=== PATIENT | male | born 1970 | race American Indian/Alaskan Native ===

== ENCOUNTER 2019-06-18 22:05 | Inpatient (IN) | payer MEDICARE ==
--- NOTE | 2019-06-18 22:31 | Event Note ---
ED Screening Note Date of service: 06/18/19 Time: 22:25 ED Screening Note: 48 y/o male comes in for chest pain since Thursday thinks his central vein is occluded. ESRD MWF. SOB This initial assessment/diagnostic orders/clinical plan/treatment(s) is/are subject to change based on patients health status, clinical progression and re- assessment by fellow clinical providers in the ED. Further treatment and workup at subsequent clinical providers discretion. Patient/guardian urged not to elope from the ED as their condition may be serious if not clinically assessed and managed. Initial orders include:
--- NOTE | 2019-06-18 22:57 | XRay Report ---
CHEST 1 VIEW 06/18/2019 10:39 PM INDICATION / CLINICAL INFORMATION: Chest Pain since last Thursday. COMPARISON: None available. FINDINGS: SUPPORT DEVICES: None. HEART / MEDIASTINUM: No significant abnormality. LUNGS / PLEURA: There is mild bibasilar atelectasis/scarring. No acute pulmonary abnormality is other coreas seen. No significant pleural effusion. No pneumothorax. ADDITIONAL FINDINGS: Bilateral subclavian vein stents are present. Stents are also seen along the rig ht brachiocephalic vein/SVC. IMPRESSION: 1. No acute findings. 2. Additional findings as above. Signer Name: Jamarcus Jansen MD Signed: 06/18/2019 10:53 PM Workstation Name: [id number]
[2019-06-18 23:46] LABS: Basophils % (Auto) 0.8 % (0.0-1.8); Eosinophils # (Auto) 0.3 K/mm3 (0.0-0.4); Eosinophils % (Auto) 7.2 % (0.0-4.3); Hematocrit 29.2 % (35.5-45.6); Hemoglobin 9.7 gm/dl (11.8-15.2); Lymphocytes # (Auto) 0.4 K/mm3 (1.2-5.4); Lymphocytes % (Auto) 10.5 % (13.4-35.0); Mean Corpuscular HGB Conc 33 % (32-34); Mean Corpuscular Volume 95 fl (84-94); Monocytes # (Auto) 0.2 K/mm3 (0.0-0.8); Monocytes % (Auto) 6.5 % (0.0-7.3); Red Blood Count 3.07 M/mm3 (3.65-5.03); Red Cell Distribution Width 16.9 % (13.2-15.2)
[2019-06-19] LABS: Platelet Count 80 K/mm3 (140-440)
--- NOTE | 2019-06-19 | Emergency Department Report ---
ED General Adult HPI - General Chief complaint: Chest Pain Stated complaint: CP/SOB/LEFT ARM SWOLLEN Time Seen by Provider: 06/18/19 22:38 Source: patient Mode of arrival: Ambulatory Limitations: Physical Limitation - History of Present Illness Initial comments: Patient presents to the emergency department with chief complaint of chest pain for the last 5 days. Patient states last Thursday began to have left-sided chest pain radiating to his left arm. She describes the pain as pressure-like and intermittent in nature. Patient also complains of mild shortness of breath. Patient is on dialysis and goes Wednesdays and Fridays with his last for now since being on Thursday. Patient has a history of having a subclavian stenosis with stents placed in 2017 at [facility] in [place]. -: Gradual Location: chest Radiation: extremity Severity scale (0 -10): 9 Quality: other (pressure-like) Consistency: intermittent Improves with: none Worsens with: none Associated Symptoms: denies other symptoms Treatments Prior to Arrival: none - Related Data Previous Rx's Medication Instructions Recorded Last Taken Type B Complex W-C No.20/Folic Acid 1 mg PO QAM #30 capsule 06/23/19 Unknown Rx [Nephrocaps Softgel] Calcitriol [Rocaltrol] 0.5 mcg PO QDAY #30 capsule 06/23/19 Unknown Rx Calcium Acetate [Phoslo] 667 mg PO TID #90 capsule 06/23/19 Unknown Rx Epoetin Ellis 10,000 Unit [Procrit] 10,000 unit IV RIP PRN vial 06/23/19 Unknown Rx Pantoprazole Sodium [Protonix] 40 mg PO QAM #30 06/23/19 Unknown Rx Warfarin [Coumadin] 15 mg PO QDAY #30 tablet 06/23/19 Unknown Rx oxyCODONE /ACETAMINOPHEN [Percocet 1 tab PO Q6H PRN #10 tablet 06/23/19 Unknown Rx 5/325 mg] Enoxaparin [Lovenox] 120 mg SQ DAILY #7 syringe 06/24/19 Unknown Rx Allergies Allergy/AdvReac Type Severity Reaction Status Date / Time No Known Allergies Allergy Verified 06/19/19 06:20 ED Review of Systems ROS: Stated complaint: CP/SOB/LEFT ARM SWOLLEN Other details as noted in HPI Comment: All other systems reviewed and negative Constitutional: denies: chills, fever Eyes: denies: eye pain, eye discharge, vision change ENT: denies: ear pain, throat pain Respiratory: denies: cough, shortness of breath, wheezing Cardiovascular: chest pain. denies: palpitations Endocrine: no symptoms reported Gastrointestinal: denies: abdominal pain, nausea, diarrhea Genitourinary: denies: urgency, dysuria Musculoskeletal: denies: back pain, joint swelling, arthralgia Skin: denies: rash, lesions Neurological: denies: headache, weakness, paresthesias Psychiatric: denies: anxiety, depression Hematological/Lymphatic: denies: easy bleeding, easy bruising ED Past Medical Hx - Past Medical History Previous Medical History?: Yes Hx Hypertension: Yes Hx CVA: No Hx Heart Attack/AMI: No Hx Congestive Heart Failure: No Hx Diabetes: No Hx Deep Vein Thrombosis: Yes Hx Pulmonary Embolism: Yes Hx GERD: No Hx Renal Disease: Yes (HD MWF) Hx Sickle Cell Disease: No Hx Seizures: Yes Hx Kidney Stones: No Hx COPD: No Hx Tuberculosis: No Hx Dementia: No Hx HIV: No Additional medical history: TRICUSPID REGURGITATION - Surgical History Past Surgical History?: Yes Hx Breast Surgery: Yes Additional Surgical History: SUBCLAVIAN CENTRAL VEIN STENT - Social History Smoking Status: Never Smoker Substance Use Type: None - Medications Home Medications: Home Medications Medication Instructions Recorded Confirmed Last Taken Type B Complex W-C No.20/Folic Acid 1 mg PO QAM #30 capsule 06/23/19 Unknown Rx [Nephrocaps Softgel] Calcitriol [Rocaltrol] 0.5 mcg PO QDAY #30 capsule 06/23/19 Unknown Rx Calcium Acetate [Phoslo] 667 mg PO TID #90 capsule 06/23/19 Unknown Rx Epoetin Ellis 10,000 Unit [Procrit] 10,000 unit IV RIP PRN vial 06/23/19 Unknown Rx Pantoprazole Sodium [Protonix] 40 mg PO QAM #30 06/23/19 Unknown Rx Warfarin [Coumadin] 15 mg PO QDAY #30 tablet 06/23/19 Unknown Rx oxyCODONE /ACETAMINOPHEN [Percocet 1 tab PO Q6H PRN #10 tablet 06/23/19 Unknown Rx 5/325 mg] Enoxaparin [Lovenox] 120 mg SQ DAILY #7 syringe 07/26/19 Unknown Rx ED Physical Exam - General Limitations: Physical Limitation General appearance: alert, in no apparent distress - Head Head exam: Present: atraumatic, normocephalic - Eye Eye exam: Present: normal appearance, PERRL - ENT ENT exam: Present: mucous membranes moist - Neck Neck exam: Present: normal inspection - Respiratory Respiratory exam: Present: normal lung sounds bilaterally. Absent: respiratory distress - Cardiovascular Cardiovascular Exam: Present: regular rate, normal rhythm. Absent: systolic murmur, diastolic murmur, rubs, gallop - GI/Abdominal GI/Abdominal exam: Present: soft, normal bowel sounds. Absent: distended, tenderness - Rectal Rectal exam: Present: deferred - Extremities Exam Extremities exam: Present: normal inspection - Back Exam Back exam: Present: normal inspection - Neurological Exam Neurological exam: Present: alert, oriented X3, CN II-XII intact. Absent: motor sensory deficit - Psychiatric Psychiatric exam: Present: normal affect, normal mood - Skin Skin exam: Present: warm, dry, intact, normal color. Absent: rash ED Course Vital Signs 06/18/19 06/18/19 06/18/19 22:20 22:25 23:15 Temperature 98.2 F 98.2 F Pulse Rate 101 H 97 H 90 Respiratory 18 18 12 Rate Blood Pressure 145/68 145/68 O2 Sat by Pulse 100 100 100 Oximetry 06/18/19 06/18/19 06/19/19 23:31 23:45 00:01 Temperature Pulse Rate 88 86 87 Respiratory 14 14 15 Rate Blood Pressure O2 Sat by Pulse 100 100 98 Oximetry 06/19/19 06/19/19 06/19/19 00:15 00:31 00:45 Temperature Pulse Rate 85 82 84 Respiratory 13 14 15 Rate Blood Pressure O2 Sat by Pulse 98 98 100 Oximetry 06/19/19 06/19/19 06/19/19 01:01 01:15 01:31 Temperature Pulse Rate 88 77 84 Respiratory 14 13 16 Rate Blood Pressure O2 Sat by Pulse 100 100 100 Oximetry 06/19/19 06/19/19 06/19/19 01:45 02:01 02:15 Temperature Pulse Rate 82 80 80 Respiratory 11 L 17 12 Rate Blood Pressure 136/74 O2 Sat by Pulse 100 100 100 Oximetry 06/19/19 06/19/19 06/19/19 02:31 03:01 03:31 Temperature Pulse Rate 80 80 78 Respiratory 13 13 12 Rate Blood Pressure 136/74 136/74 136/74 O2 Sat by Pulse 100 100 100 Oximetry 06/19/19 06/19/19 06/19/19 04:01 04:31 05:01 Temperature Pulse Rate 80 77 94 H Respiratory 13 12 9 L Rate Blood Pressure 136/74 128/79 128/79 O2 Sat by Pulse 100 100 100 Oximetry 06/19/19 06/19/19 06/19/19 05:31 06:01 06:31 Temperature Pulse Rate 80 74 78 Respiratory 15 11 L 13 Rate Blood Pressure 128/79 128/79 128/79 O2 Sat by Pulse 100 100 98 Oximetry 06/19/19 06/19/19 06/19/19 07:01 07:31 08:01 Temperature Pulse Rate 78 75 71 Respiratory 13 12 10 L Rate Blood Pressure 128/79 128/79 146/50 O2 Sat by Pulse 100 100 99 Oximetry 06/19/19 06/19/19 06/19/19 08:31 09:01 09:31 Temperature Pulse Rate 73 78 79 Respiratory 17 15 18 Rate Blood Pressure 134/52 142/59 142/60 O2 Sat by Pulse 100 100 88 Oximetry 06/19/19 06/19/19 09:41 09:51 Temperature Pulse Rate 76 Respiratory 11 L Rate Blood Pressure 142/60 142/60 O2 Sat by Pulse 100 79 L Oximetry ED Medical Decision Making - Lab Data Result diagrams: 06/26/19 04:59 06/26/19 04:59 Lab Results 06/18/19 06/18/19 06/18/19 Range/Units 22:57 22:57 22:57 WBC 3.6 L (4.5-11.0) K/mm3 RBC 3.07 L (3.65-5.03) M/mm3 Hgb 9.7 L (11.8-15.2) gm/dl Hct 29.2 L (35.5-45.6) % MCV 95 H (84-94) fl MCH 32 (28-32) pg MCHC 33 (32-34) % RDW 16.9 H (13.2-15.2) % Plt Count 80 L (140-440) K/mm3 Lymph % (Auto) 10.5 L (13.4-35.0) % Boyle % (Auto) 6.5 (0.0-7.3) % Eos % (Auto) 7.2 H (0.0-4.3) % Baso % (Auto) 0.8 (0.0-1.8) % Lymph # 0.4 L (1.2-5.4) K/mm3 Boyle # 0.2 (0.0-0.8) K/mm3 Eos # 0.3 (0.0-0.4) K/mm3 Baso # 0.0 (0.0-0.1) K/mm3 Seg Neutrophils % 75.0 H (40.0-70.0) % Seg Neutrophils # 2.7 (1.8-7.7) K/mm3 PT 26.6 H (12.2-14.9) Sec. INR 2.51 H (0.87-1.13) APTT 51.5 H (24.2-36.6) Sec. Sodium 136 L (137-145) mmol/L Potassium 5.2 H (3.6-5.0) mmol/L Chloride 94.4 L (98-107) mmol/L Carbon Dioxide 26 (22-30) mmol/L Anion Gap 21 mmol/L BUN 42 H (9-20) mg/dL Creatinine 11.5 H (0.8-1.5) mg/dL Estimated GFR 6 ml/min BUN/Creatinine Ratio 4 % Glucose 108 H (75-100) mg/dL Calcium 7.8 L (8.4-10.2) mg/dL Total Bilirubin 1.10 (0.1-1.2) mg/dL AST 12 (5-40) units/L ALT 8 (7-56) units/L Alkaline Phosphatase 244 H (35-129) units/L Total Creatine Kinase (55-170) units/L CK-MB (CK-2) (0.0-4.0) ng/mL CK-MB (CK-2) Rel Index (0-4) Troponin T 0.075 H (0.00-0.029) ng/mL NT-Pro-B Natriuret Pep (0-450) pg/mL Total Protein 7.6 (6.3-8.2) g/dL Albumin 4.1 (3.9-5) g/dL Albumin/Globulin Ratio 1.2 % Triglycerides 67 (2-149) mg/dL Cholesterol 119 (50-199) mg/dL LDL Cholesterol Direct 72 (50-130) mg/dL HDL Cholesterol 44 (40-59) mg/dL Cholesterol/HDL Ratio 2.70 % 06/19/19 06/19/19 Range/Units 00:00 07:30 WBC (4.5-11.0) K/mm3 RBC (3.65-5.03) M/mm3 Hgb (11.8-15.2) gm/dl Hct (35.5-45.6) % MCV (84-94) fl MCH (28-32) pg MCHC (32-34) % RDW (13.2-15.2) % Plt Count (140-440) K/mm3 Lymph % (Auto) (13.4-35.0) % Boyle % (Auto) (0.0-7.3) % Eos % (Auto) (0.0-4.3) % Baso % (Auto) (0.0-1.8) % Lymph # (1.2-5.4) K/mm3 Boyle # (0.0-0.8) K/mm3 Eos # (0.0-0.4) K/mm3 Baso # (0.0-0.1) K/mm3 Seg Neutrophils % (40.0-70.0) % Seg Neutrophils # (1.8-7.7) K/mm3 PT (12.2-14.9) Sec. INR (0.87-1.13) APTT (24.2-36.6) Sec. Sodium (137-145) mmol/L Potassium (3.6-5.0) mmol/L Chloride (98-107) mmol/L Carbon Dioxide (22-30) mmol/L Anion Gap mmol/L BUN (9-20) mg/dL Creatinine (0.8-1.5) mg/dL Estimated GFR ml/min BUN/Creatinine Ratio % Glucose (75-100) mg/dL Calcium (8.4-10.2) mg/dL Total Bilirubin (0.1-1.2) mg/dL AST (5-40) units/L ALT (7-56) units/L Alkaline Phosphatase (35-129) units/L Total Creatine Kinase 161 (55-170) units/L CK-MB (CK-2) 1.8 (0.0-4.0) ng/mL CK-MB (CK-2) Rel Index 1.1 (0-4) Troponin T 0.068 H (0.00-0.029) ng/mL NT-Pro-B Natriuret Pep 6269 H (0-450) pg/mL Total Protein (6.3-8.2) g/dL Albumin (3.9-5) g/dL Albumin/Globulin Ratio % Triglycerides (2-149) mg/dL Cholesterol (50-199) mg/dL LDL Cholesterol Direct (50-130) mg/dL HDL Cholesterol (40-59) mg/dL Cholesterol/HDL Ratio % - Radiology Data Radiology results: report reviewed Critical care attestation.: If time is entered above; I have spent that time in minutes in the direct care of this critically ill patient, excluding procedure time. ED Disposition Clinical Impression: Chest pain Disposition: OP ADMIT IP TO THIS HOSP Is pt being admited?: Yes Does the pt Need Aspirin: No Condition: Fair
[2019-06-19 00:02] LABS: INR 2.51 (0.87-1.13)
[2019-06-19 00:06] LABS: Albumin 4.1 g/dL (3.9-5); Calcium 7.8 mg/dL (8.4-10.2)
[2019-06-19 00:12] LABS: Partial Thromboplastin Time 51.5 Sec. (24.2-36.6)
[2019-06-19] MEDS ORDERED: NORCO 10/325 PO ONE (01:25)
[2019-06-19] MEDS ORDERED: ZOFRAN ODT PO ONE (01:25)
[2019-06-19 01:41] LABS: Chol/HDL Ratio 2.7 %
[2019-06-19] MEDS ORDERED: SODIUM CHLORIDE FLUSH SYRINGE 10 ML IV PRN (06:06)
--- NOTE | 2019-06-19 06:12 | History and Physical Report ---
History of Present Illness Date of examination: 06/19/19 History of present illness: 48 year old man with history of ESRD on dialysis, PE/DVT, subclavian stenosis comes to the ER with complaints of chest pain. Pain is in the left epigastric area, pressure ,constant, intensity 5/10, radiating to the left arm, cannot id entify exacerbating or relieving factors. Denies nausea, vomiting, diaphoresis or shortness of breath. His symptoms started last week Thursday after he had angioplasty on the right subsclavian stent. Also states that his left arm started to swell. he had angiopklasty done at [facility], and he had stenosis of both subclavian 2 weeks ago. Further states usually both subsclavian are fixed at the same time, if not he develops arm swellimg and chest pain. He called the doctor and he was told that the left subclavian did not need any intervention at this time Review of systems Constitutional: no weight loss, chills, fever Ears, eyes, nose, mouth and throat: no nasal congestion, no nasal discharge, no sinus pressure, no vision change, no red eye. Neck: No neck pain or rigidity. Cardiovascular: no palpitations, Respiratory: no cough Gastrointestinal: no hematochezia, abdominal pain Genitourinary : no frequency , no hematuria Musculoskeletal: no joint swelling or muscle ache Integumentary: no rash, no pruritis Neurological: no parathesias, no focal weakness Endocrine: no cold or heat intolerance, no polyuria or polydipsia Hematologic/Lymphatic: no easy bruising, no easy bleeding, no gland swelling Allergic/Immunologic: no urticaria, no angioedema. PAST MEDICAL HISTORY: ESRD on dialysis, PE/DVT PAST SURGICAL HISTORY:AVF, kidney transplant, nephrectomy SOCIAL HISTORY: no alcohol,drugs , tobacco FAMILY HISTORY: Hypertension Medications and Allergies Allergies Allergy/AdvReac Type Severity Reaction Status Date / Time No Known Allergies Allergy Verified 06/19/19 06:20 Home Medications Medication Instructions Recorded Confirmed Last Taken Type B Complex W-C No.20/Folic Acid 1 mg PO QAM #30 capsule 06/23/19 Unknown Rx [Nephrocaps Softgel] Calcitriol [Rocaltrol] 0.5 mcg PO QDAY #30 capsule 06/23/19 Unknown Rx Calcium Acetate [Phoslo] 667 mg PO TID #90 capsule 06/23/19 Unknown Rx Epoetin Ellis 10,000 Unit [Procrit] 10,000 unit IV RIP PRN vial 06/23/19 Unknown Rx Pantoprazole Sodium [Protonix] 40 mg PO QAM #30 granpkt. 06/23/19 Unknown Rx Warfarin [Coumadin] 15 mg PO QDAY #30 tablet 06/23/19 Unknown Rx oxyCODONE /ACETAMINOPHEN [Percocet 1 tab PO Q6H PRN #10 tablet 06/23/19 Unknown Rx 5/325 mg] Enoxaparin [Lovenox] 120 mg SQ DAILY #7 syringe 06/24/19 Unknown Rx Active Meds: Active Medications Acetaminophen (Tylenol) 650 mg PO Q4H PRN PRN Reason: Pain MILD(1-3)/Fever >100.5/BANDA Ondansetron HCl (Zofran) 4 mg IV Q8H PRN PRN Reason: Nausea And Vomiting Oxycodone/Acetaminophen (Percocet 5/325) 1 tab PO Q6H PRN PRN Reason: Pain, Moderate (4-6) Sodium Chloride (Sodium Chloride Flush Syringe 10 Ml) 10 ml IV BID DELMAR Sodium Chloride (Sodium Chloride Flush Syringe 10 Ml) 10 ml IV PRN PRN PRN Reason: LINE FLUSH Exam - Physical Exam Narrative exam: General Apperance: The patient lying in bed, breathing comfortable HEENT: Normocephalic, atraumatic. Pupils equally round and reactive to light, EOMI, no sclericterus or JVD or thyromegaly or nodule. , no carotid bruit, mucous membranes moist, no exudate or erythema Heart: S1-S2, regular is rhythm Lungs: Clear bilaterally, breathing comfortable Abdomen: Positive bowel sounds, soft, tender in the epigastric area, nondistended, no organomegaly Extremities: left arm is larger than right, 1+ LE edema, no cyanosis clubbing Skin: no rash, nodule, warm and dry Neuro: cranial nerves 2-12 intact, speech is fluent, motor/sensory intact - Constitutional Vitals: Temp Pulse Resp BP Pulse Ox 98.2 F 80 13 136/74 100 06/18/19 22:25 06/19/19 02:31 06/19/19 02:31 06/19/19 02:31 06/19/19 02:31 Results - Labs CBC & Chem 7: 06/21/19 05:28 06/23/19 10:36 Labs: Abnormal lab results 06/18/19 06/18/19 06/18/19 Range/Units 22:57 22:57 22:57 WBC 3.6 L (4.5-11.0) K/mm3 RBC 3.07 L (3.65-5.03) M/mm3 Hgb 9.7 L (11.8-15.2) gm/dl Hct 29.2 L (35.5-45.6) % MCV 95 H (84-94) fl RDW 16.9 H (13.2-15.2) % Plt Count 80 L (140-440) K/mm3 Lymph % (Auto) 10.5 L (13.4-35.0) % Eos % (Auto) 7.2 H (0.0-4.3) % Lymph # 0.4 L (1.2-5.4) K/mm3 Seg Neutrophils % 75.0 H (40.0-70.0) % PT 26.6 H (12.2-14.9) Sec. INR 2.51 H (0.87-1.13) APTT 51.5 H (24.2-36.6) Sec. Sodium 136 L (137-145) mmol/L Potassium 5.2 H (3.6-5.0) mmol/L Chloride 94.4 L (98-107) mmol/L BUN 42 H (9-20) mg/dL Creatinine 11.5 H (0.8-1.5) mg/dL Glucose 108 H (75-100) mg/dL Calcium 7.8 L (8.4-10.2) mg/dL Alkaline Phosphatase 244 H (35-129) units/L Troponin T 0.075 H (0.00-0.029) ng/mL NT-Pro-B Natriuret Pep (0-450) pg/mL 06/19/19 Range/Units 00:00 WBC (4.5-11.0) K/mm3 RBC (3.65-5.03) M/mm3 Hgb (11.8-15.2) gm/dl Hct (35.5-45.6) % MCV (84-94) fl RDW (13.2-15.2) % Plt Count (140-440) K/mm3 Lymph % (Auto) (13.4-35.0) % Eos % (Auto) (0.0-4.3) % Lymph # (1.2-5.4) K/mm3 Seg Neutrophils % (40.0-70.0) % PT (12.2-14.9) Sec. INR (0.87-1.13) APTT (24.2-36.6) Sec. Sodium (137-145) mmol/L Potassium (3.6-5.0) mmol/L Chloride (98-107) mmol/L BUN (9-20) mg/dL Creatinine (0.8-1.5) mg/dL Glucose (75-100) mg/dL Calcium (8.4-10.2) mg/dL Alkaline Phosphatase (35-129) units/L Troponin T (0.00-0.029) ng/mL NT-Pro-B Natriuret Pep 6269 H (0-450) pg/mL - Imaging and Cardiology EKG: image reviewed Chest x-ray: report reviewed Assessment and Plan Assessmeent Chest pain/subclavian stenosis Hyperkalemia ESRD on dialysis PE/DVT on coumadin Thrombocytopenia Plan Admit to medicne Consult vascular, Check cardiac enzymes Consult renal for dialysis Give kayexalte, follow potassium DVT prophalaxis
[2019-06-19] MEDS ORDERED: KIONEX PO ONE (06:42)
[2019-06-19 09:30] LABS: Creatine Kinase MB 1.8 ng/mL (0.0-4.0)
[2019-06-19] MEDS ORDERED: KIONEX ONE (09:48)
[2019-06-19] MEDS: SODIUM CHLORIDE FLUSH SYRINGE 10 ML IV SCH ×2 (11:59→22:23)
--- NOTE | 2019-06-19 12:56 | Event Note ---
Date: 06/19/19 Patient with central vein stenosis. I have seen and examined him.
[2019-06-19 12:57] LABS: Creatine Kinase MB 1.7 ng/mL (0.0-4.0)
[2019-06-19] MEDS ORDERED: NACL 0.9% 100 ML IV PRN (13:19)
--- NOTE | 2019-06-19 13:19 | Consultation ---
History of Present Illness - Reason for Consult Consult date: 06/19/19 end stage renal disease Requesting physician: LOURDES MANTILLA - History of Present Illness 48 year old man with history of ESRD on dialysis, PE/DVT, subclavian stenosis comes to the ER with complaints of chest pain. Pain is in the left epigastric area, pressure ,constant, intensity 5/10, radiating to the left arm, cannot identify exacerbating or relieving factors. Denies nausea, vomiting, diaphoresis or shortness of breath. His symptoms started last week Thursday after he had angioplasty on the right subsclavian stent. Also states that his left arm started to swell. he had angioplasty done at [facility], and he had stenosis of both subclavian 2 weeks ago. Further states usually both subsclavian are fixed at the same time, if not he develops arm swellimg and chest pain. He called the doctor and he was told that the left subclavian did not need any intervention at this time. Patient is under the care of Dr. Doss for his renal care. He undergoes dialysis on MWF schedule at a clinic in [place] . Patient states that he did have his last treatment on Thursday Past History Past Medical History: dialysis, hypertension Past Surgical History: Other (history of multiple AV access creation) Social history: no significant social history Family history: no significant family history Medications and Allergies Allergies Allergy/AdvReac Type Severity Reaction Status Date / Time No Known Allergies Allergy Verified 06/19/19 06:20 Home Medications Medication Instructions Recorded Confirmed Last Taken Type B Complex W-C No.20/Folic Acid 1 mg PO QAM 06/19/19 06/19/19 Unknown History [Nephrocaps Softgel] Calcitriol [Rocaltrol] 0.5 mcg PO QDAY 06/19/19 06/19/19 Unknown History Calcium Acetate [Phoslo] 667 mg PO TID 06/19/19 06/19/19 Unknown History Pantoprazole Sodium [Protonix] 40 mg PO QAM 06/19/19 06/19/19 Unknown History Warfarin [Coumadin] 15 mg PO QDAY 06/19/19 06/19/19 Unknown History Active Meds: Active Medications Acetaminophen (Tylenol) 650 mg PO Q4H PRN PRN Reason: Pain MILD(1-3)/Fever >100.5/BANDA Ondansetron HCl (Zofran) 4 mg IV Q8H PRN PRN Reason: Nausea And Vomiting Oxycodone/Acetaminophen (Percocet 5/325) 1 tab PO Q6H PRN PRN Reason: Pain, Moderate (4-6) Sodium Chloride (Sodium Chloride Flush Syringe 10 Ml) 10 ml IV BID DELMAR Last Admin: 06/19/19 11:59 Dose: Not Given Documented by: Sodium Chloride (Sodium Chloride Flush Syringe 10 Ml) 10 ml IV PRN PRN PRN Reason: LINE FLUSH Review of Systems All systems: negative (negative except as noted above) Exam - Vital Signs Vital signs: Vital Signs Temp Pulse Resp BP Pulse Ox 98.2 F 101 H 18 145/68 100 06/18/19 22:20 06/18/19 22:20 06/18/19 22:20 06/18/19 22:20 06/18/19 22:20 - General Appearance General appearance: well-developed, well-nourished, appears stated age EENT: PERRL, mucous membranes moist Neck: Present: neck supple, trachea midline. Absent: JVD/HJR, Masses Respiratory: Clear to Ascultation Heart: regular, normal heart rate, S1S2, no murmurs Gastrointestinal: Present: normal, normoactive bowel sounds Integumentary: no rash, other (1+ edema. AV graft in his right upper arm. Good bruit and thrill.) Results - Lab Results 06/18/19 22:57 06/18/19 22:57 Most recent lab results Calcium 7.8 mg/dL (8.4-10.2) L 06/18/19 22:57 Assessment and Plan Impression * End-stage renal disease on maintenance hemodialysis * Chest pain * Hypertension * Mild hyperkalemia * History of DVT * Left upper extremity swelling. Most likely secondary to central stenosis Recommendations * No urgent indication for dialysis today. * Schedule patient for dialysis for tomorrow and keep him on MWF scheduled as outpatient * Patient undergoes dialysis at a clinic in [place] on MWF schedule * Binders with meals * Epogen with dialysis * Adjust diet admits for ESRD state * No IV, BP of any puncturing his access arm * Agree with vascular surgery evaluation * Thank you very much for the consultation. Shall follow along with you
--- NOTE | 2019-06-19 17:36 | Consultation ---
History of Present Illness - Reason for Consult Consult date: 06/19/19 LUE swelling and left chest pain - History of Present Illness 48 year old man with history of ESRD on dialysis, PE/DVT, subclavian stenosis comes to the ER with complaints of chestl pain. Pain is in the left epigastric area, pressure ,constant, intensity 5/10, radiating to the left arm, cannot identify exacerbating or relieving factors. Denies nausea, vomiting, diaphoresis or shortness of breath. His symptoms started last week Thursday after he had angioplasty on the right subsclavian stent. Also states that his left arm started to swell. he had angioplasty done at [facility], and he had stenosis of thr right subclavian 2 weeks ago. Further states usually if both subsclavian are not fixed at the same time, if not he develops arm swellimg and chest pain. He called the doctor and he was told that the left subclavian did not need any intervention at this time The patient reports that he has had 2 left femoral grafts, for right femoral grafts, numerous left upper extremity and right upper extremity AV access plac ements, and is currently dependent on a right upper extremity AV graft with central stents in the left and right central veins. He has not required angioplasty of his central veins in over a year, but previously had these treated every 3 months. He reported that if his left and right central veins are not opened, then he has symptoms of the side that is not opened. Previously, his right sided central veins were treated through his right-sided AV graft in his left sided central veins were treated to his left brachial or axillary vein. Chest x-ray shows that his left internal jugular vein is likely jailed from central stents as is his right internal jugular vein. His access options are quite limited. I'm going to obtain a noncontrast CT to assess his central vein stents, and a right lower extremity venous ultrasound and left upper extremity venous ultrasound to assess ways to treat his central veins. Review of systems Constitutional: no weight loss, chills, fever Ears, eyes, nose, mouth and throat: no nasal congestion, no nasal discharge, no sinus pressure, no vision change, no red eye. Neck: No neck pain or rigidity. Cardiovascular: no palpitations, Respiratory: no cough Gastrointestinal: no hematochezia, abdominal pain Genitourinary : no frequency , no hematuria Musculoskeletal: no joint swelling or muscle ache Integumentary: no rash, no pruritis Neurological: no parathesias, no focal weakness Endocrine: no cold or heat intolerance, no polyuria or polydipsia Hematologic/Lymphatic: no easy bruising, no easy bleeding, no gland swelling Allergic/Immunologic: no urticaria, no angioedema. PAST MEDICAL HISTORY: ESRD on dialysis, PE/DVT PAST SURGICAL HISTORY:AVF, kidney transplant, nephrectomy SOCIAL HISTORY: no alcohol,drugs , tobacco FAMILY HISTORY: Hypertension Past History Past Medical History: dialysis, hypertension Past Surgical History: Other (history of multiple AV access creation) Social history: no significant social history Family history: no significant family history Medications and Allergies Allergies Allergy/AdvReac Type Severity Reaction Status Date / Time No Known Allergies Allergy Verified 06/19/19 06:20 Home Medications Medication Instructions Recorded Confirmed Last Taken Type B Complex W-C No.20/Folic Acid 1 mg PO QAM 06/19/19 06/19/19 Unknown History [Nephrocaps Softgel] Calcitriol [Rocaltrol] 0.5 mcg PO QDAY 06/19/19 06/19/19 Unknown History Calcium Acetate [Phoslo] 667 mg PO TID 06/19/19 06/19/19 Unknown History Pantoprazole Sodium [Protonix] 40 mg PO QAM 06/19/19 06/19/19 Unknown History Warfarin [Coumadin] 15 mg PO QDAY 06/19/19 06/19/19 Unknown History Active Meds: Active Medications Acetaminophen (Tylenol) 650 mg PO Q4H PRN PRN Reason: Pain MILD(1-3)/Fever >100.5/BANDA Epoetin Ellis (Procrit) 10,000 unit IV RIP PRN PRN Reason: hemodialysis Sodium Chloride (Nacl 0.9%) 100 mls @ 999 mls/hr IV RIP PRN PRN Reason: Hypotension Ondansetron HCl (Zofran) 4 mg IV Q8H PRN PRN Reason: Nausea And Vomiting Oxycodone/Acetaminophen (Percocet 5/325) 1 tab PO Q6H PRN PRN Reason: Pain, Moderate (4-6) Sodium Chloride (Sodium Chloride Flush Syringe 10 Ml) 10 ml IV BID DELMAR Last Admin: 06/19/19 11:59 Dose: Not Given Documented by: Sodium Chloride (Sodium Chloride Flush Syringe 10 Ml) 10 ml IV PRN PRN PRN Reason: LINE FLUSH Review of Systems All systems: negative (see HPI) Exam - Constitutional Vitals: Temp Pulse Resp BP Pulse Ox 98.2 F 78 15 142/59 100 06/18/19 22:25 06/19/19 10:32 06/19/19 09:01 06/19/19 09:01 06/19/19 09:01 General appearance: Present: no acute distress - EENT Eyes: Present: EOM intact ENT: hearing intact - Respiratory Respiratory effort: normal - Extremities Extremities: no ischemia, normal temperature, normal color, abnormal (nonpalpable pedal and nonpalpable radial and ulnar pulses.) Extremity abnormal: edema (bilateral upper extremities with central superficial veins noted) - Psychiatric Psychiatric: appropriate mood/affect, cooperative - Neurologic Neurologic: moves all extremities Results - Labs CBC & Chem 7: 06/18/19 22:57 06/18/19 22:57 Labs: Abnormal lab results 06/18/19 06/18/19 06/18/19 Range/Units 22:57 22:57 22:57 WBC 3.6 L (4.5-11.0) K/mm3 RBC 3.07 L (3.65-5.03) M/mm3 Hgb 9.7 L (11.8-15.2) gm/dl Hct 29.2 L (35.5-45.6) % MCV 95 H (84-94) fl RDW 16.9 H (13.2-15.2) % Plt Count 80 L (140-440) K/mm3 Lymph % (Auto) 10.5 L (13.4-35.0) % Eos % (Auto) 7.2 H (0.0-4.3) % Lymph # 0.4 L (1.2-5.4) K/mm3 Seg Neutrophils % 75.0 H (40.0-70.0) % PT 26.6 H (12.2-14.9) Sec. INR 2.51 H (0.87-1.13) APTT 51.5 H (24.2-36.6) Sec. Sodium 136 L (137-145) mmol/L Potassium 5.2 H (3.6-5.0) mmol/L Chloride 94.4 L (98-107) mmol/L BUN 42 H (9-20) mg/dL Creatinine 11.5 H (0.8-1.5) mg/dL Glucose 108 H (75-100) mg/dL Calcium 7.8 L (8.4-10.2) mg/dL Alkaline Phosphatase 244 H (35-129) units/L Troponin T 0.075 H (0.00-0.029) ng/mL NT-Pro-B Natriuret Pep (0-450) pg/mL 06/19/19 06/19/19 06/19/19 Range/Units 00:00 07:30 12:26 WBC (4.5-11.0) K/mm3 RBC (3.65-5.03) M/mm3 Hgb (11.8-15.2) gm/dl Hct (35.5-45.6) % MCV (84-94) fl RDW (13.2-15.2) % Plt Count (140-440) K/mm3 Lymph % (Auto) (13.4-35.0) % Eos % (Auto) (0.0-4.3) % Lymph # (1.2-5.4) K/mm3 Seg Neutrophils % (40.0-70.0) % PT (12.2-14.9) Sec. INR (0.87-1.13) APTT (24.2-36.6) Sec. Sodium (137-145) mmol/L Potassium (3.6-5.0) mmol/L Chloride (98-107) mmol/L BUN (9-20) mg/dL Creatinine (0.8-1.5) mg/dL Glucose (75-100) mg/dL Calcium (8.4-10.2) mg/dL Alkaline Phosphatase (35-129) units/L Troponin T 0.068 H 0.059 H (0.00-0.029) ng/mL NT-Pro-B Natriuret Pep 6269 H (0-450) pg/mL Assessment and Plan 48-year-old male with end-stage renal disease and bilateral upper extremity swelling, left side worse than right, and status post fistulogram/angioplasty from a provider he recently just met who has an extensive history of numerous surgical dialysis access and fistula maintenance procedures. Patient has central vein stents involving the left and right central veins. He recently had a procedure done to open the right central veins. He reports that if his left central veins are not opened at a similar time he develops left- sided arm and chest pressure which is happened in the past. This is most recently happened over a year ago, but prior to this was done every 3 months. He has limited access options and likely no real vascular catheter options, except for transhepatic PermCath placement. I'm going to obtain a CT of the chest without contrast to assess stent placement, and obtain right lower extremity and left upper extremity ultrasounds to assess access for the left central veins. Nothing by mouth after midnight. Plan for central vein endovascular revascularization tomorrow.
[2019-06-19] MEDS: PERCOCET 5/325 PO PRN (20:03)
[2019-06-19] MEDS: ZOFRAN IV PRN (20:03)
--- NOTE | 2019-06-19 20:34 | Vascular Lab Report ---
DUPLEX DOPPLER UPPER EXTREMITY VENOUS, LEFT INDICATION / CLINICAL INFORMATION: history of chronic DVT, assess patency. TECHNIQUE: Duplex doppler imaging was performed through the veins of the left upper extremity using venous compr ession and other maneuvers. COMPARISON: None available. FINDINGS -- LEFT UPPER EXTREMITY VEINS: INTERNAL JUGULAR: There is nonocclusive DVT within the left internal jugular vein. Minimal flow is pr esent within the left internal jugular vein. SUBCLAVIAN: Negative. No evidence for DVT within the subclavian vein. The adjacent subclavian artery is patent with visible stent. AXILLARY: Negative. BRACHIAL: Negative. FOREARM: Negative. BASILIC (superficial): Negative. ADDITIONAL FINDINGS: None. IMPRESSION: 1. Nonocclusive DVT within the left internal jugular vein. Partial flow is present within the left in ternal jugular vein. 2. No additional sites of DVT within the left upper extremity. Signer Name: Susan Dobbs MD Signed: 06/19/2019 8:29 PM Workstation Name: [id number]
--- NOTE | 2019-06-19 20:55 | Vascular Lab Report ---
DUPLEX DOPPLER LOWER EXTREMITY VEINS, RIGHT INDICATION / CLINICAL INFORMATION: assess patency of right CFV, history of graft. TECHNIQUE: Duplex doppler imaging was performed through the veins of the right lower extremity using venous comp ression and other maneuvers. COMPARISON: None available. FINDINGS: COMMON FEMORAL VEIN: Negative. FEMORAL VEIN: Negative. POPLITEAL VEIN: Negative. CALF VEINS: Negative. ADDITIONAL FINDINGS: None. IMPRESSION: 1. No sonographic evidence for DVT in the right lower extremity. Signer Name: Susan Dobbs MD Signed: 06/19/2019 8:50 PM Workstation Name: [id number]
--- NOTE | 2019-06-19 21:11 | Cat Scan Report ---
CT chest wo con INDICATION / CLINICAL INFORMATION: B UE swelling with stents, assess stent placement. End-stage renal disease TECHNIQUE: Axial CT imaging of the chest was obtained without IV contrast. Coronal and sagittal reformatted imag ing obtained and reviewed. All CT scans at this location are performed using CT dose reduction for [place] by means of automated exposure control. COMPARISON: Chest radiograph, 06/18/2019. FINDINGS: Bilateral subclavian venous stents are present. Both stents terminate in the superior portion of the superior vena cava. Mild soft tissue edema is seen in both axilla surrounding the axillary veins. The re is calcification within both internal jugular veins most likely representing chronic DVTs. No mediastinal mass noted. Cardiac silhouette size is borderline enlarged. No pericardial effusion. Both lungs are clear. Trace bilateral pleural effusions are present. Thyroid gland is mildly enlarged and nodular consistent with mild goiter. Imaging of the upper abdomen shows numerous small cysts throughout the kidneys consistent with end-st age renal disease/polycystic kidney disease. There are numerous venous collaterals throughout the sub cutaneous tissues of the back. Mild anasarca is seen in the subcutaneous tissues of the lower thorax. Review of skeletal structures reveals diffuse blastic bones consistent with renal osteodystrophy. IMPRESSION: 1. Bilateral subclavian venous stents are present. I cannot access patency as no IV contrast is prese nt. Both stents terminate in the SVC 2. Trace bilateral pleural effusions. 3. Mild anasarca. 4. Calcified cords within both internal jugular veins most likely representing chronic DVT. Signer Name: Susan Dobbs MD Signed: 06/19/2019 9:07 PM Workstation Name: [id number]
[2019-06-20 06:30] LABS: Basophils % (Auto) 0.7 % (0.0-1.8); Eosinophils # (Auto) 0.2 K/mm3 (0.0-0.4); Eosinophils % (Auto) 8.1 % (0.0-4.3); Hematocrit 26.7 % (35.5-45.6); Hemoglobin 8.9 gm/dl (11.8-15.2); Lymphocytes # (Auto) 0.5 K/mm3 (1.2-5.4); Lymphocytes % (Auto) 18.2 % (13.4-35.0); Mean Corpuscular HGB Conc 33 % (32-34); Mean Corpuscular Volume 95 fl (84-94); Monocytes # (Auto) 0.3 K/mm3 (0.0-0.8); Monocytes % (Auto) 11.2 % (0.0-7.3); Red Blood Count 2.81 M/mm3 (3.65-5.03); Red Cell Distribution Width 16.9 % (13.2-15.2)
[2019-06-20 06:31] LABS: Platelet Count 81 K/mm3 (140-440)
[2019-06-20 06:42] LABS: INR 2.82 (0.87-1.13)
[2019-06-20 06:55] LABS: Calcium 6.5 mg/dL (8.4-10.2)
[2019-06-20] MEDS: SODIUM CHLORIDE FLUSH SYRINGE 10 ML IV SCH ×2 (11:00→22:31)
--- NOTE | 2019-06-20 15:38 | Event Note ---
Date: 06/20/19 Multiple coronary emergencies in the clinical lab clerk prevented bringing the patient down in a timely fashion. Diet restored. NPO after MN except meds.
[2019-06-20] MEDS: PERCOCET 5/325 PO PRN (16:17)
[2019-06-20] MEDS: PROCRIT IV PRN (16:30)
[2019-06-20 17:08] LABS: Hepatitis B Surface Antigen Non-Reactive (Negative); Hepatitis C Virus Antibody Non-Reactive (NonReactive)
--- NOTE | 2019-06-20 17:44 | Progress Note ---
Assessment and Plan - Patient Problems (1) End stage renal disease Current Visit: Yes Status: Acute Plan to address problem: End-stage renal disease Access right arm AV fistula Continue dialysis Thursday additional ultrafiltration tomorrow (2) Chest pain Current Visit: Yes Status: Acute Plan to address problem: Chest pain Status post evaluation reports chest pain is improved (3) Volume overload Current Visit: Yes Status: Acute Plan to address problem: Volume overload Continue hemodialysis Thursday additional ultrafiltration in the a.m. (4) Anemia Current Visit: Yes Status: Acute Plan to address problem: Moderate anemia hemoglobin 8.9 g per DL Monitor CBC Subjective Interval history: 48-year-old gentleman with medical history significant for tricuspid regurgitation end-stage renal disease on hemodialysis admitted with complaints of chest pain Patient seen today reports chest pain is improved complains of lower extremity edema Denies any Orthopnea PND Objective - Vital Signs Vital signs: Vital Signs - 12hr 06/20/19 06/20/19 06/20/19 07:38 09:30 09:45 Temperature 97.7 F 97.7 F Pulse Rate 82 81 82 Respiratory 18 18 Rate Blood Pressure 147/36 131/22 147/54 O2 Sat by Pulse 96 Oximetry 06/20/19 06/20/19 10:00 10:15 Temperature Pulse Rate 93 H 85 Respiratory Rate Blood Pressure 136/44 135/37 O2 Sat by Pulse Oximetry - General Appearance General appearance: well-developed, well-nourished EENT: ATNC, PERRL, mucous membranes moist Neck: no JVD Respiratory: Present: Clear to Ascultation Cardiology: regular, S1S2 Gastrointestinal: normal, normoactive bowel sounds Integumentary: no rash Neurologic: alert and oriented x3, CN 3-12 intact Psychiatric: mood/affect appropriate - Lab 06/20/19 05:51 06/20/19 05:51 Most recent lab results Calcium 6.5 mg/dL (8.4-10.2) L D 06/20/19 05:51 - Imaging Chest x-ray: image reviewed (I reviewed CXR with ) Medications & Allergies - Medications Allergies/Adverse Reactions: Allergies No Known Allergies Allergy (Verified 06/19/19 06:20) Home Medications: Home Medications Medication Instructions Recorded Confirmed Last Taken Type B Complex W-C No.20/Folic Acid 1 mg PO QAM 06/19/19 06/19/19 Unknown History [Nephrocaps Softgel] Calcitriol [Rocaltrol] 0.5 mcg PO QDAY 06/19/19 06/19/19 Unknown History Calcium Acetate [Phoslo] 667 mg PO TID 06/19/19 06/19/19 Unknown History Pantoprazole Sodium [Protonix] 40 mg PO QAM 06/19/19 06/19/19 Unknown History Warfarin [Coumadin] 15 mg PO QDAY 06/19/19 06/19/19 Unknown History Active Medications: Generic Name Dose Route Start Last Admin Trade Name Freq PRN Reason Stop Dose Admin Acetaminophen 650 mg 06/19/19 06:06 Tylenol PO Q4H PRN Pain MILD(1-3)/Fever >100.5/BANDA Epoetin Ellis 10,000 unit 06/19/19 13:19 06/20/19 16:30 Procrit IV 10,000 unit RIP PRN Administration hemodialysis Sodium Chloride 100 mls @ 999 mls/hr 06/19/19 13:19 Nacl 0.9% IV RIP PRN Hypotension Ondansetron HCl 4 mg 06/19/19 06:06 06/19/19 20:03 Zofran IV 4 mg Q8H PRN Administration Nausea And Vomiting Oxycodone/Acetaminophen 1 tab 06/19/19 06:06 06/20/19 16:17 Percocet 5/325 PO 1 tab Q6H PRN Administration Pain, Moderate (4-6) Sodium Chloride 10 ml 06/19/19 10:00 06/20/19 11:00 Sodium Chloride Flush Syringe 10 Ml IV 10 ml BID DELMAR Administration Sodium Chloride 10 ml 06/19/19 06:06 Sodium Chloride Flush Syringe 10 Ml IV PRN PRN LINE FLUSH
--- NOTE | 2019-06-20 19:07 | Progress Note ---
Assessment and Plan Assessment and plan: Chest pain/subclavian stenosis Hyperkalemia ESRD on dialysis History of PE and DVT on coumadin Thrombocytopenia Plan Admitted to Telemetry Consulted vasc surgeon, patient evaluated by Dr. Altman he ordered CT Chest For Vasc procedure tomorrow Nephrology following for ESRD Give kayexalte, follow potassium Consult Cardiology for chest pain,elevated Troponin DVT prophalaxis History Interval history: Left upper ext swelling Hospitalist Physical - Physical exam Narrative exam: Gen: Not in acute distress, morbidly obese HEENT: Normocephalic, atraumatic Neck: supple, no JVD Heart: S1 and S2 reg, no murmurs, rubs or gallop Lungs: Clear to auscultation, no wheeze Abd: soft, non tender, non distended, normal BS, Ext: Left upper ext edema, no cyanosis Neuro: Awake,alert, Oriented X 3. No focal neuro signs Psych: normal mood - Constitutional Vitals: Temp Pulse Resp BP Pulse Ox 97.8 F 86 18 135/86 94 06/20/19 14:00 06/20/19 14:00 06/20/19 14:00 06/20/19 14:00 06/20/19 18:03 General appearance: Present: no acute distress Results - Labs CBC & Chem 7: 06/20/19 05:51 06/20/19 05:51 Labs: Laboratory Last Values WBC 2.9 K/mm3 (4.5-11.0) L 06/20/19 05:51 RBC 2.81 M/mm3 (3.65-5.03) L 06/20/19 05:51 Hgb 8.9 gm/dl (11.8-15.2) L 06/20/19 05:51 Hct 26.7 % (35.5-45.6) L 06/20/19 05:51 MCV 95 fl (84-94) H 06/20/19 05:51 MCH 32 pg (28-32) 06/20/19 05:51 MCHC 33 % (32-34) 06/20/19 05:51 RDW 16.9 % (13.2-15.2) H 06/20/19 05:51 Plt Count 81 K/mm3 (140-440) L 06/20/19 05:51 Lymph % (Auto) 18.2 % (13.4-35.0) 06/20/19 05:51 Mcintosh % (Auto) 11.2 % (0.0-7.3) H 06/20/19 05:51 Eos % (Auto) 8.1 % (0.0-4.3) H 06/20/19 05:51 Baso % (Auto) 0.7 % (0.0-1.8) 06/20/19 05:51 Lymph # 0.5 K/mm3 (1.2-5.4) L 06/20/19 05:51 Mcintosh # 0.3 K/mm3 (0.0-0.8) 06/20/19 05:51 Eos # 0.2 K/mm3 (0.0-0.4) 06/20/19 05:51 Baso # 0.0 K/mm3 (0.0-0.1) 06/20/19 05:51 Seg Neutrophils % 61.8 % (40.0-70.0) 06/20/19 05:51 Seg Neutrophils # 1.8 K/mm3 (1.8-7.7) 06/20/19 05:51 PT 29.2 Sec. (12.2-14.9) H 06/20/19 05:51 INR 2.82 (0.87-1.13) H 06/20/19 05:51 APTT 65.0 Sec. (24.2-36.6) H* 06/20/19 05:51 Sodium 140 mmol/L (137-145) 06/20/19 05:51 Potassium 5.1 mmol/L (3.6-5.0) H 06/20/19 05:51 Chloride 95.5 mmol/L (98-107) L 06/20/19 05:51 Carbon Dioxide 24 mmol/L (22-30) 06/20/19 05:51 26 mmol/L 06/20/19 05:51 BUN 48 mg/dL (9-20) H 06/20/19 05:51 13.0 mg/dL (0.8-1.5) H 06/20/19 05:51 Estimated GFR 5 ml/min 06/20/19 05:51 4 % 06/20/19 05:51 Glucose 75 mg/dL (75-100) 06/20/19 05:51 Calcium 6.5 mg/dL (8.4-10.2) L D 06/20/19 05:51 1.10 mg/dL (0.1-1.2) 06/18/19 22:57 AST 12 units/L (5-40) 06/18/19 22:57 ALT 8 units/L (7-56) 06/18/19 22:57 244 units/L (35-129) H 06/18/19 22:57 160 units/L (55-170) 06/19/19 12:26 CK-MB (CK-2) 1.7 ng/mL (0.0-4.0) 06/19/19 12:26 CK-MB (CK-2) Rel Index 1.0 (0-4) 06/19/19 12:26 0.059 ng/mL (0.00-0.029) H 06/19/19 12:26 NT-Pro-B Natriuret Pep 6269 pg/mL (0-450) H 06/19/19 00:00 7.6 g/dL (6.3-8.2) 06/18/19 22:57 4.1 g/dL (3.9-5) 06/18/19 22:57 1.2 % 06/18/19 22:57 Triglycerides 67 mg/dL (2-149) 06/18/19 22:57 Cholesterol 119 mg/dL (50-199) 06/18/19 22:57 72 mg/dL (50-130) 06/18/19 22:57 44 mg/dL (40-59) 06/18/19 22:57 2.70 % 06/18/19 22:57 Hepatitis A IgM Ab Non-reactive (NonReactive) 06/20/19 15:56 Hep Bs Antigen Non-reactive (Negative) 06/20/19 15:56 Hep B Core IgM Ab Non-reactive (NonReactive) 06/20/19 15:56 Non-reactive (NonReactive) 06/20/19 15:56 Active Medications - Current Medications Current Medications: Generic Name Dose Route Start Last Admin Trade Name Freq PRN Reason Stop Dose Admin Acetaminophen 650 mg 06/19/19 06:06 Tylenol PO Q4H PRN Pain MILD(1-3)/Fever >100.5/BANDA Epoetin Ellis 10,000 unit 06/19/19 13:19 06/20/19 16:30 Procrit IV 10,000 unit RIP PRN Administration hemodialysis Sodium Chloride 100 mls @ 999 mls/hr 06/19/19 13:19 Nacl 0.9% IV RIP PRN Hypotension Ondansetron HCl 4 mg 06/19/19 06:06 06/19/19 20:03 Zofran IV 4 mg Q8H PRN Administration Nausea And Vomiting Oxycodone/Acetaminophen 1 tab 06/19/19 06:06 06/20/19 16:17 Percocet 5/325 PO 1 tab Q6H PRN Administration Pain, Moderate (4-6) Sodium Chloride 10 ml 06/19/19 10:00 06/20/19 11:00 Sodium Chloride Flush Syringe 10 Ml IV 10 ml BID DELMAR Administration Sodium Chloride 10 ml 06/19/19 06:06 Sodium Chloride Flush Syringe 10 Ml IV PRN PRN LINE FLUSH
[2019-06-21 06:34] LABS: Hematocrit 25.8 % (35.5-45.6); Hemoglobin 8.6 gm/dl (11.8-15.2); Mean Corpuscular HGB Conc 33 % (32-34); Mean Corpuscular Volume 95 fl (84-94); Red Blood Count 2.71 M/mm3 (3.65-5.03)
[2019-06-21 06:39] LABS: Platelet Count 88 K/mm3 (140-440)
[2019-06-21 06:52] LABS: Calcium 6.7 mg/dL (8.4-10.2)
[2019-06-21] MEDS ORDERED: HEPARIN/NS 5000 UNIT/500ML(CATH LAB) 1,000 ML IR ONE (10:23)
[2019-06-21] MEDS ORDERED: NACL 0.9% 500 ML 500 ML ONE (10:24)
[2019-06-21] MEDS ORDERED: ANCEF/STERILE WATER 2 GM/20 ML 0 GM/0 ML SYRINGE IV ONE (10:24)
[2019-06-21] MEDS: VERSED ONE ×5 (10:41→12:06)
[2019-06-21] MEDS: SUBLIMAZE ONE ×5 (10:41→12:06)
[2019-06-21] MEDS: XYLOCAINE 2% INFILTRATI ONE ×3 (10:41→11:52)
[2019-06-21] MEDS: HEPARIN 10,000 UNITS/10 ML ONE ×2 (10:55→11:53)
--- NOTE | 2019-06-21 13:03 | Operative Report ---
Operative Report Operative Report: Date of Procedure: 06/21/2019 Pre-operative Diagnosis: Complications of Dialysis Access Post-operative Diagnosis: Same Procedure(s): 1. Ultrasound-Guided Access Right Common Femoral Vein 2. Ultrasound-Guided Access Right Arm AV Graft 3. Ultrasound-Guided Access Left Axillary Vein 4. Fistulogram with Central Venogram 5. Inferior Venacavogram 6. Left Upper Extremity Venogram 7. Angioplasty of Right Arm AV Graft with 8 x 40 [place] Balloon 8. Angioplasty of Right Subclavian Vein with a 10 x 40 Conquest Balloon 9. Angioplasty of Right Innominate Vein with 10 x 40 Conquest Balloon 10. Angioplasty of Superior Vena Cava with Kissing 10 x 40 Conquest Balloons 11. Angioplasty of Left Subclavian Vein with 10 x 40 Conquest Balloon 12. Angioplasty of Left Innominate Vein with 10 x 40 Conquest Balloon 13. Radiologic Supervision with Interpretation Surgeon: Chance Brannon M.D. Specialty Manufacturing Supervisor: None Anesthesia: Local and IV Sedation EBL: Minimal Counts: Correct Complications: None Condition: Stable Findings: Right arm AV graft was patent however there was a stent at the venous anastomos is with approximately 60% stenosis. There were stents extending from the right subclavian vein through the innominate and double barrel and into the superior vena cava with approximately 50% stenosis. The left upper sternal venogram demonstrated the axillary vein was patent however there were stents extending from the subclavian vein through the innominate vein and double barrel and into the superior vena cava that were occluded. The infrarenal segment of the inferior vena cava occluded just distal to the renal veins and collateralized to the liver. The suprarenal segment of the inferior vena cava was patent. After intervention the arteriovenous graft including the axillary stent was patent with less than 10% residual stenosis. The right subclavian, right innominate vein, and stent extended into the SVC were patent with less than 15% residual stenosis. The left subclavian, left innominate vein, and a stent extending into the SVC were patent with less than 20% residual stenosis. Specimen: None Indication: The patient is a 48-year-old male with a history of end-stage renal disease and multiple dialysis access and bilateral upper extremities. He has also had a previous dialysis catheters and bilateral lower extremities. He presents with complaints of chest pain and tightness. He states that he had a history of stents and his central venous system with the stents extending into his SVC and that the stents on the right had been treated at an outside hospital however they failed to attempt revascularization of the stents on the left which he believes was causing his complaints of left-sided chest tightness. We were asked to evaluate the patient as well as the stents and provide possible intervention. He was given the risks, benefits, and alternative procedures and consented to the procedure. Description of Procedure: The patient was brought to the medical laboratory specialist and laid in supine position. After he was adequate sedated his right arm and groin were prepped and draped in normal sterile fashion. Ultrasound was used to identify the right arm AV graft and confirm patency. Once pains he was confirmed overlying skin and soft tissue was anesthetized with lidocaine. Micropuncture technique was used to access the graft towards the venous outflow and a 7 [place] sheath was placed by Seldinger technique. A fistulogram with central venogram was performed demonstrating this stenosis in the axillary vein stent, likely at the venous anastomosis, approximately 60%. He had the procedure described stents extending from the subclavian vein down through the innominate vein into the SVC with approximately 50% stenosis. I advanced a [employer] wire through the areas of stenosis and down into the IVC. I then used ultrasound to identify the right common femoral vein and confirm patency. Once patency was confirmed anesthetized so overlying skin and soft tissue and then used micropuncture technique to access the vein and antegrade fashion. A 6 [place] sheath was in place by Seldinger technique. I advanced a Navicross Catheter and 0.035 Advantage Wire through the IVC. I performed a venogram confirming what appeared to be a patent IVC and advanced a wire and catheter up into the proximal IVC. I made attempts to enter the right atrium and then the SVC without success. I then attempted to advance my right arm wire down into the distal IVC without success. I even attempt to snare the wire from above and below but after multiple attempts and adjusting the C-arm in multiple projections it appeared that the catheter from the right arm and the wire from the right groin were not in the same plane. As I began to inject from the catheter below I then noted that the distal inferior vena cava was actually occluded just distal to the renal veins and was collateralizing through the liver. The proximal IVC was patent to the level of the renal veins. I aborted attempts to cross the occlusion and decided to access the left arm. The patient's left arm was then prepped and draped in normal sterile fashion. I used ultrasound to identify the left axillary vein and confirm patency. Once patency was confirmed anesthetized overlying skin and soft tissue lidocaine and used micropuncture technique to access the vein and antegrade fashion. A 7 [place] sheath was then placed by Seldinger technique. I performed a venogram confirming patency of the axillary vein to the level of the subclavian vein however there was occlusion of the subclavian vein at the level of the stents and through the innominate vein stent and the stent extending into the superior vena cava. I used the Navicross Catheter and Advantage Wire and I was able to cannulate the occluded stent and advanced it through the occlusion and into the proximal IVC. I then advanced 10 x 40 [place] Balloons through each access and into the stents within the SVC. I then performed simultaneous angioplasty of the superior vena cava stents and then walked the balloons out ballooning each segment of the stents, on their respective arm, on the way out. A follow-up venogram revealed less than 15% residual stenosis in the right central venous system and less than 20% residual stenosis in the left central venous system. I then advanced in 8 x 40 [place] Balloon into the stent in the axillary vein on the right and performed angioplasty with a result of less than 10% residual stenosis. At that point all balloons and wires were removed and a 2-0 Ethilon in slipknot fashion was used to close the entry site on the right. A sterile dressing was then applied to the right arm. The sheaths were removed and the left arm and the right groin and manual pressure was used to achieve hemostasis. Once hemostasis was achieved sterile pressure dressings were applied. The patient tolerated the procedure well and was transported to recovery in stable condition.
--- NOTE | 2019-06-21 16:36 | Progress Note ---
Assessment and Plan - Patient Problems (1) End stage renal disease Current Visit: Yes Status: Acute Plan to address problem: End-stage renal disease Access right arm AV fistula Continue dialysis Thursday (2) Chest pain Current Visit: Yes Status: Acute Plan to address problem: Chest pain Status post evaluation reports chest pain is improved CT with stents in subclavian s/p angioplasty of stents today. (3) Volume overload Current Visit: Yes Status: Acute Plan to address problem: Volume overload Continue hemodialysis Thursday (4) Anemia Current Visit: Yes Status: Acute Plan to address problem: Moderate anemia hemoglobin 8.6g per DL 2/2 renal failure. Monitor CBC Subjective Interval history: 48-year-old gentleman with medical history significant for tricuspid regurgitation end-stage renal disease on hemodialysis admitted with complaints of chest pain Patient seen today reports chest pain is improved complains of lower extremity edema Denies any Orthopnea PND He is scheduled for angioplasty of subclavian vein today denies any orthopnea or PND. has lower extremity edema. Will hold off using his access today allow hemostasis repeat HD in am. Objective - Vital Signs Vital signs: Vital Signs - 12hr 06/21/19 06/21/19 06/21/19 04:38 07:50 10:00 Temperature 98.4 F 98.0 F Pulse Rate 98 H 91 H Pulse Rate [ 91 H From Monitor] Pulse Rate [ 92 H Left Radial] Pulse Rate [ 92 H Right Radial] Respiratory 18 18 18 Rate Blood Pressure 108/33 125/47 O2 Sat by Pulse 96 96 96 Oximetry - General Appearance General appearance: well-developed, well-nourished EENT: ATNC, PERRL Neck: no JVD Respiratory: Present: Clear to Ascultation Cardiology: regular, S1S2 Gastrointestinal: normal, normoactive bowel sounds Integumentary: no rash Neurologic: alert and oriented x3, CN 3-12 intact Psychiatric: mood/affect appropriate - Lab 06/21/19 05:28 06/21/19 05:28 Most recent lab results Calcium 6.7 mg/dL (8.4-10.2) L 06/21/19 05:28 - Imaging Chest x-ray: image reviewed (I reviewed CXR with interstitial opacities. ) Medications & Allergies - Medications Allergies/Adverse Reactions: Allergies No Known Allergies Allergy (Verified 06/19/19 06:20) Home Medications: Home Medications Medication Instructions Recorded Confirmed Last Taken Type B Complex W-C No.20/Folic Acid 1 mg PO QAM 06/19/19 06/19/19 Unknown History [Nephrocaps Softgel] Calcitriol [Rocaltrol] 0.5 mcg PO QDAY 06/19/19 06/19/19 Unknown History Calcium Acetate [Phoslo] 667 mg PO TID 06/19/19 06/19/19 Unknown History Pantoprazole Sodium [Protonix] 40 mg PO QAM 06/19/19 06/19/19 Unknown History Warfarin [Coumadin] 15 mg PO QDAY 06/19/19 06/19/19 Unknown History Active Medications: Generic Name Dose Route Start Last Admin Trade Name Freq PRN Reason Stop Dose Admin Acetaminophen 650 mg 06/19/19 06:06 Tylenol PO Q4H PRN Pain MILD(1-3)/Fever >100.5/BANDA Epoetin Ellis 10,000 unit 06/19/19 13:19 06/20/19 16:30 Procrit IV 10,000 unit RIP PRN Administration hemodialysis Sodium Chloride 100 mls @ 999 mls/hr 06/19/19 13:19 Nacl 0.9% IV RIP PRN Hypotension Ondansetron HCl 4 mg 06/19/19 06:06 06/19/19 20:03 Zofran IV 4 mg Q8H PRN Administration Nausea And Vomiting Oxycodone/Acetaminophen 1 tab 06/19/19 06:06 06/20/19 16:17 Percocet 5/325 PO 1 tab Q6H PRN Administration Pain, Moderate (4-6) Sodium Chloride 10 ml 06/19/19 10:00 06/20/19 22:31 Sodium Chloride Flush Syringe 10 Ml IV 10 ml BID DELMAR Administration Sodium Chloride 10 ml 06/19/19 06:06 Sodium Chloride Flush Syringe 10 Ml IV PRN PRN LINE FLUSH
[2019-06-21] MEDS: SODIUM CHLORIDE FLUSH SYRINGE 10 ML IV SCH ×2 (18:14→22:07)
--- NOTE | 2019-06-21 18:19 | Event Note ---
Date: 06/21/19 Patient was undergoing a prolonged vascular surgery procedure at the time of visit, full consultation will follow later. History from the chart reports that the presenting complaint is left arm swelling and pain after peripheral intervention to the right subclavian stent. Patient has end-stage renal disease on hemodialysis, history of venous thrombo- embolism status post central vein stents. ECG on this present admission is a normal sinus rhythm with nonspecific T-wave changes, chest x-ray shows a normal cardiac workup, clear lungs, normal study.
--- NOTE | 2019-06-21 18:51 | Progress Note ---
Assessment and Plan - Patient Problems (1) Subclavian vein stenosis Current Visit: Yes Status: Acute Plan to address problem: Patient has stenosis addressed approximately every 3-6 months. Patient procedure went well today. Has had good success with procedure. (2) Chest pain Current Visit: Yes Status: Acute Plan to address problem: Patient chest pain free after procedure. No shortness of breath no new concerns. (3) Hyperkalemia Current Visit: Yes Status: Acute Plan to address problem: Resolving with hemodialysis. (4) End stage renal disease Current Visit: Yes Status: Acute Plan to address problem: Patient may require another hemodialysis tomorrow. States he still has some edema not quite at his dry weight. (5) Pulmonary embolism Current Visit: Yes Status: Acute Plan to address problem: Patient history of PE currently off of Coumadin. Most likely secondary to bleeding risk with procedure. We'll restart when clear. History Interval history: Patient left arm swelling is improved significantly after vascular procedure. His chest pain is resolved. Hospitalist Physical - Constitutional Vitals: Temp Pulse Resp BP Pulse Ox 97.7 F 87 18 125/44 93 06/21/19 16:39 06/21/19 16:39 06/21/19 16:39 06/21/19 16:39 06/21/19 16:39 General appearance: Present: no acute distress - EENT Eyes: Present: PERRL, EOM intact ENT: hearing intact, clear oral mucosa, dentition normal - Neck Neck: Present: supple, normal ROM - Respiratory Respiratory: bilateral: CTA - Cardiovascular Rhythm: regular - Extremities Extremities: no ischemia, pulses intact, normal temperature, normal color, Full ROM Extremity abnormal: edema Peripheral Pulses: within normal limits - Abdominal General gastrointestinal: soft, non-tender, non-distended, normal bowel sounds, no hepatomegaly, no splenomegaly, no mass - Integumentary Integumentary: Present: clear, warm, dry. Absent: jaundice, rash, clammy - Psychiatric Psychiatric: appropriate mood/affect, intact judgment & insight, memory intact - Neurologic Neurologic: CNII-XII intact, no focal deficits, moves all extremities Results - Labs CBC & Chem 7: 06/21/19 05:28 06/21/19 05:28 Labs: Laboratory Last Values WBC 3.0 K/mm3 (4.5-11.0) L 06/21/19 05:28 RBC 2.71 M/mm3 (3.65-5.03) L 06/21/19 05:28 Hgb 8.6 gm/dl (11.8-15.2) L 06/21/19 05:28 Hct 25.8 % (35.5-45.6) L 06/21/19 05:28 MCV 95 fl (84-94) H 06/21/19 05:28 MCH 32 pg (28-32) 06/21/19 05:28 MCHC 33 % (32-34) 06/21/19 05:28 RDW 17.0 % (13.2-15.2) H 06/21/19 05:28 Plt Count 88 K/mm3 (140-440) L 06/21/19 05:28 Lymph % (Auto) 18.2 % (13.4-35.0) 06/20/19 05:51 Wal[place] % (Auto) 11.2 % (0.0-7.3) H 06/20/19 05:51 Eos % (Auto) 8.1 % (0.0-4.3) H 06/20/19 05:51 Baso % (Auto) 0.7 % (0.0-1.8) 06/20/19 05:51 Lymph # 0.5 K/mm3 (1.2-5.4) L 06/20/19 05:51 [place] # 0.3 K/mm3 (0.0-0.8) 06/20/19 05:51 Eos # 0.2 K/mm3 (0.0-0.4) 06/20/19 05:51 Baso # 0.0 K/mm3 (0.0-0.1) 06/20/19 05:51 Seg Neutrophils % 61.8 % (40.0-70.0) 06/20/19 05:51 Seg Neutrophils # 1.8 K/mm3 (1.8-7.7) 06/20/19 05:51 PT 29.2 Sec. (12.2-14.9) H 06/20/19 05:51 INR 2.82 (0.87-1.13) H 06/20/19 05:51 APTT 65.0 Sec. (24.2-36.6) H* 06/20/19 05:51 Sodium 140 mmol/L (137-145) 06/21/19 05:28 Potassium 4.9 mmol/L (3.6-5.0) 06/21/19 05:28 Chloride 101.2 mmol/L (98-107) 06/21/19 05:28 Carbon Dioxide 25 mmol/L (22-30) 06/21/19 05:28 19 mmol/L 06/21/19 05:28 BUN 27 mg/dL (9-20) H 06/21/19 05:28 9.7 mg/dL (0.8-1.5) H 06/21/19 05:28 Estimated GFR 7 ml/min 06/21/19 05:28 3 % 06/21/19 05:28 Glucose 89 mg/dL (75-100) 06/21/19 05:28 Calcium 6.7 mg/dL (8.4-10.2) L 06/21/19 05:28 1.10 mg/dL (0.1-1.2) 06/18/19 22:57 AST 12 units/L (5-40) 06/18/19 22:57 ALT 8 units/L (7-56) 06/18/19 22:57 244 units/L (35-129) H 06/18/19 22:57 160 units/L (55-170) 06/19/19 12:26 CK-MB (CK-2) 1.7 ng/mL (0.0-4.0) 06/19/19 12:26 CK-MB (CK-2) Rel Index 1.0 (0-4) 06/19/19 12:26 0.059 ng/mL (0.00-0.029) H 06/19/19 12:26 NT-Pro-B Natriuret Pep 6269 pg/mL (0-450) H 06/19/19 00:00 7.6 g/dL (6.3-8.2) 06/18/19 22:57 4.1 g/dL (3.9-5) 06/18/19 22:57 1.2 % 06/18/19 22:57 Triglycerides 67 mg/dL (2-149) 06/18/19 22:57 Cholesterol 119 mg/dL (50-199) 07/20/19 22:57 72 mg/dL (50-130) 06/18/19 22:57 44 mg/dL (40-59) 06/18/19 22:57 2.70 % 06/18/19 22:57 Hepatitis A IgM Ab Non-reactive (NonReactive) 06/20/19 15:56 Hep Bs Antigen Non-reactive (Negative) 06/20/19 15:56 Hep B Core IgM Ab Non-reactive (NonReactive) 06/20/19 15:56 Non-reactive (NonReactive) 06/20/19 15:56 Active Medications - Current Medications Current Medications: Generic Name Dose Route Start Last Admin Trade Name Freq PRN Reason Stop Dose Admin Acetaminophen 650 mg 06/19/19 06:06 Tylenol PO Q4H PRN Pain MILD(1-3)/Fever >100.5/BANDA Epoetin Ellis 10,000 unit 06/19/19 13:19 06/20/19 16:30 Procrit IV 10,000 unit RIP PRN Administration hemodialysis Sodium Chloride 100 mls @ 999 mls/hr 06/19/19 13:19 Nacl 0.9% IV RIP PRN Hypotension Ondansetron HCl 4 mg 06/19/19 06:06 06/19/19 20:03 Zofran IV 4 mg Q8H PRN Administration Nausea And Vomiting Oxycodone/Acetaminophen 1 tab 06/19/19 06:06 06/20/19 16:17 Percocet 5/325 PO 1 tab Q6H PRN Administration Pain, Moderate (4-6) Sodium Chloride 10 ml 06/19/19 10:00 06/21/19 18:14 Sodium Chloride Flush Syringe 10 Ml IV 10 ml BID DELMAR Administration Sodium Chloride 10 ml 06/19/19 06:06 Sodium Chloride Flush Syringe 10 Ml IV PRN PRN LINE FLUSH
[2019-06-22] MEDS: PERCOCET 5/325 PO PRN ×2 (09:16→21:54)
[2019-06-22] MEDS: SODIUM CHLORIDE FLUSH SYRINGE 10 ML IV SCH (09:17)
--- NOTE | 2019-06-22 10:43 | Progress Note ---
Assessment and Plan Patient is okay to be discharged home from a vascular standpoint. He will need to follow up in our office in 2 weeks. Subjective Date of service: 06/22/19 Principal diagnosis: venous stenosis Interval history: Patient is status post bilateral upper extremity venogram with revascularization. He has a fistula in his right upper arm with a palpable thrill. His previous interventions at multiple locations including [place], and [place]. The patient is now residing in [place]. Objective - Constitutional Vitals: Vital Signs - 12hr 06/21/19 06/22/19 06/22/19 23:39 04:31 08:43 Temperature 98.1 F 98.0 F 98.7 F Pulse Rate 89 93 H Respiratory 18 18 18 Rate Blood Pressure 147/60 97/34 150/87 O2 Sat by Pulse 100 95 Oximetry General appearance: Present: no acute distress - EENT Eyes: EOM intact ENT: hearing intact - Neck Neck: supple - Respiratory Respiratory effort: normal - Breasts Breasts: deferred Extremities: abnormal Extremity abnormal: edema - Gastrointestinal General gastrointestinal: Present: deferred Rectal Exam: deferred - Genitourinary Male genitourinary: deferred - Psychiatric Psychiatric: appropriate mood/affect, cooperative - Labs CBC & Chem 7: 06/21/19 05:28 06/21/19 05:28 Medications & Allergies - Medications Allergies/Adverse Reactions: Allergies No Known Allergies Allergy (Verified 06/19/19 06:20) Home Medications: Home Medications Medication Instructions Recorded Confirmed Last Taken Type B Complex W-C No.20/Folic Acid 1 mg PO QAM 06/19/19 06/19/19 Unknown History [Nephrocaps Softgel] Calcitriol [Rocaltrol] 0.5 mcg PO QDAY 06/19/19 06/19/19 Unknown History Calcium Acetate [Phoslo] 667 mg PO TID 06/19/19 06/19/19 Unknown History Pantoprazole Sodium [Protonix] 40 mg PO QAM 06/19/19 06/19/19 Unknown History Warfarin [Coumadin] 15 mg PO QDAY 06/19/19 06/19/19 Unknown History Active Medications: Generic Name Dose Route Start Last Admin Trade Name Freq PRN Reason Stop Dose Admin Acetaminophen 650 mg 06/19/19 06:06 Tylenol PO Q4H PRN Pain MILD(1-3)/Fever >100.5/BANDA Epoetin Ellis 10,000 unit 06/19/19 13:19 06/20/19 16:30 Procrit IV 10,000 unit RIP PRN Administration hemodialysis Sodium Chloride 100 mls @ 999 mls/hr 06/19/19 13:19 Nacl 0.9% IV RIP PRN Hypotension Ondansetron HCl 4 mg 06/19/19 06:06 06/19/19 20:03 Zofran IV 4 mg Q8H PRN Administration Nausea And Vomiting Oxycodone/Acetaminophen 1 tab 06/19/19 06:06 06/22/19 09:16 Percocet 5/325 PO 1 tab Q6H PRN Administration Pain, Moderate (4-6) Sodium Chloride 10 ml 06/19/19 10:00 06/22/19 09:17 Sodium Chloride Flush Syringe 10 Ml IV 10 ml BID DELMAR Administration Sodium Chloride 10 ml 06/19/19 06:06 Sodium Chloride Flush Syringe 10 Ml IV PRN PRN LINE FLUSH
--- NOTE | 2019-06-22 12:48 | Consultation ---
<MARCO CROWE - Last Filed: 06/22/19 12:48> History of Present Illness Consult date: 06/22/19 Consult reason: chest pain History of present illness: This is a 48-year old male who presented with complaint is left arm swelling and pain after peripheral intervention to the right subclavian stent. Patient has end-stage renal disease on hemodialysis, history of venous thrombo-embolism status post central vein stents. Patient is on warfarin for oral anticoagulation. Patient denies prior cardiac history and had no recent cardiac workup. ECG on this present admission is a normal sinus rhythm with nonspecific T-wave changes, chest x-ray shows a normal cardiac workup, clear lungs, normal study. A cardiac consultation has been requested for chest pain evaluation. Past History Past Medical History: dialysis, ESRD, hypertension Past Surgical History: Other (history of multiple AV access creation) Social history: no significant social history Family history: no significant family history Medications and Allergies Allergies Allergy/AdvReac Type Severity Reaction Status Date / Time No Known Allergies Allergy Verified 06/19/19 06:20 Home Medications Medication Instructions Recorded Confirmed Last Taken Type B Complex W-C No.20/Folic Acid 1 mg PO QAM #30 capsule 06/23/19 Unknown Rx [Nephrocaps Softgel] Calcitriol [Rocaltrol] 0.5 mcg PO QDAY #30 capsule 06/23/19 Unknown Rx Calcium Acetate [Phoslo] 667 mg PO TID #90 capsule 06/23/19 Unknown Rx Epoetin Ellis 10,000 Unit [Procrit] 10,000 unit IV RIP PRN vial 06/23/19 Unknown Rx Pantoprazole Sodium [Protonix] 40 mg PO QAM #30 06/23/19 Unknown Rx Warfarin [Coumadin] 15 mg PO QDAY #30 tablet 06/23/19 Unknown Rx oxyCODONE /ACETAMINOPHEN [Percocet 1 tab PO Q6H PRN #10 tablet 06/23/19 Unknown Rx 5/325 mg] Enoxaparin [Lovenox] 120 mg SQ DAILY #7 syringe 06/24/19 Unknown Rx Active Meds: Active Medications Acetaminophen (Tylenol) 650 mg PO Q4H PRN PRN Reason: Pain MILD(1-3)/Fever >100.5/BANDA Epoetin Ellis (Procrit) 10,000 unit IV RIP PRN PRN Reason: hemodialysis Last Admin: 06/20/19 16:30 Dose: 10,000 unit Documented by: Sodium Chloride (Nacl 0.9%) 100 mls @ 999 mls/hr IV RIP PRN PRN Reason: Hypotension Ondansetron HCl (Zofran) 4 mg IV Q8H PRN PRN Reason: Nausea And Vomiting Last Admin: 06/19/19 20:03 Dose: 4 mg Documented by: Oxycodone/Acetaminophen (Percocet 5/325) 1 tab PO Q6H PRN PRN Reason: Pain, Moderate (4-6) Last Admin: 06/22/19 09:16 Dose: 1 tab Documented by: Sodium Chloride (Sodium Chloride Flush Syringe 10 Ml) 10 ml IV BID DELMAR Last Admin: 06/22/19 09:17 Dose: 10 ml Documented by: Sodium Chloride (Sodium Chloride Flush Syringe 10 Ml) 10 ml IV PRN PRN PRN Reason: LINE FLUSH Physical Examination Vital Signs Temp Pulse Resp BP Pulse Ox 98.2 F 101 H 18 145/68 100 06/18/19 22:20 06/18/19 22:20 06/18/19 22:20 06/18/19 22:20 06/18/19 22:20 General appearance: no acute distress HEENT: Positive: PERRL Neck: Positive: trachea midline Cardiac: Positive: Reg Rate and Rhythm Lungs: Positive: Normal Breath Sounds Neuro: Positive: Grossly Intact, Weakness Extremities: Absent: edema Results 06/21/19 05:28 06/21/19 05:28 Assessment and Plan Subclavian vein stenosis Chest pain End-stage renal disease on hemodialysis History of venous thrombo-embolism status post central vein stents. patient is on warfarin for oral anticoagulation Hypertension Recommendation: Echocardiogram for LVEF assessment. Pre-discharge persantine thallium stress test for further ischemic evaluation. This will be done . <MARIA A MUÑOZ - Last Filed: 06/29/19 11:42> Medications and Allergies Active Meds: Active Medications Acetaminophen (Tylenol) 650 mg PO Q4H PRN PRN Reason: Pain MILD(1-3)/Fever >100.5/BANDA Last Admin: 06/26/19 08:18 Dose: 650 mg Documented by: Calcitriol (Rocaltrol) 0.5 mcg PO QDAY DELMAR Doxycycline Hyclate (Vibramycin) 100 mg PO BID DELMAR Stop: 07/10/19 22:01 Last Admin: 06/28/19 23:13 Dose: 100 mg Documented by: Epoetin Ellis (Procrit) 10,000 unit IV RIP PRN PRN Reason: hemodialysis Last Admin: 06/27/19 12:34 Dose: 10,000 unit Documented by: Sodium Chloride (Nacl 0.9%) 100 mls @ 999 mls/hr IV RIP PRN PRN Reason: Hypotension Ceftriaxone Sodium (Rocephin/Ns 1 Gm/50 Ml) 1 gm in 50 mls @ 100 mls/hr IV Q24H [facility]; Protocol Last Admin: 06/28/19 12:16 Dose: 100 mls/hr Documented by: Ondansetron HCl (Zofran) 4 mg IV Q8H PRN PRN Reason: Nausea And Vomiting Last Admin: 06/24/19 06:18 Dose: 4 mg Documented by: Oxycodone/Acetaminophen (Percocet 5/325) 1 tab PO Q6H PRN PRN Reason: Pain, Moderate (4-6) Last Admin: 06/25/19 11:21 Dose: 1 tab Documented by: Sodium Chloride (Sodium Chloride Flush Syringe 10 Ml) 10 ml IV BID [facility] Last Admin: 06/28/19 23:13 Dose: 10 ml Documented by: Sodium Chloride (Sodium Chloride Flush Syringe 10 Ml) 10 ml IV PRN PRN PRN Reason: LINE FLUSH Warfarin Sodium (Coumadin) 10 mg PO DAILY@1700 [facility] Last Admin: 06/28/19 18:06 Dose: 10 mg Documented by: Warfarin Sodium (Coumadin) 6 mg PO DAILY@1700 [facility] Last Admin: 06/28/19 18:05 Dose: 6 mg Documented by: Physical Examination Vital Signs Temp Pulse Resp BP Pulse Ox 98.2 F 101 H 18 145/68 100 06/18/19 22:20 06/18/19 22:20 06/18/19 22:20 06/18/19 22:20 06/18/19 22:20 Results 06/29/19 08:55 06/29/19 08:55 Coagulation 06/29/19 Range/Units 08:55 PT 27.9 H (12.2-14.9) Sec. INR 2.66 H (0.87-1.13) CBC 06/29/19 06/29/19 Range/Units 08:55 08:55 WBC 2.5 L 2.5 L (4.5-11.0) K/mm3 RBC 2.82 L 2.97 L (3.65-5.03) M/mm3 Hgb 9.0 L 9.2 L (11.8-15.2) gm/dl Hct 26.4 L 28.1 L (35.5-45.6) % Plt Count 139 L 137 L (140-440) K/mm3 Lymph # 0.8 L (1.2-5.4) K/mm3 [place] # 0.3 (0.0-0.8) K/mm3 Eos # 0.2 (0.0-0.4) K/mm3 Baso # 0.0 (0.0-0.1) K/mm3 Comprehensive Metabolic Panel 06/29/19 Range/Units 08:55 Sodium 136 L (137-145) mmol/L Potassium 5.4 H (3.6-5.0) mmol/L Chloride 95.5 L (98-107) mmol/L Carbon Dioxide 27 (22-30) mmol/L BUN 35 H (9-20) mg/dL Creatinine 10.1 H (0.8-1.5) mg/dL Glucose 77 (75-100) mg/dL Calcium 7.5 L (8.4-10.2) mg/dL Assessment and Plan As seen and evaluated the patient and agree with this plan. Patient presents with atypical chest pain. Patient does have a history of venous thromboembolism in the past for which he is on anticoagulation with Coumadin. Patient also has a history of end-stage renal disease on hemodialysis. Patient's echocardiogram shows normal LV option. We'll plan for stress test prior to discharge.
[2019-06-22] MEDS ORDERED: NACL 0.9 (PRIMING MACHINE ONLY DIALYSIS) MC ONE (13:13)
--- NOTE | 2019-06-22 13:57 | Progress Note ---
Assessment and Plan - Patient Problems (1) End stage renal disease Current Visit: Yes Status: Acute Plan to address problem: End-stage renal disease Access right arm AV fistula Continue dialysis Thursday (2) Chest pain Current Visit: Yes Status: Acute Plan to address problem: Chest pain Status post evaluation reports chest pain is improved CT with stents in subclavian s/p angioplasty of stents (3) Volume overload Current Visit: Yes Status: Acute Plan to address problem: Volume overload Continue hemodialysis Thursday Additional ultrafiltration. (4) Anemia Current Visit: Yes Status: Acute Plan to address problem: Moderate anemia hemoglobin 8.6g per DL 2/2 renal failure. Monitor CBC Subjective Principal diagnosis: venous stenosis Interval history: 48-year-old gentleman with medical history significant for tricuspid regurgitation end-stage renal disease on hemodialysis admitted with complaints of chest pain Patient seen today reports chest pain is improved complains of lower extremity edema Denies any Orthopnea PND He is s/p angioplasty of subclavian vein denies any orthopnea or PND. has lower extremity edema. I attest I saw the patient on dialysis Will perform additional ultrafiltration. Objective - Vital Signs Vital signs: Vital Signs - 12hr 06/22/19 06/22/19 06/22/19 04:31 08:43 10:00 Temperature 98.0 F 98.7 F Pulse Rate 93 H Respiratory 18 18 Rate Blood Pressure 97/34 150/87 O2 Sat by Pulse 95 98 Oximetry - General Appearance General appearance: well-developed, well-nourished EENT: ATNC, PERRL, mucous membranes moist Neck: no JVD Respiratory: Present: Clear to Ascultation Cardiology: regular, S1S2 Gastrointestinal: normal, normoactive bowel sounds Integumentary: no rash Neurologic: alert and oriented x3, CN 3-12 intact Psychiatric: mood/affect appropriate - Lab 06/21/19 05:28 06/21/19 05:28 Most recent lab results Calcium 6.7 mg/dL (8.4-10.2) L 06/21/19 05:28 Medications & Allergies - Medications Allergies/Adverse Reactions: Allergies No Known Allergies Allergy (Verified 06/19/19 06:20) Home Medications: Home Medications Medication Instructions Recorded Confirmed Last Taken Type B Complex W-C No.20/Folic Acid 1 mg PO QAM 06/19/19 06/19/19 Unknown History [Nephrocaps Softgel] Calcitriol [Rocaltrol] 0.5 mcg PO QDAY 06/19/19 06/19/19 Unknown History Calcium Acetate [Phoslo] 667 mg PO TID 06/19/19 06/19/19 Unknown History Pantoprazole Sodium [Protonix] 40 mg PO QAM 06/19/19 06/19/19 Unknown History Warfarin [Coumadin] 15 mg PO QDAY 06/19/19 06/19/19 Unknown History Active Medications: Generic Name Dose Route Start Last Admin Trade Name Freq PRN Reason Stop Dose Admin Acetaminophen 650 mg 06/19/19 06:06 Tylenol PO Q4H PRN Pain MILD(1-3)/Fever >100.5/BANDA Epoetin Ellis 10,000 unit 06/19/19 13:19 06/20/19 16:30 Procrit IV 10,000 unit RIP PRN Administration hemodialysis Sodium Chloride 100 mls @ 999 mls/hr 06/19/19 13:19 Nacl 0.9% IV RIP PRN Hypotension Ondansetron HCl 4 mg 06/19/19 06:06 06/19/19 20:03 Zofran IV 4 mg Q8H PRN Administration Nausea And Vomiting Oxycodone/Acetaminophen 1 tab 06/19/19 06:06 06/22/19 09:16 Percocet 5/325 PO 1 tab Q6H PRN Administration Pain, Moderate (4-6) Sodium Chloride 10 ml 06/19/19 10:00 06/22/19 09:17 Sodium Chloride Flush Syringe 10 Ml IV 10 ml BID DELMAR Administration Sodium Chloride 10 ml 06/19/19 06:06 Sodium Chloride Flush Syringe 10 Ml IV PRN PRN LINE FLUSH
--- NOTE | 2019-06-22 21:17 | Progress Note ---
Assessment and Plan - Patient Problems (1) Subclavian vein stenosis Current Visit: Yes Status: Acute Plan to address problem: Patient has stenosis addressed approximately every 3-6 months. Patient procedure went well today. Has had good success with procedure. Patient's swelling has resolved after procedure. Able to access site. (2) Chest pain Current Visit: Yes Status: Acute Plan to address problem: Patient chest pain has resolved however given extensive risk factors of blockages obesity hypertension is stable disease she will have Persantine th allium echocardiogram done in a.m. prior to discharge. (3) Hyperkalemia Current Visit: Yes Status: Acute Plan to address problem: Resolving with hemodialysis. (4) End stage renal disease Current Visit: Yes Status: Acute Plan to address problem: Patient may require another hemodialysis tomorrow. States he still has some edema not quite at his dry weight. (5) Pulmonary embolism Current Visit: Yes Status: Acute Plan to address problem: Patient history of PE currently off of Coumadin. Most likely secondary to bleeding risk with procedure. We'll restart when clear. History Interval history: Patient currently feels better status post angioplasty. Patient much improved after hemodialysis now. No new concerns today. Hospitalist Physical - Constitutional Vitals: Temp Pulse Resp BP Pulse Ox 98.9 F 97 H 20 149/43 97 06/22/19 20:41 06/22/19 20:40 06/22/19 20:40 06/22/19 20:40 06/22/19 20:40 General appearance: Present: no acute distress - EENT Eyes: Present: PERRL, EOM intact ENT: hearing intact, clear oral mucosa, dentition normal - Neck Neck: Present: supple, normal ROM - Respiratory Respiratory effort: normal Respiratory: bilateral: CTA - Cardiovascular Rhythm: regular - Extremities Extremities: no ischemia, pulses intact, pulses symmetrical, No edema, normal temperature, normal color, Full ROM Extremity abnormal: other (edema of upper extremities have significantly improved and almost completely resolved after angioplasty.) Peripheral Pulses: within normal limits - Abdominal General gastrointestinal: soft, non-tender, non-distended, normal bowel sounds, other (obese) - Integumentary Integumentary: Present: clear, warm, dry - Psychiatric Psychiatric: appropriate mood/affect, intact judgment & insight, memory intact - Neurologic Neurologic: CNII-XII intact, moves all extremities Results - Labs CBC & Chem 7: 06/21/19 05:28 06/21/19 05:28 Labs: Laboratory Last Values WBC 3.0 K/mm3 (4.5-11.0) L 06/21/19 05:28 RBC 2.71 M/mm3 (3.65-5.03) L 06/21/19 05:28 Hgb 8.6 gm/dl (11.8-15.2) L 06/21/19 05:28 Hct 25.8 % (35.5-45.6) L 06/21/19 05:28 MCV 95 fl (84-94) H 06/21/19 05:28 MCH 32 pg (28-32) 06/21/19 05:28 MCHC 33 % (32-34) 06/21/19 05:28 RDW 17.0 % (13.2-15.2) H 06/21/19 05:28 Plt Count 88 K/mm3 (140-440) L 06/21/19 05:28 Lymph % (Auto) 18.2 % (13.4-35.0) 06/20/19 05:51 [place] % (Auto) 11.2 % (0.0-7.3) H 06/20/19 05:51 Eos % (Auto) 8.1 % (0.0-4.3) H 06/20/19 05:51 Baso % (Auto) 0.7 % (0.0-1.8) 06/20/19 05:51 Lymph # 0.5 K/mm3 (1.2-5.4) L 06/20/19 05:51 [place] # 0.3 K/mm3 (0.0-0.8) 06/20/19 05:51 Eos # 0.2 K/mm3 (0.0-0.4) 06/20/19 05:51 Baso # 0.0 K/mm3 (0.0-0.1) 06/20/19 05:51 Seg Neutrophils % 61.8 % (40.0-70.0) 06/20/19 05:51 Seg Neutrophils # 1.8 K/mm3 (1.8-7.7) 06/20/19 05:51 PT 29.2 Sec. (12.2-14.9) H 06/20/19 05:51 INR 2.82 (0.87-1.13) H 06/20/19 05:51 APTT 65.0 Sec. (24.2-36.6) H* 06/20/19 05:51 Sodium 140 mmol/L (137-145) 06/21/19 05:28 Potassium 4.9 mmol/L (3.6-5.0) 06/21/19 05:28 Chloride 101.2 mmol/L (98-107) 06/21/19 05:28 Carbon Dioxide 25 mmol/L (22-30) 06/21/19 05:28 19 mmol/L 06/21/19 05:28 BUN 27 mg/dL (9-20) H 06/21/19 05:28 9.7 mg/dL (0.8-1.5) H 06/21/19 05:28 Estimated GFR 7 ml/min 06/21/19 05:28 3 % 06/21/19 05:28 Glucose 89 mg/dL (75-100) 06/21/19 05:28 Calcium 6.7 mg/dL (8.4-10.2) L 06/21/19 05:28 1.10 mg/dL (0.1-1.2) 06/18/19 22:57 AST 12 units/L (5-40) 06/18/19 22:57 ALT 8 units/L (7-56) 06/18/19 22:57 244 units/L (35-129) H 06/18/19 22:57 160 units/L (55-170) 06/19/19 12:26 CK-MB (CK-2) 1.7 ng/mL (0.0-4.0) 06/19/19 12:26 CK-MB (CK-2) Rel Index 1.0 (0-4) 06/19/19 12:26 0.059 ng/mL (0.00-0.029) H 06/19/19 12:26 NT-Pro-B Natriuret Pep 6269 pg/mL (0-450) H 06/19/19 00:00 7.6 g/dL (6.3-8.2) 06/18/19 22:57 4.1 g/dL (3.9-5) 06/18/19 22:57 1.2 % 06/18/19 22:57 Triglycerides 67 mg/dL (2-149) 06/18/19 22:57 Cholesterol 119 mg/dL (50-199) 06/18/19 22:57 72 mg/dL (50-130) 06/18/19 22:57 44 mg/dL (40-59) 06/18/19 22:57 2.70 % 06/18/19 22:57 Hepatitis A IgM Ab Non-reactive (NonReactive) 06/20/19 15:56 Hep Bs Antigen Non-reactive (Negative) 06/20/19 15:56 Hep B Core IgM Ab Non-reactive (NonReactive) 06/20/19 15:56 Non-reactive (NonReactive) 06/20/19 15:56 Active Medications - Current Medications Current Medications: Generic Name Dose Route Start Last Admin Trade Name Freq PRN Reason Stop Dose Admin Acetaminophen 650 mg 06/19/19 06:06 Tylenol PO Q4H PRN Pain MILD(1-3)/Fever >100.5/BANDA Epoetin Ellis 10,000 unit 06/19/19 13:19 06/20/19 16:30 Procrit IV 10,000 unit RIP PRN Administration hemodialysis Sodium Chloride 100 mls @ 999 mls/hr 06/19/19 13:19 Nacl 0.9% IV RIP PRN Hypotension Ondansetron HCl 4 mg 06/19/19 06:06 06/19/19 20:03 Zofran IV 4 mg Q8H PRN Administration Nausea And Vomiting Oxycodone/Acetaminophen 1 tab 06/19/19 06:06 06/22/19 09:16 Percocet 5/325 PO 1 tab Q6H PRN Administration Pain, Moderate (4-6) Sodium Chloride 10 ml 06/19/19 10:00 06/22/19 09:17 Sodium Chloride Flush Syringe 10 Ml IV 10 ml BID DELMAR Administration Sodium Chloride 10 ml 06/19/19 06:06 Sodium Chloride Flush Syringe 10 Ml IV PRN PRN LINE FLUSH
[2019-06-23] MEDS ORDERED: LEXISCAN IV ONE ×2 (07:54→07:59)
--- NOTE | 2019-06-23 11:09 | Discharge Summary ---
Providers - Providers Date of Admission: 06/19/19 08:18 Date of discharge: 06/23/19 Attending physician: ALMAS TRAN 06/19/19 05:42 Consult to Physician [CONS] Stat Comment: Dr. Hadley spoke with Dr. Krishna @ 0538 Consulting Provider: JANINE KRISHNA Physician Instructions: Reason For Exam: stenosis of subclavian 06/19/19 06:06 Consult to Physician [CONS] Routine Comment: Consulting Provider: KAIA MURRAY Physician Instructions: Reason For Exam: hd 06/20/19 23:40 Consult to Physician [CONS] Routine Comment: please call in morning Consulting Provider: ED GARZA Physician Instructions: Reason For Exam: Chest pain, elevated Troponin Primary care physician: [employer] MANAGER Hospitalization Reason for admission: arm swelling Condition: Stable Hospital course: This is a 48-year old male who presented with complaint is left arm swelling and chest pain after peripheral intervention to the right subclavian stent. Patient has end-stage renal disease on hemodialysis, history of venous thrombo- embolism status post central vein stents. Patient is on warfarin for oral anticoagulation. Vascular surgery evaluated the patient in consultation. Vascular surgery performed angioplasty of the stents/stenosis. Patient tolerated the procedure well. With regards to the chest pain, cardiology was consulted. Patient underwent ECG on this present admission is a normal sinus rhythm with nonspecific T-wave changes, chest x-ray shows a normal cardiac workup, clear lungs, normal study. Cardiology recommended echocardiogram and stress test. If the studies are found to be normal, patient will be discharged home. Patient was seen by nephrology also consultation and had hemodialysis Thursday. Dedicated discharged on 32 minutes. Disposition: TO HOME OR SELFCARE Time spent for discharge: 32 - Discharge Diagnoses (1) Anemia Status: Acute (2) Chest pain Status: Acute (3) End stage renal disease Status: Acute (4) Subclavian vein stenosis Status: Acute Core Measure Documentation - Palliative Care Palliative Care/ Comfort Measures: Not Applicable - Core Measures Any of the following diagnoses?: none Exam - Constitutional Vitals: Temp Pulse Resp BP Pulse Ox 98.2 F 94 H 18 119/65 97 06/23/19 04:10 06/23/19 04:06 06/23/19 04:06 06/23/19 04:06 06/23/19 04:06 General appearance: Present: no acute distress, well-nourished - EENT Eyes: Present: PERRL ENT: hearing intact, clear oral mucosa - Neck Neck: Present: supple, normal ROM - Respiratory Respiratory effort: normal Respiratory: bilateral: CTA - Cardiovascular Heart Sounds: Present: S1 & S2. Absent: rub, click - Extremities Extremities: pulses symmetrical, No edema Peripheral Pulses: within normal limits - Abdominal General gastrointestinal: Present: soft, non-tender, non-distended, normal bowel sounds Male genitourinary: Present: normal - Integumentary Integumentary: Present: clear, warm, dry - Musculoskeletal Musculoskeletal: gait normal, strength equal bilaterally - Psychiatric Psychiatric: appropriate mood/affect, intact judgment & insight - Neurologic Neurologic: CNII-XII intact, moves all extremities Plan Activity: no restrictions Weight Bearing Status: Full Weight Bearing Diet: renal Follow up with: PRIMARY CAREMD [Primary Care Provider] - 3-5 Days ED GARZA MD [Staff Physician] - 7 Days CRISTOBAL TAY MD [Staff Physician] - 7 Days Prescriptions: Warfarin [Coumadin] 15 mg PO QDAY #30 tablet B Complex W-C No.20/Folic Acid [Nephrocaps Softgel] 1 mg PO QAM #30 capsule oxyCODONE /ACETAMINOPHEN [Percocet 5/325 mg] 1 tab PO Q6H PRN #10 tablet PRN Reason: Pain, Moderate (4-6) Calcium Acetate [Phoslo] 667 mg PO TID #90 capsule Pantoprazole Sodium [Protonix] 40 mg PO QAM #30 Calcitriol [Rocaltrol] 0.5 mcg PO QDAY #30 capsule
[2019-06-23 14:02] LABS: INR 1.36 (0.87-1.13)
--- NOTE | 2019-06-23 14:46 | Event Note ---
Date: 06/23/19 Patient underwent Lexiscan stress test, which shows a normal myocardial perfusion and normal left ventricle systolic function. Normal thallium stress test. Stable for cardiac discharge on medical management as previously outlined.
--- NOTE | 2019-06-23 17:32 | Progress Note ---
Assessment and Plan - Patient Problems (1) End stage renal disease Current Visit: Yes Status: Acute Plan to address problem: End-stage renal disease Access right arm AV fistula Continue dialysis Thursday additional ultrafiltration today. (2) Chest pain Current Visit: Yes Status: Acute Plan to address problem: Chest pain Status post evaluation reports chest pain is improved CT with stents in subclavian s/p angioplasty of stents (3) Volume overload Current Visit: Yes Status: Acute Plan to address problem: Volume overload Continue hemodialysis Thursday Additional ultrafiltration. (4) Anemia Current Visit: Yes Status: Acute Plan to address problem: Moderate anemia hemoglobin 8.6g per DL 2/2 renal failure. Monitor CBC Subjective Principal diagnosis: venous stenosis Interval history: 48-year-old gentleman with medical history significant for tricuspid re gurgitation end-stage renal disease on hemodialysis admitted with complaints of chest pain Patient seen today reports chest pain is improved complains of lower extremity edema Denies any Orthopnea PND He had ultrafiltration today. denies any orthopnea or PND. has lower extremity edema. Received additional dialysis today s/p Stress test. Objective - Vital Signs Vital signs: Vital Signs - 12hr 06/23/19 06/23/19 06/23/19 09:00 09:26 09:27 Temperature Pulse Rate Respiratory Rate Blood Pressure 133/54 138/63 157/76 O2 Sat by Pulse Oximetry 06/23/19 06/23/19 06/23/19 09:28 09:30 09:31 Temperature Pulse Rate Respiratory Rate Blood Pressure 169/52 183/62 148/59 O2 Sat by Pulse Oximetry 06/23/19 06/23/19 06/23/19 10:00 11:07 12:20 Temperature 98.3 F 98.3 F Pulse Rate 91 H 95 H Respiratory 18 18 Rate Blood Pressure 154/59 146/34 O2 Sat by Pulse 98 100 Oximetry 06/23/19 06/23/19 06/23/19 12:30 12:45 13:00 Temperature Pulse Rate 91 H 90 90 Respiratory Rate Blood Pressure 188/79 159/53 125/89 O2 Sat by Pulse Oximetry 06/23/19 06/23/19 06/23/19 13:15 13:30 13:45 Temperature Pulse Rate 88 88 86 Respiratory Rate Blood Pressure 127/58 135/50 94/72 O2 Sat by Pulse Oximetry 06/23/19 06/23/19 06/23/19 14:00 14:15 14:30 Temperature Pulse Rate 84 84 83 Respiratory Rate Blood Pressure 158/42 136/31 110/77 O2 Sat by Pulse Oximetry 06/23/19 06/23/19 06/23/19 14:45 15:00 15:15 Temperature Pulse Rate 84 86 85 Respiratory Rate Blood Pressure 150/38 141/50 148/42 O2 Sat by Pulse Oximetry 06/23/19 06/23/19 15:59 16:45 Temperature 98.3 F 98.3 F Pulse Rate 85 97 H Respiratory 18 18 Rate Blood Pressure 167/56 149/49 O2 Sat by Pulse 100 Oximetry - General Appearance General appearance: well-developed, well-nourished EENT: ATNC, PERRL, mucous membranes moist Neck: no JVD Respiratory: Present: Clear to Ascultation Cardiology: regular, S1S2 Gastrointestinal: normal, normoactive bowel sounds Neurologic: alert and oriented x3, CN 3-12 intact Musculoskeletal: other (swelling. ) Psychiatric: mood/affect appropriate - Lab 06/21/19 05:28 06/23/19 10:36 Most recent lab results Calcium 8.0 mg/dL (8.4-10.2) L D 06/23/19 10:36 - Imaging Chest x-ray: image reviewed (I reviewed CXR with interstitial edema. ) Medications & Allergies - Medications Allergies/Adverse Reactions: Allergies No Known Allergies Allergy (Verified 06/19/19 06:20) Home Medications: Home Medications Medication Instructions Recorded Confirmed Last Taken Type B Complex W-C No.20/Folic Acid 1 mg PO QAM #30 capsule 06/23/19 Unknown Rx [Nephrocaps Softgel] Calcitriol [Rocaltrol] 0.5 mcg PO QDAY #30 capsule 06/23/19 Unknown Rx Calcium Acetate [Phoslo] 667 mg PO TID #90 capsule 06/23/19 Unknown Rx Epoetin Ellis 10,000 Unit [Procrit] 10,000 unit IV RIP PRN vial 06/23/19 Unknown Rx Pantoprazole Sodium [Protonix] 40 mg PO QAM #30 06/23/19 Unknown Rx Warfarin [Coumadin] 15 mg PO QDAY #30 tablet 06/23/19 Unknown Rx oxyCODONE /ACETAMINOPHEN [Percocet 1 tab PO Q6H PRN #10 tablet 06/23/19 Unknown Rx 5/325 mg] Active Medications: Generic Name Dose Route Start Last Admin Trade Name Mitesh PRN Reason Stop Dose Admin Acetaminophen 650 mg 06/19/19 06:06 Tylenol PO Q4H PRN Pain MILD(1-3)/Fever >100.5/BANDA Epoetin Ellis 10,000 unit 06/19/19 13:19 06/20/19 16:30 Procrit IV 10,000 unit RIP PRN Administration hemodialysis Sodium Chloride 100 mls @ 999 mls/hr 06/19/19 13:19 Nacl 0.9% IV RIP PRN Hypotension Ondansetron HCl 4 mg 06/19/19 06:06 06/19/19 20:03 Zofran IV 4 mg Q8H PRN Administration Nausea And Vomiting Oxycodone/Acetaminophen 1 tab 06/19/19 06:06 06/22/19 21:54 Percocet 5/325 PO 1 tab Q6H PRN Administration Pain, Moderate (4-6) Sodium Chloride 10 ml 06/19/19 10:00 06/22/19 09:17 Sodium Chloride Flush Syringe 10 Ml IV 10 ml BID DELMAR Administration Sodium Chloride 10 ml 06/19/19 06:06 Sodium Chloride Flush Syringe 10 Ml IV PRN PRN LINE FLUSH
[2019-06-23] MEDS ORDERED: COUMADIN PO SCH (19:30)
[2019-06-23] MEDS ORDERED: NACL 0.9 (PRIMING MACHINE ONLY DIALYSIS) MC ONE (19:41)
[2019-06-23] MEDS: PERCOCET 5/325 PO PRN (21:01)
[2019-06-23] MEDS: COUMADIN PO SCH (21:02)
[2019-06-23] MEDS: SODIUM CHLORIDE FLUSH SYRINGE 10 ML IV SCH (21:10)
[2019-06-23] MEDS ORDERED: COUMADIN PO ONE (22:00)
[2019-06-24] MEDS: TYLENOL PO PRN ×2 (04:40→15:22)
--- NOTE | 2019-06-24 06:09 | Treadmill Report ---
THALLIUM STRESS TEST LEFT VENTRICLE: Left ventricular chamber size is within normal spread. Perfusion study demonstrates mild diaphragmatic attenuation artifact, otherwise homogeneous uptake of the tracer in all segments, no significant perfusion defects identified. Gated analysis demonstrates normal left ventricular systolic function, ejection fraction 60%. CONCLUSION: Normal myocardial perfusion study. JOB# [id number] CA/NTS
[2019-06-24] MEDS: ZOFRAN IV PRN (06:18)
[2019-06-24 06:50] LABS: INR 1.41 (0.87-1.13)
--- NOTE | 2019-06-24 09:09 | Progress Note ---
Assessment and Plan Assessment and plan: ESRD. Continue hemodialysis per nephrology. Chest pain. Patient underwent Lexiscan stress test, which shows a normal myocardial perfusion and normal left ventricle systolic function. Normal thallium stress test. Volume overload. Continue hemodialysis Thursday Additional ultrafiltration. Anemia of chronic disease. Continue to monitor H&H and transfuse for hemoglobin less than 7 History of pulmonary embolism. Resume Coumadin - Patient Problems (1) Anemia Current Visit: Yes Status: Acute (2) Chest pain Current Visit: Yes Status: Acute (3) End stage renal disease Current Visit: Yes Status: Acute (4) Subclavian vein stenosis Current Visit: Yes Status: Acute History Interval history: Patient refusing discharge because INR level is not therapeutic. Hospitalist Physical - Constitutional Vitals: Temp Pulse Resp BP Pulse Ox 100.6 F H 96 H 22 129/43 93 06/24/19 04:22 06/24/19 04:22 06/24/19 04:22 06/24/19 04:22 06/24/19 04:22 General appearance: Present: no acute distress, well-nourished - EENT Eyes: Present: PERRL, EOM intact ENT: hearing intact, clear oral mucosa, dentition normal - Neck Neck: Present: supple, normal ROM - Respiratory Respiratory effort: normal Respiratory: bilateral: CTA - Cardiovascular Rhythm: regular Heart Sounds: Present: S1 & S2. Absent: gallop, rub - Extremities Extremities: no ischemia, No edema, Full ROM - Abdominal General gastrointestinal: soft, non-tender, non-distended, normal bowel sounds - Integumentary Integumentary: Present: clear, warm, dry - Neurologic Neurologic: CNII-XII intact, moves all extremities Results - Labs CBC & Chem 7: 06/21/19 05:28 06/23/19 10:36 Labs: Laboratory Last Values WBC 3.0 K/mm3 (4.5-11.0) L 06/21/19 05:28 RBC 2.71 M/mm3 (3.65-5.03) L 06/21/19 05:28 Hgb 8.6 gm/dl (11.8-15.2) L 06/21/19 05:28 Hct 25.8 % (35.5-45.6) L 06/21/19 05:28 MCV 95 fl (84-94) H 06/21/19 05:28 MCH 32 pg (28-32) 06/21/19 05:28 MCHC 33 % (32-34) 06/21/19 05:28 RDW 17.0 % (13.2-15.2) H 06/21/19 05:28 Plt Count 88 K/mm3 (140-440) L 06/21/19 05:28 Lymph % (Auto) 18.2 % (13.4-35.0) 06/20/19 05:51 [place] % (Auto) 11.2 % (0.0-7.3) H 06/20/19 05:51 Eos % (Auto) 8.1 % (0.0-4.3) H 06/20/19 05:51 Baso % (Auto) 0.7 % (0.0-1.8) 06/20/19 05:51 Lymph # 0.5 K/mm3 (1.2-5.4) L 06/20/19 05:51 [place] # 0.3 K/mm3 (0.0-0.8) 06/20/19 05:51 Eos # 0.2 K/mm3 (0.0-0.4) 06/20/19 05:51 Baso # 0.0 K/mm3 (0.0-0.1) 06/20/19 05:51 Seg Neutrophils % 61.8 % (40.0-70.0) 06/20/19 05:51 Seg Neutrophils # 1.8 K/mm3 (1.8-7.7) 06/20/19 05:51 PT 16.9 Sec. (12.2-14.9) H 06/24/19 05:29 INR 1.41 (0.87-1.13) H 06/24/19 05:29 APTT 65.0 Sec. (24.2-36.6) H* 06/20/19 05:51 Sodium 137 mmol/L (137-145) 06/23/19 10:36 Potassium 5.4 mmol/L (3.6-5.0) H 06/23/19 10:36 Chloride 94.6 mmol/L (98-107) L 06/23/19 10:36 Carbon Dioxide 26 mmol/L (22-30) 06/23/19 10:36 22 mmol/L 06/23/19 10:36 BUN 32 mg/dL (9-20) H 06/23/19 10:36 10.3 mg/dL (0.8-1.5) H 06/23/19 10:36 Estimated GFR 7 ml/min 06/23/19 10:36 3 % 06/23/19 10:36 Glucose 86 mg/dL (75-100) 06/23/19 10:36 Calcium 8.0 mg/dL (8.4-10.2) L D 06/23/19 10:36 1.10 mg/dL (0.1-1.2) 06/18/19 22:57 AST 12 units/L (5-40) 06/18/19 22:57 ALT 8 units/L (7-56) 06/18/19 22:57 244 units/L (35-129) H 06/18/19 22:57 160 units/L (55-170) 06/19/19 12:26 CK-MB (CK-2) 1.7 ng/mL (0.0-4.0) 06/19/19 12:26 CK-MB (CK-2) Rel Index 1.0 (0-4) 06/19/19 12:26 0.059 ng/mL (0.00-0.029) H 06/19/19 12:26 NT-Pro-B Natriuret Pep 6269 pg/mL (0-450) H 06/19/19 00:00 7.6 g/dL (6.3-8.2) 06/18/19 22:57 4.1 g/dL (3.9-5) 06/18/19 22:57 1.2 % 06/18/19 22:57 Triglycerides 67 mg/dL (2-149) 06/18/19 22:57 Cholesterol 119 mg/dL (50-199) 06/18/19 22:57 72 mg/dL (50-130) 06/18/19 22:57 44 mg/dL (40-59) 06/18/19 22:57 2.70 % 06/18/19 22:57 Hepatitis A IgM Ab Non-reactive (NonReactive) 06/20/19 15:56 Hep Bs Antigen Non-reactive (Negative) 06/20/19 15:56 Hep B Core IgM Ab Non-reactive (NonReactive) 06/20/19 15:56 Non-reactive (NonReactive) 06/20/19 15:56 Active Medications - Current Medications Current Medications: Generic Name Dose Route Start Last Admin Trade Name Freq PRN Reason Stop Dose Admin Acetaminophen 650 mg 06/19/19 06:06 06/24/19 04:40 Tylenol PO 650 mg Q4H PRN Administration Pain MILD(1-3)/Fever >100.5/BANDA Epoetin Ellis 10,000 unit 06/19/19 13:19 06/20/19 16:30 Procrit IV 10,000 unit RIP PRN Administration hemodialysis Sodium Chloride 100 mls @ 999 mls/hr 06/19/19 13:19 Nacl 0.9% IV RIP PRN Hypotension Ondansetron HCl 4 mg 06/19/19 06:06 06/24/19 06:18 Zofran IV 4 mg Q8H PRN Administration Nausea And Vomiting Oxycodone/Acetaminophen 1 tab 06/19/19 06:06 06/23/19 21:01 Percocet 5/325 PO 1 tab Q6H PRN Administration Pain, Moderate (4-6) Sodium Chloride 10 ml 06/19/19 10:00 06/23/19 21:10 Sodium Chloride Flush Syringe 10 Ml IV 10 ml BID DELMAR Administration Sodium Chloride 10 ml 06/19/19 06:06 Sodium Chloride Flush Syringe 10 Ml IV PRN PRN LINE FLUSH Warfarin Sodium 10 mg 06/23/19 20:00 06/23/19 21:02 Coumadin PO 10 mg DAILY@1700 [facility] Administration Protocol Warfarin Sodium 5 mg 06/24/19 17:00 Coumadin PO DAILY@1700 [facility]
[2019-06-24] MEDS ORDERED: NACL 0.9% 100 ML IV PRN (10:00)
[2019-06-24] MEDS: PROCRIT IV PRN (13:15)
[2019-06-24] MEDS ORDERED: NACL 0.9 (PRIMING MACHINE ONLY DIALYSIS) MC ONE (13:52)
--- NOTE | 2019-06-24 15:06 | Progress Note ---
Assessment and Plan - Patient Problems (1) End stage renal disease Current Visit: Yes Status: Acute Plan to address problem: End-stage renal disease Access right arm AV fistula Continue dialysis Thursday He has requested to be transferred to a [facility] unit close by the hospital. (2) Chest pain Current Visit: Yes Status: Acute Plan to address problem: Chest pain Status post evaluation reports chest pain is improved CT with stents in subclavian s/p angioplasty of stents (3) Volume overload Current Visit: Yes Status: Acute Plan to address problem: Volume overload Continue hemodialysis Thursday Additional ultrafiltration. (4) Anemia Current Visit: Yes Status: Acute Plan to address problem: Moderate anemia hemoglobin 8.6g per DL 2/2 renal failure. Monitor CBC Subjective Principal diagnosis: venous stenosis Interval history: 48-year-old gentleman with medical history significant for tricuspid regurgitation end-stage renal disease on hemodialysis admitted with complaints of chest pain Patient seen today reports chest pain is improved complains of lower extremity edema Denies any Orthopnea PND Patient seen today . Still has lower extremity edema. s/p Stress test on 06/24 Will repeat dialysis today. Objective - Vital Signs Vital signs: Vital Signs - 12hr 06/24/19 04:22 Temperature 100.6 F H Pulse Rate 96 H Respiratory 22 Rate Blood Pressure 129/43 O2 Sat by Pulse 93 Oximetry - General Appearance General appearance: well-developed, well-nourished EENT: ATNC, PERRL, mucous membranes moist Neck: no JVD Respiratory: Present: Clear to Ascultation Cardiology: regular, S1S2 Gastrointestinal: normal, normoactive bowel sounds Neurologic: alert and oriented x3, CN 3-12 intact Musculoskeletal: joint swelling Psychiatric: mood/affect appropriate - Lab 06/21/19 05:28 06/23/19 10:36 Most recent lab results Calcium 8.0 mg/dL (8.4-10.2) L D 06/23/19 10:36 - Imaging Chest x-ray: image reviewed (I reviewed CXR with interstitial edema. ) Medications & Allergies - Medications Allergies/Adverse Reactions: Allergies No Known Allergies Allergy (Verified 06/19/19 06:20) Home Medications: Home Medications Medication Instructions Recorded Confirmed Last Taken Type B Complex W-C No.20/Folic Acid 1 mg PO QAM #30 capsule 06/23/19 Unknown Rx [Nephrocaps Softgel] Calcitriol [Rocaltrol] 0.5 mcg PO QDAY #30 capsule 06/23/19 Unknown Rx Calcium Acetate [Phoslo] 667 mg PO TID #90 capsule 06/23/19 Unknown Rx Epoetin Ellis 10,000 Unit [Procrit] 10,000 unit IV RIP PRN vial 06/23/19 Unknown Rx Pantoprazole Sodium [Protonix] 40 mg PO QAM #30 robynpkt 06/23/19 Unknown Rx Warfarin [Coumadin] 15 mg PO QDAY #30 tablet 06/23/19 Unknown Rx oxyCODONE /ACETAMINOPHEN [Percocet 1 tab PO Q6H PRN #10 tablet 06/23/19 Unknown Rx 5/325 mg] Enoxaparin [Lovenox] 120 mg SQ DAILY #7 syringe 06/24/19 Unknown Rx Active Medications: Generic Name Dose Route Start Last Admin Trade Name Freq PRN Reason Stop Dose Admin Acetaminophen 650 mg 06/19/19 06:06 06/24/19 04:40 Tylenol PO 650 mg Q4H PRN Administration Pain MILD(1-3)/Fever >100.5/BANDA Epoetin Ellis 10,000 unit 06/19/19 13:19 06/20/19 16:30 Procrit IV 10,000 unit RIP PRN Administration hemodialysis Sodium Chloride 100 mls @ 999 mls/hr 06/24/19 10:00 Nacl 0.9% IV RIP PRN Hypotension Ondansetron HCl 4 mg 06/19/19 06:06 06/24/19 06:18 Zofran IV 4 mg Q8H PRN Administration Nausea And Vomiting Oxycodone/Acetaminophen 1 tab 06/19/19 06:06 06/23/19 21:01 Percocet 5/325 PO 1 tab Q6H PRN Administration Pain, Moderate (4-6) Sodium Chloride 10 ml 06/19/19 10:00 06/23/19 21:10 Sodium Chloride Flush Syringe 10 Ml IV 10 ml BID DELMAR Administration Sodium Chloride 10 ml 06/19/19 06:06 Sodium Chloride Flush Syringe 10 Ml IV PRN PRN LINE FLUSH Warfarin Sodium 10 mg 06/23/19 20:00 06/23/19 21:02 Coumadin PO 10 mg DAILY@1700 DEL[facility] Administration Protocol Warfarin Sodium 5 mg 06/24/19 17:00 Coumadin PO DAILY@1700 [facility]
[2019-06-24] MEDS: SODIUM CHLORIDE FLUSH SYRINGE 10 ML IV SCH ×2 (16:29→23:03)
[2019-06-24] MEDS: COUMADIN PO SCH ×2 (16:35→17:35)
[2019-06-24] MEDS: PERCOCET 5/325 PO PRN (16:45)
[2019-06-25] MEDS: TYLENOL PO PRN (04:41)
[2019-06-25 06:18] LABS: INR 1.61 (0.87-1.13)
--- NOTE | 2019-06-25 10:42 | Progress Note ---
Assessment and Plan Impression * End-stage renal disease on maintenance hemodialysis * Chest pain * Hypertension * Mild hyperkalemia * History of DVT * Left upper extremity swelling. Most likely secondary to central stenosis Recommendations * No urgent indication for dialysis today. * dialysis MWF schedule * Patient undergoes dialysis at a clinic in [place] on MWF schedule * Binders with meals * Epogen with dialysis * Adjust diet admits for ESRD state * No IV, BP of any puncturing his access arm Subjective Date of service: 06/25/19 Principal diagnosis: venous stenosis Interval history: resting in bed today Objective - Exam Narrative Exam: General appearance: well-developed, well-nourished, appears stated age EENT: PERRL, mucous membranes moist Neck: Present: neck supple, trachea midline. Absent: JVD/HJR, Masses Respiratory: Clear to Ascultation Heart: regular, normal heart rate, S1S2, no murmurs Gastrointestinal: Present: normal, normoactive bowel sounds Integumentary: no rash, other (1+ edema. AV graft in his right upper arm. Good bruit and thrill.) - Vital Signs Vital signs: Vital Signs - 12hr 06/24/19 06/25/19 06/25/19 23:48 04:29 04:41 Temperature 99.3 F 101.5 F H Pulse Rate 98 H 100 H Pulse Rate [ Apical] Respiratory 18 18 20 Rate Blood Pressure 155/32 174/42 O2 Sat by Pulse 100 96 Oximetry 06/25/19 06/25/19 07:50 08:46 Temperature 98.3 F Pulse Rate 90 Pulse Rate [ 92 H Apical] Respiratory 20 Rate Blood Pressure 109/38 O2 Sat by Pulse 94 Oximetry - Lab 06/21/19 05:28 06/23/19 10:36 Most recent lab results Calcium 8.0 mg/dL (8.4-10.2) L D 06/23/19 10:36 Medications & Allergies - Medications Allergies/Adverse Reactions: Allergies No Known Allergies Allergy (Verified 06/19/19 06:20) Home Medications: Home Medications Medication Instructions Recorded Confirmed Last Taken Type B Complex W-C No.20/Folic Acid 1 mg PO QAM #30 capsule 06/23/19 Unknown Rx [Nephrocaps Softgel] Calcitriol [Rocaltrol] 0.5 mcg PO QDAY #30 capsule 06/23/19 Unknown Rx Calcium Acetate [Phoslo] 667 mg PO TID #90 capsule 06/23/19 Unknown Rx Epoetin Ellis 10,000 Unit [Procrit] 10,000 unit IV RIP PRN vial 06/23/19 Unknown Rx Pantoprazole Sodium [Protonix] 40 mg PO QAM #30 granpkt. 06/23/19 Unknown Rx Warfarin [Coumadin] 15 mg PO QDAY #30 tablet 06/23/19 Unknown Rx oxyCODONE /ACETAMINOPHEN [Percocet 1 tab PO Q6H PRN #10 tablet 06/23/19 Unknown Rx 5/325 mg] Enoxaparin [Lovenox] 120 mg SQ DAILY #7 syringe 06/24/19 Unknown Rx Active Medications: Generic Name Dose Route Start Last Admin Trade Name Freq PRN Reason Stop Dose Admin Acetaminophen 650 mg 06/19/19 06:06 06/25/19 04:41 Tylenol PO 650 mg Q4H PRN Administration Pain MILD(1-3)/Fever >100.5/BANDA Enoxaparin Sodium 120 mg 06/25/19 11:00 Lovenox 1 mg/kg (120 mg) SUB-Q Q24H [facility] Epoetin Ellis 10,000 unit 06/19/19 13:19 06/24/19 13:15 Procrit IV 10,000 unit RIP PRN Administration hemodialysis Sodium Chloride 100 mls @ 999 mls/hr 06/24/19 10:00 Nacl 0.9% IV RIP PRN Hypotension Ondansetron HCl 4 mg 06/19/19 06:06 06/24/19 06:18 Zofran IV 4 mg Q8H PRN Administration Nausea And Vomiting Oxycodone/Acetaminophen 1 tab 06/19/19 06:06 06/24/19 16:45 Percocet 5/325 PO 1 tab Q6H PRN Administration Pain, Moderate (4-6) Sodium Chloride 10 ml 06/19/19 10:00 06/24/19 23:03 Sodium Chloride Flush Syringe 10 Ml IV Not Given BID DELMAR Sodium Chloride 10 ml 06/19/19 06:06 Sodium Chloride Flush Syringe 10 Ml IV PRN PRN LINE FLUSH Warfarin Sodium 10 mg 06/23/19 20:00 06/24/19 16:35 Coumadin PO 10 mg DAILY@1700 [facility] Administration Protocol Warfarin Sodium 5 mg 06/24/19 17:00 07/26/19 17:35 Coumadin PO 5 mg DAILY@1700 DEL[facility] Administration
[2019-06-25] MEDS ORDERED: NACL 0.9% 100 ML IV PRN (11:02)
--- NOTE | 2019-06-25 11:10 | XRay Report ---
CHEST 1 VIEW INDICATION: fever. COMPARISON: 06/18/2019 FINDINGS: SUPPORT DEVICES: None. HEART / MEDIASTINUM: No significant abnormality. LUNGS / PLEURA: No significant pulmonary or pleural abnormality. No pneumothorax. ADDITIONAL FINDINGS: IMPRESSION: 1. No acute findings. Signer Name: Jabier Crocker MD Signed: 06/25/2019 11:06 AM Workstation Name: [id number]
[2019-06-25] MEDS: PERCOCET 5/325 PO PRN (11:21)
[2019-06-25] MEDS: SODIUM CHLORIDE FLUSH SYRINGE 10 ML IV SCH ×2 (11:23→11:24)
[2019-06-25] MEDS: LOVENOX SUB-Q SCH (12:09)
--- NOTE | 2019-06-25 12:23 | Progress Note ---
Assessment and Plan Assessment and plan: SIRS. Patient with fever 48 hours. Follow-up blood cultures. Start empiric Rocephin. Check chest x-ray. No obvious signs of infection. ESRD. Continue hemodialysis per nephrology. Chest pain. Patient underwent Lexiscan stress test, which shows a normal myocardial perfusion and normal left ventricle systolic function. Normal thallium stress test. Volume overload. Continue hemodialysis Thursday Additional ultrafiltration. Anemia of chronic disease. Continue to monitor H&H and transfuse for hemoglobin less than 7 History of pulmonary embolism. Resume Coumadin - Patient Problems (1) Anemia Current Visit: Yes Status: Acute (2) Chest pain Current Visit: Yes Status: Acute (3) End stage renal disease Current Visit: Yes Status: Acute (4) Subclavian vein stenosis Current Visit: Yes Status: Acute History Interval history: Patient with fever past 48 hours. Hospitalist Physical - Constitutional Vitals: Temp Pulse Resp BP Pulse Ox 98.3 F 91 H 20 110/73 97 06/25/19 07:50 06/25/19 12:00 06/25/19 07:50 06/25/19 12:00 06/25/19 11:15 General appearance: Present: no acute distress, well-nourished - EENT Eyes: Present: PERRL, EOM intact ENT: hearing intact, clear oral mucosa, dentition normal - Neck Neck: Present: supple, normal ROM - Respiratory Respiratory effort: normal Respiratory: bilateral: CTA - Cardiovascular Rhythm: regular Heart Sounds: Present: S1 & S2. Absent: gallop, rub - Extremities Extremities: no ischemia, No edema, Full ROM - Abdominal General gastrointestinal: soft, non-tender, non-distended, normal bowel sounds - Integumentary Integumentary: Present: clear, warm, dry - Neurologic Neurologic: CNII-XII intact, moves all extremities Results - Labs CBC & Chem 7: 06/21/19 05:28 06/23/19 10:36 Labs: Laboratory Last Values WBC 3.0 K/mm3 (4.5-11.0) L 06/21/19 05:28 RBC 2.71 M/mm3 (3.65-5.03) L 06/21/19 05:28 Hgb 8.6 gm/dl (11.8-15.2) L 06/21/19 05:28 Hct 25.8 % (35.5-45.6) L 06/21/19 05:28 MCV 95 fl (84-94) H 06/21/19 05:28 MCH 32 pg (28-32) 06/21/19 05:28 MCHC 33 % (32-34) 06/21/19 05:28 RDW 17.0 % (13.2-15.2) H 06/21/19 05:28 Plt Count 88 K/mm3 (140-440) L 06/21/19 05:28 Lymph % (Auto) 18.2 % (13.4-35.0) 06/20/19 05:51 [place] % (Auto) 11.2 % (0.0-7.3) H 06/20/19 05:51 Eos % (Auto) 8.1 % (0.0-4.3) H 06/20/19 05:51 Baso % (Auto) 0.7 % (0.0-1.8) 06/20/19 05:51 Lymph # 0.5 K/mm3 (1.2-5.4) L 06/20/19 05:51 [place] # 0.3 K/mm3 (0.0-0.8) 06/20/19 05:51 Eos # 0.2 K/mm3 (0.0-0.4) 06/20/19 05:51 Baso # 0.0 K/mm3 (0.0-0.1) 06/20/19 05:51 Seg Neutrophils % 61.8 % (40.0-70.0) 06/20/19 05:51 Seg Neutrophils # 1.8 K/mm3 (1.8-7.7) 06/20/19 05:51 PT 18.8 Sec. (12.2-14.9) H 06/25/19 05:42 INR 1.61 (0.87-1.13) H 06/25/19 05:42 APTT 65.0 Sec. (24.2-36.6) H* 06/20/19 05:51 Sodium 137 mmol/L (137-145) 06/23/19 10:36 Potassium 5.4 mmol/L (3.6-5.0) H 06/23/19 10:36 Chloride 94.6 mmol/L (98-107) L 06/23/19 10:36 Carbon Dioxide 26 mmol/L (22-30) 06/23/19 10:36 22 mmol/L 06/23/19 10:36 BUN 32 mg/dL (9-20) H 06/23/19 10:36 10.3 mg/dL (0.8-1.5) H 06/23/19 10:36 Estimated GFR 7 ml/min 06/23/19 10:36 3 % 06/23/19 10:36 Glucose 86 mg/dL (75-100) 06/23/19 10:36 Lactic Acid 0.70 mmol/L (0.7-2.0) 06/25/19 05:42 Calcium 8.0 mg/dL (8.4-10.2) L D 06/23/19 10:36 1.10 mg/dL (0.1-1.2) 06/18/19 22:57 AST 12 units/L (5-40) 06/18/19 22:57 ALT 8 units/L (7-56) 06/18/19 22:57 244 units/L (35-129) H 06/18/19 22:57 160 units/L (55-170) 06/19/19 12:26 CK-MB (CK-2) 1.7 ng/mL (0.0-4.0) 06/19/19 12:26 CK-MB (CK-2) Rel Index 1.0 (0-4) 06/19/19 12:26 0.059 ng/mL (0.00-0.029) H 06/19/19 12:26 NT-Pro-B Natriuret Pep 6269 pg/mL (0-450) H 06/19/19 00:00 7.6 g/dL (6.3-8.2) 06/18/19 22:57 4.1 g/dL (3.9-5) 06/18/19 22:57 1.2 % 06/18/19 22:57 Triglycerides 67 mg/dL (2-149) 06/18/19 22:57 Cholesterol 119 mg/dL (50-199) 06/18/19 22:57 72 mg/dL (50-130) 06/18/19 22:57 44 mg/dL (40-59) 06/18/19 22:57 2.70 % 06/18/19 22:57 Hepatitis A IgM Ab Non-reactive (NonReactive) 06/20/19 15:56 Hep Bs Antigen Non-reactive (Negative) 06/20/19 15:56 Hep B Core IgM Ab Non-reactive (NonReactive) 06/20/19 15:56 Non-reactive (NonReactive) 06/20/19 15:56 Active Medications - Current Medications Current Medications: Generic Name Dose Route Start Last Admin Trade Name Freq PRN Reason Stop Dose Admin Acetaminophen 650 mg 06/19/19 06:06 06/25/19 04:41 Tylenol PO 650 mg Q4H PRN Administration Pain MILD(1-3)/Fever >100.5/BANDA Enoxaparin Sodium 120 mg 06/25/19 12:00 06/25/19 12:09 Lovenox SUB-Q Not Given Q24H [facility] Epoetin Ellis 10,000 unit 06/19/19 13:19 06/24/19 13:15 Procrit IV 10,000 unit RIP PRN Administration hemodialysis Sodium Chloride 100 mls @ 999 mls/hr 06/24/19 10:00 Nacl 0.9% IV RIP PRN Hypotension Sodium Chloride 100 mls @ 999 mls/hr 06/25/19 11:02 Nacl 0.9% IV RIP PRN Hypotension Ceftriaxone Sodium 1 gm in 50 mls @ 100 mls/hr 06/26/19 10:00 Rocephin/Ns 1 Gm/50 Ml IV Q24HR [facility] Protocol Ondansetron HCl 4 mg 06/19/19 06:06 06/24/19 06:18 Zofran IV 4 mg Q8H PRN Administration Nausea And Vomiting Oxycodone/Acetaminophen 1 tab 06/19/19 06:06 06/25/19 11:21 Percocet 5/325 PO 1 tab Q6H PRN Administration Pain, Moderate (4-6) Sodium Chloride 10 ml 06/19/19 10:00 06/25/19 11:24 Sodium Chloride Flush Syringe 10 Ml IV Not Given BID [facility] Sodium Chloride 10 ml 06/19/19 06:06 Sodium Chloride Flush Syringe 10 Ml IV PRN PRN LINE FLUSH Warfarin Sodium 10 mg 06/23/19 20:00 06/24/19 16:35 Coumadin PO 10 mg DAILY@1700 [facility] Administration Protocol Warfarin Sodium 5 mg 06/24/19 17:00 06/24/19 17:35 Coumadin PO 5 mg DAILY@1700 [facility] Administration Nutrition/Malnutrition Assess - Dietary Evaluation Nutrition/Malnutrition Findings: Nutrition Notes Start: 06/24/19 17:08 Freq: Status: Active Protocol: Document 06/24/19 17:08 RM (Rec: 06/24/19 17:11 [email or web address]) Nutrition Notes Need for Assessment generated from: LOS Initial or Follow up Brief Note Subjective/Other Information Screened for LOS and Coumadin/ Vit K diet education. Pt not in room at time of visit. Nutrition Intervention Follow-Up By: 06/27/19 Additional Comments Follow for coumadin/Vit K diet education, LOS
[2019-06-25] MEDS: ROCEPHIN/NS 1 GM/50 ML 1 GM/50 ML BAG IV SCH (14:00)
[2019-06-25] MEDS ORDERED: NACL 0.9 (PRIMING MACHINE ONLY DIALYSIS) MC ONE (14:15)
[2019-06-25] MEDS: COUMADIN PO SCH ×2 (17:35→17:36)
[2019-06-25 19:31] LABS: Hematocrit 25.9 % (35.5-45.6); Hemoglobin 8.7 gm/dl (11.8-15.2); Mean Corpuscular HGB Conc 34 % (32-34); Mean Corpuscular Volume 95 fl (84-94); Red Blood Count 2.72 M/mm3 (3.65-5.03); Red Cell Distribution Width 17.7 % (13.2-15.2)
[2019-06-25 20:46] LABS: Band Neutrophils # (Manual) 0.3 K/mm3; Basophils % (Manual) 0 % (0.0-1.8); Total Cells Counted 100
[2019-06-25 20:47] LABS: Anisocytosis 2+; Platelet Estimate Appears Decreased
[2019-06-25 20:48] LABS: Platelet Count 79 K/mm3 (140-440)
[2019-06-26 05:50] LABS: Basophils % (Auto) 0.4 % (0.0-1.8); Eosinophils # (Auto) 0.1 K/mm3 (0.0-0.4); Eosinophils % (Auto) 5.7 % (0.0-4.3); Hematocrit 25.9 % (35.5-45.6); Hemoglobin 8.7 gm/dl (11.8-15.2); Lymphocytes # (Auto) 0.4 K/mm3 (1.2-5.4); Lymphocytes % (Auto) 14.2 % (13.4-35.0); Mean Corpuscular HGB Conc 33 % (32-34); Mean Corpuscular Volume 95 fl (84-94); Monocytes # (Auto) 0.3 K/mm3 (0.0-0.8); Monocytes % (Auto) 11.8 % (0.0-7.3); Platelet Count 84 K/mm3 (140-440); Red Blood Count 2.72 M/mm3 (3.65-5.03); Red Cell Distribution Width 17.5 % (13.2-15.2)
[2019-06-26 05:57] LABS: INR 1.75 (0.87-1.13)
[2019-06-26 06:05] LABS: Calcium 7.9 mg/dL (8.4-10.2)
[2019-06-26] MEDS: TYLENOL PO PRN (08:18)
--- NOTE | 2019-06-26 10:19 | Progress Note ---
Assessment and Plan Assessment and plan: SIRS. Patient with persistent fever and leukopenia. Follow-up blood cultures. Started empiric Rocephin. Chest x-ray negative. No obvious signs of infection. ID consulted ESRD. Continue hemodialysis per nephrology. Chest pain. Patient underwent Lexiscan stress test, which shows a normal myocardial perfusion and normal left ventricle systolic function. Normal thallium stress test. Volume overload. Continue hemodialysis Thursday Additional ultrafiltration. Anemia of chronic disease. Continue to monitor H&H and transfuse for hemoglobin less than 7 History of pulmonary embolism. Resumed Coumadin. Continue bridging with Lovenox - Patient Problems (1) Anemia Current Visit: Yes Status: Acute (2) Chest pain Current Visit: Yes Status: Acute (3) End stage renal disease Current Visit: Yes Status: Acute (4) Subclavian vein stenosis Current Visit: Yes Status: Acute History Interval history: Patient with fever past 72 hours. Hospitalist Physical - Constitutional Vitals: Temp Pulse Resp BP Pulse Ox 101.2 F H 109 H 19 104/54 98 06/26/19 08:01 06/26/19 08:01 06/26/19 08:01 06/26/19 08:01 06/26/19 08:01 General appearance: Present: no acute distress, well-nourished - EENT Eyes: Present: PERRL, EOM intact ENT: hearing intact, clear oral mucosa, dentition normal - Neck Neck: Present: supple, normal ROM - Respiratory Respiratory effort: normal Respiratory: bilateral: CTA - Cardiovascular Rhythm: regular Heart Sounds: Present: S1 & S2. Absent: gallop, rub - Extremities Extremities: no ischemia, No edema, Full ROM - Abdominal General gastrointestinal: soft, non-tender, non-distended, normal bowel sounds - Integumentary Integumentary: Present: clear, warm, dry - Neurologic Neurologic: CNII-XII intact, moves all extremities Results - Labs CBC & Chem 7: 06/26/19 04:59 06/26/19 04:59 Labs: Laboratory Last Values WBC 2.6 K/mm3 (4.5-11.0) L 06/26/19 04:59 RBC 2.72 M/mm3 (3.65-5.03) L 06/26/19 04:59 Hgb 8.7 gm/dl (11.8-15.2) L 06/26/19 04:59 Hct 25.9 % (35.5-45.6) L 06/26/19 04:59 MCV 95 fl (84-94) H 06/26/19 04:59 MCH 32 pg (28-32) 06/26/19 04:59 MCHC 33 % (32-34) 06/26/19 04:59 RDW 17.5 % (13.2-15.2) H 06/26/19 04:59 Plt Count 84 K/mm3 (140-440) L 06/26/19 04:59 Lymph % (Auto) 14.2 % (13.4-35.0) 06/26/19 04:59 [place] % (Auto) 11.8 % (0.0-7.3) H 06/26/19 04:59 Eos % (Auto) 5.7 % (0.0-4.3) H 06/26/19 04:59 Baso % (Auto) 0.4 % (0.0-1.8) 06/26/19 04:59 Lymph # 0.4 K/mm3 (1.2-5.4) L 06/26/19 04:59 [place] # 0.3 K/mm3 (0.0-0.8) 06/26/19 04:59 Eos # 0.1 K/mm3 (0.0-0.4) 06/26/19 04:59 Baso # 0.0 K/mm3 (0.0-0.1) 06/26/19 04:59 Add Manual Diff Complete 06/25/19 19:10 Total Counted 100 06/25/19 19:10 Seg Neutrophils % 67.9 % (40.0-70.0) 06/26/19 04:59 Seg Neuts % (Manual) 47.0 % (40.0-70.0) 06/25/19 19:10 18.0 % 06/25/19 19:10 13.0 % (13.4-35.0) L 06/25/19 19:10 Reactive Lymphs % (Man) 1.0 % 06/25/19 19:10 12.0 % (0.0-7.3) H 06/25/19 19:10 9.0 % (0.0-4.3) H 06/25/19 19:10 0 % (0.0-1.8) 06/25/19 19:10 0 % 06/25/19 19:10 0 % 06/25/19 19:10 0 % 06/25/19 19:10 0 % 06/25/19 19:10 Nucleated RBC % Not Reportable 06/25/19 19:10 Seg Neutrophils # 1.8 K/mm3 (1.8-7.7) 06/26/19 04:59 Seg Neutrophils # Man 0.8 K/mm3 (1.8-7.7) L 06/25/19 19:10 Band Neutrophils # 0.3 K/mm3 06/25/19 19:10 0.2 K/mm3 (1.2-5.4) L 06/25/19 19:10 Abs React Lymphs (Man) 0.0 K/mm3 06/25/19 19:10 0.2 K/mm3 (0.0-0.8) 06/25/19 19:10 0.1 K/mm3 (0.0-0.4) 06/25/19 19:10 0.0 K/mm3 (0.0-0.1) 06/25/19 19:10 0.0 K/mm3 06/25/19 19:10 0.0 K/mm3 06/25/19 19:10 0.0 K/mm3 06/25/19 19:10 Blast Cells # 0.0 K/mm3 06/25/19 19:10 WBC Morphology Not Reportable 06/25/19 19:10 Hypersegmented Neuts Not Reportable 06/25/19 19:10 Hyposegmented Neuts Not Reportable 06/25/19 19:10 Hypogranular Neuts Not Reportable 06/25/19 19:10 Not Reportable 06/25/19 19:10 Not Reportable 06/25/19 19:10 Not Reportable 06/25/19 19:10 Not Reportable 06/25/19 19:10 Not Reportable 06/25/19 19:10 Not Reportable 06/25/19 19:10 Appears decreased 06/25/19 19:10 Not Reportable 06/25/19 19:10 Plt Clumps, EDTA Not Reportable 06/25/19 19:10 Not Reportable 06/25/19 19:10 Not Reportable 06/25/19 19:10 Not Reportable 06/25/19 19:10 Plt Morphology Comment Not Reportable 06/25/19 19:10 RBC Morphology Not Reportable 06/25/19 19:10 Dimorphic RBCs Not Reportable 06/25/19 19:10 Not Reportable 06/25/19 19:10 Not Reportable 06/25/19 19:10 Not Reportable 06/25/19 19:10 2+ 06/25/19 19:10 Not Reportable 06/25/19 19:10 Not Reportable 06/25/19 19:10 Not Reportable 06/25/19 19:10 Not Reportable 06/25/19 19:10 Not Reportable 06/25/19 19:10 Not Reportable 06/25/19 19:10 Not Reportable 06/25/19 19:10 Not Reportable 06/25/19 19:10 Not Reportable 06/25/19 19:10 Not Reportable 06/25/19 19:10 Not Reportable 06/25/19 19:10 Not Reportable 06/25/19 19:10 Not Reportable 06/25/19 19:10 Not Reportable 06/25/19 19:10 Not Reportable 06/25/19 19:10 Acanthocytes (Spur) Not Reportable 06/25/19 19:10 Rouleaux Not Reportable 06/25/19 19:10 Not Reportable 06/25/19 19:10 Not Reportable 06/25/19 19:10 Not Reportable 06/25/19 19:10 Not Reportable 06/25/19 19:10 Hem Pathologist Commnt No 06/25/19 19:10 PT 20.0 Sec. (12.2-14.9) H 06/26/19 00:13 INR 1.75 (0.87-1.13) H 06/26/19 00:13 APTT 65.0 Sec. (24.2-36.6) H* 06/20/19 05:51 Sodium 137 mmol/L (137-145) 06/26/19 04:59 Potassium 5.3 mmol/L (3.6-5.0) H 06/26/19 04:59 Chloride 95.0 mmol/L (98-107) L 06/26/19 04:59 Carbon Dioxide 28 mmol/L (22-30) 06/26/19 04:59 19 mmol/L 06/26/19 04:59 BUN 28 mg/dL (9-20) H 06/26/19 04:59 9.4 mg/dL (0.8-1.5) H 06/26/19 04:59 Estimated GFR 7 ml/min 06/26/19 04:59 3 % 06/26/19 04:59 Glucose 94 mg/dL (75-100) 06/26/19 04:59 Lactic Acid 0.70 mmol/L (0.7-2.0) 06/25/19 05:42 Calcium 7.9 mg/dL (8.4-10.2) L 06/26/19 04:59 1.10 mg/dL (0.1-1.2) 06/18/19 22:57 AST 12 units/L (5-40) 06/18/19 22:57 ALT 8 units/L (7-56) 06/18/19 22:57 244 units/L (35-129) H 06/18/19 22:57 160 units/L (55-170) 06/19/19 12:26 CK-MB (CK-2) 1.7 ng/mL (0.0-4.0) 06/19/19 12:26 CK-MB (CK-2) Rel Index 1.0 (0-4) 06/19/19 12:26 0.059 ng/mL (0.00-0.029) H 06/19/19 12:26 NT-Pro-B Natriuret Pep 6269 pg/mL (0-450) H 06/19/19 00:00 7.6 g/dL (6.3-8.2) 06/18/19 22:57 4.1 g/dL (3.9-5) 06/18/19 22:57 1.2 % 06/18/19 22:57 Triglycerides 67 mg/dL (2-149) 06/18/19 22:57 Cholesterol 119 mg/dL (50-199) 06/18/19 22:57 72 mg/dL (50-130) 06/18/19 22:57 44 mg/dL (40-59) 06/18/19 22:57 2.70 % 06/18/19 22:57 Hepatitis A IgM Ab Non-reactive (NonReactive) 06/20/19 15:56 Hep Bs Antigen Non-reactive (Negative) 06/20/19 15:56 Hep B Core IgM Ab Non-reactive (NonReactive) 06/20/19 15:56 Non-reactive (NonReactive) 06/20/19 15:56 Active Medications - Current Medications Current Medications: Generic Name Dose Route Start Last Admin Trade Name Freq PRN Reason Stop Dose Admin Acetaminophen 650 mg 06/19/19 06:06 06/26/19 08:18 Tylenol PO 650 mg Q4H PRN Administration Pain MILD(1-3)/Fever >100.5/BANDA Enoxaparin Sodium 120 mg 06/25/19 12:00 06/25/19 12:09 Lovenox SUB-Q Not Given Q24H [facility] Epoetin Ellis 10,000 unit 06/19/19 13:19 06/24/19 13:15 Procrit IV 10,000 unit RIP PRN Administration hemodialysis Sodium Chloride 100 mls @ 999 mls/hr 06/24/19 10:00 Nacl 0.9% IV RIP PRN Hypotension Sodium Chloride 100 mls @ 999 mls/hr 06/25/19 11:02 Nacl 0.9% IV RIP PRN Hypotension Ceftriaxone Sodium 1 gm in 50 mls @ 100 mls/hr 06/25/19 13:00 06/25/19 14:00 Rocephin/Ns 1 Gm/50 Ml IV 100 mls/hr Q24H [facility] Administration Protocol Ondansetron HCl 4 mg 06/19/19 06:06 06/24/19 06:18 Zofran IV 4 mg Q8H PRN Administration Nausea And Vomiting Oxycodone/Acetaminophen 1 tab 06/19/19 06:06 06/25/19 11:21 Percocet 5/325 PO 1 tab Q6H PRN Administration Pain, Moderate (4-6) Sodium Chloride 10 ml 06/19/19 10:00 06/25/19 11:24 Sodium Chloride Flush Syringe 10 Ml IV Not Given BID [facility] Sodium Chloride 10 ml 06/19/19 06:06 Sodium Chloride Flush Syringe 10 Ml IV PRN PRN LINE FLUSH Warfarin Sodium 10 mg 06/26/19 17:00 Coumadin PO DAILY@1700 [facility] Warfarin Sodium 6 mg 06/26/19 17:00 Coumadin PO DAILY@1700 [facility] Nutrition/Malnutrition Assess - Dietary Evaluation Nutrition/Malnutrition Findings: Nutrition Notes Start: 06/24/19 17:08 Freq: Status: Active Protocol: Document 06/24/19 17:08 RM (Rec: 06/24/19 17:11 RM [id number]) Nutrition Notes Need for Assessment generated from: LOS Initial or Follow up Brief Note Subjective/Other Information Screened for LOS and Coumadin/ Vit K diet education. Pt not in room at time of visit. Nutrition Intervention Follow-Up By: 06/27/19 Additional Comments Follow for coumadin/Vit K diet education, LOS
--- NOTE | 2019-06-26 11:45 | Progress Note ---
Assessment and Plan Impression * End-stage renal disease on maintenance hemodialysis * Chest pain * Hypertension * Mild hyperkalemia * History of DVT * Left upper extremity swelling. Most likely secondary to central stenosis Recommendations * dialysis MWF schedule * Patient undergoes dialysis at a clinic in [place] on MWF schedule * Binders with meals * renal diet * abx per primary team * Epogen with dialysis * Adjust diet admits for ESRD state * No IV, BP of any puncturing his access arm Subjective Date of service: 06/26/19 Principal diagnosis: venous stenosis Interval history: resting in bed today Objective - Exam Narrative Exam: General appearance: well-developed, well-nourished, appears stated age EENT: PERRL, mucous membranes moist Neck: Present: neck supple, trachea midline. Absent: JVD/HJR, Masses Respiratory: Clear to Ascultation Heart: regular, normal heart rate, S1S2, no murmurs Gastrointestinal: Present: normal, normoactive bowel sounds Integumentary: no rash, other (1+ edema. AV graft in his right upper arm. Good bruit and thrill.) - Vital Signs Vital signs: Vital Signs - 12hr 06/25/19 06/26/19 06/26/19 23:55 03:57 08:01 Temperature 98.6 F 99.6 F 101.2 F H Pulse Rate 90 97 H 109 H Pulse Rate [ Apical] Pulse Rate [ From Monitor] Respiratory 18 20 19 Rate Blood Pressure 106/40 122/43 104/54 O2 Sat by Pulse 97 97 98 Oximetry 06/26/19 10:31 Temperature Pulse Rate Pulse Rate [ 94 H Apical] Pulse Rate [ 94 H From Monitor] Respiratory 16 Rate Blood Pressure O2 Sat by Pulse Oximetry - Lab 06/26/19 04:59 06/26/19 04:59 Most recent lab results Calcium 7.9 mg/dL (8.4-10.2) L 06/26/19 04:59 Medications & Allergies - Medications Allergies/Adverse Reactions: Allergies No Known Allergies Allergy (Verified 06/19/19 06:20) Home Medications: Home Medications Medication Instructions Recorded Confirmed Last Taken Type B Complex W-C No.20/Folic Acid 1 mg PO QAM #30 capsule 06/23/19 Unknown Rx [Nephrocaps Softgel] Calcitriol [Rocaltrol] 0.5 mcg PO QDAY #30 capsule 06/23/19 Unknown Rx Calcium Acetate [Phoslo] 667 mg PO TID #90 capsule 06/23/19 Unknown Rx Epoetin Ellis 10,000 Unit [Procrit] 10,000 unit IV RIP PRN vial 06/23/19 Unknown Rx Pantoprazole Sodium [Protonix] 40 mg PO QAM #30 granpkt. 06/23/19 Unknown Rx Warfarin [Coumadin] 15 mg PO QDAY #30 tablet 06/23/19 Unknown Rx oxyCODONE /ACETAMINOPHEN [Percocet 1 tab PO Q6H PRN #10 tablet 06/23/19 Unknown Rx 5/325 mg] Enoxaparin [Lovenox] 120 mg SQ DAILY #7 syringe 06/24/19 Unknown Rx Active Medications: Generic Name Dose Route Start Last Admin Trade Name Freq PRN Reason Stop Dose Admin Acetaminophen 650 mg 06/19/19 06:06 06/26/19 08:18 Tylenol PO 650 mg Q4H PRN Administration Pain MILD(1-3)/Fever >100.5/BANDA Enoxaparin Sodium 120 mg 06/25/19 12:00 06/25/19 12:09 Lovenox SUB-Q Not Given Q24H [facility] Epoetin Ellis 10,000 unit 06/19/19 13:19 06/24/19 13:15 Procrit IV 10,000 unit RIP PRN Administration hemodialysis Sodium Chloride 100 mls @ 999 mls/hr 06/24/19 10:00 Nacl 0.9% IV RIP PRN Hypotension Sodium Chloride 100 mls @ 999 mls/hr 06/25/19 11:02 Nacl 0.9% IV RIP PRN Hypotension Ceftriaxone Sodium 1 gm in 50 mls @ 100 mls/hr 06/25/19 13:00 06/25/19 14:00 Rocephin/Ns 1 Gm/50 Ml IV 100 mls/hr Q24H [facility] Administration Protocol Ondansetron HCl 4 mg 06/19/19 06:06 06/24/19 06:18 Zofran IV 4 mg Q8H PRN Administration Nausea And Vomiting Oxycodone/Acetaminophen 1 tab 06/19/19 06:06 06/25/19 11:21 Percocet 5/325 PO 1 tab Q6H PRN Administration Pain, Moderate (4-6) Sodium Chloride 10 ml 06/19/19 10:00 06/25/19 11:24 Sodium Chloride Flush Syringe 10 Ml IV Not Given BID [facility] Sodium Chloride 10 ml 06/19/19 06:06 Sodium Chloride Flush Syringe 10 Ml IV PRN PRN LINE FLUSH Warfarin Sodium 10 mg 06/26/19 17:00 Coumadin PO DAILY@1700 [facility] Warfarin Sodium 6 mg 06/26/19 17:00 Coumadin PO DAILY@1700 [facility]
--- NOTE | 2019-06-26 11:55 | Consultation ---
History of Present Illness - Reason for Consult Consult date: 06/26/19 Fever Requesting physician: ALMAS TRAN - History of Present Illness This patient is a 48-year-old man with a past medical history of ESRD on dialysis, PE/DVT, subclavian stenosis that presents in the ED on 06/18/19 with complaints of pain the the left epigastric area, pressure, constant intensity 5/10, radiating to the left arm. Patient states that his symptoms started Friday, June 14, 2019 after he had angioplasty to the right subclavian stent. He also states that his left arm became swollen. He had angioplasty done at [facility], Vascular was consulted, charts were reviewed and it was determined that his stents, that were treated at an outside hospital, were never r evascularized. He underwent angioplasty of subclavian vein and right AV graft on 06/21/19. On admission WBC 3.6, Creatinine 13.0, Troponin 0.059, Temperature 97.4, HR 101, BP 145/68. Chest xray shows no consolidation. Chest CT shows trace bilateral pleural effusion. Calcified cords within both internal jugular veins most likely representing chronic DVT. Blood cultures show no growth. Review of Systems: General: + fever, no chills, nightsweats, unintentional weight change, or change in appetite Cutaneous: no rash, pruritus Head: no headaches or injury Eyes: no changes in vision, eye pain, double vision Ears: no ear pain, ear discharge, ringing or hearing loss Nose: no nose bleeding, stuffiness Mouth & throat: no bleeding gums, no horseness, no dental problems, or swollen glands Neck: no pain, node enlargement/lumps, tyroid enlargement or tenderness Respiratory: no cough, wheezing, sputum, hemoptysis, pleuritic chest pain Cardiovascular: no chest pain, leg edema, cyanosis, RECIO, orthopnea Musculoskeletal: no decreased joint motion, bone or joint pain, joint swelling, muscle aches Gastrointestinal: no nausea, vomiting, hematemesis, diarrhea, constipation, melena, bright red blood in stools, fecal incontinence, jaundice Genitourinary/Reproductive: Anuria Neurogical: no seizures, no headaches, no weakness, no paresthesias, no loss of speech or vision; no memory loss, no vertigo, no tremors, no numbness Psychiatric: stable mood; no excessive anxiety, sadness or moodiness Past History Past Medical History: dialysis, ESRD, hypertension Past Surgical History: Other (history of multiple AV access creation) Social history: no significant social history Family history: no significant family history Medications and Allergies Allergies Allergy/AdvReac Type Severity Reaction Status Date / Time No Known Allergies Allergy Verified 06/19/19 06:20 Home Medications Medication Instructions Recorded Confirmed Last Taken Type B Complex W-C No.20/Folic Acid 1 mg PO QAM #30 capsule 06/23/19 Unknown Rx [Nephrocaps Softgel] Calcitriol [Rocaltrol] 0.5 mcg PO QDAY #30 capsule 06/23/19 Unknown Rx Calcium Acetate [Phoslo] 667 mg PO TID #90 capsule 06/23/19 Unknown Rx Epoetin Ellis 10,000 Unit [Procrit] 10,000 unit IV RIP PRN vial 06/23/19 Unknown Rx Pantoprazole Sodium [Protonix] 40 mg PO QAM #30 granpkt.dr 06/23/19 Unknown Rx Warfarin [Coumadin] 15 mg PO QDAY #30 tablet 06/23/19 Unknown Rx oxyCODONE /ACETAMINOPHEN [Percocet 1 tab PO Q6H PRN #10 tablet 06/23/19 Unknown Rx 5/325 mg] Enoxaparin [Lovenox] 120 mg SQ DAILY #7 syringe 06/24/19 Unknown Rx Active Meds: Active Medications Acetaminophen (Tylenol) 650 mg PO Q4H PRN PRN Reason: Pain MILD(1-3)/Fever >100.5/BANDA Last Admin: 06/26/19 08:18 Dose: 650 mg Documented by: Enoxaparin Sodium (Lovenox) 120 mg SUB-Q Q24H [facility] Last Admin: 06/25/19 12:09 Dose: Not Given Documented by: Epoetin Ellis (Procrit) 10,000 unit IV RIP PRN PRN Reason: hemodialysis Last Admin: 06/24/19 13:15 Dose: 10,000 unit Documented by: Sodium Chloride (Nacl 0.9%) 100 mls @ 999 mls/hr IV RIP PRN PRN Reason: Hypotension Sodium Chloride (Nacl 0.9%) 100 mls @ 999 mls/hr IV RIP PRN PRN Reason: Hypotension Ceftriaxone Sodium (Rocephin/Ns 1 Gm/50 Ml) 1 gm in 50 mls @ 100 mls/hr IV Q24H [facility]; Protocol Last Admin: 06/25/19 14:00 Dose: 100 mls/hr Documented by: Ondansetron HCl (Zofran) 4 mg IV Q8H PRN PRN Reason: Nausea And Vomiting Last Admin: 06/24/19 06:18 Dose: 4 mg Documented by: Oxycodone/Acetaminophen (Percocet 5/325) 1 tab PO Q6H PRN PRN Reason: Pain, Moderate (4-6) Last Admin: 06/25/19 11:21 Dose: 1 tab Documented by: Sodium Chloride (Sodium Chloride Flush Syringe 10 Ml) 10 ml IV BID DELMAR Last Admin: 06/25/19 11:24 Dose: Not Given Documented by: Sodium Chloride (Sodium Chloride Flush Syringe 10 Ml) 10 ml IV PRN PRN PRN Reason: LINE FLUSH Warfarin Sodium (Coumadin) 10 mg PO DAILY@1700 DELMAR Warfarin Sodium (Coumadin) 6 mg PO DAILY@1700 DELMAR Physical Examination - Physical Exam Narrative exam: Constitutional: Alert, cooperative. No acute distress Head, Ears, Nose: Normocephalic, atraumatic. External ears, nose normal Eyes: Conjunctivae/corneas clear. No icterus. No ptosis. Neck: Supple, no meningeal signs Oral: Dentition fair . No thrush. Cardiovascular: S1, S2 normal. Respiratory: Good air entry, clear to auscultation bilaterally GI: Soft, non-tender; bowel sounds normal. No peritoneal signs Musculoskeletal: No pedal edema, no cyanosis. Skin: No rash or abscess. Hem/Lymphatic: No palpable cervical or supraclavicular nodes. No lymphangitis Psych: Mood ok. Affect normal Neurological: Awake, alert, oriented. Lines: Right AV graft - Constitutional Vitals: Vital Signs Temp Pulse Resp BP Pulse Ox 101.2 F H 94 H 16 104/54 98 06/26/19 08:01 06/26/19 10:31 06/26/19 10:31 06/26/19 08:01 06/26/19 08:01 Temperature -Last 24 Hours Temperature 101.2 F Temperature 99.6 F Temperature 98.6 F Temperature 98.9 F Temperature 98.4 F Temperature 98.6 F Temperature 99.3 F Temperature 98.0 F Temperature 98.3 F Results - Labs CBC & Chem 7: 06/26/19 04:59 06/26/19 04:59 Labs: Abnormal lab results 06/25/19 06/26/19 06/26/19 Range/Units 19:10 00:13 04:59 WBC 1.6 L* 2.6 L (4.5-11.0) K/mm3 RBC 2.72 L 2.72 L (3.65-5.03) M/mm3 Hgb 8.7 L 8.7 L (11.8-15.2) gm/dl Hct 25.9 L 25.9 L (35.5-45.6) % MCV 95 H 95 H (84-94) fl RDW 17.7 H 17.5 H (13.2-15.2) % Plt Count 79 L 84 L (140-440) K/mm3 Gregory % (Auto) 11.8 H (0.0-7.3) % Eos % (Auto) 5.7 H (0.0-4.3) % Lymph # 0.4 L (1.2-5.4) K/mm3 Lymphocytes % (Manual) 13.0 L (13.4-35.0) % Monocytes % (Manual) 12.0 H (0.0-7.3) % Eosinophils % (Manual) 9.0 H (0.0-4.3) % Seg Neutrophils # Man 0.8 L (1.8-7.7) K/mm3 Lymphocytes # (Manual) 0.2 L (1.2-5.4) K/mm3 PT 20.0 H (12.2-14.9) Sec. INR 1.75 H (0.87-1.13) Potassium (3.6-5.0) mmol/L Chloride (98-107) mmol/L BUN (9-20) mg/dL Creatinine (0.8-1.5) mg/dL Calcium (8.4-10.2) mg/dL 06/26/19 Range/Units 04:59 WBC (4.5-11.0) K/mm3 RBC (3.65-5.03) M/mm3 Hgb (11.8-15.2) gm/dl Hct (35.5-45.6) % MCV (84-94) fl RDW (13.2-15.2) % Plt Count (140-440) K/mm3 Gregory % (Auto) (0.0-7.3) % Eos % (Auto) (0.0-4.3) % Lymph # (1.2-5.4) K/mm3 Lymphocytes % (Manual) (13.4-35.0) % Monocytes % (Manual) (0.0-7.3) % Eosinophils % (Manual) (0.0-4.3) % Seg Neutrophils # Man (1.8-7.7) K/mm3 Lymphocytes # (Manual) (1.2-5.4) K/mm3 PT (12.2-14.9) Sec. INR (0.87-1.13) Potassium 5.3 H (3.6-5.0) mmol/L Chloride 95.0 L (98-107) mmol/L BUN 28 H (9-20) mg/dL Creatinine 9.4 H (0.8-1.5) mg/dL Calcium 7.9 L (8.4-10.2) mg/dL - Imaging and Cardiology Chest x-ray: report reviewed (no consolidation) CT scan - chest: report reviewed (shows trace bilaterl plueral effusion. Calcified cords within both internal jugular veins most likely representing chronic DVT. ) Assessment and Plan Cultures: 06/24/19 Blood: no growth to date A/P: 48-year-old man with a past medical history of ESRD on dialysis, PE/DVT, subclavian stenosis that presents in the ED on 06/18/19 with complaints of pain the the left epigastric area, pressure, constant intensity 5/10, radiating to the left arm. Patient states that his symptoms started Thursday, June 142018 after he had angioplasty to the right subclavian stent. He also states that his left arm became swollen. He had angioplasty done at [facility], Vascular was consulted, charts were reviewed and it was determined that his stents, that were treated at an outside hospital were never revascularized. He underwent angioplasty of subclavian vein and right AV graft on 06/21/19. Now admitted with: 1. SIRS not on admission. Now with fever and tachycardia for 48 hours. etiology unclear.. ?bacterial vs tick bourne. Blood cultures show no growth to date. Repeat CXR show no consolidation. Currently being treated with ceftriaxone. 2. ESRD on HD: antibiotics renally dosed. Nephrology following. 3. Anemia of chronic disease: 4. History of PE/DVT: 5. Leukopenia: Will order HIV rapid. Patient consented. Recommendations: -Continue Ceftriaxone 1gm IV every 24 hours -Follow-up Blood cultures -Order CBC for tomorrow -Order HIV Rapid - Order Tick borne panel/Ehrlichia AB panel -Start Doxycycline 100mg PO BID [facility] M: [phone] O:[phone]
[2019-06-26] MEDS: SODIUM CHLORIDE FLUSH SYRINGE 10 ML IV SCH ×4 (13:10→21:24)
[2019-06-26] MEDS: LOVENOX SUB-Q SCH (13:10)
[2019-06-26] MEDS: ROCEPHIN/NS 1 GM/50 ML 1 GM/50 ML BAG IV SCH (13:12)
[2019-06-26] MEDS: COUMADIN PO SCH ×2 (16:45)
[2019-06-26] MEDS: VIBRAMYCIN PO SCH (21:21)
[2019-06-27 04:50] LABS: INR 2.11 (0.87-1.13)
--- NOTE | 2019-06-27 08:04 | Progress Note ---
Assessment and Plan Impression * End-stage renal disease on maintenance hemodialysis * Chest pain * Hypertension * Mild hyperkalemia * History of DVT * Left upper extremity swelling. Most likely secondary to central stenosis Recommendations * Hemodialysis MWF schedule * UF as tolerated * Binders with meals * Renal diet * Abx per ID * Epogen TIW prn * Adjust diet admits for ESRD state * No IV, BP of any puncturing his access arm Subjective Date of service: 06/27/19 Principal diagnosis: venous stenosis Interval history: Patient has no complaints today. He denies SOB. Objective - Vital Signs Vital signs: Vital Signs - 12hr 06/26/19 06/27/19 23:36 03:42 Temperature 98.7 F 97.8 F Pulse Rate 98 H 88 Respiratory 19 18 Rate Blood Pressure 103/33 154/46 O2 Sat by Pulse 96 98 Oximetry - General Appearance General appearance: well-developed, well-nourished EENT: ATNC Respiratory: Present: Clear to Ascultation Cardiology: regular, S1S2 Gastrointestinal: normal, no tenderness, no distended Integumentary: no rash, warm and dry Neurologic: no focal deficit, alert and oriented x3 Psychiatric: cooperative - Lab 06/26/19 04:59 06/26/19 04:59 Most recent lab results Calcium 7.9 mg/dL (8.4-10.2) L 06/26/19 04:59 Medications & Allergies - Medications Allergies/Adverse Reactions: Allergies No Known Allergies Allergy (Verified 06/19/19 06:20) Home Medications: Home Medications Medication Instructions Recorded Confirmed Last Taken Type B Complex W-C No.20/Folic Acid 1 mg PO QAM #30 capsule 06/23/19 Unknown Rx [Nephrocaps Softgel] Calcitriol [Rocaltrol] 0.5 mcg PO QDAY #30 capsule 06/23/19 Unknown Rx Calcium Acetate [Phoslo] 667 mg PO TID #90 capsule 06/23/19 Unknown Rx Epoetin Ellis 10,000 Unit [Procrit] 10,000 unit IV RIP PRN vial 06/23/19 Unknown Rx Pantoprazole Sodium [Protonix] 40 mg PO QAM #30 06/23/19 Unknown Rx Warfarin [Coumadin] 15 mg PO QDAY #30 tablet 06/23/19 Unknown Rx oxyCODONE /ACETAMINOPHEN [Percocet 1 tab PO Q6H PRN #10 tablet 06/23/19 Unknown Rx 5/325 mg] Enoxaparin [Lovenox] 120 mg SQ DAILY #7 syringe 06/24/19 Unknown Rx Active Medications: Generic Name Dose Route Start Last Admin Trade Name Mitesh PRN Reason Stop Dose Admin Acetaminophen 650 mg 06/19/19 06:06 06/26/19 08:18 Tylenol PO 650 mg Q4H PRN Administration Pain MILD(1-3)/Fever >100.5/BANDA Doxycycline Hyclate 100 mg 06/26/19 22:00 06/26/19 21:21 Vibramycin PO 100 mg BID DELMAR Administration Enoxaparin Sodium 120 mg 06/25/19 12:00 06/26/19 13:10 Lovenox SUB-Q Not Given Q24H [facility] Epoetin Ellis 10,000 unit 06/19/19 13:19 06/24/19 13:15 Procrit IV 10,000 unit RIP PRN Administration hemodialysis Sodium Chloride 100 mls @ 999 mls/hr 06/25/19 11:02 Nacl 0.9% IV RIP PRN Hypotension Ceftriaxone Sodium 1 gm in 50 mls @ 100 mls/hr 06/25/19 13:00 06/26/19 13:12 Rocephin/Ns 1 Gm/50 Ml IV 100 mls/hr Q24H DELMAR Administration Protocol Ondansetron HCl 4 mg 06/19/19 06:06 06/24/19 06:18 Zofran IV 4 mg Q8H PRN Administration Nausea And Vomiting Oxycodone/Acetaminophen 1 tab 06/19/19 06:06 06/25/19 11:21 Percocet 5/325 PO 1 tab Q6H PRN Administration Pain, Moderate (4-6) Sodium Chloride 10 ml 06/19/19 10:00 06/26/19 21:24 Sodium Chloride Flush Syringe 10 Ml IV 10 ml BID DELMAR Administration Sodium Chloride 10 ml 06/19/19 06:06 Sodium Chloride Flush Syringe 10 Ml IV PRN PRN LINE FLUSH Warfarin Sodium 10 mg 06/26/19 17:00 06/26/19 16:45 Coumadin PO 10 mg DAILY@1700 DELMAR Administration Warfarin Sodium 6 mg 06/26/19 17:00 06/26/19 16:45 Coumadin PO 6 mg DAILY@1700 DELMAR Administration
--- NOTE | 2019-06-27 11:22 | Progress Note ---
<ZAMZAM ORELLANA - Last Filed: 06/27/19 15:38> Assessment and Plan Cultures: 06/24/19 Blood: no growth to date A/P: 48-year-old man with a past medical history of ESRD on dialysis, PE/DVT, subclavian stenosis that presents in the ED on 06/18/19 with complaints of pain the the left epigastric area, pressure, constant intensity 5/10, radiating to the left arm. Patient states that his symptoms started Thursday, June 142018 after he had angioplasty to the right subclavian stent. He also states that his left arm became swollen. He had angioplasty done at [facility], Vascular was consulted, charts were reviewed and it was determined that his stents, that were treated at an outside hospital were never revascularized. He underwent angioplasty of subclavian vein and right AV graft on 06/21/19. Now admitted with: 1. SIRS not on admission. Now improved, no fever or tachycardia. etiology unclear.. ?bacterial vs tick bourne. Blood cultures show no growth to date. Repeat CXR show no consolidation. Currently being treated with ceftriaxone. Will send early Ehrlichia serologies and put him on doxycycline therapeutic trial. 2. ESRD on HD: antibiotics renally dosed. Nephrology following. 3. Anemia of chronic disease: 4. History of PE/DVT: 5. Leukopenia: significant leukopenia that apparently has been going on for the last 2 months. Scheduled to see a national account director as an outpatient. HIV non-re active. Recommendations: -Continue Ceftriaxone 1gm IV every 24 hours, D3 - Continue Doxycycline 100mg PO BID, D2 -Follow-up blood cultures -Follow-up Tick borne panel/Ehrlichia AB panel Zamzam Orellana NP [facility] M: [phone] O:[phone] Subjective Date of service: 06/27/19 Principal diagnosis: venous stenosis Interval history: Patient seen and examined in HD. Reports no acute distress. No fevers. Objective - Exam Narrative Exam: Constitutional: Alert, cooperative. No acute distress Head, Ears, Nose: Normocephalic, atraumatic. External ears, nose normal Eyes: Conjunctivae/corneas clear. No icterus. No ptosis. Neck: Supple, no meningeal signs Oral: Dentition fair . No thrush. Cardiovascular: S1, S2 normal. Respiratory: Good air entry, clear to auscultation bilaterally GI: Soft, non-tender; bowel sounds normal. No peritoneal signs Musculoskeletal: No pedal edema, no cyanosis. Skin: No rash or abscess. Hem/Lymphatic: No palpable cervical or supraclavicular nodes. No lymphangitis Psych: Mood ok. Affect normal Neurological: Awake, alert, oriented. Lines: Right AV graft - Constitutional Vitals: Vital Signs Temp Pulse Resp BP Pulse Ox 98.6 F 96 H 16 140/50 95 06/27/19 09:05 06/27/19 10:00 06/27/19 09:05 06/27/19 10:00 06/27/19 08:34 Temperature -Last 24 Hours Temperature 98.6 F Temperature 98.6 F Temperature 97.8 F Temperature 98.7 F Temperature 98.8 F Temperature 98.6 F Temperature 99.2 F - Labs CBC & Chem 7: 06/26/19 04:59 06/26/19 04:59 Labs: Abnormal lab results 06/27/19 Range/Units 04:20 PT 23.2 H (12.2-14.9) Sec. INR 2.11 H (0.87-1.13) <PALMA TOPETE. - Last Filed: 06/27/19 16:12> Assessment and Plan I have personally seen and evaluated this patient on 06/27/2019 with Zamzam Orellana NP. I have reviewed and confirmed the medical history, physical examination findings, pertinent lab data, microbiologic data & personally reviewed the imaging. I evaluated the risk-benefit, side effect profile of anti- microbials and formulated the assessment and plan Objective - Constitutional Vitals: Vital Signs Temp Pulse Resp BP Pulse Ox 98.6 F 98 H 18 127/33 95 06/27/19 13:00 06/27/19 13:00 06/27/19 15:13 06/27/19 13:00 06/27/19 08:34 Temperature -Last 24 Hours Temperature 98.6 F Temperature 98.6 F Temperature 98.6 F Temperature 97.8 F Temperature 98.7 F Temperature 98.8 F Temperature 98.6 F - Labs CBC & Chem 7: 06/26/19 04:59 06/26/19 04:59 Labs: Abnormal lab results 06/27/19 Range/Units 04:20 PT 23.2 H (12.2-14.9) Sec. INR 2.11 H (0.87-1.13)
[2019-06-27] MEDS: PROCRIT IV PRN (12:34)
[2019-06-27] MEDS: SODIUM CHLORIDE FLUSH SYRINGE 10 ML IV SCH ×2 (14:51→22:27)
[2019-06-27] MEDS: VIBRAMYCIN PO SCH ×2 (14:51→22:27)
--- NOTE | 2019-06-27 14:53 | Progress Note ---
Subjective Date of service: 06/27/19 Principal diagnosis: venous stenosis Interval history: A/P: SIRS. Patient with persistent fever and leukopenia. Follow-up blood cultures- NGTD. Started empiric Rocephin and doxycyckine. Chest x-ray negative. No obvious signs of infection. ID consulted. note reviewed ESRD. Continue hemodialysis per nephrology. nephrology note reviewed Chest pain. Patient underwent Lexiscan stress test, which shows a normal myocardial perfusion and normal left ventricle systolic function. Normal thallium stress test. Volume overload. Continue hemodialysis Thursday Additional ultrafiltration. Pancytopenia/ neutropenia Today's labs reviewed Monitor daily CBC WBC is trending up Anemia of chronic disease. Continue to monitor H&H and transfuse for hemoglobin less than 7 History of pulmonary embolism./ DVT Resumed Coumadin. Continue bridging with Lovenox INR is therapeutic Discussed with the pharmacy Patient will continue to get 16 mg of warfarin Monitor daily INR Subjective Patient is awake alert and offers no specific complaints He denies any chest pain or shortness of breath and states that he is feeling better He denies any fever or chills 12 point review of systems is essentially unremarkable today Constitutional: Alert, cooperative. No acute distress Head, Ears, Nose: Normocephalic, Eyes: Conjunctivae/corneas clear. No icterus. Neck: Supple, no meningeal signs Oral: Dentition fair . No thrush. Cardiovascular: S1, S2 normal. Respiratory: Good air entry, GI: Soft, non-tender; bowel sounds normal. Musculoskeletal: No pedal edema, no cyanosis. Skin: No rash or abscess. Psych: Mood ok. Affect normal Neurological: Awake, alert, oriented. no Focal deficit Lines: Right AV graft Objective - Constitutional Vitals: Vital Signs - 12hr 06/27/19 06/27/19 06/27/19 03:42 08:34 09:05 Temperature 97.8 F 98.6 F 98.6 F Pulse Rate 88 96 H 96 H Respiratory 18 16 16 Rate Blood Pressure 154/46 124/52 134/32 O2 Sat by Pulse 98 95 Oximetry 06/27/19 06/27/19 06/27/19 09:15 09:30 09:45 Temperature Pulse Rate 94 H 97 H 97 H Respiratory Rate Blood Pressure 129/46 165/141 140/85 O2 Sat by Pulse Oximetry 0706/27/19 06/27/19 10:00 10:15 10:30 Temperature Pulse Rate 96 H 94 H 96 H Respiratory Rate Blood Pressure 140/50 129/44 113/50 O2 Sat by Pulse Oximetry 06/27/19 06/27/19 06/27/19 10:45 11:00 11:15 Temperature Pulse Rate 92 H 92 H 94 H Respiratory Rate Blood Pressure 138/47 120/41 108/46 O2 Sat by Pulse Oximetry 06/27/19 06/27/19 06/27/19 11:30 11:45 12:00 Temperature Pulse Rate 47 L 101 H 97 H Respiratory Rate Blood Pressure 103/52 124/45 122/92 O2 Sat by Pulse Oximetry 06/27/19 06/27/19 06/27/19 12:15 12:30 12:45 Temperature Pulse Rate 60 51 L 71 Respiratory Rate Blood Pressure 155/108 178/147 80/62 O2 Sat by Pulse Oximetry 06/27/19 13:00 Temperature 98.6 F Pulse Rate 98 H Respiratory 16 Rate Blood Pressure 127/33 O2 Sat by Pulse Oximetry - Labs CBC & Chem 7: 06/26/19 04:59 06/26/19 04:59 Labs: Abnormal lab results 06/27/19 Range/Units 04:20 PT 23.2 H (12.2-14.9) Sec. INR 2.11 H (0.87-1.13)
[2019-06-27] MEDS: ROCEPHIN/NS 1 GM/50 ML 1 GM/50 ML BAG IV SCH (15:28)
[2019-06-27] MEDS: COUMADIN PO SCH ×2 (18:26)
[2019-06-28 06:02] LABS: Hematocrit 24.4 % (35.5-45.6); Mean Corpuscular HGB Conc 33 % (32-34); Mean Corpuscular Volume 95 fl (84-94); Platelet Count 106 K/mm3 (140-440); Red Blood Count 2.58 M/mm3 (3.65-5.03); Red Cell Distribution Width 17.3 % (13.2-15.2)
[2019-06-28 06:13] LABS: INR 2.25 (0.87-1.13)
[2019-06-28 06:27] LABS: Calcium 7.5 mg/dL (8.4-10.2)
--- NOTE | 2019-06-28 09:04 | Progress Note ---
Assessment and Plan Impression * End-stage renal disease on maintenance hemodialysis * Chest pain * Hypertension * Mild hyperkalemia * History of DVT * Left upper extremity swelling. Most likely secondary to central stenosis * Hypocalcemia * Pancytopenia Recommendations * Hemodialysis MWF schedule * UF as tolerated * Hypocalcemia is likely due to secondary hyperparathyroidism - will start calcitriol * Consultants' recommendations noted * Note plans for hematology consultation * Renal diet. Binders with meals * Abx per ID * Epogen TIW prn Subjective Date of service: 06/28/19 Principal diagnosis: venous stenosis Interval history: Patient denies SOB. Objective - Vital Signs Vital signs: Vital Signs - 12hr 06/27/19 06/27/19 06/28/19 21:10 23:55 03:53 Temperature 98.0 F 98.0 F Pulse Rate 86 86 Pulse Rate [ 94 H Apical] Respiratory 18 20 20 Rate Blood Pressure 138/43 144/31 O2 Sat by Pulse 100 100 99 Oximetry 06/28/19 08:46 Temperature 98.5 F Pulse Rate 92 H Pulse Rate [ Apical] Respiratory 16 Rate Blood Pressure 123/39 O2 Sat by Pulse 97 Oximetry - General Appearance General appearance: well-developed, well-nourished EENT: ATNC Respiratory: Present: Clear to Ascultation Cardiology: regular, S1S2 Gastrointestinal: normal, no tenderness, no distended Integumentary: no rash, warm and dry Psychiatric: cooperative - Lab 06/28/19 05:19 06/28/19 05:19 Most recent lab results Calcium 7.5 mg/dL (8.4-10.2) L 06/28/19 05:19 Medications & Allergies - Medications Allergies/Adverse Reactions: Allergies No Known Allergies Allergy (Verified 06/19/19 06:20) Home Medications: Home Medications Medication Instructions Recorded Confirmed Last Taken Type B Complex W-C No.20/Folic Acid 1 mg PO QAM #30 capsule 06/23/19 Unknown Rx [Nephrocaps Softgel] Calcitriol [Rocaltrol] 0.5 mcg PO QDAY #30 capsule 06/23/19 Unknown Rx Calcium Acetate [Phoslo] 667 mg PO TID #90 capsule 06/23/19 Unknown Rx Epoetin Ellis 10,000 Unit [Procrit] 10,000 unit IV RIP PRN vial 06/23/19 Unknown Rx Pantoprazole Sodium [Protonix] 40 mg PO QAM #30 robynpkt 06/23/19 Unknown Rx Warfarin [Coumadin] 15 mg PO QDAY #30 tablet 06/23/19 Unknown Rx oxyCODONE /ACETAMINOPHEN [Percocet 1 tab PO Q6H PRN #10 tablet 06/23/19 Unknown Rx 5/325 mg] Enoxaparin [Lovenox] 120 mg SQ DAILY #7 syringe 06/24/19 Unknown Rx Active Medications: Generic Name Dose Route Start Last Admin Trade Name Freq PRN Reason Stop Dose Admin Acetaminophen 650 mg 06/19/19 06:06 06/26/19 08:18 Tylenol PO 650 mg Q4H PRN Administration Pain MILD(1-3)/Fever >100.5/BANDA Doxycycline Hyclate 100 mg 06/26/19 22:00 06/27/19 22:27 Vibramycin PO 100 mg BID DELMAR Administration Epoetin Ellis 10,000 unit 06/19/19 13:19 06/27/19 12:34 Procrit IV 10,000 unit RIP PRN Administration hemodialysis Sodium Chloride 100 mls @ 999 mls/hr 06/25/19 11:02 Nacl 0.9% IV RIP PRN Hypotension Ceftriaxone Sodium 1 gm in 50 mls @ 100 mls/hr 06/25/19 13:00 06/27/19 15:28 Rocephin/Ns 1 Gm/50 Ml IV 100 mls/hr Q24H DELMAR Administration Protocol Ondansetron HCl 4 mg 06/19/19 06:06 06/24/19 06:18 Zofran IV 4 mg Q8H PRN Administration Nausea And Vomiting Oxycodone/Acetaminophen 1 tab 06/19/19 06:06 06/25/19 11:21 Percocet 5/325 PO 1 tab Q6H PRN Administration Pain, Moderate (4-6) Sodium Chloride 10 ml 06/19/19 10:00 06/27/19 22:27 Sodium Chloride Flush Syringe 10 Ml IV 10 ml BID DELMAR Administration Sodium Chloride 10 ml 06/19/19 06:06 Sodium Chloride Flush Syringe 10 Ml IV PRN PRN LINE FLUSH Warfarin Sodium 10 mg 06/26/19 17:00 06/27/19 18:26 Coumadin PO 10 mg DAILY@1700 DELMAR Administration Warfarin Sodium 6 mg 06/26/19 17:00 06/27/19 18:26 Coumadin PO 6 mg DAILY@1700 DELMAR Administration
[2019-06-28] MEDS: SODIUM CHLORIDE FLUSH SYRINGE 10 ML IV SCH ×2 (10:10→23:13)
[2019-06-28] MEDS: VIBRAMYCIN PO SCH ×2 (10:10→23:13)
--- NOTE | 2019-06-28 10:40 | Progress Note ---
Assessment and Plan Cultures: 06/24/19 Blood: no growth to date A/P: 48-year-old man with a past medical history of ESRD on dialysis, PE/DVT, [place] bclavian stenosis that presents in the ED on 06/18/19 with complaints of pain the the left epigastric area, pressure, constant intensity 5/10, radiating to the left arm. Patient states that his symptoms started Thursday, June 142018 after he had angioplasty to the right subclavian stent. He also states that his left arm became swollen. He had angioplasty done at [facility], Vascular was consulted, charts were reviewed and it was determined that his stents, that were treated at an outside hospital were never revascularized. He underwent angioplasty of subclavian vein and right AV graft on 06/21/19. Now admitted with: 1. SIRS not on admission. Now resolved. No fever >24 hours. etiology unclear.. ?bacterial vs tick bourne. Blood cultures show no growth to date. Repeat CXR show no consolidation. Currently being treated with ceftriaxone. Will send early Ehrlichia serologies and put him on doxycycline therapeutic trial. 2. ESRD on HD: antibiotics renally dosed. Nephrology following. 3. Anemia of chronic disease: 4. History of PE/DVT: 5. Leukopenia: significant leukopenia that apparently has been going on for the last 2 months. Scheduled to see a cte teacher as an outpatient. HIV non- reactive. Recommendations: -Continue Ceftriaxone 1gm IV every 24 hours, D4 - Continue Doxycycline 100mg PO BID, D3 -Follow-up blood cultures -Follow-up Tick borne panel/Ehrlichia AB panel -Anticipate discharge on Doxycycline 100 mg PO BID for total 2 weeks ending 07-10-19 --Follow-up ID clinic in 2 weeks (sent to needle bar molder) [facility] M: [id number] O:[phone] Subjective Date of service: 06/28/19 Principal diagnosis: venous stenosis Interval history: Patient seen and examined. No acute distress or SOB reported. No fevers. Objective - Exam Narrative Exam: Constitutional: Alert, cooperative. No acute distress Head, Ears, Nose: Normocephalic, atraumatic. External ears, nose normal Eyes: Conjunctivae/corneas clear. No icterus. No ptosis. Neck: Supple, no meningeal signs Oral: Dentition fair . No thrush. Cardiovascular: S1, S2 normal. Respiratory: Good air entry, clear to auscultation bilaterally GI: Soft, non-tender; bowel sounds normal. No peritoneal signs Musculoskeletal: No pedal edema, no cyanosis. Skin: No rash or abscess. Hem/Lymphatic: No palpable cervical or supraclavicular nodes. No lymphangitis Psych: Mood ok. Affect normal Neurological: Awake, alert, oriented. Lines: Right AV graft - Constitutional Vitals: Vital Signs Temp Pulse Resp BP Pulse Ox 98.5 F 92 H 16 123/39 97 06/28/19 08:46 06/28/19 08:46 06/28/19 08:46 06/28/19 08:46 06/28/19 08:46 Temperature -Last 24 Hours Temperature 98.5 F Temperature 98.0 F Temperature 98.0 F Temperature 98.6 F Temperature 98.9 F Temperature 98.6 F - Labs CBC & Chem 7: 06/28/19 05:19 06/28/19 05:19 Labs: Abnormal lab results 06/28/19 06/28/19 06/28/19 Range/Units 05:19 05:19 05:19 WBC 2.1 L (4.5-11.0) K/mm3 RBC 2.58 L (3.65-5.03) M/mm3 Hgb 8.0 L (11.8-15.2) gm/dl Hct 24.4 L (35.5-45.6) % MCV 95 H (84-94) fl RDW 17.3 H (13.2-15.2) % Plt Count 106 L (140-440) K/mm3 PT 24.4 H (12.2-14.9) Sec. INR 2.25 H (0.87-1.13) Sodium 135 L (137-145) mmol/L Chloride 96.9 L (98-107) mmol/L BUN 28 H (9-20) mg/dL Creatinine 8.9 H (0.8-1.5) mg/dL Glucose 73 L (75-100) mg/dL Calcium 7.5 L (8.4-10.2) mg/dL
[2019-06-28] MEDS: ROCEPHIN/NS 1 GM/50 ML 1 GM/50 ML BAG IV SCH (12:16)
--- NOTE | 2019-06-28 17:56 | Progress Note ---
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 It appears his central venous system has stents extending into his SVC and at an outside hospital they failed to re-vascularization of the stents on the left which he believes was causing the left-sided chest pains. So, He he underwent Fistulogram and bilateral upper extremity Angioplasty on 06/21/19. He had a negative stress test on 06/23/19. He developed fevers on 06/24/19. Chest pain/subclavian stenosis: I have asked Vascular to re-evaluate Hyperkalemia: repeat bmp ESRD on dialysis PE/DVT on coumadin: monitor INR closely AOCD: monitor CBC Pancytopenia: consult heme/onc History Interval history: Patient was seen and examined. Follow-up on current diagnosis ESRD, chest pains. No overnight events reported to me. Patient denies any chest pain, shortness breath, nausea/vomiting or severe headaches. Imaging, nursing note, chart, labs and old chart reviewed. Discussed with patient. Hospitalist Physical - Physical exam Narrative exam: Gen: WDWN, NAD, Awake, Alert, Orientated HEENT: NCAT, EOMI, PERRL, OP Clear Neck: supple, no adenopathy, no thyromegaly, no JVD CVS/Heart: RRR, normal S1S2, pulses present bilaterally Chest/Lungs: CTA B, Symmetrical chest expansion, good air entry bilaterally GI/Abdomen: soft, NTND, good bowel sounds, no guarding or rebound /Bladder: no suprapubic tenderness, no CVA or paraspinal tenderness Extermity/Skin: no c/c/e, no obvious rash MSK: FROM x 4 Neuro: CN 2-12 grossly intact, no new focal deficits Psych: calm - Constitutional Vitals: Temp Pulse Resp BP Pulse Ox 98.6 F 92 H 18 96/59 98 06/28/19 14:25 06/28/19 14:25 06/28/19 14:25 06/28/19 14:25 06/28/19 14:25 General appearance: Present: no acute distress, well-nourished Results - Labs CBC & Chem 7: 06/28/19 05:19 06/28/19 05:19 Labs: Laboratory Last Values WBC 2.1 K/mm3 (4.5-11.0) L 06/28/19 05:19 RBC 2.58 M/mm3 (3.65-5.03) L 06/28/19 05:19 Hgb 8.0 gm/dl (11.8-15.2) L 06/28/19 05:19 Hct 24.4 % (35.5-45.6) L 06/28/19 05:19 MCV 95 fl (84-94) H 06/28/19 05:19 MCH 31 pg (28-32) 06/28/19 05:19 MCHC 33 % (32-34) 06/28/19 05:19 RDW 17.3 % (13.2-15.2) H 06/28/19 05:19 Plt Count 106 K/mm3 (140-440) L 06/28/19 05:19 Lymph % (Auto) 14.2 % (13.4-35.0) 06/26/19 04:59 [place] % (Auto) 11.8 % (0.0-7.3) H 06/26/19 04:59 Eos % (Auto) 5.7 % (0.0-4.3) H 06/26/19 04:59 Baso % (Auto) 0.4 % (0.0-1.8) 06/26/19 04:59 Lymph # 0.4 K/mm3 (1.2-5.4) L 06/26/19 04:59 [place] # 0.3 K/mm3 (0.0-0.8) 06/26/19 04:59 Eos # 0.1 K/mm3 (0.0-0.4) 06/26/19 04:59 Baso # 0.0 K/mm3 (0.0-0.1) 06/26/19 04:59 Add Manual Diff Complete 06/25/19 19:10 Total Counted 100 06/25/19 19:10 Seg Neutrophils % 67.9 % (40.0-70.0) 06/26/19 04:59 Seg Neuts % (Manual) 47.0 % (40.0-70.0) 06/25/19 19:10 18.0 % 06/25/19 19:10 13.0 % (13.4-35.0) L 06/25/19 19:10 Reactive Lymphs % (Man) 1.0 % 06/25/19 19:10 12.0 % (0.0-7.3) H 06/25/19 19:10 9.0 % (0.0-4.3) H 06/25/19 19:10 0 % (0.0-1.8) 06/25/19 19:10 0 % 06/25/19 19:10 0 % 06/25/19 19:10 0 % 06/25/19 19:10 0 % 06/25/19 19:10 Nucleated RBC % Not Reportable 06/25/19 19:10 Seg Neutrophils # 1.8 K/mm3 (1.8-7.7) 06/26/19 04:59 Seg Neutrophils # Man 0.8 K/mm3 (1.8-7.7) L 06/25/19 19:10 Band Neutrophils # 0.3 K/mm3 06/25/19 19:10 0.2 K/mm3 (1.2-5.4) L 06/25/19 19:10 Abs React Lymphs (Man) 0.0 K/mm3 06/25/19 19:10 0.2 K/mm3 (0.0-0.8) 06/25/19 19:10 0.1 K/mm3 (0.0-0.4) 06/25/19 19:10 0.0 K/mm3 (0.0-0.1) 06/25/19 19:10 0.0 K/mm3 06/25/19 19:10 0.0 K/mm3 06/25/19 19:10 0.0 K/mm3 06/25/19 19:10 Blast Cells # 0.0 K/mm3 06/25/19 19:10 WBC Morphology Not Reportable 06/25/19 19:10 Hypersegmented Neuts Not Reportable 06/25/19 19:10 Hyposegmented Neuts Not Reportable 06/25/19 19:10 Hypogranular Neuts Not Reportable 06/25/19 19:10 Not Reportable 06/25/19 19:10 Not Reportable 06/25/19 19:10 Not Reportable 06/25/19 19:10 Not Reportable 06/25/19 19:10 Not Reportable 06/25/19 19:10 Not Reportable 06/25/19 19:10 Appears decreased 06/25/19 19:10 Not Reportable 06/25/19 19:10 Plt Clumps, EDTA Not Reportable 06/25/19 19:10 Not Reportable 06/25/19 19:10 Not Reportable 06/25/19 19:10 Not Reportable 06/25/19 19:10 Plt Morphology Comment Not Reportable 06/25/19 19:10 RBC Morphology Not Reportable 06/25/19 19:10 Dimorphic RBCs Not Reportable 06/25/19 19:10 Not Reportable 06/25/19 19:10 Not Reportable 06/25/19 19:10 Not Reportable 06/25/19 19:10 2+ 06/25/19 19:10 Not Reportable 06/25/19 19:10 Not Reportable 06/25/19 19:10 Not Reportable 06/25/19 19:10 Not Reportable 06/25/19 19:10 Not Reportable 06/25/19 19:10 Not Reportable 06/25/19 19:10 Not Reportable 06/25/19 19:10 Not Reportable 06/25/19 19:10 Not Reportable 06/25/19 19:10 Not Reportable 06/25/19 19:10 Not Reportable 06/25/19 19:10 Not Reportable 06/25/19 19:10 Not Reportable 06/25/19 19:10 Not Reportable 06/25/19 19:10 Not Reportable 06/25/19 19:10 Acanthocytes (Spur) Not Reportable 06/25/19 19:10 Rouleaux Not Reportable 06/25/19 19:10 Not Reportable 06/25/19 19:10 Not Reportable 06/25/19 19:10 Not Reportable 06/25/19 19:10 Not Reportable 06/25/19 19:10 Hem Pathologist Commnt No 06/25/19 19:10 PT 24.4 Sec. (12.2-14.9) H 06/28/19 05:19 INR 2.25 (0.87-1.13) H 06/28/19 05:19 APTT 65.0 Sec. (24.2-36.6) H* 06/20/19 05:51 Sodium 135 mmol/L (137-145) L 06/28/19 05:19 Potassium 4.5 mmol/L (3.6-5.0) 06/28/19 05:19 Chloride 96.9 mmol/L (98-107) L 06/28/19 05:19 Carbon Dioxide 26 mmol/L (22-30) 06/28/19 05:19 17 mmol/L 06/28/19 05:19 BUN 28 mg/dL (9-20) H 06/28/19 05:19 8.9 mg/dL (0.8-1.5) H 06/28/19 05:19 Estimated GFR 8 ml/min 06/28/19 05:19 3 % 06/28/19 05:19 Glucose 73 mg/dL (75-100) L 06/28/19 05:19 Lactic Acid 0.70 mmol/L (0.7-2.0) 06/25/19 05:42 Calcium 7.5 mg/dL (8.4-10.2) L 06/28/19 05:19 1.10 mg/dL (0.1-1.2) 06/18/19 22:57 AST 12 units/L (5-40) 06/18/19 22:57 ALT 8 units/L (7-56) 06/18/19 22:57 244 units/L (35-129) H 06/18/19 22:57 160 units/L (55-170) 06/19/19 12:26 CK-MB (CK-2) 1.7 ng/mL (0.0-4.0) 06/19/19 12:26 CK-MB (CK-2) Rel Index 1.0 (0-4) 06/19/19 12:26 0.059 ng/mL (0.00-0.029) H 06/19/19 12:26 NT-Pro-B Natriuret Pep 6269 pg/mL (0-450) H 06/19/19 00:00 7.6 g/dL (6.3-8.2) 06/18/19 22:57 4.1 g/dL (3.9-5) 06/18/19 22:57 1.2 % 06/18/19 22:57 Triglycerides 67 mg/dL (2-149) 06/18/19 22:57 Cholesterol 119 mg/dL (50-199) 06/18/19 22:57 72 mg/dL (50-130) 06/18/19 22:57 44 mg/dL (40-59) 06/18/19 22:57 2.70 % 06/18/19 22:57 Hepatitis A IgM Ab Non-reactive (NonReactive) 06/20/19 15:56 Hep Bs Antigen Non-reactive (Negative) 06/20/19 15:56 Hep B Core IgM Ab Non-reactive (NonReactive) 06/20/19 15:56 Non-reactive (NonReactive) 06/20/19 15:56 HIV 1&2 Antibody Rapid Non react (Non React) 06/27/19 04:20 Non react (Non React) 06/27/19 04:20 Active Medications - Current Medications Current Medications: Generic Name Dose Route Start Last Admin Trade Name Freq PRN Reason Stop Dose Admin Acetaminophen 650 mg 06/19/19 06:06 06/26/19 08:18 Tylenol PO 650 mg Q4H PRN Administration Pain MILD(1-3)/Fever >100.5/BANDA Doxycycline Hyclate 100 mg 06/26/19 22:00 06/28/19 10:10 Vibramycin PO 100 mg BID DELMAR Administration Epoetin Ellis 10,000 unit 06/19/19 13:19 06/27/19 12:34 Procrit IV 10,000 unit RIP PRN Administration hemodialysis Sodium Chloride 100 mls @ 999 mls/hr 06/25/19 11:02 Nacl 0.9% IV RIP PRN Hypotension Ceftriaxone Sodium 1 gm in 50 mls @ 100 mls/hr 06/25/19 13:00 06/28/19 12:16 Rocephin/Ns 1 Gm/50 Ml IV 100 mls/hr Q24H DELMAR Administration Protocol Ondansetron HCl 4 mg 06/19/19 06:06 06/24/19 06:18 Zofran IV 4 mg Q8H PRN Administration Nausea And Vomiting Oxycodone/Acetaminophen 1 tab 06/19/19 06:06 06/25/19 11:21 Percocet 5/325 PO 1 tab Q6H PRN Administration Pain, Moderate (4-6) Sodium Chloride 10 ml 06/19/19 10:00 06/28/19 10:10 Sodium Chloride Flush Syringe 10 Ml IV 10 ml BID DELMAR Administration Sodium Chloride 10 ml 06/19/19 06:06 Sodium Chloride Flush Syringe 10 Ml IV PRN PRN LINE FLUSH Warfarin Sodium 10 mg 06/26/19 17:00 06/27/19 18:26 Coumadin PO 10 mg DAILY@1700 DELMAR Administration Warfarin Sodium 6 mg 06/26/19 17:00 06/27/19 18:26 Coumadin PO 6 mg DAILY@1700 DELMAR Administration Nutrition/Malnutrition Assess - Dietary Evaluation Nutrition/Malnutrition Findings: Nutrition Notes Start: 06/24/19 17:08 Freq: Status: Active Protocol: Document 06/28/19 13:21 RM (Rec: 06/28/19 13:29 RM [id number]) Nutrition Notes Initial or Follow up Reassessment Other Pertinent Diagnosis ESRD on HD (M/W/F), CP, Leukopenia Current Diet Renal,Vegan Labs/Tests Reviewed Pertinent Medications Zofran Height 5 ft 6 in Weight 115.3 kg [place] Body Weight (kg) 64.54 BMI 41.0 Subjective/Other Information Pt stated that his appetite is good but his PO intake varies between none and 100% based on what he receives. Stated that he is a vegan, that he only listens to those with a naturopathic background , and does not believe that protein exists. Declined ONS. Noted preferences. Burn Absent Trauma Absent #1 Nutrition Diagnosis Inadequate protein intake Diagnosis Progress(for reassessment Continues documentation) Is patient on ventilator? No Is Patient Ambulatory and/or Out of Bed Yes REE-([place]. or-ambulatory/OOB) [ 2568.475 [id number]] Kcal/Kg value to use for calculation 18 Approximate Energy Requirements Using 5 kcal/Kg Calculation Used for Recommendations Kcal/kg Additional Notes Protein Needs: 108-117g (1.2-1 .3g/kg 90kg adjBW) Fluid Needs: 1 ml/kcal Nutrition Intervention Change Diet Order: Continue current Goal #1 Meet at least 75% of calorie and protein needs via PO and ONS intakes Anticipated Discharge Needs: Vegan diet Follow-Up By: 07/01/19 Additional Comments Follow for PO intakes
[2019-06-28] MEDS: COUMADIN PO SCH ×2 (18:05→18:06)
[2019-06-29 09:33] LABS: Basophils % (Auto) 0.6 % (0.0-1.8); Eosinophils # (Auto) 0.2 K/mm3 (0.0-0.4); Eosinophils % (Auto) 8.8 % (0.0-4.3); Hematocrit 28.1 % (35.5-45.6); Hemoglobin 9.2 gm/dl (11.8-15.2); Lymphocytes # (Auto) 0.8 K/mm3 (1.2-5.4); Lymphocytes % (Auto) 30.4 % (13.4-35.0); Mean Corpuscular HGB Conc 33 % (32-34); Mean Corpuscular Volume 95 fl (84-94); Monocytes # (Auto) 0.3 K/mm3 (0.0-0.8); Monocytes % (Auto) 12.3 % (0.0-7.3); Platelet Count 137 K/mm3 (140-440); Red Blood Count 2.97 M/mm3 (3.65-5.03); Red Cell Distribution Width 17.4 % (13.2-15.2)
[2019-06-29 09:34] LABS: Hematocrit 26.4 % (35.5-45.6); Mean Corpuscular HGB Conc 34 % (32-34); Mean Corpuscular Volume 94 fl (84-94); Platelet Count 139 K/mm3 (140-440); Red Blood Count 2.82 M/mm3 (3.65-5.03); Red Cell Distribution Width 17.3 % (13.2-15.2)
--- NOTE | 2019-06-29 09:49 | Progress Note ---
Assessment and Plan Cultures: 06/24/19 Blood: no growth A/P: 48-year-old man with a past medical history of ESRD on dialysis, PE/DVT, subclavian stenosis that presents in the ED on 06/18/19 with complaints of pain the the left epigastric area, pressure, constant intensity 5/10, radiating to the left arm. Patient states that his symptoms started Thursday, June 142018 after he had angioplasty to the right subclavian stent. He also states that his left arm became swollen. He had angioplasty done at [facility], Vascular was consulted, charts were reviewed and it was determined that his stents, that were treated at an outside hospital were never revascularized. He underwent angioplasty of subclavian vein and right AV graft on 06/21/19. Now admitted with: 1. SIRS not on admission. Now resolved. etiology unclear.. ?bacterial vs tick bourne. Blood cultures show no growth to date. Repeat CXR show no consolidation. Currently being treated with ceftriaxone. Will send early Ehrlichia serologies and put him on doxycycline therapeutic trial. 2. ESRD on HD: antibiotics renally dosed. Nephrology following. 3. Anemia of chronic disease: 4. History of PE/DVT: 5. Leukopenia: significant leukopenia that apparently has been going on for the last 2 months. Scheduled to see a tree girdler as an outpatient. HIV non-reactiv e. Recommendations: - Discontinue Ceftriaxone - Continue Doxycycline 100mg PO BID, D4 -Follow-up Tick borne panel/Ehrlichia AB panel -Anticipate discharge on Doxycycline 100 mg PO BID for total 2 weeks ending 07-10-19 --Follow-up ID clinic in 2 weeks (sent to operations scheduler) [facility] M: [id number] O:[phone] Subjective Date of service: 06/29/19 Principal diagnosis: venous stenosis Interval history: Patient seen and examined. No acute distress or SOB reported. No fevers. Objective - Exam Narrative Exam: Constitutional: Alert, cooperative. No acute distress Head, Ears, Nose: Normocephalic, atraumatic. External ears, nose normal Eyes: Conjunctivae/corneas clear. No icterus. No ptosis. Neck: Supple, no meningeal signs Oral: Dentition fair . No thrush. Cardiovascular: S1, S2 normal. Respiratory: Good air entry, clear to auscultation bilaterally GI: Soft, non-tender; bowel sounds normal. No peritoneal signs Musculoskeletal: No pedal edema, no cyanosis. Skin: No rash or abscess. Hem/Lymphatic: No palpable cervical or supraclavicular nodes. No lymphangitis Psych: Mood ok. Affect normal Neurological: Awake, alert, oriented. Lines: Right AV graft - Constitutional Vitals: Vital Signs Temp Pulse Resp BP Pulse Ox 98.2 F 85 18 104/42 100 06/29/19 06:40 06/29/19 06:40 06/29/19 06:40 06/29/19 06:40 06/29/19 06:40 Temperature -Last 24 Hours Temperature 98.2 F Temperature 98.2 F Temperature 98.6 F Temperature 98.6 F Temperature 98.6 F - Labs CBC & Chem 7: 06/29/19 08:55 06/29/19 08:55 Labs: Abnormal lab results 06/29/19 06/29/19 Range/Units 08:55 08:55 WBC 2.5 L 2.5 L (4.5-11.0) K/mm3 RBC 2.82 L 2.97 L (3.65-5.03) M/mm3 Hgb 9.0 L 9.2 L (11.8-15.2) gm/dl Hct 26.4 L 28.1 L (35.5-45.6) % MCV 95 H (84-94) fl RDW 17.3 H 17.4 H (13.2-15.2) % Plt Count 139 L 137 L (140-440) K/mm3 [place] % (Auto) 12.3 H (0.0-7.3) % Eos % (Auto) 8.8 H (0.0-4.3) % Lymph # 0.8 L (1.2-5.4) K/mm3 Seg Neutrophils # 1.2 L (1.8-7.7) K/mm3
[2019-06-29 09:57] LABS: INR 2.66 (0.87-1.13)
[2019-06-29 10:00] LABS: Calcium 7.5 mg/dL (8.4-10.2)
[2019-06-29] MEDS ORDERED: ROCALTROL PO SCH (10:00)
--- NOTE | 2019-06-29 10:38 | Progress Note ---
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 It appears his central venous system has stents extending into his SVC and at an outside hospital they failed to re-vascularization of the stents on the left which he believes was causing the left-sided chest pains. So, He he underwent Fistulogram and bilateral upper extremity Angioplasty on 06/21/19. He had a negative stress test on 06/23/19. He developed fevers on 06/24/19. SIRS with organ dysfunction, poa not on admission. Now resolved. etiology unclear.. ?bacterial vs tick bourne. Blood cultures show no growth to date. Repeat CXR show no consolidation. Currently being treated with ceftriaxone. Will send early Ehrlichia serologies and put him on doxycycline therapeutic trial. Chest pain/subclavian stenosis: I have asked Vascular to re-evaluate Hyperkalemia: repeat bmp ESRD on dialysis MWF: Nephrology following Hyperkalemia: HD today PE/DVT on coumadin: monitor INR closely AOCD: monitor CBC Pancytopenia: consult heme/onc, d/w ashley Gurrola to discharge he will see in office Disposition: continue inpatient care, day 6/7 of IV rocephin, await ID final recommendations. History Interval history: Patient was seen and examined. Follow-up on current diagnosis ESRD, chest pains. No overnight events reported to me. Patient denies any chest pain, shortness breath, nausea/vomiting or severe headaches. Imaging, nursing note, chart, labs and old chart reviewed. Discussed with patient. Hospitalist Physical - Physical exam Narrative exam: Gen: WDWN, NAD, Awake, Alert, Orientated HEENT: NCAT, EOMI, PERRL, OP Clear Neck: supple, no adenopathy, no thyromegaly, no JVD CVS/Heart: RRR, normal S1S2, pulses present bilaterally Chest/Lungs: CTA B, Symmetrical chest expansion, good air entry bilaterally GI/Abdomen: soft, NTND, good bowel sounds, no guarding or rebound /Bladder: no suprapubic tenderness, no CVA or paraspinal tenderness Extermity/Skin: no c/c/e, no obvious rash MSK: FROM x 4 Neuro: CN 2-12 grossly intact, no new focal deficits Psych: calm - Constitutional Vitals: Temp Pulse Resp BP Pulse Ox 98.2 F 85 18 104/42 100 06/29/19 06:40 06/29/19 06:40 06/29/19 06:40 06/29/19 06:40 06/29/19 06:40 General appearance: Present: no acute distress, well-nourished Results - Labs CBC & Chem 7: 06/29/19 08:55 06/29/19 08:55 Labs: Laboratory Last Values WBC 2.5 K/mm3 (4.5-11.0) L 06/29/19 08:55 WBC 2.5 K/mm3 (4.5-11.0) L 06/29/19 08:55 RBC 2.82 M/mm3 (3.65-5.03) L 06/29/19 08:55 RBC 2.97 M/mm3 (3.65-5.03) L 06/29/19 08:55 Hgb 9.0 gm/dl (11.8-15.2) L 06/29/19 08:55 Hgb 9.2 gm/dl (11.8-15.2) L 06/29/19 08:55 Hct 26.4 % (35.5-45.6) L 06/29/19 08:55 Hct 28.1 % (35.5-45.6) L 06/29/19 08:55 MCV 94 fl (84-94) 06/29/19 08:55 MCV 95 fl (84-94) H 06/29/19 08:55 MCH 31 pg (28-32) 06/29/19 08:55 MCH 32 pg (28-32) 06/29/19 08:55 MCHC 33 % (32-34) 06/29/19 08:55 MCHC 34 % (32-34) 06/29/19 08:55 RDW 17.3 % (13.2-15.2) H 06/29/19 08:55 RDW 17.4 % (13.2-15.2) H 06/29/19 08:55 Plt Count 137 K/mm3 (140-440) L 06/29/19 08:55 Plt Count 139 K/mm3 (140-440) L 06/29/19 08:55 Lymph % (Auto) 30.4 % (13.4-35.0) 06/29/19 08:55 [place] % (Auto) 12.3 % (0.0-7.3) H 06/29/19 08:55 Eos % (Auto) 8.8 % (0.0-4.3) H 06/29/19 08:55 Baso % (Auto) 0.6 % (0.0-1.8) 06/29/19 08:55 Lymph # 0.8 K/mm3 (1.2-5.4) L 06/29/19 08:55 [place] # 0.3 K/mm3 (0.0-0.8) 06/29/19 08:55 Eos # 0.2 K/mm3 (0.0-0.4) 06/29/19 08:55 Baso # 0.0 K/mm3 (0.0-0.1) 06/29/19 08:55 Add Manual Diff Complete 06/25/19 19:10 Total Counted 100 06/25/19 19:10 Seg Neutrophils % 47.9 % (40.0-70.0) 06/29/19 08:55 Seg Neuts % (Manual) 47.0 % (40.0-70.0) 06/25/19 19:10 18.0 % 06/25/19 19:10 13.0 % (13.4-35.0) L 06/25/19 19:10 Reactive Lymphs % (Man) 1.0 % 06/25/19 19:10 12.0 % (0.0-7.3) H 06/25/19 19:10 9.0 % (0.0-4.3) H 06/25/19 19:10 0 % (0.0-1.8) 06/25/19 19:10 0 % 06/25/19 19:10 0 % 06/25/19 19:10 0 % 06/25/19 19:10 0 % 06/25/19 19:10 Nucleated RBC % Not Reportable 06/25/19 19:10 Seg Neutrophils # 1.2 K/mm3 (1.8-7.7) L 06/29/19 08:55 Seg Neutrophils # Man 0.8 K/mm3 (1.8-7.7) L 06/25/19 19:10 Band Neutrophils # 0.3 K/mm3 06/25/19 19:10 0.2 K/mm3 (1.2-5.4) L 06/25/19 19:10 Abs React Lymphs (Man) 0.0 K/mm3 06/25/19 19:10 0.2 K/mm3 (0.0-0.8) 06/25/19 19:10 0.1 K/mm3 (0.0-0.4) 06/25/19 19:10 0.0 K/mm3 (0.0-0.1) 06/25/19 19:10 0.0 K/mm3 06/25/19 19:10 0.0 K/mm3 06/25/19 19:10 0.0 K/mm3 06/25/19 19:10 Blast Cells # 0.0 K/mm3 06/25/19 19:10 WBC Morphology Not Reportable 06/25/19 19:10 Hypersegmented Neuts Not Reportable 06/25/19 19:10 Hyposegmented Neuts Not Reportable 06/25/19 19:10 Hypogranular Neuts Not Reportable 06/25/19 19:10 Not Reportable 06/25/19 19:10 Not Reportable 06/25/19 19:10 Not Reportable 06/25/19 19:10 Not Reportable 06/25/19 19:10 Not Reportable 06/25/19 19:10 Not Reportable 06/25/19 19:10 Appears decreased 06/25/19 19:10 Not Reportable 06/25/19 19:10 Plt Clumps, EDTA Not Reportable 06/25/19 19:10 Not Reportable 06/25/19 19:10 Not Reportable 06/25/19 19:10 Not Reportable 06/25/19 19:10 Plt Morphology Comment Not Reportable 06/25/19 19:10 RBC Morphology Not Reportable 06/25/19 19:10 Dimorphic RBCs Not Reportable 06/25/19 19:10 Not Reportable 06/25/19 19:10 Not Reportable 06/25/19 19:10 Not Reportable 06/25/19 19:10 2+ 06/25/19 19:10 Not Reportable 06/25/19 19:10 Not Reportable 06/25/19 19:10 Not Reportable 06/25/19 19:10 Not Reportable 06/25/19 19:10 Not Reportable 06/25/19 19:10 Not Reportable 06/25/19 19:10 Not Reportable 06/25/19 19:10 Not Reportable 06/25/19 19:10 Not Reportable 06/25/19 19:10 Not Reportable 06/25/19 19:10 Not Reportable 06/25/19 19:10 Not Reportable 06/25/19 19:10 Not Reportable 06/25/19 19:10 Not Reportable 06/25/19 19:10 Not Reportable 06/25/19 19:10 Acanthocytes (Spur) Not Reportable 06/25/19 19:10 Rouleaux Not Reportable 06/25/19 19:10 Not Reportable 06/25/19 19:10 Not Reportable 06/25/19 19:10 Not Reportable 06/25/19 19:10 Not Reportable 06/25/19 19:10 Hem Pathologist Commnt No 06/25/19 19:10 PT 27.9 Sec. (12.2-14.9) H 06/29/19 08:55 INR 2.66 (0.87-1.13) H 06/29/19 08:55 APTT 65.0 Sec. (24.2-36.6) H* 06/20/19 05:51 Sodium 136 mmol/L (137-145) L 06/29/19 08:55 Potassium 5.4 mmol/L (3.6-5.0) H 06/29/19 08:55 Chloride 95.5 mmol/L (98-107) L 06/29/19 08:55 Carbon Dioxide 27 mmol/L (22-30) 06/29/19 08:55 19 mmol/L 06/29/19 08:55 BUN 35 mg/dL (9-20) H 06/29/19 08:55 10.1 mg/dL (0.8-1.5) H 06/29/19 08:55 Estimated GFR 7 ml/min 06/29/19 08:55 3 % 06/29/19 08:55 Glucose 77 mg/dL (75-100) 06/29/19 08:55 Lactic Acid 0.70 mmol/L (0.7-2.0) 06/25/19 05:42 Calcium 7.5 mg/dL (8.4-10.2) L 06/29/19 08:55 Magnesium 2.00 mg/dL (1.7-2.3) 06/29/19 08:55 1.10 mg/dL (0.1-1.2) 06/18/19 22:57 AST 12 units/L (5-40) 06/18/19 22:57 ALT 8 units/L (7-56) 06/18/19 22:57 244 units/L (35-129) H 06/18/19 22:57 160 units/L (55-170) 06/19/19 12:26 CK-MB (CK-2) 1.7 ng/mL (0.0-4.0) 06/19/19 12:26 CK-MB (CK-2) Rel Index 1.0 (0-4) 06/19/19 12:26 0.059 ng/mL (0.00-0.029) H 06/19/19 12:26 NT-Pro-B Natriuret Pep 6269 pg/mL (0-450) H 06/19/19 00:00 7.6 g/dL (6.3-8.2) 06/18/19 22:57 4.1 g/dL (3.9-5) 06/18/19 22:57 1.2 % 06/18/19 22:57 Triglycerides 67 mg/dL (2-149) 06/18/19 22:57 Cholesterol 119 mg/dL (50-199) 06/18/19 22:57 72 mg/dL (50-130) 06/18/19 22:57 44 mg/dL (40-59) 06/18/19 22:57 2.70 % 06/18/19 22:57 Hepatitis A IgM Ab Non-reactive (NonReactive) 06/20/19 15:56 Hep Bs Antigen Non-reactive (Negative) 06/20/19 15:56 Hep B Core IgM Ab Non-reactive (NonReactive) 06/20/19 15:56 Non-reactive (NonReactive) 06/20/19 15:56 HIV 1&2 Antibody Rapid Non react (Non React) 06/27/19 04:20 Non react (Non React) 06/27/19 04:20 Active Medications - Current Medications Current Medications: Generic Name Dose Route Start Last Admin Trade Name Freq PRN Reason Stop Dose Admin Acetaminophen 650 mg 06/19/19 06:06 06/26/19 08:18 Tylenol PO 650 mg Q4H PRN Administration Pain MILD(1-3)/Fever >100.5/BANDA Calcitriol 0.5 mcg 06/29/19 10:00 Rocaltrol PO QDAY DELMAR Doxycycline Hyclate 100 mg 06/26/19 22:00 06/28/19 23:13 Vibramycin PO 07/10/19 22:01 100 mg BID DELMAR Administration Epoetin Ellis 10,000 unit 06/19/19 13:19 06/27/19 12:34 Procrit IV 10,000 unit RIP PRN Administration hemodialysis Sodium Chloride 100 mls @ 999 mls/hr 06/25/19 11:02 Nacl 0.9% IV RIP PRN Hypotension Ceftriaxone Sodium 1 gm in 50 mls @ 100 mls/hr 06/25/19 13:00 06/28/19 12:16 Rocephin/Ns 1 Gm/50 Ml IV 100 mls/hr Q24H DELMAR Administration Protocol Ondansetron HCl 4 mg 06/19/19 06:06 06/24/19 06:18 Zofran IV 4 mg Q8H PRN Administration Nausea And Vomiting Oxycodone/Acetaminophen 1 tab 06/19/19 06:06 06/25/19 11:21 Percocet 5/325 PO 1 tab Q6H PRN Administration Pain, Moderate (4-6) Sodium Chloride 10 ml 06/19/19 10:00 06/28/19 23:13 Sodium Chloride Flush Syringe 10 Ml IV 10 ml BID DELMAR Administration Sodium Chloride 10 ml 06/19/19 06:06 Sodium Chloride Flush Syringe 10 Ml IV PRN PRN LINE FLUSH Warfarin Sodium 10 mg 06/26/19 17:00 06/28/19 18:06 Coumadin PO 10 mg DAILY@1700 DELMAR Administration Warfarin Sodium 6 mg 06/26/19 17:00 06/28/19 18:05 Coumadin PO 6 mg DAILY@1700 [facility] Administration Nutrition/Malnutrition Assess - Dietary Evaluation Nutrition/Malnutrition Findings: Nutrition Notes Start: 06/24/19 17:08 Freq: Status: Active Protocol: Document 06/28/19 13:21 RM (Rec: 06/28/19 13:29 RM [id number]) Nutrition Notes Initial or Follow up Reassessment Other Pertinent Diagnosis ESRD on HD (M/W/F), CP, Leukopenia Current Diet Renal,Vegan Labs/Tests Reviewed Pertinent Medications Zofran Height 5 ft 6 in Weight 115.3 kg [place] Body Weight (kg) 64.54 BMI 41.0 Subjective/Other Information Pt stated that his appetite is good but his PO intake varies between none and 100% based on what he receives. Stated that he is a vegan, that he only listens to those with a naturopathic background , and does not believe that protein exists. Declined ONS. Noted preferences. Burn Absent Trauma Absent #1 Nutrition Diagnosis Inadequate protein intake Diagnosis Progress(for reassessment Continues documentation) Is patient on ventilator? No Is Patient Ambulatory and/or Out of Bed Yes REE-([place]-St. Jeor-ambulatory/OOB) [ 2568.475 NUTR.[id number]] Kcal/Kg value to use for calculation 18 Approximate Energy Requirements Using 5 kcal/Kg Calculation Used for Recommendations Kcal/kg Additional Notes Protein Needs: 108-117g (1.2-1 .3g/kg 90kg adjBW) Fluid Needs: 1 ml/kcal Nutrition Intervention Change Diet Order: Continue current Goal #1 Meet at least 75% of calorie and protein needs via PO and ONS intakes Anticipated Discharge Needs: Vegan diet Follow-Up By: 07/01/19 Additional Comments Follow for PO intakes
[2019-06-29 13:17] LABS: Iron 75 ug/dL (49-181); Total Iron Binding Capacity 194 mcg/dL (250-450)
--- NOTE | 2019-06-29 14:53 | Discharge Summary ---
Providers - Providers Date of Admission: 06/19/19 08:18 Date of discharge: 06/30/19 Attending physician: DARA PONCE 06/19/19 05:42 Consult to Physician [CONS] Stat Comment: Dr. Hadley spoke with Dr. Krishna @ 0538 Consulting Provider: JANINE KRISHNA Physician Instructions: Reason For Exam: stenosis of subclavian 06/19/19 06:06 Consult to Physician [CONS] Routine Comment: Consulting Provider: KAIA MURRAY Physician Instructions: Reason For Exam: hd 06/26/19 08:19 Consult to Physician [CONS] Routine Comment: Consulting Provider: JOSE SHORT Physician Instructions: Reason For Exam: fever 06/28/19 18:00 Consult to Physician [CONS] Routine Comment: Consulting Provider: OTTO KELLY Physician Instructions: Reason For Exam: Pancytopenia Primary care physician: DECATOR OPERATOR Hospitalization Condition: Stable Hospital course: Patient is a 48 yo man with a history of ESRD on dialysis, PE/DVT, subclavian stenosis on Coumadin and 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 It appears his central venous system has stents extending into his SVC and at an outside hospital they failed to re-vascularization of the stents on the left which he believes was causing the left-sided chest pains. So, He he underwent Fistulogram and bilateral upper extremity Angioplasty on 06/21/19. He had a negative stress test on 06/23/19. He developed fevers on 06/24/19. He was evaluated by ID Discharge Diagnoses: SIRS with organ dysfunction, poa not on admission. Now resolved. etiology unclear.. ?bacterial vs tick bourne. Blood cultures show no growth to date. Repeat CXR show no consolidation. Treated with ceftriaxone. ID will follow up follow-up Tick borne panel/Ehrlichia AB panel serologies and finish Doxycycline 100 mg PO BID for total 2 weeks ending 07-10-19 Chest pain/subclavian stenosis Hyperkalemia: repeat bmp ESRD on dialysis MWF: Nephrology following Hyperkalemia: HD today PE/DVT on coumadin: monitor INR closely AOCD: monitor CBC Pancytopenia: consult heme/onc, d/w ashley Gurrola to discharge he will see in office Disposition: DC-01 TO HOME OR SELFCARE Time spent for discharge: 32 minutes Core Measure Documentation - Palliative Care Palliative Care/ Comfort Measures: Not Applicable - Core Measures Any of the following diagnoses?: DVT/PE, none - VTE Discharge Requirements Deep Vein Thrombosis/Pulmonary Embolism Present on Admission: Yes Has pt received <5 days of overlap therapy or INR<2.0: Yes Anticoagulant overlap therapy prescribed at discharge: Yes Exam - Physical Exam Narrative exam: Gen: WDWN, NAD, Awake, Alert, Orientated HEENT: NCAT, EOMI, PERRL, OP Clear Neck: supple, no adenopathy, no thyromegaly, no JVD CVS/Heart: RRR, normal S1S2, pulses present bilaterally Chest/Lungs: CTA B, Symmetrical chest expansion, good air entry bilaterally GI/Abdomen: soft, NTND, good bowel sounds, no guarding or rebound /Bladder: no suprapubic tenderness, no CVA or paraspinal tenderness Extermity/Skin: no c/c/e, no obvious rash MSK: FROM x 4 Neuro: CN 2-12 grossly intact, no new focal deficits Psych: calm - Constitutional Vitals: Temp Pulse Resp BP Pulse Ox 98.1 F 90 18 124/70 100 06/29/19 12:20 06/29/19 12:20 06/29/19 12:20 06/29/19 12:20 06/29/19 12:20 Plan Activity: other (no strenous activity until cleared by PCP) Diet: renal Follow up with: ED GARZA MD [Staff Physician] - 7 Days CRISTOBAL TAY MD [Staff Physician] - 7 Days PRIMARY CARE, [Primary Care Provider] - 3-5 Days OTTO KELLY MD [Staff Physician] - 7 Days CARIN CHAUDHARI MD [Staff Physician] - 7 Days Forms: Warfarin Discharge Instruction Prescriptions: Warfarin [Coumadin] 15 mg PO QDAY #30 tablet Doxycycline Monohydrate 100 mg PO BID #24 tablet B Complex W-C No.20/Folic Acid [Nephrocaps Softgel] 1 mg PO QAM #30 capsule oxyCODONE /ACETAMINOPHEN [Percocet 5/325 mg] 1 tab PO Q6H PRN #10 tablet PRN Reason: Pain, Moderate (4-6) Calcium Acetate [Phoslo] 667 mg PO TID #90 capsule Pantoprazole Sodium [Protonix] 40 mg PO QAM #30 granpkt. Calcitriol [Rocaltrol] 0.5 mcg PO QDAY #30 capsule
--- NOTE | 2019-06-29 17:37 | Event Note ---
Date: 06/29/19 [id number]
--- NOTE | 2019-06-29 17:57 | Progress Note ---
Assessment and Plan Impression * End-stage renal disease on maintenance hemodialysis * Chest pain * Hypertension * Mild hyperkalemia * History of DVT * Left upper extremity swelling. Most likely secondary to central stenosis * Hypocalcemia * Pancytopenia Recommendations * Hemodialysis MWF schedule * UF as tolerated * Continue calcitriol * Consultants' recommendations noted * Heme consult pending * Renal diet. Binders with meals * Abx per ID * Epogen TIW prn * Patient has been approved (approved on 06/28) to start at [facility] - chair time MWF 10:45am Subjective Date of service: 06/29/19 Principal diagnosis: venous stenosis Interval history: Patient is seen on dialysis. He has no complaints Objective - Vital Signs Vital signs: Vital Signs - 12hr 06/29/19 06/29/19 06:40 12:20 Temperature 98.2 F 98.1 F Pulse Rate 85 90 Respiratory 18 18 Rate Blood Pressure 104/42 124/70 O2 Sat by Pulse 100 100 Oximetry - General Appearance General appearance: well-developed, well-nourished EENT: ATNC Respiratory: Present: Clear to Ascultation Cardiology: regular, S1S2 Gastrointestinal: normal, no tenderness, no distended Integumentary: no rash, warm and dry Musculoskeletal: other (no edema) Psychiatric: cooperative - Lab 06/29/19 08:55 06/29/19 08:55 Most recent lab results Calcium 7.5 mg/dL (8.4-10.2) L 06/29/19 08:55 Magnesium 2.00 mg/dL (1.7-2.3) 06/29/19 08:55 Medications & Allergies - Medications Allergies/Adverse Reactions: Allergies No Known Allergies Allergy (Verified 06/19/19 06:20) Home Medications: Home Medications Medication Instructions Recorded Confirmed Last Taken Type B Complex W-C No.20/Folic Acid 1 mg PO QAM #30 capsule 06/23/19 Unknown Rx [Nephrocaps Softgel] Calcitriol [Rocaltrol] 0.5 mcg PO QDAY #30 capsule 06/23/19 Unknown Rx Calcium Acetate [Phoslo] 667 mg PO TID #90 capsule 06/23/19 Unknown Rx Epoetin Ellis 10,000 Unit [Procrit] 10,000 unit IV RIP PRN vial 06/23/19 Unknown Rx Pantoprazole Sodium [Protonix] 40 mg PO QAM #30 megankt 06/23/19 Unknown Rx Warfarin [Coumadin] 15 mg PO QDAY #30 tablet 06/23/19 Unknown Rx oxyCODONE /ACETAMINOPHEN [Percocet 1 tab PO Q6H PRN #10 tablet 06/23/19 Unknown Rx 5/325 mg] Doxycycline Monohydrate 100 mg PO BID #24 tablet 06/29/19 Unknown Rx Warfarin [Coumadin] 2.5 mg PO ONCE #1 tablet 06/29/19 Unknown Rx Warfarin [Coumadin] 10 mg PO ONCE #1 tablet 06/29/19 Unknown Rx Active Medications: Generic Name Dose Route Start Last Admin Trade Name Freq PRN Reason Stop Dose Admin Acetaminophen 650 mg 06/19/19 06:06 06/26/19 08:18 Tylenol PO 650 mg Q4H PRN Administration Pain MILD(1-3)/Fever >100.5/BANDA Calcitriol 0.5 mcg 06/29/19 10:00 Rocaltrol PO QDAY [facility] Doxycycline Hyclate 100 mg 06/26/19 22:00 06/28/19 23:13 Vibramycin PO 07/10/19 22:01 100 mg BID DELMAR Administration Epoetin Ellis 10,000 unit 06/19/19 13:19 06/27/19 12:34 Procrit IV 10,000 unit RIP PRN Administration hemodialysis Sodium Chloride 100 mls @ 999 mls/hr 06/25/19 11:02 Nacl 0.9% IV RIP PRN Hypotension Ondansetron HCl 4 mg 06/19/19 06:06 06/24/19 06:18 Zofran IV 4 mg Q8H PRN Administration Nausea And Vomiting Oxycodone/Acetaminophen 1 tab 06/19/19 06:06 06/25/19 11:21 Percocet 5/325 PO 1 tab Q6H PRN Administration Pain, Moderate (4-6) Sodium Chloride 10 ml 06/19/19 10:00 06/28/19 23:13 Sodium Chloride Flush Syringe 10 Ml IV 10 ml BID DELMAR Administration Sodium Chloride 10 ml 06/19/19 06:06 Sodium Chloride Flush Syringe 10 Ml IV PRN PRN LINE FLUSH Warfarin Sodium 10 mg 06/29/19 17:00 Coumadin PO DAILY@1700 [facility] Warfarin Sodium 2.5 mg 07/31/19 17:00 Coumadin PO DAILY@1700 DELMAR
[2019-06-29] MEDS: COUMADIN PO SCH ×2 (22:27)
[2019-06-29] MEDS: SODIUM CHLORIDE FLUSH SYRINGE 10 ML IV SCH (22:27)
[2019-06-29] MEDS: VIBRAMYCIN PO SCH (22:28)
[2019-06-30 05:32] LABS: INR 2.72 (0.87-1.13)
--- NOTE | 2019-06-30 06:10 | Consultation ---
REFERRING PHYSICIAN: Dr. Sue. REASON FOR CONSULTATION: Low platelet, anemia, thrombocytopenia, ESRD, on dialysis. HISTORY OF PRESENT ILLNESS: I saw the patient, a 48-year-old male in the medical floor. The patient states he has been on dialysis for more than 20 years. In 2014, he had a PE, then he was placed on warfarin. In 2018, he had a DVT. It was changed to Eliquis and while on Eliquis in 2018 the DVT recurred and he was placed back on warfarin. In 2019, he had again had thrombosis. At this time, he is on warfarin. He was in [facility], but now he is trying to relocate to [place]. He was referred to Hematology for a low blood count. He has not as yet made the appointment. He has a history of ESRD, on dialysis, PE, DVT, subclavian stenosis, came to the hospital because of chest pain, and also left epigastric area pain, pressure and pain radiating to left arm. No nausea, no vomiting, no shortness of breath. He had angioplasty, right subclavian stent a few days ago at [facility]. As the blood counts were low, I have been asked to evaluate the patient. At this time, no headache, no visual disturbances. No ear discharge, no chest pain. He had chest pain at admission. No abdominal pain, no vomiting, no nausea, no diarrhea, no dysuria. PAST MEDICAL HISTORY: As above. PAST SURGICAL HISTORY: AV fistula, kidney transplant, nephrectomy. SOCIAL HISTORY: No history of tobacco or alcohol usage. FAMILY HISTORY: Hypertension. ALLERGIES: None. HOME MEDICATIONS: Included B-complex, calcitriol, Procrit, warfarin 15 mg. During this admission, the patient has been seen by ID team, Nephrology team. PHYSICAL EXAMINATION: VITAL SIGNS: Temperature 98, pulse 90, respirations 18, BP 124/70. HEENT: Pallor present. No icterus. NECK: No neck lymph nodes. Dialysis access seen. HEART: S1, S2. LUNGS: Clear to auscultation. ABDOMEN: Soft. EXTREMITIES: No calf tenderness. NEUROLOGIC: Alert, awake. LABORATORY DATA: White cell 2.5, hemoglobin 9, MCV 94, platelet 139, potassium 5.4, creatinine 10.1, calcium 7.5, bilirubin 1.1. B12 of 416, folate 11, serum iron 75, ferritin 285. HIV negative. RADIOLOGY: Leg scan during this admission done on 06/19/2019, nonocclusive DVT in the left internal jugular vein. No additional DVT in the upper extremity. Chest CT done on 06/19/2019, bilateral subclavian vein stenosis present. Lower extremity scan, no DVT in the right lower extremity. ASSESSMENT: 1. History of deep venous thrombosis and pulmonary embolus, recurrent. Patient is on dialysis. Sometimes patient is on dialysis over a period of years, accumulate prothrombotic material and have thrombosis. Because of recurrent thrombosis, he would benefit from long-term anticoagulation. As per the patient when his anticoagulation medication was changed from warfarin to Eliquis, he had DVT. At this time, we will leave him with warfarin and target INR of 2-3. 2. Thrombocytopenia, deficiency investigation has been negative. At admission, platelet was 80. This has improved. 3. Leukopenia, neutrophil is 1.2. We will follow. INR 2.6 on Coumadin. 4. Renal failure, on dialysis. History of renal transplant as per notes. 5. History of subclavian vein stenosis. He had undergone recent procedure. It is possible that there may have been a post-procedure infection or a consumption of platelets. However, the patient mentioned that there was a plan for outpatient evaluation to [facility] for cytopenia. We will see him in the clinic and if persistent cytopenia, we will look for further investigations. [facility]# [id number] KACIE/CECI
--- NOTE | 2019-06-30 07:58 | Hem/Onc Progress Note ---
Assessment and Plan 1. History of deep venous thrombosis and pulmonary embolus, recurrent. Patient is on dialysis. Sometimes patient is on dialysis over a period of years, accumulate prothrombotic material and have thrombosis. Because of recurrent thrombosis, he would benefit from long-term anticoagulation. As per the patient when his anticoagulation medication was changed from warfarin to Eliquis, he had DVT. At this time, we will leave him with warfarin and target INR of 2-3. 2. Thrombocytopenia, deficiency investigation has been negative. At admission, platelet was 80. This has improved. 3. Leukopenia, neutrophil is 1.2. We will follow. INR 2.6 on Coumadin. 4. Renal failure, on dialysis. History of renal transplant as per notes. 5. History of subclavian vein stenosis. He had undergone recent procedure. It is possible that there may have been a post-procedure infection or a consumption of platelets. However, the patient mentioned that there was a plan for outpatient evaluation to market maker for cytopenia. We will see him in the clinic and if persistent cytopenia, we will look for further investigations. - Patient Problems (1) Thrombocytopenia Status: Acute Subjective Date of service: 06/30/19 Principal diagnosis: low plt Interval history: no fever Objective - Exam Narrative Exam: Pain - none General appearance no acute distress Performance status limited self care Eyes - no icterus ENT no thrush LNs cervical not palpable Neck - normal ROM Respiratory Normal Breath sounds - CTA CVS S1 S2 + Extremities normal temperature General GI Soft - distended Rectal deferred male - deferred Skin warm Musculoskeletal moving normal Neurologically no focal deficit - Constitutional Vitals: Last Vital Signs Temp 98.7 F 06/30/19 05:22 Pulse 95 H 06/30/19 05:22 Resp 20 06/30/19 05:22 BP 114/60 06/30/19 05:22 Pulse Ox 99 06/30/19 05:22 - Labs Lab Results: Laboratory Results - last 24 hr 06/29/19 06/29/19 06/29/19 08:55 08:55 08:55 WBC 2.5 L RBC 2.82 L Hgb 9.0 L Hct 26.4 L MCV 94 MCH 32 MCHC 34 RDW 17.3 H Plt Count 139 L Lymph % (Auto) [place] % (Auto) Eos % (Auto) Baso % (Auto) Lymph # [place] # Eos # Baso # Seg Neutrophils % Seg Neutrophils # PT 27.9 H INR 2.66 H Sodium 136 L Potassium 5.4 H Chloride 95.5 L Carbon Dioxide 27 Anion Gap 19 BUN 35 H Creatinine 10.1 H Estimated GFR 7 BUN/Creatinine Ratio 3 Glucose 77 Calcium 7.5 L Magnesium 2.00 Iron TIBC Ferritin Vitamin B12 Folate 06/29/19 06/29/19 06/29/19 08:55 08:55 08:55 WBC 2.5 L RBC 2.97 L Hgb 9.2 L Hct 28.1 L MCV 95 H MCH 31 MCHC 33 RDW 17.4 H Plt Count 137 L Lymph % (Auto) 30.4 [place] % (Auto) 12.3 H Eos % (Auto) 8.8 H Baso % (Auto) 0.6 Lymph # 0.8 L [place] # 0.3 Eos # 0.2 Baso # 0.0 Seg Neutrophils % 47.9 Seg Neutrophils # 1.2 L PT INR Sodium Potassium Chloride Carbon Dioxide Anion Gap BUN Creatinine Estimated GFR BUN/Creatinine Ratio Glucose Calcium Magnesium Iron 75 TIBC 194 L Ferritin 285.6 Vitamin B12 Folate 06/29/19 06/29/19 06/30/19 08:55 08:55 04:06 WBC RBC Hgb Hct MCV MCH MCHC RDW Plt Count Lymph % (Auto) [place] % (Auto) Eos % (Auto) Baso % (Auto) Lymph # [place] # Eos # Baso # Seg Neutrophils % Seg Neutrophils # PT 28.4 H INR 2.72 H Sodium Potassium Chloride Carbon Dioxide Anion Gap BUN Creatinine Estimated GFR BUN/Creatinine Ratio Glucose Calcium Magnesium Iron TIBC Ferritin Vitamin B12 416.1 Folate 11.23 Medications & Allergies - Medications Allergies/Adverse Reactions: Allergies No Known Allergies Allergy (Verified 06/19/19 06:20) Home Medications: Home Medications Medication Instructions Recorded Confirmed Last Taken Type B Complex W-C No.20/Folic Acid 1 mg PO QAM #30 capsule 06/23/19 Unknown Rx [Nephrocaps Softgel] Calcitriol [Rocaltrol] 0.5 mcg PO QDAY #30 capsule 06/23/19 Unknown Rx Calcium Acetate [Phoslo] 667 mg PO TID #90 capsule 06/23/19 Unknown Rx Epoetin Ellis 10,000 Unit [Procrit] 10,000 unit IV RIP PRN vial 06/23/19 Unknown Rx Pantoprazole Sodium [Protonix] 40 mg PO QAM #30 megankt 06/23/19 Unknown Rx Warfarin [Coumadin] 15 mg PO QDAY #30 tablet 06/23/19 Unknown Rx oxyCODONE /ACETAMINOPHEN [Percocet 1 tab PO Q6H PRN #10 tablet 06/23/19 Unknown Rx 5/325 mg] Doxycycline Monohydrate 100 mg PO BID #24 tablet 06/29/19 Unknown Rx Active Medications: Generic Name Dose Route Start Last Admin Trade Name Freq PRN Reason Stop Dose Admin Acetaminophen 650 mg 06/19/19 06:06 06/26/19 08:18 Tylenol PO 650 mg Q4H PRN Administration Pain MILD(1-3)/Fever >100.5/BANDA Calcitriol 0.5 mcg 06/29/19 10:00 Rocaltrol PO QDAY DELMAR Doxycycline Hyclate 100 mg 06/26/19 22:00 06/29/19 22:28 Vibramycin PO 07/10/19 22:01 100 mg BID DELMAR Administration Epoetin Ellis 10,000 unit 06/19/19 13:19 06/27/19 12:34 Procrit IV 10,000 unit RIP PRN Administration hemodialysis Sodium Chloride 100 mls @ 999 mls/hr 06/25/19 11:02 Nacl 0.9% IV RIP PRN Hypotension Ondansetron HCl 4 mg 06/19/19 06:06 06/24/19 06:18 Zofran IV 4 mg Q8H PRN Administration Nausea And Vomiting Oxycodone/Acetaminophen 1 tab 06/19/19 06:06 06/25/19 11:21 Percocet 5/325 PO 1 tab Q6H PRN Administration Pain, Moderate (4-6) Sodium Chloride 10 ml 06/19/19 10:00 06/29/19 22:27 Sodium Chloride Flush Syringe 10 Ml IV 10 ml BID DELMAR Administration Sodium Chloride 10 ml 06/19/19 06:06 Sodium Chloride Flush Syringe 10 Ml IV PRN PRN LINE FLUSH Warfarin Sodium 10 mg 06/29/19 17:00 06/29/19 22:27 Coumadin PO 10 mg DAILY@1700 DELMAR Administration Warfarin Sodium 2.5 mg 06/29/19 17:00 06/29/19 22:27 Coumadin PO 2.5 mg DAILY@1700 DELMAR Administration
--- NOTE | 2019-06-30 09:31 | Progress Note ---
Assessment and Plan Cultures: 06/24/19 Blood: no growth A/P: 48-year-old man with a past medical history of ESRD on dialysis, PE/DVT, subclavian stenosis that presents in the ED on 06/18/19 with complaints of pain the the left epigastric area, pressure, constant intensity 5/10, radiating to the left arm. Patient states that his symptoms started Thursday, June 142018 after he had angioplasty to the right subclavian stent. He also states that his left arm became swollen. He had angioplasty done at [facility], Vascular was consulted, charts were reviewed and it was determined that his stents, that were treated at an outside hospital were never revascularized. He underwent angioplasty of subclavian vein and right AV graft on 06/21/19. Now admitted with: 1. SIRS not on admission. Now resolved. etiology unclear.. ?bacterial vs tick bourne. Blood cultures show no growth to date. Repeat CXR show no consolidation. Currently being treated with ceftriaxone. Will send early Ehrlichia serologies and put him on doxycycline therapeutic trial. 2. ESRD on HD: antibiotics renally dosed. Nephrology following. 3. Anemia of chronic disease: 4. History of PE/DVT: 5. Leukopenia: significant leukopenia that apparently has been going on for the last 2 months. Scheduled to see a software engineering supervisor as an outpatient. HIV non-reactiv e. Recommendations: - Continue Doxycycline 100mg PO BID, D5 -Follow-up Tick borne panel/Ehrlichia AB panel -Anticipate discharge on Doxycycline 100 mg PO BID for total 2 weeks ending 07-10-19 --Follow-up ID clinic in 2 weeks (sent to dairy store manager) [facility] M: [id number] O:[phone] Subjective Date of service: 06/30/19 Principal diagnosis: venous stenosis Interval history: Patient seen and examined. No acute distress or SOB reported. No fevers. Objective - Exam Narrative Exam: Constitutional: Alert, cooperative. No acute distress Head, Ears, Nose: Normocephalic, atraumatic. External ears, nose normal Eyes: Conjunctivae/corneas clear. No icterus. No ptosis. Neck: Supple, no meningeal signs Oral: Dentition fair . No thrush. Cardiovascular: S1, S2 normal. Respiratory: Good air entry, clear to auscultation bilaterally GI: Soft, non-tender; bowel sounds normal. No peritoneal signs Musculoskeletal: No pedal edema, no cyanosis. Skin: No rash or abscess. Hem/Lymphatic: No palpable cervical or supraclavicular nodes. No lymphangitis Psych: Mood ok. Affect normal Neurological: Awake, alert, oriented. Lines: Right AV graft - Constitutional Vitals: Vital Signs Temp Pulse Resp BP Pulse Ox 98.7 F 95 H 20 114/60 99 06/30/19 05:22 06/30/19 05:22 06/30/19 05:22 06/30/19 05:22 06/30/19 05:22 Temperature -Last 24 Hours Temperature 98.7 F Temperature 98.0 F Temperature 98.4 F Temperature 98.1 F Temperature 98.1 F - Labs CBC & Chem 7: 06/29/19 08:55 06/29/19 08:55 Labs: Abnormal lab results 06/29/19 06/29/19 06/29/19 Range/Units 08:55 08:55 08:55 WBC 2.5 L (4.5-11.0) K/mm3 RBC 2.82 L (3.65-5.03) M/mm3 Hgb 9.0 L (11.8-15.2) gm/dl Hct 26.4 L (35.5-45.6) % MCV (84-94) fl RDW 17.3 H (13.2-15.2) % Plt Count 139 L (140-440) K/mm3 [place] % (Auto) (0.0-7.3) % Eos % (Auto) (0.0-4.3) % Lymph # (1.2-5.4) K/mm3 Seg Neutrophils # (1.8-7.7) K/mm3 PT 27.9 H (12.2-14.9) Sec. INR 2.66 H (0.87-1.13) Sodium 136 L (137-145) mmol/L Potassium 5.4 H (3.6-5.0) mmol/L Chloride 95.5 L (98-107) mmol/L BUN 35 H (9-20) mg/dL Creatinine 10.1 H (0.8-1.5) mg/dL Calcium 7.5 L (8.4-10.2) mg/dL TIBC (250-450) mcg/dL 06/29/19 06/29/19 06/30/19 Range/Units 08:55 08:55 04:06 WBC 2.5 L (4.5-11.0) K/mm3 RBC 2.97 L (3.65-5.03) M/mm3 Hgb 9.2 L (11.8-15.2) gm/dl Hct 28.1 L (35.5-45.6) % MCV 95 H (84-94) fl RDW 17.4 H (13.2-15.2) % Plt Count 137 L (140-440) K/mm3 [place] % (Auto) 12.3 H (0.0-7.3) % Eos % (Auto) 8.8 H (0.0-4.3) % Lymph # 0.8 L (1.2-5.4) K/mm3 Seg Neutrophils # 1.2 L (1.8-7.7) K/mm3 PT 28.4 H (12.2-14.9) Sec. INR 2.72 H (0.87-1.13) Sodium (137-145) mmol/L Potassium (3.6-5.0) mmol/L Chloride (98-107) mmol/L BUN (9-20) mg/dL Creatinine (0.8-1.5) mg/dL Calcium (8.4-10.2) mg/dL TIBC 194 L (250-450) mcg/dL
--- NOTE | 2019-06-30 10:56 | Progress Note ---
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 It appears his central venous system has stents extending into his SVC and at an outside hospital they failed to re-vascularization of the stents on the left which he believes was causing the left-sided chest pains. So, He he underwent Fistulogram and bilateral upper extremity Angioplasty on 06/21/19. He had a negative stress test on 06/23/19. He developed fevers on 06/24/19. SIRS with organ dysfunction, poa not on admission. Now resolved. etiology unclear.. ?bacterial vs tick bourne. Blood cultures show no growth to date. Repeat CXR show no consolidation. Currently being treated with ceftriaxone. Will send early Ehrlichia serologies and put him on doxycycline therapeutic trial. Chest pain/subclavian stenosis: I have asked Vascular to re-evaluate Hyperkalemia: repeat bmp ESRD on dialysis MWF: Nephrology following Hyperkalemia: HD today PE/DVT on coumadin: monitor INR closely AOCD: monitor CBC Pancytopenia: consult heme/onc, d/w Dr. Ryna, ashley to discharge he will see in office Disposition: patient was discharged yesterday but he did not leave. It appears there is a problem with outpatient HD setup. I spoke with Dr. Woods yesterday prior to placing the discharge order. Dr. Woods, Documentation Lead informed me that patient had outpatient HD setup already with a chair time MWF at [facility] at 10:45am; So I do not know why patient did not leave yesterday. I did speak with Case management today History Interval history: Patient was seen and examined. Follow-up on current diagnosis ESRD, chest pains. No overnight events reported to me. Patient denies any chest pain, shortness breath, nausea/vomiting or severe headaches. Imaging, nursing note, chart, labs and old chart reviewed. Discussed with patient. Hospitalist Physical - Physical exam Narrative exam: Gen: WDWN, NAD, Awake, Alert, Orientated HEENT: NCAT, EOMI, PERRL, OP Clear Neck: supple, no adenopathy, no thyromegaly, no JVD CVS/Heart: RRR, normal S1S2, pulses present bilaterally Chest/Lungs: CTA B, Symmetrical chest expansion, good air entry bilaterally GI/Abdomen: soft, NTND, good bowel sounds, no guarding or rebound /Bladder: no suprapubic tenderness, no CVA or paraspinal tenderness Extermity/Skin: no c/c/e, no obvious rash MSK: FROM x 4 Neuro: CN 2-12 grossly intact, no new focal deficits Psych: calm - Constitutional Vitals: Temp Pulse Resp BP Pulse Ox 98.7 F 95 H 20 114/60 99 06/30/19 05:22 06/30/19 05:22 06/30/19 05:22 06/30/19 05:22 06/30/19 05:22 General appearance: Present: no acute distress, well-nourished Results - Labs CBC & Chem 7: 06/29/19 08:55 06/29/19 08:55 Labs: Laboratory Last Values WBC 2.5 K/mm3 (4.5-11.0) L 06/29/19 08:55 WBC 2.5 K/mm3 (4.5-11.0) L 06/29/19 08:55 RBC 2.82 M/mm3 (3.65-5.03) L 06/29/19 08:55 RBC 2.97 M/mm3 (3.65-5.03) L 06/29/19 08:55 Hgb 9.0 gm/dl (11.8-15.2) L 06/29/19 08:55 Hgb 9.2 gm/dl (11.8-15.2) L 06/29/19 08:55 Hct 26.4 % (35.5-45.6) L 06/29/19 08:55 Hct 28.1 % (35.5-45.6) L 06/29/19 08:55 MCV 94 fl (84-94) 06/29/19 08:55 MCV 95 fl (84-94) H 06/29/19 08:55 MCH 31 pg (28-32) 06/29/19 08:55 MCH 32 pg (28-32) 06/29/19 08:55 MCHC 33 % (32-34) 06/29/19 08:55 MCHC 34 % (32-34) 06/29/19 08:55 RDW 17.3 % (13.2-15.2) H 06/29/19 08:55 RDW 17.4 % (13.2-15.2) H 06/29/19 08:55 Plt Count 137 K/mm3 (140-440) L 06/29/19 08:55 Plt Count 139 K/mm3 (140-440) L 06/29/19 08:55 Lymph % (Auto) 30.4 % (13.4-35.0) 06/29/19 08:55 [place] % (Auto) 12.3 % (0.0-7.3) H 06/29/19 08:55 Eos % (Auto) 8.8 % (0.0-4.3) H 06/29/19 08:55 Baso % (Auto) 0.6 % (0.0-1.8) 06/29/19 08:55 Lymph # 0.8 K/mm3 (1.2-5.4) L 06/29/19 08:55 [place] # 0.3 K/mm3 (0.0-0.8) 06/29/19 08:55 Eos # 0.2 K/mm3 (0.0-0.4) 06/29/19 08:55 Baso # 0.0 K/mm3 (0.0-0.1) 06/29/19 08:55 Add Manual Diff Complete 06/25/19 19:10 Total Counted 100 06/25/19 19:10 Seg Neutrophils % 47.9 % (40.0-70.0) 06/29/19 08:55 Seg Neuts % (Manual) 47.0 % (40.0-70.0) 06/25/19 19:10 18.0 % 06/25/19 19:10 13.0 % (13.4-35.0) L 06/25/19 19:10 Reactive Lymphs % (Man) 1.0 % 06/25/19 19:10 12.0 % (0.0-7.3) H 06/25/19 19:10 9.0 % (0.0-4.3) H 06/25/19 19:10 0 % (0.0-1.8) 06/25/19 19:10 0 % 06/25/19 19:10 0 % 06/25/19 19:10 0 % 06/25/19 19:10 0 % 06/25/19 19:10 Nucleated RBC % Not Reportable 06/25/19 19:10 Seg Neutrophils # 1.2 K/mm3 (1.8-7.7) L 06/29/19 08:55 Seg Neutrophils # Man 0.8 K/mm3 (1.8-7.7) L 06/25/19 19:10 Band Neutrophils # 0.3 K/mm3 06/25/19 19:10 0.2 K/mm3 (1.2-5.4) L 06/25/19 19:10 Abs React Lymphs (Man) 0.0 K/mm3 06/25/19 19:10 0.2 K/mm3 (0.0-0.8) 06/25/19 19:10 0.1 K/mm3 (0.0-0.4) 06/25/19 19:10 0.0 K/mm3 (0.0-0.1) 06/25/19 19:10 0.0 K/mm3 06/25/19 19:10 0.0 K/mm3 06/25/19 19:10 0.0 K/mm3 06/25/19 19:10 Blast Cells # 0.0 K/mm3 06/25/19 19:10 WBC Morphology Not Reportable 06/25/19 19:10 Hypersegmented Neuts Not Reportable 06/25/19 19:10 Hyposegmented Neuts Not Reportable 06/25/19 19:10 Hypogranular Neuts Not Reportable 06/25/19 19:10 Not Reportable 06/25/19 19:10 Not Reportable 06/25/19 19:10 Not Reportable 06/25/19 19:10 Not Reportable 06/25/19 19:10 Not Reportable 06/25/19 19:10 Not Reportable 06/25/19 19:10 Appears decreased 06/25/19 19:10 Not Reportable 06/25/19 19:10 Plt Clumps, EDTA Not Reportable 06/25/19 19:10 Not Reportable 06/25/19 19:10 Not Reportable 06/25/19 19:10 Not Reportable 06/25/19 19:10 Plt Morphology Comment Not Reportable 06/25/19 19:10 RBC Morphology Not Reportable 06/25/19 19:10 Dimorphic RBCs Not Reportable 06/25/19 19:10 Not Reportable 06/25/19 19:10 Not Reportable 06/25/19 19:10 Not Reportable 06/25/19 19:10 2+ 06/25/19 19:10 Not Reportable 06/25/19 19:10 Not Reportable 06/25/19 19:10 Not Reportable 06/25/19 19:10 Not Reportable 06/25/19 19:10 Not Reportable 06/25/19 19:10 Not Reportable 06/25/19 19:10 Not Reportable 06/25/19 19:10 Not Reportable 06/25/19 19:10 Not Reportable 06/25/19 19:10 Not Reportable 06/25/19 19:10 Not Reportable 06/25/19 19:10 Not Reportable 06/25/19 19:10 Not Reportable 06/25/19 19:10 Not Reportable 06/25/19 19:10 Not Reportable 06/25/19 19:10 Acanthocytes (Spur) Not Reportable 06/25/19 19:10 Rouleaux Not Reportable 06/25/19 19:10 Not Reportable 06/25/19 19:10 Not Reportable 06/25/19 19:10 Not Reportable 06/25/19 19:10 Not Reportable 06/25/19 19:10 Hem Pathologist Commnt No 06/25/19 19:10 PT 28.4 Sec. (12.2-14.9) H 06/30/19 04:06 INR 2.72 (0.87-1.13) H 06/30/19 04:06 APTT 65.0 Sec. (24.2-36.6) H* 06/20/19 05:51 Sodium 136 mmol/L (137-145) L 06/29/19 08:55 Potassium 5.4 mmol/L (3.6-5.0) H 06/29/19 08:55 Chloride 95.5 mmol/L (98-107) L 06/29/19 08:55 Carbon Dioxide 27 mmol/L (22-30) 06/29/19 08:55 19 mmol/L 06/29/19 08:55 BUN 35 mg/dL (9-20) H 06/29/19 08:55 10.1 mg/dL (0.8-1.5) H 06/29/19 08:55 Estimated GFR 7 ml/min 06/29/19 08:55 3 % 06/29/19 08:55 Glucose 77 mg/dL (75-100) 06/29/19 08:55 Lactic Acid 0.70 mmol/L (0.7-2.0) 06/25/19 05:42 Calcium 7.5 mg/dL (8.4-10.2) L 06/29/19 08:55 Magnesium 2.00 mg/dL (1.7-2.3) 06/29/19 08:55 Iron 75 ug/dL (49-181) 06/29/19 08:55 TIBC 194 mcg/dL (250-450) L 06/29/19 08:55 285.6 ng/mL (13.0-400.0) 06/29/19 08:55 1.10 mg/dL (0.1-1.2) 06/18/19 22:57 AST 12 units/L (5-40) 06/18/19 22:57 ALT 8 units/L (7-56) 06/18/19 22:57 244 units/L (35-129) H 06/18/19 22:57 160 units/L (55-170) 06/19/19 12:26 CK-MB (CK-2) 1.7 ng/mL (0.0-4.0) 06/19/19 12:26 CK-MB (CK-2) Rel Index 1.0 (0-4) 06/19/19 12:26 0.059 ng/mL (0.00-0.029) H 06/19/19 12:26 NT-Pro-B Natriuret Pep 6269 pg/mL (0-450) H 06/19/19 00:00 7.6 g/dL (6.3-8.2) 06/18/19 22:57 4.1 g/dL (3.9-5) 06/18/19 22:57 1.2 % 06/18/19 22:57 Triglycerides 67 mg/dL (2-149) 06/18/19 22:57 Cholesterol 119 mg/dL (50-199) 06/18/19 22:57 72 mg/dL (50-130) 06/18/19 22:57 44 mg/dL (40-59) 06/18/19 22:57 2.70 % 06/18/19 22:57 Vitamin B12 416.1 pg/mL (211-911) 06/29/19 08:55 11.23 ng/mL (7.3-26.0) 06/29/19 08:55 Hepatitis A IgM Ab Non-reactive (NonReactive) 06/20/19 15:56 Hep Bs Antigen Non-reactive (Negative) 06/20/19 15:56 Hep B Core IgM Ab Non-reactive (NonReactive) 06/20/19 15:56 Non-reactive (NonReactive) 06/20/19 15:56 HIV 1&2 Antibody Rapid Non react (Non React) 06/27/19 04:20 Non react (Non React) 06/27/19 04:20 Active Medications - Current Medications Current Medications: Generic Name Dose Route Start Last Admin Trade Name Freq PRN Reason Stop Dose Admin Acetaminophen 650 mg 06/19/19 06:06 06/26/19 08:18 Tylenol PO 650 mg Q4H PRN Administration Pain MILD(1-3)/Fever >100.5/BANDA Calcitriol 0.5 mcg 06/29/19 10:00 Rocaltrol PO QDAY DELMAR Doxycycline Hyclate 100 mg 06/26/19 22:00 06/29/19 22:28 Vibramycin PO 07/10/19 22:01 100 mg BID DELMAR Administration Epoetin Ellis 10,000 unit 06/19/19 13:19 06/27/19 12:34 Procrit IV 10,000 unit RIP PRN Administration hemodialysis Sodium Chloride 100 mls @ 999 mls/hr 06/25/19 11:02 Nacl 0.9% IV RIP PRN Hypotension Ondansetron HCl 4 mg 06/19/19 06:06 06/24/19 06:18 Zofran IV 4 mg Q8H PRN Administration Nausea And Vomiting Oxycodone/Acetaminophen 1 tab 06/19/19 06:06 06/25/19 11:21 Percocet 5/325 PO 1 tab Q6H PRN Administration Pain, Moderate (4-6) Sodium Chloride 10 ml 06/19/19 10:00 06/29/19 22:27 Sodium Chloride Flush Syringe 10 Ml IV 10 ml BID DELMAR Administration Sodium Chloride 10 ml 06/19/19 06:06 Sodium Chloride Flush Syringe 10 Ml IV PRN PRN LINE FLUSH Warfarin Sodium 10 mg 06/29/19 17:00 06/29/19 22:27 Coumadin PO 10 mg DAILY@1700 DELMAR Administration Warfarin Sodium 2.5 mg 06/29/19 17:00 06/29/19 22:27 Coumadin PO 2.5 mg DAILY@1700 DELMAR Administration Nutrition/Malnutrition Assess - Dietary Evaluation Nutrition/Malnutrition Findings: Nutrition Notes Start: 06/24/19 17:08 Freq: Status: Active Protocol: Document 06/28/19 13:21 RM (Rec: 06/28/19 13:29 RM [id number]) Nutrition Notes Initial or Follow up Reassessment Other Pertinent Diagnosis ESRD on HD (M/W/F), CP, Leukopenia Current Diet Renal,Vegan Labs/Tests Reviewed Pertinent Medications Zofran Height 5 ft 6 in Weight 115.3 kg [place] Body Weight (kg) 64.54 BMI 41.0 Subjective/Other Information Pt stated that his appetite is good but his PO intake varies between none and 100% based on what he receives. Stated that he is a vegan, that he only listens to those with a naturopathic background , and does not believe that protein exists. Declined ONS. Noted preferences. Burn Absent Trauma Absent #1 Nutrition Diagnosis Inadequate protein intake Diagnosis Progress(for reassessment Continues documentation) Is patient on ventilator? No Is Patient Ambulatory and/or Out of Bed Yes REE-([place] or-ambulatory/OOB) [ 2568.475 [id number]] Kcal/Kg value to use for calculation 18 Approximate Energy Requirements Using 5 kcal/Kg Calculation Used for Recommendations Kcal/kg Additional Notes Protein Needs: 108-117g (1.2-1 .3g/kg 90kg adjBW) Fluid Needs: 1 ml/kcal Nutrition Intervention Change Diet Order: Continue current Goal #1 Meet at least 75% of calorie and protein needs via PO and ONS intakes Anticipated Discharge Needs: Vegan diet Follow-Up By: 07/04/19 Additional Comments Follow for PO intakes
[2019-06-30] MEDS: VIBRAMYCIN PO SCH (11:48)
[2019-06-30] MEDS: SODIUM CHLORIDE FLUSH SYRINGE 10 ML IV SCH (11:49)
--- NOTE | 2019-06-30 13:26 | Progress Note ---
Assessment and Plan 48-year-old male status post fistulogram and angioplasty of both upper extremities with resolution of issues. Pressure dressing removed. Stitch removed. Patient doing well. Follow-up is needed as outpatient. Card provided previously. Subjective Date of service: 06/30/19 Principal diagnosis: venous stenosis Interval history: Removed stitch from right fistula. Removed pressure dressing and 4 x 4 from left arm. No bleeding. Patient is doing well with resolution of his complaints. Objective - Constitutional Vitals: Vital Signs - 12hr 06/30/19 05:22 Temperature 98.7 F Pulse Rate 95 H Respiratory 20 Rate Blood Pressure 114/60 O2 Sat by Pulse 99 Oximetry General appearance: Present: no acute distress - EENT Eyes: EOM intact ENT: hearing intact - Respiratory Respiratory effort: normal Extremities: abnormal (thrill in right upper extremity AV access. Stitch removed as described in subjective. Pressure dressing removed.) - Psychiatric Psychiatric: appropriate mood/affect, cooperative - Labs CBC & Chem 7: 06/29/19 08:55 06/29/19 08:55 Labs: Abnormal lab results 06/30/19 Range/Units 04:06 PT 28.4 H (12.2-14.9) Sec. INR 2.72 H (0.87-1.13) Medications & Allergies - Medications Allergies/Adverse Reactions: Allergies No Known Allergies Allergy (Verified 06/19/19 06:20) Home Medications: Home Medications Medication Instructions Recorded Confirmed Last Taken Type B Complex W-C No.20/Folic Acid 1 mg PO QAM #30 capsule 06/23/19 Unknown Rx [Nephrocaps Softgel] Calcitriol [Rocaltrol] 0.5 mcg PO QDAY #30 capsule 06/23/19 Unknown Rx Calcium Acetate [Phoslo] 667 mg PO TID #90 capsule 06/23/19 Unknown Rx Epoetin Ellis 10,000 Unit [Procrit] 10,000 unit IV RIP PRN vial 06/23/19 Unknown Rx Pantoprazole Sodium [Protonix] 40 mg PO QAM #30 06/23/19 Unknown Rx Warfarin [Coumadin] 15 mg PO QDAY #30 tablet 06/23/19 Unknown Rx oxyCODONE /ACETAMINOPHEN [Percocet 1 tab PO Q6H PRN #10 tablet 06/23/19 Unknown Rx 5/325 mg] Doxycycline Monohydrate 100 mg PO BID #24 tablet 06/29/19 Unknown Rx Active Medications: Generic Name Dose Route Start Last Admin Trade Name Freq PRN Reason Stop Dose Admin Acetaminophen 650 mg 06/19/19 06:06 06/26/19 08:18 Tylenol PO 650 mg Q4H PRN Administration Pain MILD(1-3)/Fever >100.5/BANDA Calcitriol 0.5 mcg 06/29/19 10:00 06/30/19 11:47 Rocaltrol PO 0.5 mcg QDAY DELMAR Administration Doxycycline Hyclate 100 mg 06/26/19 22:00 06/30/19 11:48 Vibramycin PO 07/10/19 22:01 100 mg BID DELMAR Administration Epoetin Ellis 10,000 unit 06/19/19 13:19 06/27/19 12:34 Procrit IV 10,000 unit RIP PRN Administration hemodialysis Sodium Chloride 100 mls @ 999 mls/hr 06/25/19 11:02 Nacl 0.9% IV RIP PRN Hypotension Ondansetron HCl 4 mg 06/19/19 06:06 06/24/19 06:18 Zofran IV 4 mg Q8H PRN Administration Nausea And Vomiting Oxycodone/Acetaminophen 1 tab 06/19/19 06:06 06/25/19 11:21 Percocet 5/325 PO 1 tab Q6H PRN Administration Pain, Moderate (4-6) Sodium Chloride 10 ml 06/19/19 10:00 06/30/19 11:49 Sodium Chloride Flush Syringe 10 Ml IV 10 ml BID DELMAR Administration Sodium Chloride 10 ml 06/19/19 06:06 Sodium Chloride Flush Syringe 10 Ml IV PRN PRN LINE FLUSH Warfarin Sodium 10 mg 06/29/19 17:00 06/29/19 22:27 Coumadin PO 10 mg DAILY@1700 PENDING SALE TO [facility] Administration Warfarin Sodium 2.5 mg 06/29/19 17:00 06/29/19 22:27 Coumadin PO 2.5 mg DAILY@1700 PENDING S[facility] TO [facility] Administration
[2019-06-30 14:26] VITALS: BP 126/49
--- NOTE | 2019-06-30 15:49 | Progress Note ---
Assessment and Plan Impression * End-stage renal disease on maintenance hemodialysis * Chest pain * Hypertension * Mild hyperkalemia * History of DVT * Left upper extremity swelling. Most likely secondary to central stenosis * Hypocalcemia * Pancytopenia Recommendations * Hemodialysis MWF schedule * UF as tolerated * Continue calcitriol * Consultants' recommendations noted * Heme consult pending * Renal diet. Binders with meals * Abx per ID * Epogen TIW prn * Patient has been approved (approved on 06/28) to start at [facility] - chair time MWF 10:45am Subjective Date of service: 06/30/19 Principal diagnosis: venous stenosis Interval history: Patient has no complaints Objective - Vital Signs Vital signs: Vital Signs - 12hr 06/30/19 06/30/19 06/30/19 05:22 10:00 11:37 Temperature 98.7 F 98.2 F Pulse Rate 95 H 92 H Respiratory 20 20 Rate Blood Pressure 114/60 126/49 O2 Sat by Pulse 99 99 100 Oximetry - General Appearance General appearance: well-developed, well-nourished EENT: ATNC Neck: no JVD Respiratory: Present: Clear to Ascultation Cardiology: regular, S1S2 Gastrointestinal: normal, no tenderness, no distended, obese Integumentary: no rash, warm and dry Neurologic: no focal deficit, alert and oriented x3 Psychiatric: cooperative - Lab 06/29/19 08:55 06/29/19 08:55 Most recent lab results Calcium 7.5 mg/dL (8.4-10.2) L 06/29/19 08:55 Magnesium 2.00 mg/dL (1.7-2.3) 06/29/19 08:55 Medications & Allergies - Medications Allergies/Adverse Reactions: Allergies No Known Allergies Allergy (Verified 06/19/19 06:20) Home Medications: Home Medications Medication Instructions Recorded Confirmed Last Taken Type B Complex W-C No.20/Folic Acid 1 mg PO QAM #30 capsule 06/23/19 Unknown Rx [Nephrocaps Softgel] Calcitriol [Rocaltrol] 0.5 mcg PO QDAY #30 capsule 06/23/19 Unknown Rx Calcium Acetate [Phoslo] 667 mg PO TID #90 capsule 06/23/19 Unknown Rx Epoetin Ellis 10,000 Unit [Procrit] 10,000 unit IV RIP PRN vial 06/23/19 Unknown Rx Pantoprazole Sodium [Protonix] 40 mg PO QAM #30 06/23/19 Unknown Rx Warfarin [Coumadin] 15 mg PO QDAY #30 tablet 06/23/19 Unknown Rx oxyCODONE /ACETAMINOPHEN [Percocet 1 tab PO Q6H PRN #10 tablet 06/23/19 Unknown Rx 5/325 mg] Doxycycline Monohydrate 100 mg PO BID #24 tablet 06/29/19 Unknown Rx Active Medications: Generic Name Dose Route Start Last Admin Trade Name Freq PRN Reason Stop Dose Admin Acetaminophen 650 mg 06/19/19 06:06 06/26/19 08:18 Tylenol PO 650 mg Q4H PRN Administration Pain MILD(1-3)/Fever >100.5/BANDA Calcitriol 0.5 mcg 06/29/19 10:00 06/30/19 11:47 Rocaltrol PO 0.5 mcg QDAY DELMAR Administration Doxycycline Hyclate 100 mg 06/26/19 22:00 06/30/19 11:48 Vibramycin PO 07/10/19 22:01 100 mg BID DELMAR Administration Epoetin Ellis 10,000 unit 06/19/19 13:19 06/27/19 12:34 Procrit IV 10,000 unit RIP PRN Administration hemodialysis Sodium Chloride 100 mls @ 999 mls/hr 06/25/19 11:02 Nacl 0.9% IV RIP PRN Hypotension Ondansetron HCl 4 mg 06/19/19 06:06 06/24/19 06:18 Zofran IV 4 mg Q8H PRN Administration Nausea And Vomiting Oxycodone/Acetaminophen 1 tab 06/19/19 06:06 06/25/19 11:21 Percocet 5/325 PO 1 tab Q6H PRN Administration Pain, Moderate (4-6) Sodium Chloride 10 ml 06/19/19 10:00 06/30/19 11:49 Sodium Chloride Flush Syringe 10 Ml IV 10 ml BID DELMAR Administration Sodium Chloride 10 ml 06/19/19 06:06 Sodium Chloride Flush Syringe 10 Ml IV PRN PRN LINE FLUSH Warfarin Sodium 10 mg 06/29/19 17:00 06/29/19 22:27 Coumadin PO 10 mg DAILY@1700 DELMAR Administration Warfarin Sodium 2.5 mg 06/29/19 17:00 06/29/19 22:27 Coumadin PO 2.5 mg DAILY@1700 DELMAR Administration
[2019-06-30] MEDS: COUMADIN PO SCH ×2 (18:35→18:37)
== END 2019-06-30 22:30 | disposition home or self-care (01) | DRG 252 ==
LOC: ED 22:05 → 4A 06-19 08:18 → 3A 06-28 13:26
PROVIDERS: ADMIT Internal Medicine; ATTEND Internal Medicine
PROC: 5A1D70Z Performance of Urinary Filtration, Intermittent, Less than 6 Hours Per Day (ICD-10-PCS; 2019-06-20)
PROC: 05763ZZ Dilation of Left Subclavian Vein, Percutaneous Approach (ICD-10-PCS; principal; 2019-06-21)
PROC: 05753ZZ Dilation of Right Subclavian Vein, Percutaneous Approach (ICD-10-PCS; 2019-06-21)
PROC: 027V3ZZ Dilation of Superior Vena Cava, Percutaneous Approach (ICD-10-PCS; 2019-06-21)
PROC: 05743ZZ Dilation of Left Innominate Vein, Percutaneous Approach (ICD-10-PCS; 2019-06-21)
PROC: 05733ZZ Dilation of Right Innominate Vein, Percutaneous Approach (ICD-10-PCS; 2019-06-21)
PROC: 05773ZZ Dilation of Right Axillary Vein, Percutaneous Approach (ICD-10-PCS; 2019-06-21)
PROC: B54BZZA Ultrasonography of Right Lower Extremity Veins, Guidance (ICD-10-PCS; 2019-06-21)
PROC: B54MZZA Ultrasonography of Right Upper Extremity Veins, Guidance (ICD-10-PCS; 2019-06-21)
PROC: B54NZZA Ultrasonography of Left Upper Extremity Veins, Guidance (ICD-10-PCS; 2019-06-21)
PROC: B51W1ZZ Fluoroscopy of Dialysis Shunt/Fistula using Low Osmolar Contrast (ICD-10-PCS; 2019-06-21)
PROC: B5191ZA Fluoroscopy of Inferior Vena Cava using Low Osmolar Contrast, Guidance (ICD-10-PCS; 2019-06-21)
PROC: B51V1ZA Fluoroscopy of Other Veins using Low Osmolar Contrast, Guidance (ICD-10-PCS; 2019-06-21)
PROC: B51N1ZA Fluoroscopy of Left Upper Extremity Veins using Low Osmolar Contrast, Guidance (ICD-10-PCS; 2019-06-21)
PROC: 5A1D70Z Performance of Urinary Filtration, Intermittent, Less than 6 Hours Per Day (ICD-10-PCS; 2019-06-22)
PROC: 5A1D70Z Performance of Urinary Filtration, Intermittent, Less than 6 Hours Per Day (ICD-10-PCS; 2019-06-23)
PROC: 5A1D70Z Performance of Urinary Filtration, Intermittent, Less than 6 Hours Per Day (ICD-10-PCS; 2019-06-24)
PROC: 5A1D70Z Performance of Urinary Filtration, Intermittent, Less than 6 Hours Per Day (ICD-10-PCS; 2019-06-25)
PROC: 5A1D70Z Performance of Urinary Filtration, Intermittent, Less than 6 Hours Per Day (ICD-10-PCS; 2019-06-27)
PROC: 5A1D70Z Performance of Urinary Filtration, Intermittent, Less than 6 Hours Per Day (ICD-10-PCS; 2019-06-29)
DX: I87.1 Compression of vein (principal); N18.6 End stage renal disease; R65.11 Systemic inflammatory response syndrome (SIRS) of non-infectious origin with acute organ dysfunction; I12.0 Hypertensive chronic kidney disease with stage 5 chronic kidney disease or end stage renal disease; D61.818 Other pancytopenia; Z94.0 Kidney transplant status; R07.9 Chest pain, unspecified; E87.5 Hyperkalemia; E83.51 Hypocalcemia; D72.819 Decreased white blood cell count, unspecified; E87.70 Fluid overload, unspecified; D63.1 Anemia in chronic kidney disease; D69.6 Thrombocytopenia, unspecified; Z86.711 Personal history of pulmonary embolism; Z99.2 Dependence on renal dialysis; Z86.718 Personal history of other venous thrombosis and embolism; Z79.01 Long term (current) use of anticoagulants; Z79.899 Other long term (current) drug therapy; Z82.49 Family history of ischemic heart disease and other diseases of the circulatory system; Z90.5 Acquired absence of kidney
CPT/HCPCS: 36415; 36902; 37248; 37249; 71045; 71250; 76937; 78452; 80048; 80053; 80061; 80074; 82140; 82550; 82553; 82607; 82728; 82747; 83550; 83735; 83880; 84484; 85007; 85025; 85027; 85610; 85730; 87040; 87806; 93005; 93010; 93017; 93306; G0378; A9502; C1725; C1769; C1773; C1887; C1894; J0690; J0696; J0885; J1644; J2250; J2405; J2785; J3010; J7030; J7040; Q0162; Q9967

== ENCOUNTER 2019-07-07 14:22 | Inpatient (IN) | payer MEDICARE ==
[2019-07-07] MEDS ORDERED: DULCOLAX PR PRN (16:00)
[2019-07-07] MEDS ORDERED: TYLENOL PO PRN (16:00)
[2019-07-07 20:43] LABS: INR 3.22 (0.87-1.13)
[2019-07-07] MEDS: PHOSLO PO SCH (21:49)
[2019-07-08] MEDS: Renal Caps PO SCH (08:00)
[2019-07-08] MEDS: PHOSLO PO SCH ×3 (08:00→22:30)
[2019-07-08] MEDS: PROTONIX PO SCH (08:00)
[2019-07-08] MEDS: VITAMIN B-12 PO SCH (08:00)
[2019-07-08] MEDS: ROCALTROL PO SCH (08:00)
--- NOTE | 2019-07-08 09:26 | History and Physical Report ---
History of Present Illness Date: 07/08/19 Date of admission: 07/07/19 19:31 Chief Complaint: Neuromuscular weakness History of present illness: 48-year-old male with sudden inability to stand who went to the ER at [facility] and was worked up. Reportedly had a fever of 102.6 at hemodialysis the Hema prior. Blood cultures were drawn but were negative. Patient has been on hemodialysis for 28 years and has been anuric for 20 years. Further workup included looking at vitamin levels as well as nerve conduction study/EMG. We requested the results of that study however they were not made available by case management who said that she thought they it was not done, however patient confirms the test was done and he was told by the neurologist that the results showed neuropathy bilateral lower extremities worse distally than proximally. 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 Patient is a vegan and has been for the past several years. His diagnosed recently with bilateral lower extremity DVTs and is on Coumadin. He states that his home dose which gives some therapeutic is 15 mg daily. He was discharged to us on 10 mg daily. There is some confusion on report as we were told he was given his nightly dose before coming to us however he states that it was held because he was supratherapeutic. He continues to be supratherapeutic and will monitor his PT/INR restart accordingly. Dosing difference likely due in part to his dietary availability which is different than what he is eating at home currently. He also has a history of recent falls for which he started utilizing a RW and PT. According to the records that were able to be reviewed the patient was moderate assistance with therapy for mobility. He does have a spiral staircase and history of falls which will be difficult for him to maneuver on in his current state. However he has progressed slightly between his last records that we were given to review and his presentation. He does have deficits and we will continue to work with and will likely discharge a little bit sooner than the projected 10-14 days, likely in 7 days at this point. After the patient was medically stabilized they were transferred for further rehabilitation. All available medical records have been reviewed. Plan of care was discussed with patient and family. Past History Past Medical History: CAD, DVT, ESRD, pulmonary embolism, other Past Surgical History: mastectomy (gynecomastia), Other ( vascular access, uvulopalatoplasty) Social history: lives with family (in two-story with a spiral staircase with significant other), full code. denies: smoking, alcohol abuse, prescription drug abuse, IV drug use Family history: CAD, diabetes, hypertension, stroke, other (renal failure) Medications and Allergies Allergies Allergy/AdvReac Type Severity Reaction Status Date / Time No Known Allergies Allergy Verified 06/19/19 06:20 Home Medications Medication Instructions Recorded Confirmed Last Taken Type B Complex W-C No.20/Folic Acid 1 mg PO QAM #30 capsule 06/23/19 07/08/19 07/07/19 Rx [Nephrocaps Softgel] Calcitriol [Rocaltrol] 0.5 mcg PO QDAY #30 capsule 06/23/19 07/08/19 07/07/19 Rx Calcium Acetate [Phoslo] 667 mg PO TID #90 capsule 06/23/19 07/08/19 07/07/19 Rx Epoetin Ellis 10,000 Unit [Procrit] 10,000 unit IV RIP PRN vial 06/23/19 07/08/19 07/07/19 Rx Pantoprazole Sodium [Protonix] 40 mg PO QAM #30 [place]. 06/23/19 07/08/19 07/07/19 Rx Warfarin [Coumadin] 15 mg PO QDAY #30 tablet 06/23/19 07/08/19 07/07/19 Rx oxyCODONE /ACETAMINOPHEN [Percocet 1 tab PO Q6H PRN #10 tablet 06/23/19 07/08/19 07/07/19 Rx 5/325 mg] Doxycycline Monohydrate 100 mg PO BID #24 tablet 06/29/19 07/08/19 07/07/19 Rx Active Meds: Active Medications Acetaminophen (Tylenol) 650 mg PO Q4H PRN PRN Reason: Pain MILD(1-3)/Fever >100.5/BANDA Bisacodyl (Dulcolax) 10 mg [place] QDAY PRN PRN Reason: Constipation unrelieved by MOM Calcitriol (Rocaltrol) 0.5 mcg PO QDAY [facility] Calcium Acetate (Phoslo) 2,668 mg PO TID [facility] Last Admin: 07/07/19 21:49 Dose: Not Given Documented by: Cyanocobalamin (Vitamin B-12) 1,000 mcg PO QDAY DELMAR Multivit/Ca Carb/B Cmplx/FA/Prenat (Renal Caps) 1 cap PO QDAY DELMAR Pantoprazole Sodium (Protonix) 40 mg PO QDAY DELMAR Review of Systems All systems: negative (ROS negative for 12 systems except as noted below with pertinent positives and negatives.) Constitutional: fatigue, weakness Ears, nose, mouth and throat: no decreased hearing, no bleeding gums Cardiovascular: no chest pain, no rapid/irregular heart beat, no edema Respiratory: no cough, no shortness of breath Gastrointestinal: no abdominal pain, no nausea, no vomiting, no diarrhea, no constipation Rectal: no bleeding Musculoskeletal: leg numbness/tingling, muscle weakness Integumentary: dryness (slight thickening bilateral lower extremities), other (vascular access graft surgical scars bilateral upper extremities), no rash, no pruritis, no redness Neurological: numbness, no head injury, no headaches Psychiatric: no memory loss Exam - Exam Narrative exam: MUSCULOSKELETAL SPECIALTY EXAM CONSTITUTIONAL: Well developed, well nourished, appropriately groomed, obese LYMPHATIC: No appreciable abnormalities palpable in neck EENT: Visual mcgowan full to confrontation. EOMI. Oropharynx clear. Hearing intact to soft voice RESPIRATORY: Clear to auscultation bilaterally, no increased work of breathing CARDIOVASCULAR: Regular Rate/ Rhythm, no swelling, edema or tenderness in BUE or BLE. Pulses palpable in all extremities. All extremities warm. GI: + bowel sounds, soft, NTTP, nondistended. INTEGUMENTARY: Normal, no lesion, rash, masses or bruising noted in extremities. Bilateral upper extremity vascular access scars MUSCULOSKELETAL: BUE and BLE normal without defect, crepitus, subluxation, effusion, arthritic changes or TTP. BUE 5/5, good ROM, with normal tone. BLE 4+/5 good ROM, with normal tone NEURO: CN 2-12 grossly intact. Sensation intact in all extremities. Reflexes 2+ bilaterally at biceps, brachioradialis and patella. No clonus at ankles. Coordination intact in BUE. No tremor noted in 4 extremities. POSTURE and GAIT: Sitting posture good. Balance appears reasonable. Gait observed with therapy and reasonable with weakness noted at the bilateral hip flexors as well as minor loss of balance from time to time. PSYCH: Alert, oriented x3, affect appears normal. Insight appears intact. - Constitutional Vitals: Vital Signs - 12hr 07/07/19 07/08/19 22:00 07:41 Temperature 36.6 C 36.6 C Pulse Rate 89 82 Respiratory 20 18 Rate Blood Pressure 127/42 Blood Pressure 155/53 [Left] O2 Sat by Pulse 94 99 Oximetry - Labs Labs: Laboratory Results - last 72 hr 07/07/19 19:55 PT 32.4 H INR 3.22 H Assessment and Plan Assessment and plan: Patient was assessed and evaluated for Acute Inpatient Rehab Unit. Due to the patients above-mentioned medical complexity, along with decreased functional mobility and self care, this patient continues to require and be appropriate for a comprehensive, multidisciplinary [id number] rehabilitation program. These needs cannot be met in an outpatient or other less intensive setting. The patient would continue to benefit from skilled therapy intervention for at least 3 hours per day, five days a week, with techniques specific to the needs of the patient to improve function, activities of daily living, and reintegration into the community. The patient continues to require: -- OT to improve ROM, self-care, and learn use of adaptive equipment -- PT to improve strength and balance, functional transfers, and ambulation with energy conservation techniques to improve functional mobility -- 24 hour RN to ensure and prevent skin breakdown, promote progressive independence while ensuring safety, ensure education regarding medications, and incorporation of the rehabilitation at the bedside -- 24 hour [employer] Manager to coordinate this interdisciplinary program, and to manage/prevent complications as a result of the patients medical comorbidities. -Plan of care by day 4 -Weekly team conferences With such a program, there is a reasonable certainty that the goals individualized for this patient can be achieved within the specified length of stay. 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 PT & OT will work on strengthening exercises to improve functional strength including mixture of closed and open kinetic chain exercises. ESRD on HD: Consult nephrology. HD MWF. Avoid nephrotoxic medications. DVT: Continue coumadin with goal INR 2-3. Pharm consult per protocol. Patient states 15mg at home. GERD: Continue protonix, monitor Hypotension: monitor, used midodrine in past but not tolerated. Vit B12 deficiency: Continue replacement. Refuses IM Anemia: continue epoetin in HD. Awaiting labs Z73.6 ADL dysfunction: OT will work on improving ability to perform ADLs (including assistive devices) to increase independence and decrease caregiver burden and improve functional transfers and mobility training. R26.2 Difficulty walking: PT will work on gait training and proper use of assistive devices and advance as appropriate to use of stairs and outside ambulation on uneven surfaces. R26.81 Unsteadiness on feet: PT will work on improving static and dynamic sitting and standing balance as well as proper use of assistive devices to decrease risk of falls. R26.89 Abnormality of gait: PT will work to improve safety and efficiency of gait through neuromotor training and gait training along with instruction on proper use of assistive devices. R53.81 Debility: PT & OT will work on improving overall functional status to improve participation with ADLs, mobility and social involvement. R53.83 Fatigue: PT & OT will work on improving endurance through aerobic exercises and therapeutic activity while monitoring patients tolerance for activity and vital signs as needed. DVT ppx: Coumadin for DVT, Goal INR 2-3 Pain: Continue physical modalities in therapy and pain medications as needed to achieve functional pain control. Sleep: Monitor and address as needed. Bowel: Monitor and address as needed. Appetite: Monitor and address as needed. Discharge planning: Pending therapy progress and care plan meeting. Will continue discussion with therapy team, SW, patient and family. Restrictions/ Precautions: Falls WB status: FWB Functional Hx: ADLs: Independent Cognition: Independent Mobility: RW Barriers to Discharge: Decreased mobility and ability to perform self care, balance deficits, weakness Estimated Length of Stay: 7-10 days Discharge Destination: Home with family POST ADMISSION PHYSICIAN EVALUATION I have examined the patient and find that functional status, medical condition and appropriateness for IRF admission are essentially unchanged from those described in the preadmission screening. Will monitor for worsening weakness, anemia, bleeding, DVT/PE, bowel and bladder complications and complications due to ESRD, hypotension and electrolyte abnormalities. Will attempt to avoid occurrence of these issues or treat them if they present themselves.
--- NOTE | 2019-07-08 11:57 | Consultation ---
History of Present Illness - History of Present Illness Thank you for the consultation ! Patient was evaluated today My assessment and plan are as follows; End-stage renal disease: Patient is currently in maintenance hemodialysis and wi ll need to be dialyzed 3 times a week, will monitor dialysis related labs Anemia and end-stage renal disease currently on erythropoietin 10,000 units every treatment monitor hemoglobin and hematocrit iron profile B12 folic acid periodically Secondary hyperparathyroidism: Check phosphorus and PTH binders and vitamin D including calcitriol and calcium acetate for now Volume, hypertension: Continue to monitor her blood pressure goal less than 150 for now Malnutrition risk: I consider high-protein diet nutritional evaluation Patient needs new labs before dialysis can be considered I have discussed with dialysis nurse to call me for orders once the labs are back Patient was adequately counseled and educated regarding multiple renal related issues. overall prognosis remains guarded at this time All renal related questions were answered and simple [place] pertinent lab studies as well as imaging results were also discussed with patient We will continue to follow and make recommendations from renal standpoint. Thank you for the consultation Author: James Amador M.D. [facility], [address] [place] [address] Tel; [phone] Source of information: From patient History of present illness Patient is a 48-year-old -[place] male who is currently in maintenance hemodialysis on Thursday patient is currently being dialyzed at [facility] facility under Dr. Johnson, he has been admitted here for rehabilitation was feeling very weak he does suffer from some neuropathy and chronic hypotension patient stated that her blood pressure has been running low ever since he was 10-year-old Upon further questioning when I asked him how much fluid to normal removal on dialysis patient sees anywhere between 3 and 4 kg he denies having any cough cold congestion and sinus congestion, diarrhea nausea vomiting no skin sores, left has not been tender or warm I told the patient that with his low blood pressure history target and keeping his intradialytic weight gain no more than 1 or 2 kg given that he has hypoten ling Patient appeared surprised to know that he has to reduce his fluid intake He currently does not have any labs that will be ordered today Past medical history significant for End-stage renal disease, on hemodialysis for last 28 years Has had fever but blood culture was negative B12 deficiency/H and has been on a vegan diet DVT Coronary artery disease Pulmonary embolism Gynecomastia Anemia and end-stage renal disease Secondary hyperparathyroidism Chronic hypotension patient has been on midodrine in the past Current allergies: Reviewed from the current chart Social history: Reviewed from the current chart Family history: Reviewed from the current chart Review of system: Positive for weakness, neuropathy, tonic hypotension All other review of systems negative Physical examination Vitals: Reviewed General: No acute distress HEENT: Oral mucosa moist no pallor or icterus Neck: Supple without any JVD thyromegaly or nodular mass Chest: Clear to auscultation Heart: Regular rate and rhythm S1-S2 heard no S3-S4 Abdomen: Soft nontender, bowel sounds present no renal bruit no suprapubic masses no CVA tenderness noted Extremity: Minimal edema dry skin no peripheral cyanosis patient does have AV access which has good thrill and bruit Endocrine: Thyroid not enlarged Psychiatric: No agitation and aggression noted Musculoskeletal: No joint effusion noted Labs and x-rays: Reviewed from this admission Medications and Allergies Allergies Allergy/AdvReac Type Severity Reaction Status Date / Time No Known Allergies Allergy Verified 06/19/19 06:20 Home Medications Medication Instructions Recorded Confirmed Last Taken Type B Complex W-C No.20/Folic Acid 1 mg PO QAM #30 capsule 06/23/19 07/08/19 07/07/19 Rx [Nephrocaps Softgel] Calcitriol [Rocaltrol] 0.5 mcg PO QDAY #30 capsule 06/23/19 07/08/19 07/07/19 Rx Calcium Acetate [Phoslo] 667 mg PO TID #90 capsule 06/23/19 07/08/19 07/07/19 Rx Epoetin Ellis 10,000 Unit [Procrit] 10,000 unit IV RIP PRN vial 06/23/19 08/08/1807/07/19 Rx Pantoprazole Sodium [Protonix] 40 mg PO QAM #30 06/23/19 07/08/19 07/07/19 Rx Warfarin [Coumadin] 15 mg PO QDAY #30 tablet 06/23/19 07/08/19 07/07/19 Rx oxyCODONE /ACETAMINOPHEN [Percocet 1 tab PO Q6H PRN #10 tablet 06/23/19 07/08/19 07/07/19 Rx 5/325 mg] Doxycycline Monohydrate 100 mg PO BID #24 tablet 06/29/19 07/08/19 07/07/19 Rx Active Meds: Active Medications Acetaminophen (Tylenol) 650 mg PO Q4H PRN PRN Reason: Pain MILD(1-3)/Fever >100.5/BANDA Bisacodyl (Dulcolax) [address] QDAY PRN PRN Reason: Constipation unrelieved by MOM Calcitriol (Rocaltrol) 0.5 mcg PO QDAY [facility] Last Admin: 07/08/19 08:00 Dose: 0.5 mcg Documented by: Calcium Acetate (Phoslo) 2,668 mg PO TID [facility] Last Admin: 07/08/19 08:00 Dose: 2,668 mg Documented by: Cyanocobalamin (Vitamin B-12) 1,000 mcg PO QDAY [facility] Last Admin: 07/08/19 08:00 Dose: 1,000 mcg Documented by: Multivit/Ca Carb/B Cmplx/FA/Prenat (Renal Caps) 1 cap PO QDAY [facility] Last Admin: 07/08/19 08:00 Dose: 1 cap Documented by: Pantoprazole Sodium (Protonix) 40 mg PO QDAY [facility] Last Admin: 07/08/19 08:00 Dose: 40 mg Documented by: Exam - Vital Signs Vital signs: Vital Signs Temp Pulse Resp Pulse Ox 98.3 F 90 18 99 07/07/19 20:22 07/07/19 20:22 07/07/19 20:22 07/07/19 20:22 Results - Lab Results 07/08/19 13:36 07/08/19 13:36
[2019-07-08 14:16] LABS: Basophils % (Auto) 0.8 % (0.0-1.8); Eosinophils # (Auto) 0.2 K/mm3 (0.0-0.4); Eosinophils % (Auto) 5.5 % (0.0-4.3); Hematocrit 27.4 % (35.5-45.6); Lymphocytes # (Auto) 0.6 K/mm3 (1.2-5.4); Lymphocytes % (Auto) 16.7 % (13.4-35.0); Mean Corpuscular HGB Conc 33 % (32-34); Mean Corpuscular Volume 95 fl (84-94); Monocytes # (Auto) 0.3 K/mm3 (0.0-0.8); Monocytes % (Auto) 9.4 % (0.0-7.3); Platelet Count 157 K/mm3 (140-440); Red Blood Count 2.89 M/mm3 (3.65-5.03); Red Cell Distribution Width 17.5 % (13.2-15.2)
[2019-07-08 14:25] LABS: INR 2.83 (0.87-1.13)
[2019-07-08 14:44] LABS: Albumin 3.9 g/dL (3.9-5); Calcium 8.2 mg/dL (8.4-10.2)
[2019-07-08] MEDS ORDERED: NACL 0.9% 100 ML IV PRN (16:02)
[2019-07-08] MEDS: COUMADIN PO SCH (22:30)
[2019-07-09 07:12] LABS: INR 2.45 (0.87-1.13)
[2019-07-09] MEDS: Renal Caps PO SCH (10:01)
[2019-07-09] MEDS: PHOSLO PO SCH ×3 (10:01→17:39)
[2019-07-09] MEDS: ROCALTROL PO SCH (10:02)
[2019-07-09] MEDS: PROTONIX PO SCH (10:02)
[2019-07-09] MEDS: VITAMIN B-12 PO SCH (10:03)
--- NOTE | 2019-07-09 11:13 | Progress Note ---
Subjective Interval history: Patient was seen today for follow-up on multiple renal related issues Events of this hospitalization were noted Interdisciplinary notes were also reviewed Vitals intake output medications were reviewed Past medical history: Reviewed Family, social history: Reviewed Allergies: Reviewed Physical examination General: No acute distress Vitals: Reviewed HEENT: Oral mucosa moist no icterus Neck: Supple no thyromegaly nodular mass or JVD Chest: Clear to auscultation anteriorly Heart: Regular rate and rhythm S1-S2 heard no S3-S4 Abdomen: Soft nontender no suprapubic masses no organomegaly Extremity: Dry skin less than 1+ edema Psych: No evidence of any agitation and aggression noted Derm: No petechial rash Assessment and plan: End-stage renal disease: Patient will continue with hemodialysis treatment on MWF , scheduled as tolerated monitor hemodynamics closely while on dialysis dialysis nurse to monitor blood pressure and make sure systolic blood pressure is not below 100 and heart rate is not above 100, Anemia and end-stage renal disease: To monitor and follow, erythropoietin as required goal hemoglobin dialysis patients usually occurring 10 and 12 Secondary hyperparathyroidism: Monitor phosphorus and PTH and adjust binders as needed Diet and nutrition: Fluid restriction 1200 mL per day, high-protein diet may benefit from nutrition consultation , patient is protein intake should be 1.5 g per KG body weight Dialysis diet plan was discussed with the patient for end-stage renal disease care Patient was also educated about hospital-related comorbidities Patient does exhibit good understanding of the renal related issues All renal related issues were discussed with the patient, patient does exhibit good understanding, lab results were also discussed with patient in simple [place] Prognosis: Guarded We'll continue to follow and make recommendation from renal standpoint Objective - Vital Signs Vital signs: Vital Signs - 12hr 07/09/19 07/09/19 00:40 07:32 Temperature 98.4 F Pulse Rate 96 H Respiratory 20 16 Rate Blood Pressure 110/33 O2 Sat by Pulse 100 96 Oximetry - Lab 07/08/19 13:36 07/08/19 13:36 Most recent lab results Calcium 8.2 mg/dL (8.4-10.2) L 07/08/19 13:36 Phosphorus 4.00 mg/dL (2.5-4.5) 07/08/19 13:36 Medications & Allergies - Medications Allergies/Adverse Reactions: Allergies No Known Allergies Allergy (Verified 06/19/19 06:20) Home Medications: Home Medications Medication Instructions Recorded Confirmed Last Taken Type B Complex W-C No.20/Folic Acid 1 mg PO QAM #30 capsule 06/23/19 07/08/19 Rx [Nephrocaps Softgel] Calcitriol [Rocaltrol] 0.5 mcg PO QDAY #30 capsule 06/23/19 07/08/19 07/07/19 Rx Calcium Acetate [Phoslo] 667 mg PO TID #90 capsule 06/23/19 07/08/19 07/07/19 Rx Epoetin Ellis 10,000 Unit [Procrit] 10,000 unit IV RIP PRN vial 06/23/19 07/08/19 07/07/19 Rx Pantoprazole Sodium [Protonix] 40 mg PO QAM #30 granpkt. 06/23/19 07/08/19 07/07/19 Rx Warfarin [Coumadin] 15 mg PO QDAY #30 tablet 06/23/19 07/08/19 07/07/19 Rx oxyCODONE /ACETAMINOPHEN [Percocet 1 tab PO Q6H PRN #10 tablet 06/23/19 07/08/19 07/07/19 Rx 5/325 mg] Doxycycline Monohydrate 100 mg PO BID #24 tablet 06/29/19 07/08/19 07/07/19 Rx Active Medications: Generic Name Dose Route Start Last Admin Trade Name Freq PRN Reason Stop Dose Admin Acetaminophen 650 mg 07/07/19 16:00 Tylenol PO Q4H PRN Pain MILD(1-3)/Fever >100.5/BANDA Bisacodyl 10 mg 07/07/19 16:00 Dulcolax IN QDAY PRN Constipation unrelieved by MOM Calcitriol 0.5 mcg 07/08/19 08:00 07/09/19 10:02 Rocaltrol PO 0.5 mcg QDAY DELMAR Administration Calcium Acetate 2,668 mg 07/07/19 20:00 07/09/19 10:01 Phoslo PO 2,668 mg TID DELMAR Administration Cyanocobalamin 1,000 mcg 07/08/19 08:00 07/09/19 10:03 Vitamin B-12 PO 1,000 mcg QDAY DELMAR Administration Sodium Chloride 100 mls @ 999 mls/hr 07/08/19 16:02 Nacl 0.9% IV RIP PRN Hypotension Multivit/Ca Carb/B Cmplx/FA/Prenat 1 cap 07/08/19 08:00 07/09/19 10:01 Renal Caps PO 1 cap QDAY DELMAR Administration Pantoprazole Sodium 40 mg 07/08/19 08:00 07/09/19 10:02 Protonix PO 40 mg QDAY DELMAR Administration Warfarin Sodium 10 mg 07/08/19 17:00 07/08/19 22:30 Coumadin PO 10 mg DAILY@1700 DELMAR Administration
[2019-07-09] MEDS: COUMADIN PO SCH (17:52)
[2019-07-10 05:43] LABS: INR 4.48 (0.87-1.13)
[2019-07-10] MEDS: PHOSLO PO SCH ×3 (08:40→17:06)
[2019-07-10] MEDS: ROCALTROL PO SCH (08:41)
[2019-07-10] MEDS: Renal Caps PO SCH (08:41)
[2019-07-10] MEDS: PROTONIX PO SCH (08:50)
[2019-07-10] MEDS: VITAMIN B-12 PO SCH (08:50)
--- NOTE | 2019-07-10 11:31 | Progress Note ---
Subjective Interval history: Patient was seen today for follow-up on multiple renal related issues Events of this hospitalization were noted Interdisciplinary notes were also reviewed Appendectomy with his physical therapy in progress so far No issues with dialysis at all Vitals intake output medications were reviewed Past medical history: Reviewed Family, social history: Reviewed Allergies: Reviewed Physical examination General: No acute distress Vitals: Reviewed HEENT: Oral mucosa moist no icterus Neck: Supple no thyromegaly nodular mass or JVD Chest: Clear to auscultation anteriorly Heart: Regular rate and rhythm S1-S2 heard no S3-S4 Abdomen: Soft nontender no suprapubic masses no organomegaly Extremity: Dry skin less than 1+ edema Psych: No evidence of any agitation and aggression noted Derm: No petechial rash Assessment and plan: End-stage renal disease: Patient will continue with hemodialysis treatment on MWF Tolerated last dialysis treatment very well Patient is chronically hypotensive: Has been advised to limit his fluid intake to no more than 1000 mL per day avoid hypotension during dialysis Monitor dialysis related labs Dialysis dialysis nurse to monitor blood pressure and make sure systolic blood pressure is not below 100 and heart rate is not above 100, Anemia and end-stage renal disease: To monitor and follow, erythropoietin as required goal hemoglobin dialysis patients usually occurring 10 and 12 Secondary hyperparathyroidism: Monitor phosphorus and PTH and adjust binders as needed Diet and nutrition: Fluid restriction 1200 mL per day, high-protein diet may benefit from nutrition consultation , patient is protein intake should be 1.5 g per KG body weight Dialysis diet plan was discussed with the patient for end-stage renal disease care Patient was also educated about hospital-related comorbidities Patient does exhibit good understanding of the renal related issues All renal related issues were discussed with the patient, patient does exhibit good understanding, lab results were also discussed with patient in simple Spanish Prognosis: Guarded We'll continue to follow and make recommendation from renal standpoint Objective - Vital Signs Vital signs: Vital Signs - 12hr 07/10/19 06:58 Temperature 98.6 F Pulse Rate 90 Respiratory 20 Rate Blood Pressure 127/46 O2 Sat by Pulse 97 Oximetry - Lab 07/08/19 13:36 07/08/19 13:36 Most recent lab results Calcium 8.2 mg/dL (8.4-10.2) L 07/08/19 13:36 Phosphorus 4.00 mg/dL (2.5-4.5) 07/08/19 13:36 Medications & Allergies - Medications Allergies/Adverse Reactions: Allergies No Known Allergies Allergy (Verified 06/19/19 06:20) Home Medications: Home Medications Medication Instructions Recorded Confirmed Last Taken Type B Complex W-C No.20/Folic Acid 1 mg PO QAM #30 capsule 06/23/19 07/08/19 07/07/19 Rx [Nephrocaps Softgel] Calcitriol [Rocaltrol] 0.5 mcg PO QDAY #30 capsule 06/23/19 07/08/19 07/07/19 Rx Calcium Acetate [Phoslo] 667 mg PO TID #90 capsule 06/23/19 07/08/19 07/07/19 Rx Epoetin Ellis 10,000 Unit [Procrit] 10,000 unit IV RIP PRN vial 06/23/19 9 07/07/19 Rx Pantoprazole Sodium [Protonix] 40 mg PO QAM #30 granpkt. 06/23/19 07/08/19 07/07/19 Rx Warfarin [Coumadin] 15 mg PO QDAY #30 tablet 06/23/19 07/08/19 07/07/19 Rx oxyCODONE /ACETAMINOPHEN [Percocet 1 tab PO Q6H PRN #10 tablet 06/23/19 07/08/19 07/07/19 Rx 5/325 mg] Doxycycline Monohydrate 100 mg PO BID #24 tablet 06/29/19 07/08/19 07/07/19 Rx Active Medications: Generic Name Dose Route Start Last Admin Trade Name Freq PRN Reason Stop Dose Admin Acetaminophen 650 mg 07/07/19 16:00 Tylenol PO Q4H PRN Pain MILD(1-3)/Fever >100.5/BANDA Bisacodyl 10 mg 07/07/19 16:00 Dulcolax DE QDAY PRN Constipation unrelieved by MOM Calcitriol 0.5 mcg 07/08/19 08:00 07/10/19 08:41 Rocaltrol PO 0.5 mcg QDAY DLEMAR Administration Calcium Acetate 2,668 mg 07/09/19 17:00 07/10/19 08:40 Phoslo PO 2,668 mg TIDWM DELMAR Administration Cyanocobalamin 1,000 mcg 07/08/19 08:00 07/10/19 08:50 Vitamin B-12 PO 1,000 mcg QDAY DELMAR Administration Sodium Chloride 100 mls @ 999 mls/hr 07/08/19 16:02 Nacl 0.9% IV RIP PRN Hypotension Multivit/Ca Carb/B Cmplx/FA/Prenat 1 cap 07/08/19 08:00 07/10/19 08:41 Renal Caps PO 1 cap QDAY DELMAR Administration Pantoprazole Sodium 40 mg 07/08/19 08:00 07/10/19 08:50 Protonix PO 40 mg QDAY DELMAR Administration
[2019-07-10] MEDS ORDERED: COUMADIN NO DOSE TODAY PO ONE (17:00)
--- NOTE | 2019-07-10 18:29 | Progress Note ---
Subjective Date of service: 07/10/19 Principal diagnosis: Neuromuscular weakness Interval history: 48-year-old male with sudden inability to stand who went to the ER at [place] and was worked up. Reportedly had a fever of 102.6 at hemodialysis the [place] prior. Blood cultures were drawn but were negative. Patient has been on hemodialysis for 28 years and has been anuric for 20 years. Further workup included looking at vitamin levels as well as nerve conduction study/EMG. We requested the results of that study however they were not made available by case management who said that she thought they it was not done, however patient confirms the test was done and he was told by the neurologist that the results showed neuropathy bilateral lower extremities worse distally than proximally. 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 Patient is a vegan and has been for the past several years. His diagnosed recently with bilateral lower extremity DVTs and is on Coumadin. He states that his home dose which gives some therapeutic is 15 mg daily. He was discharged to us on 10 mg daily. There is some confusion on report as we were told he was given his nightly dose before coming to us however he states that it was held because he was supratherapeutic. He continues to be supratherapeutic and will monitor his PT/INR restart ac cordingly. Dosing difference likely due in part to his dietary availability which is different than what he is eating at home currently. He also has a history of recent falls for which he started utilizing a RW and PT. Patient is participating in therapy and making reasonable progress. Taking rest breaks as needed. +BM. Denies pain, palpitations, dyspnea, cough, N/V, or joint pain. Some LOB and weakness in therapy. Making improvements. No issues from dialysis. Vitals ok. INR elevated - likely due to difference in diet at home vs here. All records, vitals, labs and medications were reviewed. No other issues per patient, nursing or therapy. Objective - Exam Narrative Exam: MUSCULOSKELETAL SPECIALTY EXAM CONSTITUTIONAL: Well developed, well nourished, appropriately groomed, obese EENT: EOMI. Hearing intact to soft voice RESPIRATORY: Clear to auscultation bilaterally, no increased work of breathing CARDIOVASCULAR: Regular Rate/ Rhythm, no swelling, edema or tenderness in BUE or BLE. All extremities warm. GI: + bowel sounds, soft, NTTP, nondistended. INTEGUMENTARY: Normal, no lesion, rash, masses or bruising noted in extremities. Bilateral upper extremity vascular access scars MUSCULOSKELETAL: BUE and BLE normal without defect, crepitus, subluxation, effusion, arthritic changes or TTP. BUE 5/5, good ROM, with normal tone. BLE 4+/5 good ROM, with normal tone NEURO: CN 2-12 grossly intact. Sensation intact in all extremities. No tremor noted in 4 extremities. POSTURE and GAIT: Sitting posture good. Balance appears reasonable. Gait observed with therapy Thursday and reasonable with weakness noted at the bilateral hip flexors as well as minor loss of balance from time to time. PSYCH: Alert, oriented x3, affect appears normal. Insight appears intact. - Constitutional Vitals: Vital Signs - 12hr 07/10/19 07/10/19 07/10/19 06:58 11:39 15:00 Temperature 37.0 C 36.9 C Pulse Rate 90 91 H Respiratory 20 18 Rate Blood Pressure 127/46 112/42 O2 Sat by Pulse 97 100 99 Oximetry 07/10/19 15:44 Temperature 36.6 C Pulse Rate 89 Respiratory 18 Rate Blood Pressure 103/55 O2 Sat by Pulse 100 Oximetry - Allied health notes FIMS assessment as documented by PT/OT/ST: Grooming Patient cleans teeth/dentures: Yes Patient lopez/brushes hair: No Patient washes, rinses and Yes dries face: Patient washes, rinses and Yes dries hands: Patient shaves: No Patient applies make-up: No Patient performs (no make-up/ / (75%) shaving): Grooming FIM Score 6. Modified [place] (Needs equipment/device . Extra time.) Toileting Toileting Device Commode over Toilet,Grab Bar Patient able to: Adjust clothes before,Clean self,Adjust clothes after Patient able to perform: 3/3 (100%) Toileting FIM Score 6. Modified [place] (Needs equip. or prosth ./orth.) Social interaction/Memory/Problem solving Social Interaction FIM Score 6. Mod. [place] (Mostly appropriate. May need meds. No supv.) Memory FIM Score 6. Modified [place](Mild difficulty remembering people/routines.) Problem Solving FIM Score 6. Mod. [place] (Mild difficulty or needs more time w/ complex.) Transfers Mode of Locomotion: Walking Bed/Chair/Wheelchair Transfers 5. Supervision (Needs supv. or set-up for FIM Score sliding board, foot rests.) Toilet Transfers FIM Score 5. Supervision (Needs supervision or cueing.) Patient transferred to: Shower Shower Transfers FIM Score 5. Supervision (Needs supv. or set-up with device.) Locomotion- Stairs Device used on Stairs Handrail/s Number of Stairs Ascended/ 8 Descended Patient used handrail/support: Yes Stairs FIM Score 2. Maximal Assistance (Patient = 25% or more, 4- 6 stairs.) Locomotion- walk/wheelchair Most Frequent Mode of Walking Locomotion: Ambulation Distance 150 Walking FIM Score 4. Minimal Assistance (Patient = 75% or more. Minimum of 150 ft.) Wheelchair Propulsion Distance 150 Wheelchair FIM Score 5. Supervision (Minimum 150 ft. supv./cues or 50 ft. independently.) Eating Eating Device Adjusted Table Height Eating FIM Score 6. Modified [place] (Special consistency or uses device.) Dressing-Upper body Patient retrieves clothing Yes items: Patient applies/removes UE No prosthesis or orthosis: Upper Body Dressing FIM Score 6. Modified [place] (Needs equipment, velcro or pros./orth.) Dressing-lower body Patient retrieves clothing Yes items: Patient applies/removes LE n/a prosthesis or orthosis: Lower Body Dressing FIM Score 6. Modified [place] (Needs equipment, velcro or pros./orth.) - Labs CBC & Chem 7: 07/08/19 13:36 07/08/19 13:36 Labs: Laboratory Results - last 72 hr 07/07/19 07/08/19 07/08/19 19:55 13:36 13:36 WBC RBC Hgb Hct MCV MCH MCHC RDW Plt Count Lymph % (Auto) [place] % (Auto) Eos % (Auto) Baso % (Auto) Lymph # [place] # Eos # Baso # Seg Neutrophils % Seg Neutrophils # PT 32.4 H 29.3 H INR 3.22 H 2.83 H Sodium 132 L Potassium 4.9 Chloride 94.1 L Carbon Dioxide 22 Anion Gap 21 BUN 40 H Creatinine 12.6 H Estimated GFR 5 BUN/Creatinine Ratio 3 Glucose 97 Calcium 8.2 L Phosphorus Iron Ferritin Total Bilirubin 0.80 AST 15 ALT 8 Alkaline Phosphatase 256 H Total Protein 7.7 Albumin 3.9 Albumin/Globulin Ratio 1.0 Vitamin B12 PTH Intact 07/08/19 07/08/19 07/08/19 13:36 13:36 13:36 WBC 3.4 L RBC 2.89 L Hgb 9.0 L Hct 27.4 L MCV 95 H MCH 31 MCHC 33 RDW 17.5 H Plt Count 157 Lymph % (Auto) 16.7 [place] % (Auto) 9.4 H Eos % (Auto) 5.5 H Baso % (Auto) 0.8 Lymph # 0.6 L [place] # 0.3 Eos # 0.2 Baso # 0.0 Seg Neutrophils % 67.6 Seg Neutrophils # 2.3 PT INR Sodium Potassium Chloride Carbon Dioxide Anion Gap BUN Creatinine Estimated GFR BUN/Creatinine Ratio Glucose Calcium Phosphorus 4.00 Iron Ferritin Total Bilirubin AST ALT Alkaline Phosphatase Total Protein Albumin Albumin/Globulin Ratio Vitamin B12 PTH Intact 1733 H 07/08/19 07/08/19 07/08/19 16:20 16:20 16:20 WBC RBC Hgb Hct MCV MCH MCHC RDW Plt Count Lymph % (Auto) [place] % (Auto) Eos % (Auto) Baso % (Auto) Lymph # [place] # Eos # Baso # Seg Neutrophils % Seg Neutrophils # PT INR Sodium Potassium Chloride Carbon Dioxide Anion Gap BUN Creatinine Estimated GFR BUN/Creatinine Ratio Glucose Calcium Phosphorus Iron 37 L Ferritin 301.1 Total Bilirubin AST ALT Alkaline Phosphatase Total Protein Albumin Albumin/Globulin Ratio Vitamin B12 621.8 PTH Intact 07/09/19 07/10/19 06:28 04:50 WBC RBC Hgb Hct MCV MCH MCHC RDW Plt Count Lymph % (Auto) [place] % (Auto) Eos % (Auto) Baso % (Auto) Lymph # [place] # Eos # Baso # Seg Neutrophils % Seg Neutrophils # PT 26.1 H 42.0 H INR 2.45 H 4.48 H Sodium Potassium Chloride Carbon Dioxide Anion Gap BUN Creatinine Estimated GFR BUN/Creatinine Ratio Glucose Calcium Phosphorus Iron Ferritin Total Bilirubin AST ALT Alkaline Phosphatase Total Protein Albumin Albumin/Globulin Ratio Vitamin B12 PTH Intact Assessment and Plan G70.9 NeuroMuscular weakness: 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 PT & OT will work on strengthening exercises to improve functional strength including mixture of closed and open kinetic chain exercises. ESRD on HD: Consult nephrology. HD MWF. Avoid nephrotoxic medications. DVT: Continue coumadin with goal INR 2-3. Pharm consult per protocol. Patient states 15mg at home. GERD: Continue protonix, monitor Hypotension: monitor, used midodrine in past but not tolerated. Vit B12 deficiency: Continue replacement. Refuses IM Anemia: continue epoetin in HD. Awaiting labs Z73.6 ADL dysfunction: OT will work on improving ability to perform ADLs (including assistive devices) to increase independence and decrease caregiver burden and improve functional transfers and mobility training. R26.2 Difficulty walking: PT will work on gait training and proper use of assistive devices and advance as appropriate to use of stairs and outside ambulation on uneven surfaces. R26.81 Unsteadiness on feet: PT will work on improving static and dynamic sitting and standing balance as well as proper use of assistive devices to decre ase risk of falls. R26.89 Abnormality of gait: PT will work to improve safety and efficiency of gait through neuromotor training and gait training along with instruction on proper use of assistive devices. R53.81 Debility: PT & OT will work on improving overall functional status to improve participation with ADLs, mobility and social involvement. R53.83 Fatigue: PT & OT will work on improving endurance through aerobic exercises and therapeutic activity while monitoring patients tolerance for a ctivity and vital signs as needed. DVT ppx: Coumadin for DVT, Goal INR 2-3 Pain: Continue physical modalities in therapy and pain medications as needed to achieve functional pain control. Sleep: Monitor and address as needed. Bowel: Monitor and address as needed. Appetite: Monitor and address as needed. Discharge planning: Pending therapy progress and care plan meeting. Will continue discussion with therapy team, SW, patient and family. Restrictions/ Precautions: Falls WB status: FWB Functional Hx: ADLs: Independent Cognition: Independent Mobility: RW Barriers to Discharge: Decreased mobility and ability to perform self care, balance deficits, weakness Estimated Length of Stay: 7-10 days Discharge Destination: Home with significant other
--- NOTE | 2019-07-10 18:32 | IRU Plan of Care ---
Interdisciplinary Plan of Care - IP IRU INTERDISCIPLINARY PLAN: [facility] Inpatient Rehab Unit Plan of Care IRU Interdisciplinary Care Plan Start: 07/07/19 19:41 Freq: Admission then PRN Status: Active Protocol: Document 07/10/19 13:38 TH (Rec: 07/10/19 13:48 TH [id number]) Interdisciplinary Problem List Interdisciplinary Problem List Interdisciplinary Problem List Impaired Mobility,Impaired Query Text:Answers will Trigger Problems Transfers,Discharge Concerns, and Outcomes on Worklist. Community Reintergration, Impaired Home Management, Impaired Safety,Diabetes Education IRU Interdisciplinary Care Plan Therapy Services Therapy Services Will Include: Physical Therapy,Occupational Query Text:Patient will be seen for a Therapy minimum of 3 hours of daily therapy 5 out of 7 days a week. Therapy intensity may be adjusted within a 7 consecutive day period to effectively serve the individual needs of the patient. Treatment Frequency/Intensity/Duration Treatment Frequency 5 days/week Treatment Intensity 3 hours Treatment Duration 10-14 days Problem Area: Eating/Swallowing Eating/Swallowing Outcomes Eating/Swallowing Interventions Problem Area: Bathing/Grooming Bathing/Grooming Outcomes Bathing/Grooming Interventions Problem Area: Dressing Dressing Outcomes Dressing Interventions Problem Area: Mobility Mobility Outcomes Mobility Interventions Problem Area: Transfers Transfers Outcomes Improve [place] w/ Bed Transfers,Improve [place] w/ Toilet Transfers,Improve [place] w/ Tub/Shower Transfers,Improve [place] w/ Car Transfers Transfers Interventions Transfer Training,Therapeutic Exercise,Neuromuscular Re- Education,Visual/Perceptual Training,Activity Tolerance Work,Modalities,Use of Assistive Devices,Patient/ Caregiver Education Problem Area: Bowel/Bladder Managment Bowel/Bladder Outcomes Bowel/Bladder Interventions Problem Area: Toileting Toileting Outcomes Improve [place] w/ Toileting Toileting Interventions ADL Training,Balance Work,Use of Assistive Devices,Patient/ Caregiver Education Problem Area: Nutrition Nutrition Outcomes Nutrition Interventions Problem Area: Comprehension Comprehension Outcomes Comprehension Interventions Problem Area: Expression Expression Outcomes Expression Interventions Problem Area: Problem Solving Problem Solving Outcomes Problem Solving Interventions Problem Area: Memory Memory Outcomes Memory Interventions Problem Area: Pain Management Pain Management Outcomes Pain Management Interventions Problem Area: Knowledge Deficits Knowledge Deficits Outcomes Knowledge Deficits Interventions Problem Area: Skin/Tissue Integrity Skin/Tissue Integrity Outcomes Skin/Tissue Integrity Interventions Problem Area: Social Interaction Social Interaction Outcomes Social Interaction Interventions Problem Area: Adjustment to Disability Adjustment to Disability Outcomes Adjustment to Disability Interventions Problem Area: Discharge Concerns Discharge Concerns Outcomes Discharge w/ Necessary Equipment,Have Home Health/ Outpatient Services Discharge Concerns Interventions Discharge Planning,Family/ Caregiver Conference,Family/ Caregiver Training Problem Area: Community Reintegration Community Reintegration Outcomes Community Reintegration Interventions Problem Area: Home Management Home Management Outcomes Improve [place] w/ Home Management Home Management Interventions Meal Preparation,Clothing Care ,Activity Tolerance Work, Leisure Skills Development, House Cleaning,Patient/ Caregiver Education Problem Area: Safety Safety Outcomes Provide Safe Environment, Perform Selfcare Safely, Demonstrate Good Safety w/ Transfers/Mobility Safety Interventions Identify Fall Risk,[place] Pt. to Environment,Reduce Environmental Hazards Problem Area: Medication Education Medication Education Outcomes Medication Education Interventions Problem Area: Diabetes Education Diabetes Education Outcomes Diabetes Education Interventions Problem Area: Oxygenation Oxygenation Outcomes Oxygenation Interventions Problem Area: Cardiovascular Cardiovascular Outcomes Cardiovascular Interventions Physician Only Medical Prognosis and Rehabilitation Fair medical prognosis. Good rehab prognosis. Will be short term stay. Will need to supplement diet to obtain essential amino acids and vitamins due to diet. Potential (Completed by Physician) This plan of care has been developed based on the findings from the pre- admission assessment, post admission physician evaluation, information gathered from the assessments from all therapy disciplines and other pertinent clinicians. The plan of care has been reviewed and discussed in collaboration with the interdisciplinary team. The plan of care will be reviewed and updated at least weekly.
[2019-07-11 05:27] LABS: INR 2.6 (0.87-1.13)
[2019-07-11] MEDS: PROTONIX PO SCH (09:23)
[2019-07-11] MEDS: ROCALTROL PO SCH (09:23)
[2019-07-11] MEDS: VITAMIN B-12 PO SCH (09:23)
[2019-07-11] MEDS: PHOSLO PO SCH ×3 (09:23→19:47)
[2019-07-11] MEDS: Renal Caps PO SCH (09:23)
--- NOTE | 2019-07-11 12:42 | Progress Note ---
Subjective Principal diagnosis: Neuromuscular weakness Interval history: Patient was seen today for follow-up on multiple renal related issues Events of this hospitalization were noted he is feeling much better Noted to have B12 deficiency able to ambulate in the [place] and now Recovering rapidly from weakness Interdisciplinary notes were also reviewed Vitals intake output medications were reviewed Past medical history: Reviewed Family, social history: Reviewed Allergies: Reviewed Physical examination General: No acute distress Vitals: Reviewed HEENT: Oral mucosa moist no icterus Neck: Supple no thyromegaly nodular mass or JVD Chest: Clear to auscultation anteriorly Heart: Regular rate and rhythm S1-S2 heard no S3-S4 Abdomen: Soft nontender no suprapubic masses no organomegaly Extremity: Dry skin less than 1+ edema Psych: No evidence of any agitation and aggression noted Derm: No petechial rash Assessment and plan: End-stage renal disease: Patient will continue with hemodialysis treatment on MWF, He has no issues with hemodialysis treatment here continue with hemodialysis ultrafiltration only as tolerated Admitted for generalized weakness and fatigue noted to have B12 deficiency currently doing much better Anemia and end-stage renal disease: To monitor and follow, erythropoietin as required goal hemoglobin dialysis patients usually occurring 10 and 12 Secondary hyperparathyroidism: Monitor phosphorus and PTH and adjust binders as needed Diet and nutrition: Fluid restriction 1200 mL per day, high-protein diet may benefit from nutrition consultation , patient is protein intake should be 1.5 g per KG body weight Dialysis diet plan was discussed with the patient for end-stage renal disease c are Prognosis: Guarded We'll continue to follow and make recommendation from renal standpoint Objective - Lab 07/08/19 13:36 07/08/19 13:36 Most recent lab results Calcium 8.2 mg/dL (8.4-10.2) L 07/08/19 13:36 Phosphorus 4.00 mg/dL (2.5-4.5) 07/08/19 13:36 Medications & Allergies - Medications Allergies/Adverse Reactions: Allergies No Known Allergies Allergy (Verified 06/19/19 06:20) Home Medications: Home Medications Medication Instructions Recorded Confirmed Last Taken Type B Complex W-C No.20/Folic Acid 1 mg PO QAM #30 capsule 06/23/19 07/08/19 07/07/19 Rx [Nephrocaps Softgel] Calcitriol [Rocaltrol] 0.5 mcg PO QDAY #30 capsule 07/07/08/19 07/07/19 Rx Calcium Acetate [Phoslo] 667 mg PO TID #90 capsule 06/23/19 07/08/19 07/07/19 Rx Epoetin Ellis 10,000 Unit [Procrit] 10,000 unit IV RIP PRN vial 06/23/19 07/08/19 07/07/19 Rx Pantoprazole Sodium [Protonix] 40 mg PO QAM #30 aissatou. 06/23/19 07/08/19 07/07/19 Rx Warfarin [Coumadin] 15 mg PO QDAY #30 tablet 06/23/19 07/08/19 07/07/19 Rx oxyCODONE /ACETAMINOPHEN [Percocet 1 tab PO Q6H PRN #10 tablet 06/23/19 07/08/19 07/07/19 Rx 5/325 mg] Doxycycline Monohydrate 100 mg PO BID #24 tablet 06/29/19 07/08/19 07/07/19 Rx Active Medications: Generic Name Dose Route Start Last Admin Trade Name Mitesh PRN Reason Stop Dose Admin Acetaminophen 650 mg 07/07/19 16:00 Tylenol PO Q4H PRN Pain MILD(1-3)/Fever >100.5/BANDA Bisacodyl 10 mg 07/07/19 16:00 Dulcolax PA QDAY PRN Constipation unrelieved by MOM Calcitriol 0.5 mcg 07/08/19 08:00 07/11/19 09:23 Rocaltrol PO 0.5 mcg QDAY DELMAR Administration Calcium Acetate 2,668 mg 07/09/19 17:00 07/11/19 12:33 Phoslo PO 2,668 mg TIDWM DELMAR Administration Cyanocobalamin 1,000 mcg 07/08/19 08:00 07/11/19 09:23 Vitamin B-12 PO 1,000 mcg QDAY DELMAR Administration Sodium Chloride 100 mls @ 999 mls/hr 07/08/19 16:02 Nacl 0.9% IV RIP PRN Hypotension Multivit/Ca Carb/B Cmplx/FA/Prenat 1 cap 07/08/19 08:00 07/11/19 09:23 Renal Caps PO 1 cap QDAY DELMAR Administration Pantoprazole Sodium 40 mg 07/08/19 08:00 07/11/19 09:23 Protonix PO 40 mg QDAY DELMAR Administration Warfarin Sodium 7.5 mg 07/11/19 17:00 Coumadin PO DAILY@1700 DELMAR
--- NOTE | 2019-07-11 13:05 | Progress Note ---
Subjective Date of service: 07/11/19 Principal diagnosis: Neuromuscular weakness Interval history: 48-year-old male with sudden inability to stand who went to the ER at [place] and was worked up. Reportedly had a fever of 102.6 at hemodialysis the [place] prior. Blood cultures were drawn but were negative. Patient has been on hemodialysis for 28 years and has been anuric for 20 years. Further workup included looking at vitamin levels as well as nerve conduction study/EMG. We requested the results of that study however they were not made available by case management who said that she thought they it was not done, however patient confirms the test was done and he was told by the neurologist that the results showed neuropathy bilateral lower extremities worse distally than proximally. 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 Patient is a vegan and has been for the past several years. His diagnosed recently with bilateral lower extremity DVTs and is on Coumadin. He states that his home dose which gives some therapeutic is 15 mg daily. He was discharged to us on 10 mg daily. There is some confusion on report as we were told he was given his nightly dose before coming to us however he states that it was held because he was supratherapeutic. He continues to be supratherapeutic and will monitor his PT/INR restart ac cordingly. Dosing difference likely due in part to his dietary availability which is different than what he is eating at home currently. He also has a history of recent falls for which he started utilizing a RW and PT. Patient is participating in therapy and making good progress. Taking rest breaks as needed. +BM. Denies pain, palpitations, dyspnea, cough, N/V, or joint pain. Some LOB and weakness in therapy. Making improvements with endurance and balance. No issues from dialysis. Vitals ok. INR in range but variable - likely due to difference in diet at home vs here. All records, vitals, labs and medications were reviewed. No other issues per patient, nursing or therapy. Objective - Exam Narrative Exam: MUSCULOSKELETAL SPECIALTY EXAM CONSTITUTIONAL: Well developed, well nourished, appropriately groomed, obese EENT: EOMI. Hearing intact to soft voice RESPIRATORY: Clear to auscultation bilaterally, no increased work of breathing CARDIOVASCULAR: Regular Rate/ Rhythm, no swelling, edema or tenderness in BUE or BLE. All extremities warm. GI: + bowel sounds, soft, NTTP, nondistended. INTEGUMENTARY: Normal, no lesion, rash, masses or bruising noted in extremities. Bilateral upper extremity vascular access scars MUSCULOSKELETAL: BUE and BLE normal without defect, crepitus, subluxation, effusion, arthritic changes or TTP. BUE 5/5, good ROM, with normal tone. BLE 4+/5 good ROM, with normal tone NEURO: CN 2-12 grossly intact. Sensation intact in all extremities. No tremor noted in 4 extremities. POSTURE and GAIT: Sitting posture good. Balance appears reasonable. Gait reasonable with weakness noted at the bilateral hip flexors as well as minor loss of balance from time to time. PSYCH: Alert, oriented x3, affect appears normal. Insight appears intact. - Allied health notes Allied health notes reviewed: nursing, PT, OT FIMS assessment as documented by PT/OT/ST: Grooming Patient cleans teeth/dentures: Yes Patient lopez/brushes hair: No Patient washes, rinses and Yes dries face: Patient washes, rinses and Yes dries hands: Patient shaves: No Patient applies make-up: No Patient performs (no make-up/ 3/4 (75%) shaving): Grooming FIM Score 6. Modified [place] (Needs equipment/device . Extra time.) Toileting Toileting Device Commode over Toilet,Grab Bar Patient able to: Adjust clothes before,Clean self,Adjust clothes after Patient able to perform: 3/3 (100%) Toileting FIM Score 6. Modified [place] (Needs equip. or prosth ./orth.) Social interaction/Memory/Problem solving Social Interaction FIM Score 6. Mod. [place] (Mostly appropriate. May need meds. No supv.) Memory FIM Score 6. Modified [place](Mild difficulty remembering people/routines.) Problem Solving FIM Score 6. Mod. [place] (Mild difficulty or needs more time w/ complex.) Transfers Mode of Locomotion: Walking Bed/Chair/Wheelchair Transfers 5. Supervision (Needs supv. or set-up for FIM Score sliding board, foot rests.) Toilet Transfers FIM Score 5. Supervision (Needs supervision or cueing.) Patient transferred to: Shower Shower Transfers FIM Score 5. Supervision (Needs supv. or set-up with device.) Locomotion- Stairs Device used on Stairs Handrail/s Number of Stairs Ascended/ 8 Descended Patient used handrail/support: Yes Stairs FIM Score 2. Maximal Assistance (Patient = 25% or more, 4- 6 stairs.) Locomotion- walk/wheelchair Most Frequent Mode of Walking Locomotion: Ambulation Distance 150 Walking FIM Score 4. Minimal Assistance (Patient = 75% or more. Minimum of 150 ft.) Wheelchair Propulsion Distance 150 Wheelchair FIM Score 5. Supervision (Minimum 150 ft. supv./cues or 50 ft. independently.) Eating Eating Device Adjusted Table Height Eating FIM Score 6. Modified [place] (Special consistency or uses device.) Dressing-Upper body Patient retrieves clothing Yes items: Patient applies/removes UE No prosthesis or orthosis: Upper Body Dressing FIM Score 6. Modified [place] (Needs equipment, velcro or pros./orth.) Dressing-lower body Patient retrieves clothing Yes items: Patient applies/removes LE n/a prosthesis or orthosis: Lower Body Dressing FIM Score 6. Modified [place] (Needs equipment, velcro or pros./orth.) - Labs CBC & Chem 7: 07/08/19 13:36 07/08/19 13:36 Labs: Laboratory Results - last 72 hr 07/08/19 07/08/19 07/08/19 13:36 13:36 13:36 WBC 3.4 L RBC 2.89 L Hgb 9.0 L Hct 27.4 L MCV 95 H MCH 31 MCHC 33 RDW 17.5 H Plt Count 157 Lymph % (Auto) 16.7 [place] % (Auto) 9.4 H Eos % (Auto) 5.5 H Baso % (Auto) 0.8 Lymph # 0.6 L [place] # 0.3 Eos # 0.2 Baso # 0.0 Seg Neutrophils % 67.6 Seg Neutrophils # 2.3 PT 29.3 H INR 2.83 H Sodium 132 L Potassium 4.9 Chloride 94.1 L Carbon Dioxide 22 Anion Gap 21 BUN 40 H Creatinine 12.6 H Estimated GFR 5 BUN/Creatinine Ratio 3 Glucose 97 Calcium 8.2 L Phosphorus Iron Ferritin Total Bilirubin 0.80 AST 15 ALT 8 Alkaline Phosphatase 256 H Total Protein 7.7 Albumin 3.9 Albumin/Globulin Ratio 1.0 Vitamin B12 PTH Intact 07/08/19 07/08/1907/08/19 13:36 13:36 16:20 WBC RBC Hgb Hct MCV MCH MCHC RDW Plt Count Lymph % (Auto) [place] % (Auto) Eos % (Auto) Baso % (Auto) Lymph # [place] # Eos # Baso # Seg Neutrophils % Seg Neutrophils # PT INR Sodium Potassium Chloride Carbon Dioxide Anion Gap BUN Creatinine Estimated GFR BUN/Creatinine Ratio Glucose Calcium Phosphorus 4.00 Iron Ferritin 301.1 Total Bilirubin AST ALT Alkaline Phosphatase Total Protein Albumin Albumin/Globulin Ratio Vitamin B12 PTH Intact 1733 H 07/08/19 07/08/19 07/09/19 16:20 16:20 06:28 WBC RBC Hgb Hct MCV MCH MCHC RDW Plt Count Lymph % (Auto) [place] % (Auto) Eos % (Auto) Baso % (Auto) Lymph # [place] # Eos # Baso # Seg Neutrophils % Seg Neutrophils # PT 26.1 H INR 2.45 H Sodium Potassium Chloride Carbon Dioxide Anion Gap BUN Creatinine Estimated GFR BUN/Creatinine Ratio Glucose Calcium Phosphorus Iron 37 L Ferritin Total Bilirubin AST ALT Alkaline Phosphatase Total Protein Albumin Albumin/Globulin Ratio Vitamin B12 621.8 PTH Intact 07/10/19 07/11/19 04:50 04:11 WBC RBC Hgb Hct MCV MCH MCHC RDW Plt Count Lymph % (Auto) [place] % (Auto) Eos % (Auto) Baso % (Auto) Lymph # [place] # Eos # Baso # Seg Neutrophils % Seg Neutrophils # PT 42.0 H 27.4 H INR 4.48 H 2.60 H Sodium Potassium Chloride Carbon Dioxide Anion Gap BUN Creatinine Estimated GFR BUN/Creatinine Ratio Glucose Calcium Phosphorus Iron Ferritin Total Bilirubin AST ALT Alkaline Phosphatase Total Protein Albumin Albumin/Globulin Ratio Vitamin B12 PTH Intact Assessment and Plan G70.9 NeuroMuscular weakness: 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 PT & OT will work on strengthening exercises to improve functional strength including mixture of closed and open kinetic chain exercises. ESRD on HD: Consult nephrology. HD MWF. Avoid nephrotoxic medications. DVT: Continue coumadin with goal INR 2-3. Pharm consult per protocol. Patient states 15mg at home. GERD: Continue protonix, monitor Hypotension: monitor, used midodrine in past but not tolerated. Vit B12 deficiency: Continue replacement. Refuses IM Anemia: continue epoetin in HD. Awaiting labs Z73.6 ADL dysfunction: OT will work on improving ability to perform ADLs (including assistive devices) to increase independence and decrease caregiver burden and improve functional transfers and mobility training. R26.2 Difficulty walking: PT will work on gait training and proper use of assistive devices and advance as appropriate to use of stairs and outside ambulation on uneven surfaces. R26.81 Unsteadiness on feet: PT will work on improving static and dynamic sitting and standing balance as well as proper use of assistive devices to decrease risk of falls. R26.89 Abnormality of gait: PT will work to improve safety and efficiency of gait through neuromotor training and gait training along with instruction on proper use of assistive devices. R53.81 Debility: PT & OT will work on improving overall functional status to improve participation with ADLs, mobility and social involvement. R53.83 Fatigue: PT & OT will work on improving endurance through aerobic exercises and therapeutic activity while monitoring patients tolerance for activity and vital signs as needed. DVT ppx: Coumadin for DVT, Goal INR 2-3 Pain: Continue physical modalities in therapy and pain medications as needed to achieve functional pain control. Sleep: Monitor and address as needed. Bowel: Monitor and address as needed. Appetite: Monitor and address as needed. Discharge planning: Pending therapy progress and care plan meeting. Will continue discussion with therapy team, SW, patient and family. Restrictions/ Precautions: Falls WB status: FWB Functional Hx: ADLs: Independent Cognition: Independent Mobility: RW Barriers to Discharge: Decreased mobility and ability to perform self care, balance deficits, weakness Estimated Length of Stay: 7-10 days Discharge Destination: Home with significant other
[2019-07-11] MEDS ORDERED: COUMADIN PO SCH (17:00)
[2019-07-12 06:30] LABS: INR 1.94 (0.87-1.13)
--- NOTE | 2019-07-12 07:47 | Progress Note ---
Subjective Date of service: 07/12/19 Principal diagnosis: Neuromuscular weakness Interval history: 48-year-old male with sudden inability to stand who went to the ER at [place] and was worked up. Reportedly had a fever of 102.6 at hemodialysis the Thursday prior. Blood cultures were drawn but were negative. Patient has been on hemodialysis for 28 years and has been anuric for 20 years. Further workup included looking at vitamin levels as well as nerve conduction study/EMG. We requested the results of that study however they were not made available by case management who said that she thought they it was not done, however patient confirms the test was done and he was told by the neurologist that the results showed neuropathy bilateral lower extremities worse distally than proximally. 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 Patient is a vegan and has been for the past several years. His diagnosed recently with bilateral lower extremity DVTs and is on Coumadin. He states that his home dose which gives some therapeutic is 15 mg daily. He was discharged to us on 10 mg daily. There is some confusion on report as we were told he was given his nightly dose before coming to us however he states that it was held because he was supratherapeutic. He continues to be supratherapeutic and will monitor his PT/INR restart ac cordingly. Dosing difference likely due in part to his dietary availability which is different than what he is eating at home currently. He also has a history of recent falls for which he started utilizing a RW and PT. Patient is participating in therapy and making good progress. Taking rest breaks as needed. +BM. Denies pain, palpitations, dyspnea, cough, N/V, or joint pain. Some LOB and weakness in therapy. Making improvements with endurance and balance. No issues from dialysis. Vitals ok. INR in range but variable - likely due to difference in diet at home vs here. Likely dc Thursday if no setbacks. All records, vitals, labs and medications were reviewed. No other issues per patient, nursing or therapy. Objective - Exam Narrative Exam: MUSCULOSKELETAL SPECIALTY EXAM CONSTITUTIONAL: Well developed, well nourished, appropriately groomed, obese EENT: EOMI. Hearing intact to soft voice RESPIRATORY: Clear to auscultation bilaterally, no increased work of breathing CARDIOVASCULAR: Regular Rate/ Rhythm, no swelling, edema or tenderness in BUE or BLE. All extremities warm. GI: + bowel sounds, soft, NTTP, nondistended. INTEGUMENTARY: Normal, no lesion, rash, masses or bruising noted in extremities. Bilateral upper extremity vascular access scars MUSCULOSKELETAL: BUE and BLE normal without defect, crepitus, subluxation, effusion, arthritic changes or TTP. BUE 5/5, good ROM, with normal tone. BLE 4+/5 good ROM, with normal tone NEURO: CN 2-12 grossly intact. Sensation intact in all extremities. No tremor noted in 4 extremities. POSTURE and GAIT: Sitting posture good. Balance appears reasonable. Gait reasonable with weakness noted at the bilateral hip flexors as well as minor loss of balance from time to time. PSYCH: Alert, oriented x3, affect appears normal. Insight appears intact. - Constitutional Vitals: Vital Signs - 12hr 07/11/19 07/11/19 07/11/19 20:00 20:39 20:41 Temperature 36.6 C 36.6 C Pulse Rate 91 H 92 H Respiratory 17 18 18 Rate Blood Pressure 95/54 Blood Pressure 95/54 [Left] O2 Sat by Pulse 100 100 Oximetry 07/12/19 07/12/19 00:45 05:14 Temperature 36.7 C 36.3 C L Pulse Rate 85 81 Respiratory 18 17 Rate Blood Pressure Blood Pressure 105/79 130/60 [Left] O2 Sat by Pulse 97 98 Oximetry - Allied health notes Allied health notes reviewed: nursing, PT, OT FIMS assessment as documented by PT/OT/ST: Grooming Patient cleans teeth/dentures: Yes Patient lopez/brushes hair: No Patient washes, rinses and Yes dries face: Patient washes, rinses and Yes dries hands: Patient shaves: No Patient applies make-up: No Patient performs (no make-up/ 3/4 (75%) shaving): Grooming FIM Score 6. Modified [place] (Needs equipment/device . Extra time.) Toileting Toileting Device Commode over Toilet,Grab Bar Patient able to: Adjust clothes before,Clean self,Adjust clothes after Patient able to perform: 3/3 (100%) Toileting FIM Score 6. Modified [place] (Needs equip. or prosth ./orth.) Social interaction/Memory/Problem solving Social Interaction FIM Score 7. Complete [place] (Interacts appropriately. Controls temper.) Memory FIM Score 7. Complete [place] (Remembers people and routines.) Problem Solving FIM Score 6. Mod. [place] (Mild difficulty or needs more time w/ complex.) Transfers Mode of Locomotion: Walking Bed/Chair/Wheelchair Transfers 5. Supervision (Needs supv. or set-up for FIM Score sliding board, foot rests.) Toilet Transfers FIM Score 5. Supervision (Needs supervision or cueing.) Patient transferred to: Shower Shower Transfers FIM Score 5. Supervision (Needs supv. or set-up with device.) Locomotion- Stairs Device used on Stairs Handrail/s Number of Stairs Ascended/ 8 Descended Patient used handrail/support: Yes Stairs FIM Score 2. Maximal Assistance (Patient = 25% or more, 4- 6 stairs.) Locomotion- walk/wheelchair Most Frequent Mode of Walking Locomotion: Ambulation Distance 150 Walking FIM Score 4. Minimal Assistance (Patient = 75% or more. Minimum of 150 ft.) Wheelchair Propulsion Distance 150 Wheelchair FIM Score 5. Supervision (Minimum 150 ft. supv./cues or 50 ft. independently.) Eating Eating Device Adjusted Table Height Eating FIM Score 7. Complete [place] (Cuts meat, opens containers, regular diet.) Dressing-Upper body Patient retrieves clothing No items: Patient applies/removes UE No prosthesis or orthosis: Upper Body Dressing FIM Score 5. Supv./Set-Up ([place] sets out clothes or applies pros./orth.) Dressing-lower body Patient retrieves clothing No items: Patient applies/removes LE No prosthesis or orthosis: Lower Body Dressing FIM Score 5. 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 PT & OT will work on strengthening exercises to improve functional strength including mixture of closed and open kinetic chain exercises. ESRD on HD: Consult nephrology. HD MWF. Avoid nephrotoxic medications. DVT: Continue coumadin with goal INR 2-3. Pharm consult per protocol. Patient states 15mg at home. GERD: Continue protonix, monitor Hypotension: monitor, used midodrine in past but not tolerated. Vit B12 deficiency: Continue replacement. Refuses IM Anemia: continue epoetin in HD. Awaiting labs Z73.6 ADL dysfunction: OT will work on improving ability to perform ADLs (including assistive devices) to increase independence and decrease caregiver burden and improve functional transfers and mobility training. R26.2 Difficulty walking: PT will work on gait training and proper use of assistive devices and advance as appropriate to use of stairs and outside ambulation on uneven surfaces. R26.81 Unsteadiness on feet: PT will work on improving static and dynamic sitting and standing balance as well as proper use of assistive devices to decrease risk of falls. R26.89 Abnormality of gait: PT will work to improve safety and efficiency of gait through neuromotor training and gait training along with instruction on proper use of assistive devices. R53.81 Debility: PT & OT will work on improving overall functional status to improve participation with ADLs, mobility and social involvement. R53.83 Fatigue: PT & OT will work on improving endurance through aerobic exercises and therapeutic activity while monitoring patients tolerance for activity and vital signs as needed. DVT ppx: Coumadin for DVT, Goal INR 2-3 Pain: Continue physical modalities in therapy and pain medications as needed to achieve functional pain control. Sleep: Monitor and address as needed. Bowel: Monitor and address as needed. Appetite: Monitor and address as needed. Discharge planning: Likely dc Thursday. Will continue discussion with therapy team, SW, patient and family. Restrictions/ Precautions: Falls WB status: FWB Functional Hx: ADLs: Independent Cognition: Independent Mobility: RW Barriers to Discharge: Decreased mobility and ability to perform self care, balance deficits, weakness Estimated Length of Stay: 7-10 days Discharge Destination: Home with significant other
[2019-07-12] MEDS: PROTONIX PO SCH (08:53)
[2019-07-12] MEDS: ROCALTROL PO SCH (08:53)
[2019-07-12] MEDS: Renal Caps PO SCH (08:53)
[2019-07-12] MEDS: VITAMIN B-12 PO SCH (08:53)
[2019-07-12] MEDS: PHOSLO PO SCH ×3 (08:54→17:43)
--- NOTE | 2019-07-12 09:54 | Progress Note ---
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 Binders with meals * Abx per ID * Epogen TIW prn Subjective Date of service: 07/12/19 Principal diagnosis: Neuromuscular weakness Interval history: Chart reviewed. No acute events overnight. Objective - Exam Narrative Exam: Deferred. Patient is off the floor at time of visit. - Vital Signs Vital signs: Vital Signs - 12hr 07/12/19 07/12/19 07/12/19 00:45 05:14 08:00 Temperature 98.0 F 97.4 F L 97 F L Pulse Rate 85 81 84 Respiratory 18 17 18 Rate Blood Pressure 105/79 130/60 100/42 [Left] O2 Sat by Pulse 97 98 100 Oximetry - Lab 07/08/19 13:36 07/12/19 10:21 Most recent lab results Calcium 8.2 mg/dL (8.4-10.2) L 07/08/19 13:36 Phosphorus 4.00 mg/dL (2.5-4.5) 07/08/19 13:36 Medications & Allergies - Medications Allergies/Adverse Reactions: Allergies No Known Allergies Allergy (Verified 06/19/19 06:20) Home Medications: Home Medications Medication Instructions Recorded Confirmed Last Taken Type B Complex W-C No.20/Folic Acid 1 mg PO QAM #30 capsule 06/23/19 07/08/19 07/07/19 Rx [Nephrocaps Softgel] Calcitriol [Rocaltrol] 0.5 mcg PO QDAY #30 capsule 06/23/19 07/08/19 07/07/19 Rx Calcium Acetate [Phoslo] 667 mg PO TID #90 capsule 06/23/19 07/08/19 07/07/19 Rx Epoetin Ellis 10,000 Unit [Procrit] 10,000 unit IV RIP PRN vial 06/23/19 07/08/19 07/07/19 Rx Pantoprazole Sodium [Protonix] 40 mg PO QAM #30 06/23/19 07/08/19 07/07/19 Rx Warfarin [Coumadin] 15 mg PO QDAY #30 tablet 06/23/19 07/08/19 07/07/19 Rx oxyCODONE /ACETAMINOPHEN [Percocet 1 tab PO Q6H PRN #10 tablet 06/23/19 07/08/19 07/07/19 Rx 5/325 mg] Doxycycline Monohydrate 100 mg PO BID #24 tablet 06/29/19 07/08/19 07/07/19 Rx Active Medications: Generic Name Dose Route Start Last Admin Trade Name Mateusq PRN Reason Stop Dose Admin Acetaminophen 650 mg 07/07/19 16:00 Tylenol PO Q4H PRN Pain MILD(1-3)/Fever >100.5/BANDA Bisacodyl 10 mg 07/07/19 16:00 Dulcolax DC QDAY PRN Constipation unrelieved by MOM Calcitriol 0.5 mcg 07/08/19 08:00 07/12/19 08:53 Rocaltrol PO 0.5 mcg QDAY DELMAR Administration Calcium Acetate 2,668 mg 07/09/19 17:00 07/12/19 08:54 Phoslo PO 2,668 mg TIDWM DELMAR Administration Cyanocobalamin 1,000 mcg 07/08/19 08:00 07/12/19 08:53 Vitamin B-12 PO 1,000 mcg QDAY DELMAR Administration Sodium Chloride 100 mls @ 999 mls/hr 07/08/19 16:02 Nacl 0.9% IV RIP PRN Hypotension Multivit/Ca Carb/B Cmplx/FA/Prenat 1 cap 07/08/19 08:00 07/12/19 08:53 Renal Caps PO 1 cap QDAY DELMAR Administration Pantoprazole Sodium 40 mg 07/08/19 08:00 07/12/19 08:53 Protonix PO 40 mg QDAY DELMAR Administration Warfarin Sodium 7.5 mg 07/11/19 17:00 07/11/19 19:47 Coumadin PO 7.5 mg DAILY@1700 DELMAR Administration
[2019-07-12 10:49] LABS: Calcium 8.2 mg/dL (8.4-10.2)
[2019-07-12] MEDS ORDERED: NACL 0.9% 100 ML IV PRN (11:00)
[2019-07-12] MEDS: COUMADIN PO SCH (17:51)
[2019-07-13] MEDS: PHOSLO PO SCH ×2 (08:13→11:16)
[2019-07-13] MEDS: PROTONIX PO SCH (08:14)
[2019-07-13] MEDS: ROCALTROL PO SCH (08:14)
[2019-07-13] MEDS: Renal Caps PO SCH (08:14)
[2019-07-13] MEDS: VITAMIN B-12 PO SCH (08:15)
--- NOTE | 2019-07-13 08:33 | Progress Note ---
Subjective Date of service: 07/13/19 Principal diagnosis: Neuromuscular weakness Interval history: 48-year-old male with sudden inability to stand who went to the ER at [facility] [facility] and was worked up. Reportedly had a fever of 102.6 at hemodialysis the Thursday prior. Blood cultures were drawn but were negative. Patient has been on hemodialysis for 28 years and has been anuric for 20 years. Further workup included looking at vitamin levels as well as nerve conduction study/EMG. We requested the results of that study however they were not made available by case management who said that she thought they it was not done, however patient confirms the test was done and he was told by the neurologist that the results showed neuropathy bilateral lower extremities worse distally than proximally. 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 Patient is a vegan and has been for the past several years. His diagnosed recently with bilateral lower extremity DVTs and is on Coumadin. He states that his home dose which gives some therapeutic is 15 mg daily. He was discharged to us on 10 mg daily. There is some confusion on report as we were told he was given his nightly dose before coming to us however he states that it was held because he was supratherapeutic. He continues to be supratherapeutic and will monitor his PT/INR restart ac cordingly. Dosing difference likely due in part to his dietary availability which is different than what he is eating at home currently. He also has a history of recent falls for which he started utilizing a RW and PT. Patient is participating in therapy and making good progress. Taking rest breaks as needed. +BM. Denies pain, palpitations, dyspnea, cough, N/V, or joint pain. Hypotensive today. Notified nephrology and asked about possibility of starting midodrine. Not able to tolerate therapy due to dizziness 109/29 - rechecked several times. Overall, making improvements with endurance and balance. No issues from dialysis. INR has been but variable Labs pending - drawn in dialysis. Likely dc Thursday if no setbacks. All records, vitals, labs and medications were reviewed. No other issues per patient, nursing or therapy. Objective - Exam Narrative Exam: MUSCULOSKELETAL SPECIALTY EXAM CONSTITUTIONAL: Well developed, well nourished, appropriately groomed, obese EENT: EOMI. Hearing intact to soft voice RESPIRATORY: Clear to auscultation bilaterally, no increased work of breathing CARDIOVASCULAR: Regular Rate/ Rhythm, no swelling, edema or tenderness in BUE or BLE. All extremities warm. GI: + bowel sounds, soft, NTTP, nondistended. INTEGUMENTARY: Normal, no lesion, rash, masses or bruising noted in extremities. Bilateral upper extremity vascular access scars MUSCULOSKELETAL: BUE and BLE normal without defect, crepitus, subluxation, effusion, arthritic changes or TTP. BUE 5/5, good ROM, with normal tone. BLE 4+/5 good ROM, with normal tone NEURO: CN 2-12 grossly intact. Sensation intact in all extremities. No tremor noted in 4 extremities. POSTURE and GAIT: Sitting posture good. Balance appears reasonable. Gait reasonable with weakness noted at the bilateral hip flexors as well as minor loss of balance from time to time. PSYCH: Alert, oriented x3, affect appears normal. Insight appears intact. - Constitutional Vitals: Vital Signs - 12hr 07/12/19 07/13/19 22:00 04:28 Temperature 37.1 C Pulse Rate 82 Respiratory 19 Rate Respiratory 17 Rate [Chest] Blood Pressure 109/29 O2 Sat by Pulse 98 Oximetry - Allied health notes Allied health notes reviewed: nursing, PT, OT FIMS assessment as documented by PT/OT/ST: Grooming Patient cleans teeth/dentures: Yes Patient lopez/brushes hair: Yes Patient washes, rinses and Yes dries face: Patient washes, rinses and Yes dries hands: Patient shaves: No Patient applies make-up: No Patient performs (no make-up/ / (100%) shaving): Grooming FIM Score 5. Supervision (Braxton applies toothpaste or opens containers.) Toileting Toileting Device Commode over Toilet,Grab Bar Patient able to: Adjust clothes before,Clean self,Adjust clothes after Patient able to perform: 3/3 (100%) Toileting FIM Score 6. Modified Hood (Needs equip. or prosth ./orth.) Social interaction/Memory/Problem solving Social Interaction FIM Score 5. Supervision (Needs supv. <10%. Needs encouragement to participate.) Memory FIM Score 5. Supervision (Needs cueing <10%, stressful/ unfamiliar situations.) Problem Solving FIM Score 5. Supervision (Needs cueing <10% to solve routine problems.) Transfers Mode of Locomotion: Walking Bed/Chair/Wheelchair Transfers 4. Minimal Assistance (Patient = 75% or more. FIM Score Needs touching.) Toilet Transfers FIM Score 5. Supervision (Needs supervision or cueing.) Patient transferred to: Shower Shower Transfers FIM Score 5. Supervision (Needs supv. or set-up with device.) Locomotion- Stairs Device used on Stairs Handrail/s Number of Stairs Ascended/ 8 Descended Patient used handrail/support: Yes Stairs FIM Score 2. Maximal Assistance (Patient = 25% or more, 4- 6 stairs.) Locomotion- walk/wheelchair Most Frequent Mode of Walking Locomotion: Ambulation Distance 150 Walking FIM Score 4. Minimal Assistance (Patient = 75% or more. Minimum of 150 ft.) Wheelchair Propulsion Distance 150 Wheelchair FIM Score 5. Supervision (Minimum 150 ft. supv./cues or 50 ft. independently.) Eating Eating Device Adjusted Table Height Eating FIM Score 5. Supervision/Set-Up (Needs help w/ containers, cutting meat, etc.) Dressing-Upper body Patient retrieves clothing No items: Patient applies/removes UE No prosthesis or orthosis: Upper Body Dressing FIM Score 5. Supv./Set-Up (Braxton sets out clothes or applies pros./orth.) Dressing-lower body Patient retrieves clothing No items: Patient applies/removes LE No prosthesis or orthosis: Lower Body Dressing FIM Score 5. 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 PT & OT will work on strengthening exercises to improve functional s trength including mixture of closed and open kinetic chain exercises. ESRD on HD: Consult nephrology. HD MWF. Avoid nephrotoxic medications. DVT: Continue coumadin with goal INR 2-3. Pharm consult per protocol. Patient states 15mg at home. GERD: Continue protonix, monitor Hypotension: monitor, used midodrine in past but not tolerated, will attempt again. Vit B12 deficiency: Continue replacement. Refuses IM Anemia: continue epoetin in HD. Z73.6 ADL dysfunction: OT will work on improving ability to perform ADLs (including assistive devices) to increase independence and decrease caregiver burden and improve functional transfers and mobility training. R26.2 Difficulty walking: PT will work on gait training and proper use of assistive devices and advance as appropriate to use of stairs and outside ambulation on uneven surfaces. R26.81 Unsteadiness on feet: PT will work on improving static and dynamic sitting and standing balance as well as proper use of assistive devices to decrease risk of falls. R26.89 Abnormality of gait: PT will work to improve safety and efficiency of gait through neuromotor training and gait training along with instruction on proper use of assistive devices. R53.81 Debility: PT & OT will work on improving overall functional status to improve participation with ADLs, mobility and social involvement. R53.83 Fatigue: PT & OT will work on improving endurance through aerobic exercises and therapeutic activity while monitoring patients tolerance for activity and vital signs as needed. DVT ppx: Coumadin for DVT, Goal INR 2-3 Pain: Continue physical modalities in therapy and pain medications as needed to achieve functional pain control. Sleep: Monitor and address as needed. Bowel: Monitor and address as needed. Appetite: Monitor and address as needed. Discharge planning: Likely dc Thursday. Will continue discussion with therapy team, SW, patient and family. Restrictions/ Precautions: Falls WB status: FWB Functional Hx: ADLs: Independent Cognition: Independent Mobility: RW Barriers to Discharge: Decreased mobility and ability to perform self care, balance deficits, weakness Estimated Length of Stay: 7-10 days Discharge Destination: Home with significant other
--- NOTE | 2019-07-13 15:23 | Progress Note ---
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 Binders with meals * Abx per ID * Epogen TIW prn Subjective Date of service: 07/13/19 Principal diagnosis: Neuromuscular weakness Interval history: Patient is seen on dialysis. He has no complaints today. Patient reports occasional dizziness which he attributes to inadequate caloric intake as he is vegan and food options are limited. Objective - Vital Signs Vital signs: Vital Signs - 12hr 07/13/19 07/13/19 07/13/19 04:28 09:00 09:30 Temperature 98.8 F 98.5 F Pulse Rate 82 98 H 96 H Respiratory 19 16 Rate Blood Pressure 109/29 Blood Pressure 102/26 93/33 [Left] O2 Sat by Pulse 98 100 Oximetry 07/13/19 11:25 Temperature Pulse Rate 87 Respiratory 16 Rate Blood Pressure Blood Pressure 100/35 [Left] O2 Sat by Pulse 96 Oximetry - General Appearance General appearance: well-developed, well-nourished EENT: ATNC Respiratory: Present: Clear to Ascultation Cardiology: regular, S1S2 Gastrointestinal: normal, no tenderness, no distended Integumentary: no rash, warm and dry Psychiatric: cooperative - Lab 07/13/19 16:30 07/13/19 16:30 Most recent lab results Calcium 8.2 mg/dL (8.4-10.2) L 07/12/19 10:21 Phosphorus 4.00 mg/dL (2.5-4.5) 07/08/19 13:36 Medications & Allergies - Medications Allergies/Adverse Reactions: Allergies No Known Allergies Allergy (Verified 06/19/19 06:20) Home Medications: Home Medications Medication Instructions Recorded Confirmed Last Taken Type B Complex W-C No.20/Folic Acid 1 mg PO QAM #30 capsule 06/23/19 07/08/19 07/07/19 Rx [Nephrocaps Softgel] Calcitriol [Rocaltrol] 0.5 mcg PO QDAY #30 capsule 06/23/19 07/08/19 07/07/19 Rx Calcium Acetate [Phoslo] 667 mg PO TID #90 capsule 06/23/19 07/08/19 07/07/19 Rx Epoetin Ellis 10,000 Unit [Procrit] 10,000 unit IV RIP PRN vial 06/23/19 07/08/19 07/07/19 Rx Pantoprazole Sodium [Protonix] 40 mg PO QAM #30 granpkt. 06/23/19 07/08/19 07/07/19 Rx Warfarin [Coumadin] 15 mg PO QDAY #30 tablet 06/23/19 07/08/19 07/07/19 Rx oxyCODONE /ACETAMINOPHEN [Percocet 1 tab PO Q6H PRN #10 tablet 06/23/19 07/08/19 07/07/19 Rx 5/325 mg] Doxycycline Monohydrate 100 mg PO BID #24 tablet 06/29/19 07/08/19 07/07/19 Rx Active Medications: Generic Name Dose Route Start Last Admin Trade Name Freq PRN Reason Stop Dose Admin Acetaminophen 650 mg 07/07/19 16:00 Tylenol PO Q4H PRN Pain MILD(1-3)/Fever >100.5/BANDA Bisacodyl 10 mg 07/07/19 16:00 Dulcolax MS QDAY PRN Constipation unrelieved by MOM Calcitriol 0.5 mcg 07/08/19 08:00 07/13/19 08:14 Rocaltrol PO 0.5 mcg QDAY DELMAR Administration Calcium Acetate 2,668 mg 07/09/19 17:00 07/13/19 11:16 Phoslo PO 2,668 mg TIDWM DELMAR Administration Cyanocobalamin 1,000 mcg 07/08/19 08:00 07/13/19 08:15 Vitamin B-12 PO 1,000 mcg QDAY DELMAR Administration Epoetin Ellis 10,000 unit 07/12/19 11:00 Procrit IV RIP PRN hemodialysis Sodium Chloride 100 mls @ 999 mls/hr 07/08/19 16:02 Nacl 0.9% IV RIP PRN Hypotension Sodium Chloride 100 mls @ 999 mls/hr 07/12/19 11:00 Nacl 0.9% IV RIP PRN Hypotension Multivit/Ca Carb/B Cmplx/FA/Prenat 1 cap 07/08/19 08:00 07/13/19 08:14 Renal Caps PO 1 cap QDAY DELMAR Administration Pantoprazole Sodium 40 mg 07/08/19 08:00 07/13/19 08:14 Protonix PO 40 mg QDAY DELMAR Administration Warfarin Sodium 10 mg 07/12/19 17:00 07/12/19 17:51 Coumadin PO 10 mg DAILY@1700 DELMAR Administration
[2019-07-13 16:36] LABS: Hematocrit 20.6 % (35.5-45.6); Mean Corpuscular HGB Conc 34 % (32-34); Mean Corpuscular Volume 94 fl (84-94); Red Cell Distribution Width 17.6 % (13.2-15.2)
[2019-07-13 16:39] LABS: Platelet Count 94 K/mm3 (140-440)
[2019-07-13 16:47] LABS: INR 2.04 (0.87-1.13)
[2019-07-13 16:58] LABS: Calcium 7.2 mg/dL (8.4-10.2)
[2019-07-13] MEDS: PROCRIT IV PRN (19:43)
[2019-07-13] MEDS: COUMADIN PO SCH (22:07)
[2019-07-13] MEDS: PROAMATINE PO SCH (22:08)
[2019-07-14 06:55] LABS: INR 1.67 (0.87-1.13)
[2019-07-14] MEDS: PHOSLO PO SCH ×3 (08:06→18:04)
[2019-07-14] MEDS: ROCALTROL PO SCH (08:06)
[2019-07-14] MEDS: VITAMIN B-12 PO SCH (08:06)
[2019-07-14] MEDS: PROTONIX PO SCH (08:07)
[2019-07-14] MEDS: PROAMATINE PO SCH ×3 (08:07→18:03)
[2019-07-14] MEDS: Renal Caps PO SCH (08:07)
--- NOTE | 2019-07-14 08:53 | Progress Note ---
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 Binders with meals * Abx per ID * Epogen TIW prn Subjective Date of service: 07/14/19 Principal diagnosis: Neuromuscular weakness Interval history: Patient reports dizziness this AM Objective - Vital Signs Vital signs: Vital Signs - 12hr 07/13/19 07/13/19 07/14/19 21:12 22:09 05:35 Temperature 98.6 F 97.4 F L Pulse Rate 85 91 H 93 H Respiratory 20 18 Rate Blood Pressure 114/32 88/17 Blood Pressure [Left] O2 Sat by Pulse 98 98 Oximetry 07/14/19 07/14/19 07/14/19 05:46 08:44 08:45 Temperature 98.2 F 97.8 F Pulse Rate 93 H 91 H 93 H Respiratory 18 18 Rate Blood Pressure 94/29 Blood Pressure 89/24 [Left] O2 Sat by Pulse 98 99 100 Oximetry - General Appearance General appearance: well-developed, well-nourished EENT: ATNC Respiratory: Present: Clear to Ascultation Cardiology: regular, S1S2 Gastrointestinal: normal, no tenderness, no distended Integumentary: no rash, warm and dry Musculoskeletal: other (+ edema) Psychiatric: cooperative - Lab 07/13/19 16:30 07/13/19 16:30 Most recent lab results Calcium 7.2 mg/dL (8.4-10.2) L 07/13/19 16:30 Phosphorus 4.00 mg/dL (2.5-4.5) 07/08/19 13:36 Medications & Allergies - Medications Allergies/Adverse Reactions: Allergies No Known Allergies Allergy (Verified 06/19/19 06:20) Home Medications: Home Medications Medication Instructions Recorded Confirmed Last Taken Type B Complex W-C No.20/Folic Acid 1 mg PO QAM #30 capsule 06/23/19 07/08/19 0 07/07/19 Rx [Nephrocaps Softgel] Calcitriol [Rocaltrol] 0.5 mcg PO QDAY #30 capsule 06/23/19 07/08/19 07/07/19 Rx Calcium Acetate [Phoslo] 667 mg PO TID #90 capsule 06/23/19 07/08/19 07/07/19 Rx Epoetin Ellis 10,000 Unit [Procrit] 10,000 unit IV RIP PRN vial 06/23/19 07/08/19 07/07/19 Rx Pantoprazole Sodium [Protonix] 40 mg PO QAM #30 megankt. 06/23/19 07/08/19 07/07/19 Rx Warfarin [Coumadin] 15 mg PO QDAY #30 tablet 06/23/19 07/08/19 07/07/19 Rx oxyCODONE /ACETAMINOPHEN [Percocet 1 tab PO Q6H PRN #10 tablet 06/23/19 07/08/19 07/07/19 Rx 5/325 mg] Doxycycline Monohydrate 100 mg PO BID #24 tablet 06/29/19 07/08/19 07/07/19 Rx Active Medications: Generic Name Dose Route Start Last Admin Trade Name Freq PRN Reason Stop Dose Admin Acetaminophen 650 mg 07/07/19 16:00 Tylenol PO Q4H PRN Pain MILD(1-3)/Fever >100.5/BANDA Bisacodyl 10 mg 07/07/19 16:00 Dulcolax [place] QDAY PRN Constipation unrelieved by MOM Calcitriol 0.5 mcg 07/08/19 08:00 07/14/19 08:06 Rocaltrol PO 0.5 mcg QDAY DELMAR Administration Calcium Acetate 2,668 mg 07/09/19 17:00 07/14/19 08:06 Phoslo PO 2,668 mg TIDWM DELMAR Administration Cyanocobalamin 1,000 mcg 07/08/19 08:00 07/14/19 08:06 Vitamin B-12 PO 1,000 mcg QDAY DELMAR Administration Epoetin Ellis 10,000 unit 07/12/19 11:00 07/13/19 19:43 Procrit IV 10,000 unit RIP PRN Administration hemodialysis Sodium Chloride 100 mls @ 999 mls/hr 07/12/19 11:00 Nacl 0.9% IV RIP PRN Hypotension Midodrine 5 mg 07/13/19 16:00 07/14/19 08:07 Proamatine PO 5 mg TID@0800,1200,1600 DELMAR Administration Multivit/Ca Carb/B Cmplx/FA/Prenat 1 cap 07/08/19 08:00 07/14/19 08:07 Renal Caps PO 1 cap QDAY DELMAR Administration Pantoprazole Sodium 40 mg 07/08/19 08:00 07/14/19 08:07 Protonix PO 40 mg QDAY DELMAR Administration Warfarin Sodium 10 mg 07/12/19 17:00 07/13/19 22:07 Coumadin PO 10 mg DAILY@1700 DELMAR Administration
--- NOTE | 2019-07-14 09:46 | Progress Note ---
Subjective Date of service: 07/14/19 Principal diagnosis: Neuromuscular weakness Interval history: 48-year-old male with sudden inability to stand who went to the ER at [place] and was worked up. Reportedly had a fever of 102.6 at hemodialysis the Thursday prior. Blood cultures were drawn but were negative. Patient has been on hemodialysis for 28 years and has been anuric for 20 years. Further workup included looking at vitamin levels as well as nerve conduction study/EMG. We requested the results of that study however they were not made available by case management who said that she thought they it was not done, however patient confirms the test was done and he was told by the neurologist that the results showed neuropathy bilateral lower extremities worse distally than proximally. 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 Patient is a vegan and has been for the past several years. His diagnosed recently with bilateral lower extremity DVTs and is on Coumadin. He states that his home dose which gives some therapeutic is 15 mg daily. He was discharged to us on 10 mg daily. There is some confusion on report as we were told he was given his nightly dose before coming to us however he states that it was held because he was supratherapeutic. He continues to be supratherapeutic and will monitor his PT/INR restart ac cordingly. Dosing difference likely due in part to his dietary availability which is different than what he is eating at home currently. He also has a history of recent falls for which he started utilizing a RW and PT. Patient is participating in therapy and making good progress. Therapy hold ye and today. Taking rest breaks as needed. +BM. Denies pain, palpitations, dyspnea, cough, N/V, or joint pain. Noted dizziness and decreased "energy" today. Hypotensive again today. Nephrology started midodrine. Hgb 7.0 after labs yesterday - Discussed with Nephrology - will run short course today and transfuse.. Overall, making improvements with endurance and balance. No issues from dialysis. INR has been but variable Will hold over weekend given new issues. Discussed in team conference. Unable to perform much in therapy yesterday due to symptomatic hypotension. Same if not worse today. Therapy hold for both days. Some decreased safety awareness. Will need transfusion.Will look to monitor over weekend and d/c next Thursday. All records, vitals, labs and medications were reviewed. No other issues per patient, nursing or therapy. Objective - Exam Narrative Exam: MUSCULOSKELETAL SPECIALTY EXAM CONSTITUTIONAL: Well developed, well nourished, appropriately groomed, obese EENT: EOMI. Hearing intact to soft voice RESPIRATORY: Clear to auscultation bilaterally, no increased work of breathing CARDIOVASCULAR: Regular Rate/ Rhythm, no swelling, edema or tenderness in BUE or BLE. All ex tremities warm. GI: + bowel sounds, soft, NTTP, nondistended. INTEGUMENTARY: Normal, no lesion, rash, masses or bruising noted in extremities. Bilateral upper extremity vascular access scars MUSCULOSKELETAL: BUE and BLE normal without defect, crepitus, subluxation, effusion, arthritic changes or TTP. BUE 5/5, good ROM, with normal tone. BLE 4+/5 good ROM, with normal tone NEURO: CN 2-12 grossly intact. Sensation intact in all extremities. No tremor noted in 4 extremities. POSTURE and GAIT: Sitting posture good. Balance appears reasonable. Gait reasonable with weakness noted at the bilateral hip flexors as well as minor loss of balance from time to time. PSYCH: Alert, oriented x3, affect appears normal. Insight appears intact. - Constitutional Vitals: Vital Signs - 12hr 07/13/19 07/14/19 07/14/19 22:09 05:35 05:46 Temperature 36.3 C L 36.8 C Pulse Rate 91 H 93 H 93 H Respiratory 18 18 Rate Blood Pressure 88/17 Blood Pressure 89/24 [Left] O2 Sat by Pulse 98 98 98 Oximetry 07/14/19 07/14/19 08:44 08:45 Temperature 36.6 C Pulse Rate 91 H 93 H Respiratory 18 Rate Blood Pressure 94/29 Blood Pressure [Left] O2 Sat by Pulse 99 100 Oximetry - Allied health notes Allied health notes reviewed: nursing, PT, OT FIMS assessment as documented by PT/OT/ST: Grooming Patient cleans teeth/dentures: Yes Patient lopez/brushes hair: Yes Patient washes, rinses and Yes dries face: Patient washes, rinses and Yes dries hands: Patient shaves: No Patient applies make-up: No Patient performs (no make-up/ 03/03 (100%) shaving): Grooming FIM Score 6. Modified [place] (Needs equipment/device . Extra time.) Toileting Toileting Device Commode over Toilet,Grab Bar Patient able to: Adjust clothes before,Clean self,Adjust clothes after Patient able to perform: 3/3 (100%) Toileting FIM Score 6. Modified [place] (Needs equip. or prosth ./orth.) Social interaction/Memory/Problem solving Social Interaction FIM Score 5. Supervision (Needs supv. <10%. Needs encouragement to participate.) Memory FIM Score 6. Modified [place](Mild difficulty remembering people/routines.) Problem Solving FIM Score 5. Supervision (Needs cueing <10% to solve routine problems.) Transfers Mode of Locomotion: Wheelchair Bed/Chair/Wheelchair Transfers 5. Supervision (Needs supv. or set-up for FIM Score sliding board, foot rests.) Toilet Transfers FIM Score 5. Supervision (Needs supervision or cueing.) Patient transferred to: Shower Shower Transfers FIM Score 5. Supervision (Needs supv. or set-up with device.) Locomotion- Stairs Device used on Stairs Handrail/s Number of Stairs Ascended/ 8 Descended Patient used handrail/support: Yes Stairs FIM Score 2. Maximal Assistance (Patient = 25% or more, 4- 6 stairs.) Locomotion- walk/wheelchair Most Frequent Mode of Walking Locomotion: Ambulation Distance 150 Walking FIM Score 4. Minimal Assistance (Patient = 75% or more. Minimum of 150 ft.) Wheelchair Propulsion Distance 150 Wheelchair FIM Score 5. Supervision (Minimum 150 ft. supv./cues or 50 ft. independently.) Eating Eating Device Adjusted Table Height Eating FIM Score 6. Modified [place] (Special consistency or uses device.) Dressing-Upper body Patient retrieves clothing No items: Patient applies/removes UE No prosthesis or orthosis: Upper Body Dressing FIM Score 5. Supv./Set-Up ([place] sets out clothes or applies pros./orth.) Dressing-lower body Patient retrieves clothing No items: Patient applies/removes LE No prosthesis or orthosis: Lower Body Dressing FIM Score 5. Supv./Set-Up ([place] sets out clothes or applies pros./orth.) - Labs CBC & Chem 7: 07/13/19 16:30 07/13/19 16:30 Labs: Laboratory Results - last 72 hr 07/08/19 07/12/19 07/12/19 16:20 06:06 10:21 WBC RBC Hgb Hct MCV MCH MCHC RDW Plt Count PT 21.7 H INR 1.94 H Sodium 133 L Potassium 4.7 Chloride 93.5 L Carbon Dioxide 25 Anion Gap 19 BUN 27 H Creatinine 10.3 H Estimated GFR 7 BUN/Creatinine Ratio 3 Glucose 66 L Calcium 8.2 L RBC Folic Acid >1000 07/13/19 07/13/19 07/13/19 16:30 16:30 16:30 WBC 2.3 L RBC 2.20 L Hgb 7.0 L Hct 20.6 L MCV 94 MCH 32 MCHC 34 RDW 17.6 H Plt Count 94 L PT 22.6 H INR 2.04 H Sodium 133 L Potassium 4.2 Chloride 96.2 L Carbon Dioxide 26 Anion Gap 15 BUN 29 H Creatinine 9.4 H Estimated GFR 7 BUN/Creatinine Ratio 3 Glucose 133 H Calcium 7.2 L RBC Folic Acid 07/14/19 05:55 WBC RBC Hgb Hct MCV MCH MCHC RDW Plt Count PT 19.3 H INR 1.67 H Sodium Potassium Chloride Carbon Dioxide Anion Gap BUN Creatinine Estimated GFR BUN/Creatinine Ratio Glucose Calcium RBC Folic Acid Assessment and Plan G70.9 NeuroMuscular weakness: 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 PT & OT will work on strengthening exercises to improve functional strength including mixture of closed and open kinetic chain exercises. ESRD on HD: Consult nephrology. HD MWF. Avoid nephrotoxic medications. DVT: Continue coumadin with goal INR 2-3. Pharm consult per protocol. Patient states 15mg at home. GERD: Continue protonix, monitor Hypotension: monitor, used midodrine in past but not tolerated, will attempt again. Vit B12 deficiency: Continue replacement. Refuses IM Anemia: continue epoetin in HD. Transfuse Z73.6 ADL dysfunction: OT will work on improving ability to perform ADLs (including assistive devices) to increase independence and decrease caregiver burden and improve functional transfers and mobility training. R26.2 Difficulty walking: PT will work on gait training and proper use of assistive devices and advance as appropriate to use of stairs and outside ambulation on uneven surfaces. R26.81 Unsteadiness on feet: PT will work on improving static and dynamic sitting and standing balance as well as proper use of assistive devices to decrease risk of falls. R26.89 Abnormality of gait: PT will work to improve safety and efficiency of gait through neuromotor training and gait training along with instruction on proper use of assistive devices. R53.81 Debility: PT & OT will work on improving overall functional status to improve participation with ADLs, mobility and social involvement. R53.83 Fatigue: PT & OT will work on improving endurance through aerobic exercises and therapeutic activity while monitoring patients tolerance for activity and vital signs as needed. DVT ppx: Coumadin for DVT, Goal INR 2-3 Pain: Continue physical modalities in therapy and pain medications as needed to achieve functional pain control. Sleep: Monitor and address as needed. Bowel: Monitor and address as needed. Appetite: Monitor and address as needed. Discharge planning: Likely dc Thursday. Will continue discussion with therapy team, SW, patient and family. Restrictions/ Precautions: Falls WB status: FWB Functional Hx: ADLs: Independent Cognition: Independent Mobility: RW Barriers to Discharge: Decreased mobility and ability to perform self care, balance deficits, weakness Estimated Length of Stay: 7-10 days Discharge Destination: Home with significant other
[2019-07-14] MEDS ORDERED: NACL 0.9% 100 ML IV PRN (12:00)
[2019-07-14] MEDS ORDERED: NACL 0.9% 500 ML 500 ML IV ONE ×2 (13:28→14:11)
[2019-07-14] MEDS: COUMADIN PO SCH ×2 (18:02→22:23)
[2019-07-14] MEDS ORDERED: NACL 0.9 (PRIMING MACHINE ONLY DIALYSIS) MC ONE (19:27)
--- NOTE | 2019-07-15 07:30 | Progress Note ---
Subjective Date of service: 07/15/19 Principal diagnosis: Neuromuscular weakness Interval history: 48-year-old male with sudden inability to stand who went to the ER at [place] and was worked up. Reportedly had a fever of 102.6 at hemodialysis the [place] prior. Blood cultures were drawn but were negative. Patient has been on hemodialysis for 28 years and has been anuric for 20 years. Further workup included looking at vitamin levels as well as nerve conduction study/EMG. We requested the results of that study however they were not made available by case management who said that she thought they it was not done, however patient confirms the test was done and he was told by the neurologist that the results showed neuropathy bilateral lower extremities worse distally than proximally. 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 Patient is a vegan and has been for the past several years. His diagnosed recently with bilateral lower extremity DVTs and is on Coumadin. He states that his home dose which gives some therapeutic is 15 mg daily. He was discharged to us on 10 mg daily. There is some confusion on report as we were told he was given his nightly dose before coming to us however he states that it was held because he was supratherapeutic. He continues to be supratherapeutic and will monitor his PT/INR restart ac cordingly. Dosing difference likely due in part to his dietary availability which is different than what he is eating at home currently. He also has a history of recent falls for which he started utilizing a RW and PT. Patient is participating in therapy and making good progress. Feeling better today, continue therapy. Taking rest breaks as needed. +BM. Denies pain, palpitations, dyspnea, cough, N/V, or joint pain. Denies dizziness. Hypotension better today. Nephrology started midodrine. Hgb improved after transfusion.. Overall, making improvements with endurance and balance. No issues from dialysis. INR has been but variable Will hold over weekend given new issues. All records, vitals, labs and medications were reviewed. No other issues per patient, nursing or therapy. Objective - Exam Narrative Exam: MUSCULOSKELETAL SPECIALTY EXAM CONSTITUTIONAL: Well developed, well nourished, appropriately groomed, obese EENT: EOMI. Hearing intact to soft voice RESPIRATORY: Clear to auscultation bilaterally, no increased work of breathing CARDIOVASCULAR: Regular Rate/ Rhythm, edema or tenderness in BUE or BLE. All extremities warm. Slight swelling in BLE, likely improve after HD. GI: + bowel sounds, soft, NTTP, nondistended. INTEGUMENTARY: Normal, no lesion, rash, masses or bruising noted in extremities. Bilateral upper extremity vascular access scars MUSCULOSKELETAL: BUE and BLE normal without defect, crepitus, subluxation, effusion, arthritic changes or TTP. BUE 5/5, good ROM, with normal tone. BLE 4+/5 good ROM, with normal tone NEURO: CN 2-12 grossly intact. Sensation intact in all extremities. No tremor noted in 4 extremities. POSTURE and GAIT: Sitting posture good. Balance appears reasonable. Gait reasonable with weakness noted at the bilateral hip flexors as well as minor loss of balance from time to time. PSYCH: Alert, oriented x3, affect appears normal. Insight appears intact. - Constitutional Vitals: Vital Signs - 12hr 07/14/19 07/14/19 07/15/19 19:33 22:00 04:38 Temperature 36.6 C 37.2 C Pulse Rate 87 81 Respiratory 19 18 Rate Respiratory 16 Rate [Chest] Blood Pressure 97/23 153/35 O2 Sat by Pulse 98 98 Oximetry - Allied health notes Allied health notes reviewed: nursing, PT, OT FIMS assessment as documented by PT/OT/ST: Grooming Patient cleans teeth/dentures: Yes Patient lopez/brushes hair: Yes Patient washes, rinses and Yes dries face: Patient washes, rinses and Yes dries hands: Patient shaves: No Patient applies make-up: No Patient performs (no make-up/ / (100%) shaving): Grooming FIM Score 6. Modified [place] (Needs equipment/device . Extra time.) Toileting Toileting Device Commode over Toilet,Grab Bar Patient able to: Adjust clothes before,Clean self,Adjust clothes after Patient able to perform: 3/3 (100%) Toileting FIM Score 6. Modified [place] (Needs equip. or prosth ./orth.) Social interaction/Memory/Problem solving Social Interaction FIM Score 5. Supervision (Needs supv. <10%. Needs encouragement to participate.) Memory FIM Score 6. Modified [place](Mild difficulty remembering people/routines.) Problem Solving FIM Score 5. Supervision (Needs cueing <10% to solve routine problems.) Transfers Mode of Locomotion: Wheelchair Bed/Chair/Wheelchair Transfers 5. Supervision (Needs supv. or set-up for FIM Score sliding board, foot rests.) Toilet Transfers FIM Score 5. Supervision (Needs supervision or cueing.) Patient transferred to: Shower Shower Transfers FIM Score 5. Supervision (Needs supv. or set-up with device.) Locomotion- Stairs Device used on Stairs Handrail/s Number of Stairs Ascended/ 8 Descended Patient used handrail/support: Yes Stairs FIM Score 2. Maximal Assistance (Patient = 25% or more, 4- 6 stairs.) Locomotion- walk/wheelchair Most Frequent Mode of Walking Locomotion: Ambulation Distance 150 Walking FIM Score 4. Minimal Assistance (Patient = 75% or more. Minimum of 150 ft.) Wheelchair Propulsion Distance 150 Wheelchair FIM Score 5. Supervision (Minimum 150 ft. supv./cues or 50 ft. independently.) Eating Eating Device Adjusted Table Height Eating FIM Score 6. Modified [place] (Special consistency or uses device.) Dressing-Upper body Patient retrieves clothing No items: Patient applies/removes UE No prosthesis or orthosis: Upper Body Dressing FIM Score 5. Supv./Set-Up ([place] sets out clothes or applies pros./orth.) Dressing-lower body Patient retrieves clothing No items: Patient applies/removes LE No prosthesis or orthosis: Lower Body Dressing FIM Score 5. Supv./Set-Up ([place] sets out clothes or applies pros./orth.) - Labs CBC & Chem 7: 07/15/19 16:04 07/15/19 16:04 Labs: Laboratory Results - last 72 hr 07/08/19 07/12/19 07/13/19 16:20 10:21 16:30 WBC RBC Hgb Hct MCV MCH MCHC RDW Plt Count PT 22.6 H INR 2.04 H Sodium 133 L Potassium 4.7 Chloride 93.5 L Carbon Dioxide 25 Anion Gap 19 BUN 27 H Creatinine 10.3 H Estimated GFR 7 BUN/Creatinine Ratio 3 Glucose 66 L Calcium 8.2 L RBC Folic Acid >1000 Blood Type Antibody Screen Crossmatch 07/13/19 07/13/19 07/14/19 16:30 16:30 05:55 WBC 2.3 L RBC 2.20 L Hgb 7.0 L Hct 20.6 L MCV 94 MCH 32 MCHC 34 RDW 17.6 H Plt Count 94 L PT 19.3 H INR 1.67 H Sodium 133 L Potassium 4.2 Chloride 96.2 L Carbon Dioxide 26 Anion Gap 15 BUN 29 H Creatinine 9.4 H Estimated GFR 7 BUN/Creatinine Ratio 3 Glucose 133 H Calcium 7.2 L RBC Folic Acid Blood Type Antibody Screen Crossmatch 07/14/19 13:45 WBC RBC Hgb Hct MCV MCH MCHC RDW Plt Count PT INR Sodium Potassium Chloride Carbon Dioxide Anion Gap BUN Creatinine Estimated GFR BUN/Creatinine Ratio Glucose Calcium RBC Folic Acid Blood Type A POSITIVE Antibody Screen Negative Crossmatch See Detail Assessment and Plan G70.9 NeuroMuscular weakness: 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 PT & OT will work on strengthening exercises to improve functional strength including mixture of closed and open kinetic chain exercises. ESRD on HD: Consult nephrology. HD MWF. Avoid nephrotoxic medications. DVT: Continue coumadin with goal INR 2-3. Pharm consult per protocol. Patient states 15mg at home. GERD: Continue protonix, monitor Hypotension: monitor, used midodrine in past but not tolerated, will attempt again. Vit B12 deficiency: Continue replacement. Refuses IM Anemia: continue epoetin in HD. Transfused 2 units, improved Z73.6 ADL dysfunction: OT will work on improving ability to perform ADLs (including assistive devices) to increase independence and decrease caregiver burden and improve functional transfers and mobility training. R26.2 Difficulty walking: PT will work on gait training and proper use of assistive devices and advance as appropriate to use of stairs and outside ambul ation on uneven surfaces. R26.81 Unsteadiness on feet: PT will work on improving static and dynamic sitting and standing balance as well as proper use of assistive devices to decrease risk of falls. R26.89 Abnormality of gait: PT will work to improve safety and efficiency of gait through neuromotor training and gait training along with instruction on proper use of assistive devices. R53.81 Debility: PT & OT will work on improving overall functional status to improve participation with ADLs, mobility and social involvement. R53.83 Fatigue: PT & OT will work on improving endurance through aerobic exercises and therapeutic activity while monitoring patients tolerance for activity and vital signs as needed. DVT ppx: Coumadin for DVT, Goal INR 2-3 Pain: Continue physical modalities in therapy and pain medications as needed to achieve functional pain control. Sleep: Monitor and address as needed. Bowel: Monitor and address as needed. Appetite: Monitor and address as needed. Discharge planning: Likely dc Thursday. Will continue discussion with therapy team, SW, patient and family. Restrictions/ Precautions: Falls WB status: FWB Functional Hx: ADLs: Independent Cognition: Independent Mobility: RW Barriers to Discharge: Decreased mobility and ability to perform self care, bal ance deficits, weakness Estimated Length of Stay: 7-10 days Discharge Destination: Home with significant other
[2019-07-15] MEDS: Renal Caps PO SCH (09:21)
[2019-07-15] MEDS: PROTONIX PO SCH (09:21)
[2019-07-15] MEDS: PROAMATINE PO SCH ×2 (09:21→12:43)
[2019-07-15] MEDS: ROCALTROL PO SCH (09:21)
[2019-07-15] MEDS: VITAMIN B-12 PO SCH (09:22)
[2019-07-15] MEDS: PHOSLO PO SCH ×2 (09:22→12:44)
--- NOTE | 2019-07-15 14:00 | Progress Note ---
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 Binders with meals * Abx per ID * Epogen TIW prn Subjective Date of service: 07/15/19 Principal diagnosis: Neuromuscular weakness Interval history: Patient off the floor at time of visit. Chart reviewed. He is s/p pRBC tranfusion yesterday. Objective - Exam Narrative Exam: Deferred. Patient is off the floor at time of visit. - Vital Signs Vital signs: Vital Signs - 12hr 07/15/19 07/15/19 07/15/19 04:38 08:06 12:34 Temperature 98.9 F 98.5 F 97.4 F L Pulse Rate 81 87 81 Respiratory 18 18 18 Rate Blood Pressure 153/35 102/30 98/60 O2 Sat by Pulse 98 98 96 Oximetry - Lab 07/15/19 16:04 07/15/19 16:04 Most recent lab results Calcium 7.2 mg/dL (8.4-10.2) L 07/13/19 16:30 Phosphorus 4.00 mg/dL (2.5-4.5) 07/08/19 13:36 Medications & Allergies - Medications Allergies/Adverse Reactions: Allergies No Known Allergies Allergy (Verified 06/19/19 06:20) Home Medications: Home Medications Medication Instructions Recorded Confirmed Last Taken Type B Complex W-C No.20/Folic Acid 1 mg PO QAM #30 capsule 06/23/19 07/08/19 07/07/19 Rx [Nephrocaps Softgel] Calcitriol [Rocaltrol] 0.5 mcg PO QDAY #30 capsule 06/23/19 07/08/19 07/07/19 Rx Calcium Acetate [Phoslo] 667 mg PO TID #90 capsule 06/23/19 07/08/19 07/07/19 Rx Epoetin Ellis 10,000 Unit [Procrit] 10,000 unit IV RIP PRN vial 06/23/19 07/08/19 07/07/19 Rx Pantoprazole Sodium [Protonix] 40 mg PO QAM #30 megankt 06/23/19 07/08/19 07/07/19 Rx Warfarin [Coumadin] 15 mg PO QDAY #30 tablet 06/23/19 07/08/19 07/07/19 Rx oxyCODONE /ACETAMINOPHEN [Percocet 1 tab PO Q6H PRN #10 tablet 06/23/19 07/08/19 07/07/19 Rx 5/325 mg] Doxycycline Monohydrate 100 mg PO BID #24 tablet 06/29/19 07/08/19 07/07/19 Rx Active Medications: Generic Name Dose Route Start Last Admin Trade Name Freq PRN Reason Stop Dose Admin Acetaminophen 650 mg 07/07/19 16:00 Tylenol PO Q4H PRN Pain MILD(1-3)/Fever >100.5/BANDA Bisacodyl 10 mg 07/07/19 16:00 Dulcolax MO QDAY PRN Constipation unrelieved by MOM Calcitriol 0.5 mcg 07/08/19 08:00 07/15/19 09:21 Rocaltrol PO 0.5 mcg QDAY DELMAR Administration Calcium Acetate 2,668 mg 07/09/19 17:00 07/15/19 12:44 Phoslo PO 2,668 mg TIDWM DELMAR Administration Cyanocobalamin 1,000 mcg 07/08/19 08:00 07/15/19 09:22 Vitamin B-12 PO 1,000 mcg QDAY DELMAR Administration Epoetin Ellis 10,000 unit 07/12/19 11:00 07/13/19 19:43 Procrit IV 10,000 unit RIP PRN Administration hemodialysis Sodium Chloride 100 mls @ 999 mls/hr 07/14/19 12:00 Nacl 0.9% IV RIP PRN Hypotension Midodrine 10 mg 07/14/19 12:00 07/15/19 12:43 Proamatine PO 10 mg TID@0800,1200,1600 DELMAR Administration Multivit/Ca Carb/B Cmplx/FA/Prenat 1 cap 07/08/19 08:00 07/15/19 09:21 Renal Caps PO 1 cap QDAY DELMAR Administration Pantoprazole Sodium 40 mg 07/08/19 08:00 07/15/19 09:21 Protonix PO 40 mg QDAY DELMAR Administration Warfarin Sodium 10 mg 07/12/19 17:00 07/14/19 18:02 Coumadin PO 10 mg DAILY@1700 DELMAR Administration Warfarin Sodium 2.5 mg 07/14/19 17:00 07/14/19 22:23 Coumadin PO 2.5 mg DAILY@1700 DELMAR Administration
[2019-07-15 16:17] LABS: Hematocrit 32.6 % (35.5-45.6); Hemoglobin 10.9 gm/dl (11.8-15.2); Mean Corpuscular HGB Conc 33 % (32-34); Mean Corpuscular Volume 93 fl (84-94); Platelet Count 125 K/mm3 (140-440); Red Cell Distribution Width 17.5 % (13.2-15.2)
[2019-07-15 16:26] LABS: INR 1.78 (0.87-1.13)
[2019-07-15 16:36] LABS: Calcium 8.8 mg/dL (8.4-10.2)
[2019-07-15] MEDS ORDERED: NACL 0.9 (PRIMING MACHINE ONLY DIALYSIS) MC ONE (18:53)
[2019-07-15] MEDS: PROCRIT IV PRN (19:54)
[2019-07-16] MEDS: PROAMATINE PO SCH ×3 (08:38→16:44)
[2019-07-16] MEDS: Renal Caps PO SCH (08:38)
[2019-07-16] MEDS: PHOSLO PO SCH ×3 (08:38→16:44)
[2019-07-16] MEDS: PROTONIX PO SCH (08:39)
[2019-07-16] MEDS: VITAMIN B-12 PO SCH (08:39)
[2019-07-16] MEDS: ROCALTROL PO SCH (08:39)
[2019-07-16 08:45] LABS: INR 1.78 (0.87-1.13)
--- NOTE | 2019-07-16 14:00 | Progress Note ---
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 Binders with meals * Abx per ID * Epogen TIW prn Subjective Date of service: 07/16/19 Principal diagnosis: Neuromuscular weakness Objective - Vital Signs Vital signs: Vital Signs - 12hr 07/16/19 07/16/19 08:02 12:18 Temperature 98.1 F 98.5 F Pulse Rate 92 H 100 H Respiratory 18 Rate Blood Pressure 90/63 128/47 [Left] O2 Sat by Pulse 98 Oximetry - Lab 07/15/19 16:04 07/15/19 16:04 Most recent lab results Calcium 8.8 mg/dL (8.4-10.2) D 07/15/19 16:04 Phosphorus 4.00 mg/dL (2.5-4.5) 07/08/19 13:36 Medications & Allergies - Medications Allergies/Adverse Reactions: Allergies No Known Allergies Allergy (Verified 06/19/19 06:20) Home Medications: Home Medications Medication Instructions Recorded Confirmed Last Taken Type B Complex W-C No.20/Folic Acid 1 mg PO QAM #30 capsule 06/23/19 07/08/19 07/07/19 Rx [Nephrocaps Softgel] Calcitriol [Rocaltrol] 0.5 mcg PO QDAY #30 capsule 06/23/19 07/08/19 07/07/19 Rx Calcium Acetate [Phoslo] 667 mg PO TID #90 capsule 06/23/19 07/08/19 07/07/19 Rx Epoetin Ellis 10,000 Unit [Procrit] 10,000 unit IV RIP PRN vial 06/23/19 07/08/19 07/07/19 Rx Pantoprazole Sodium [Protonix] 40 mg PO QAM #30 granpkt. 06/23/19 07/08/19 07/07/19 Rx Warfarin [Coumadin] 15 mg PO QDAY #30 tablet 06/23/19 07/08/19 07/07/19 Rx oxyCODONE /ACETAMINOPHEN [Percocet 1 tab PO Q6H PRN #10 tablet 06/23/19 07/08/19 07/07/19 Rx 5/325 mg] Doxycycline Monohydrate 100 mg PO BID #24 tablet 06/29/19 07/08/19 07/07/19 Rx Active Medications: Generic Name Dose Route Start Last Admin Trade Name Freq PRN Reason Stop Dose Admin Acetaminophen 650 mg 07/07/19 16:00 Tylenol PO Q4H PRN Pain MILD(1-3)/Fever >100.5/BANDA Bisacodyl 10 mg 07/07/19 16:00 Dulcolax [place] QDAY PRN Constipation unrelieved by MOM Calcitriol 0.5 mcg 07/08/19 08:00 07/16/19 08:39 Rocaltrol PO 0.5 mcg QDAY DELMAR Administration Calcium Acetate 2,668 mg 07/09/19 17:00 07/16/19 12:25 Phoslo PO 2,668 mg TIDWM DELMAR Administration Cyanocobalamin 1,000 mcg 07/08/19 08:00 07/16/19 08:39 Vitamin B-12 PO 1,000 mcg QDAY DELMAR Administration Epoetin Ellis 10,000 unit 07/12/19 11:00 07/15/19 19:54 Procrit IV 10,000 unit RIP PRN Administration hemodialysis Sodium Chloride 100 mls @ 999 mls/hr 07/14/19 12:00 Nacl 0.9% IV RIP PRN Hypotension Midodrine 10 mg 07/14/19 12:00 07/16/19 12:24 Proamatine PO 10 mg TID@0800,1200,1600 DELMAR Administration Multivit/Ca Carb/B Cmplx/FA/Prenat 1 cap 07/08/19 08:00 07/16/19 08:38 Renal Caps PO 1 cap QDAY DELMAR Administration Pantoprazole Sodium 40 mg 07/08/19 08:00 07/16/19 08:39 Protonix PO 40 mg QDAY DELMAR Administration Warfarin Sodium 10 mg 07/12/19 17:00 07/14/19 18:02 Coumadin PO 10 mg DAILY@1700 DELMAR Administration Warfarin Sodium 2.5 mg 07/14/19 17:00 07/14/19 22:23 Coumadin PO 2.5 mg DAILY@1700 DELMAR Administration Warfarin Sodium 2.5 mg 07/16/19 17:00 Coumadin PO 07/16/19 17:01 ONCE ONE
[2019-07-16] MEDS: COUMADIN PO SCH ×2 (16:44→16:45)
[2019-07-16] MEDS ORDERED: COUMADIN PO ONE (17:00)
[2019-07-17 07:43] LABS: INR 1.58 (0.87-1.13)
[2019-07-17] MEDS: PHOSLO PO SCH ×3 (08:37→16:58)
[2019-07-17] MEDS: Renal Caps PO SCH (08:38)
[2019-07-17] MEDS: PROAMATINE PO SCH ×3 (08:38→16:59)
[2019-07-17] MEDS: PROTONIX PO SCH (08:38)
[2019-07-17] MEDS: ROCALTROL PO SCH (08:38)
[2019-07-17] MEDS: VITAMIN B-12 PO SCH (08:38)
[2019-07-17] MEDS ORDERED: PROVENTIL IH PRN (11:31)
--- NOTE | 2019-07-17 13:21 | Progress Note ---
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 Continue hemodialysis MWF * UF as tolerated * Continue Midodrine to 10mg TID - BP improved * Renal diet. Binders with meals * Epogen TIW prn. He is s/p pRBC transfusion on Jul 14 * AM labs * Stable for d/c from a renal standpoint Subjective Date of service: 07/17/19 Principal diagnosis: Neuromuscular weakness Interval history: Patient has no complaints today. Reports dizziness resolved. Objective - Vital Signs Vital signs: Vital Signs - 12hr 07/17/19 07/17/19 07/17/19 08:13 11:29 12:56 Temperature 98.1 F 97.3 F L Pulse Rate 90 90 Respiratory 16 16 Rate Blood Pressure 118/56 122/55 [Left] O2 Sat by Pulse 99 Oximetry - General Appearance General appearance: well-developed, well-nourished EENT: ATNC Respiratory: Present: Clear to Ascultation Cardiology: regular, S1S2 Gastrointestinal: normal, no tenderness, no distended Integumentary: no rash, warm and dry Neurologic: no focal deficit, alert and oriented x3 Musculoskeletal: other (trace edema) Psychiatric: cooperative - Lab 07/15/19 16:04 07/15/19 16:04 Most recent lab results Calcium 8.8 mg/dL (8.4-10.2) D 07/15/19 16:04 Phosphorus 4.00 mg/dL (2.5-4.5) 07/08/19 13:36 Medications & Allergies - Medications Allergies/Adverse Reactions: Allergies No Known Allergies Allergy (Verified 06/19/19 06:20) Home Medications: Home Medications Medication Instructions Recorded Confirmed Last Taken Type B Complex W-C No.20/Folic Acid 1 mg PO QAM #30 capsule 06/23/19 07/08/19 07/07/19 Rx [Nephrocaps Softgel] Calcitriol [Rocaltrol] 0.5 mcg PO QDAY #30 capsule 06/23/19 07/08/19 07/07/19 Rx Calcium Acetate [Phoslo] 667 mg PO TID #90 capsule 06/23/19 07/08/19 07/07/19 Rx Epoetin Ellis 10,000 Unit [Procrit] 10,000 unit IV RIP PRN vial 06/23/19 07/08/19 07/07/19 Rx Pantoprazole Sodium [Protonix] 40 mg PO QAM #30 granpkt. 06/23/19 07/08/19 07/07/19 Rx Warfarin [Coumadin] 15 mg PO QDAY #30 tablet 06/23/19 07/08/19 07/07/19 Rx oxyCODONE /ACETAMINOPHEN [Percocet 1 tab PO Q6H PRN #10 tablet 06/23/19 07/08/19 07/07/19 Rx 5/325 mg] Doxycycline Monohydrate 100 mg PO BID #24 tablet 06/29/19 07/08/19 07/07/19 Rx Active Medications: Generic Name Dose Route Start Last Admin Trade Name Freq PRN Reason Stop Dose Admin Acetaminophen 650 mg 07/07/19 16:00 Tylenol PO Q4H PRN Pain MILD(1-3)/Fever >100.5/BANDA Albuterol 2.5 mg 07/17/19 11:31 Proventil IH Q4HRT PRN Shortness Of Breath Bisacodyl 10 mg 07/07/19 16:00 Dulcolax [place] QDAY PRN Constipation unrelieved by MOM Calcitriol 0.5 mcg 07/08/19 08:00 07/17/19 08:38 Rocaltrol PO 0.5 mcg QDAY DELMAR Administration Calcium Acetate 2,668 mg 07/09/19 17:00 07/17/19 12:27 Phoslo PO 2,668 mg TIDWM DELMAR Administration Cyanocobalamin 1,000 mcg 07/08/19 08:00 07/17/19 08:38 Vitamin B-12 PO 1,000 mcg QDAY DELMAR Administration Epoetin Ellis 10,000 unit 07/12/19 11:00 07/15/19 19:54 Procrit IV 10,000 unit RIP PRN Administration hemodialysis Sodium Chloride 100 mls @ 999 mls/hr 07/14/19 12:00 Nacl 0.9% IV RIP PRN Hypotension Midodrine 10 mg 07/14/19 12:00 07/17/19 12:27 Proamatine PO 10 mg TID@0800,1200,1600 DELMAR Administration Multivit/Ca Carb/B Cmplx/FA/Prenat 1 cap 07/08/19 08:00 07/17/19 08:38 Renal Caps PO 1 cap QDAY DELMAR Administration Pantoprazole Sodium 40 mg 07/08/19 08:00 07/17/19 08:38 Protonix PO 40 mg QDAY DELMAR Administration Warfarin Sodium 10 mg 07/12/19 17:00 07/16/19 16:44 Coumadin PO 10 mg DAILY@1700 [facility] Administration Warfarin Sodium 5 mg 07/17/19 17:00 Coumadin PO DAILY@1700 [facility]
[2019-07-17] MEDS: COUMADIN PO SCH ×2 (17:07→17:08)
[2019-07-18] MEDS: VITAMIN B-12 PO SCH (08:43)
[2019-07-18] MEDS: PHOSLO PO SCH ×3 (08:43→16:39)
[2019-07-18] MEDS: PROAMATINE PO SCH ×4 (08:43→16:39)
[2019-07-18] MEDS: Renal Caps PO SCH (08:44)
[2019-07-18] MEDS: ROCALTROL PO SCH (08:44)
[2019-07-18] MEDS: PROTONIX PO SCH (08:44)
--- NOTE | 2019-07-18 09:10 | Progress Note ---
Subjective Date of service: 07/18/19 Principal diagnosis: Neuromuscular weakness Interval history: 48-year-old male with sudden inability to stand who went to the ER at [facility] and was worked up. Reportedly had a fever of 102.6 at hemodialysis the [place] prior. Blood cultures were drawn but were negative. Patient has been on hemodialysis for 28 years and has been anuric for 20 years. Further workup included looking at vitamin levels as well as nerve conduction study/EMG. We requested the results of that study however they were not made available by case management who said that she thought they it was not done, however patient confirms the test was done and he was told by the neurologist that the results showed neuropathy bilateral lower extremities worse distally than proximally. 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 Patient is a vegan and has been for the past several years. His diagnosed recently with bilateral lower extremity DVTs and is on Coumadin. He states that his home dose which gives some therapeutic is 15 mg daily. He was discharged to us on 10 mg daily. There is some confusion on report as we were told he was given his nightly dose before coming to us however he states that it was held because he was supratherapeutic. He continues to be supratherapeutic and will monitor his PT/INR restart ac cordingly. Dosing difference likely due in part to his dietary availability which is different than what he is eating at home currently. He also has a history of recent falls for which he started utilizing a RW and PT. Patient is participating in therapy and making good progress. Feeling better today, continue therapy. Taking rest breaks as needed. +BM. Denies pain, palpitations, dyspnea, cough, N/V, or joint pain. Denies dizziness. States he feels like he has to urinate but can't. Request bladder scan. BP better today. Refused HD today. Overall, making improvements with endurance and balance. INR has been variable. D/c tomorrow All records, vitals, labs and medications were reviewed. No other issues per patient, nursing or therapy. Objective - Exam Narrative Exam: MUSCULOSKELETAL SPECIALTY EXAM CONSTITUTIONAL: Well developed, well nourished, appropriately groomed, obese EENT: EOMI. Hearing intact to soft voice RESPIRATORY: Clear to auscultation bilaterally, no increased work of breathing CARDIOVASCULAR: Regular Rate/ Rhythm, edema or tenderness in BUE or BLE. All extremities warm. Slight swelling in BLE, likely improve after HD. GI: + bowel sounds, soft, NTTP, nondistended. INTEGUMENTARY: Normal, no lesion, rash, masses or bruising noted in extremities. Bilateral upper extremity vascular access scars MUSCULOSKELETAL: BUE and BLE normal without defect, crepitus, subluxation, effusion, arthritic changes or TTP. BUE 5/5, good ROM, with normal tone. BLE 4+/5 good ROM, with normal tone NEURO: CN 2-12 grossly intact. Sensation intact in all extremities. No tremor noted in 4 extremities. POSTURE and GAIT: Sitting posture good. Balance appears reasonable. Gait reasonable with weakness noted at the bilateral hip flexors as well as minor loss of balance from time to time. PSYCH: Alert, oriented x3, affect appears normal. Insight appears intact. - Constitutional Vitals: Vital Signs - 12hr 07/18/19 07/18/19 04:16 07:30 Temperature 36.6 C 36.7 C Pulse Rate 83 85 Respiratory 19 18 Rate Blood Pressure 137/49 118/40 O2 Sat by Pulse 95 100 Oximetry - Allied health notes Allied health notes reviewed: nursing, PT, OT FIMS assessment as documented by PT/OT/ST: Grooming Patient cleans teeth/dentures: Yes Patient lopez/brushes hair: Yes Patient washes, rinses and Yes dries face: Patient washes, rinses and Yes dries hands: Patient shaves: No Patient applies make-up: No Patient performs (no make-up/ 03/03 (100%) shaving): Grooming FIM Score 6. Modified [place] (Needs equipment/device . Extra time.) Toileting Toileting Device Commode over Toilet,Grab Bar Patient able to: Adjust clothes before,Clean self,Adjust clothes after Patient able to perform: 3/3 (100%) Toileting FIM Score 6. Modified [place] (Needs equip. or prosth ./orth.) Social interaction/Memory/Problem solving Social Interaction FIM Score 7. Complete [place] (Interacts appropriately. Controls temper.) Memory FIM Score 6. Modified [place](Mild difficulty remembering people/routines.) Problem Solving FIM Score 6. Mod. [place] (Mild difficulty or needs more time w/ complex.) Transfers Mode of Locomotion: Walking Bed/Chair/Wheelchair Transfers 5. Supervision (Needs supv. or set-up for FIM Score sliding board, foot rests.) Toilet Transfers FIM Score 5. Supervision (Needs supervision or cueing.) Patient transferred to: Shower Shower Transfers FIM Score 5. Supervision (Needs supv. or set-up with device.) Locomotion- Stairs Device used on Stairs Handrail/s Number of Stairs Ascended/ 8 Descended Patient used handrail/support: Yes Stairs FIM Score 2. Maximal Assistance (Patient = 25% or more, 4- 6 stairs.) Locomotion- walk/wheelchair Most Frequent Mode of Walking Locomotion: Ambulation Distance 150 Walking FIM Score 4. Minimal Assistance (Patient = 75% or more. Minimum of 150 ft.) Wheelchair Propulsion Distance 150 Wheelchair FIM Score 5. Supervision (Minimum 150 ft. supv./cues or 50 ft. independently.) Eating Eating Device Adjusted Table Height Eating FIM Score 6. Modified [place] (Special consistency or uses device.) Dressing-Upper body Patient retrieves clothing Yes items: Patient applies/removes UE No prosthesis or orthosis: Upper Body Dressing FIM Score 6. Modified [place] (Needs equipment, velcro or pros./orth.) Dressing-lower body Patient retrieves clothing Yes items: Patient applies/removes LE No prosthesis or orthosis: Lower Body Dressing FIM Score 6. Modified [place] (Needs equipment, velcro or pros./orth.) - Labs CBC & Chem 7: 07/15/19 16:04 07/15/19 16:04 Labs: Laboratory Results - last 72 hr 07/14/19 07/15/19 07/15/19 13:45 16:04 16:04 WBC 3.9 L RBC 3.50 L Hgb 10.9 L D Hct 32.6 L D MCV 93 MCH 31 MCHC 33 RDW 17.5 H Plt Count 125 L PT 20.3 H INR 1.78 H Sodium Potassium Chloride Carbon Dioxide Anion Gap BUN Creatinine Estimated GFR BUN/Creatinine Ratio Glucose Calcium Crossmatch See Detail 07/15/19 07/16/19 07/17/19 16:04 07:45 06:31 WBC RBC Hgb Hct MCV MCH MCHC RDW Plt Count PT 20.3 H 18.5 H INR 1.78 H 1.58 H Sodium 134 L Potassium 4.0 Chloride 94.8 L Carbon Dioxide 27 Anion Gap 16 BUN 21 H Creatinine 6.2 H Estimated GFR 12 BUN/Creatinine Ratio 3 Glucose 133 H Calcium 8.8 D Crossmatch Assessment and Plan G70.9 NeuroMuscular weakness: 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 PT & OT will work on strengthening exercises to improve functional strength including mixture of closed and open kinetic chain exercises. ESRD on HD: Consult nephrology. HD MWF. Avoid nephrotoxic medications. DVT: Continue coumadin with goal INR 2-3. Pharm consult per protocol. Patient states 15mg at home. GERD: Continue protonix, monitor Hypotension: monitor, used midodrine in past but not tolerated, will attempt again. Vit B12 deficiency: Continue replacement. Refuses IM Anemia: continue epoetin in HD. Transfused 2 units, improved Z73.6 ADL dysfunction: OT will work on improving ability to perform ADLs (including assistive devices) to increase independence and decrease caregiver burden and improve functional transfers and mobility training. R26.2 Difficulty walking: PT will work on gait training and proper use of assistive devices and advance as appropriate to use of stairs and outside ambulation on uneven surfaces. R26.81 Unsteadiness on feet: PT will work on improving static and dynamic sitting and standing balance as well as proper use of assistive devices to d ecrease risk of falls. R26.89 Abnormality of gait: PT will work to improve safety and efficiency of gait through neuromotor training and gait training along with instruction on proper use of assistive devices. R53.81 Debility: PT & OT will work on improving overall functional status to improve participation with ADLs, mobility and social involvement. R53.83 Fatigue: PT & OT will work on improving endurance through aerobic exercises and therapeutic activity while monitoring patients tolerance for activity and vital signs as needed. DVT ppx: Coumadin for DVT, Goal INR 2-3 Pain: Continue physical modalities in therapy and pain medications as needed to achieve functional pain control. Sleep: Monitor and address as needed. Bowel: Monitor and address as needed. Appetite: Monitor and address as needed. Discharge planning: [place] Thursday. Will continue discussion with therapy team, SW, patient and family. Restrictions/ Precautions: Falls WB status: FWB Functional Hx: ADLs: Independent Cognition: Independent Mobility: RW Barriers to Discharge: Decreased mobility and ability to perform self care, balance deficits, weakness Estimated Length of Stay: 7-10 days Discharge Destination: Home with significant other
--- NOTE | 2019-07-18 11:34 | Progress Note ---
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 Continue hemodialysis MWF * UF as tolerated * Continue Midodrine to 10mg TID - BP improved * Renal diet. Binders with meals * Epogen TIW prn. He is s/p pRBC transfusion on Jul 14 * AM labs * Stable for d/c from a renal standpoint * Agree with bladder scan given urinary symptoms, would also consider urinalysis if able Subjective Date of service: 07/18/19 Principal diagnosis: Neuromuscular weakness Interval history: no acute concerns this am. ready for discharge tomorrow, will follow at [facility]. no issues with recent dialysis sessions. notes some feeling of urinary hesistancy, which he notes is strange given he has been anuric for 20 years Objective - Exam Narrative Exam: General appearance: well-developed, well-nourished EENT: ATNC Respiratory: Present: Clear to Ascultation Cardiology: regular, S1S2 Gastrointestinal: normal, no tenderness, no distended Integumentary: no rash, warm and dry Neurologic: no focal deficit, alert and oriented x3 Musculoskeletal: other (trace edema) Psychiatric: cooperative - Vital Signs Vital signs: Vital Signs - 12hr 07/18/19 07/18/19 04:16 07:30 Temperature 97.9 F 98.0 F Pulse Rate 83 85 Respiratory 19 18 Rate Blood Pressure 137/49 118/40 O2 Sat by Pulse 95 100 Oximetry - Lab 07/15/19 16:04 07/15/19 16:04 Most recent lab results Calcium 8.8 mg/dL (8.4-10.2) D 07/15/19 16:04 Phosphorus 4.00 mg/dL (2.5-4.5) 07/08/19 13:36 Medications & Allergies - Medications Allergies/Adverse Reactions: Allergies No Known Allergies Allergy (Verified 06/19/19 06:20) Home Medications: Home Medications Medication Instructions Recorded Confirmed Last Taken Type B Complex W-C No.20/Folic Acid 1 mg PO QAM #30 capsule 06/23/19 07/08/19 07/07/19 Rx [Nephrocaps Softgel] Calcitriol [Rocaltrol] 0.5 mcg PO QDAY #30 capsule 06/23/19 07/08/19 07/07/19 Rx Calcium Acetate [Phoslo] 667 mg PO TID #90 capsule 06/23/19 07/08/19 07/07/19 Rx Epoetin Ellis 10,000 Unit [Procrit] 10,000 unit IV RIP PRN vial 06/23/19 0 07/08/19 07/07/19 Rx Pantoprazole Sodium [Protonix] 40 mg PO QAM #30 grankanika. 06/23/19 07/08/19 0 07/07/19 Rx Warfarin [Coumadin] 15 mg PO QDAY #30 tablet 06/23/19 07/08/19 07/07/19 Rx oxyCODONE /ACETAMINOPHEN [Percocet 1 tab PO Q6H PRN #10 tablet 06/23/19 07/08/19 07/07/19 Rx 5/325 mg] Doxycycline Monohydrate 100 mg PO BID #24 tablet 06/29/19 07/08/19 07/07/19 Rx Active Medications: Generic Name Dose Route Start Last Admin Trade Name Freq PRN Reason Stop Dose Admin Acetaminophen 650 mg 07/07/19 16:00 Tylenol PO Q4H PRN Pain MILD(1-3)/Fever >100.5/BANDA Albuterol 2.5 mg 07/17/19 11:31 Proventil IH Q4HRT PRN Shortness Of Breath Bisacodyl 10 mg 07/07/19 16:00 Dulcolax [place] QDAY PRN Constipation unrelieved by MOM Calcitriol 0.5 mcg 07/08/19 08:00 07/18/19 08:44 Rocaltrol PO 0.5 mcg QDAY DELMAR Administration Calcium Acetate 2,668 mg 07/09/19 17:00 07/18/19 08:43 Phoslo PO 2,668 mg TIDWM DELMAR Administration Cyanocobalamin 1,000 mcg 07/08/19 08:00 07/18/19 08:43 Vitamin B-12 PO 1,000 mcg QDAY DELMAR Administration Epoetin Ellis 10,000 unit 07/12/19 11:00 07/15/19 19:54 Procrit IV 10,000 unit RIP PRN Administration hemodialysis Sodium Chloride 100 mls @ 999 mls/hr 07/14/19 12:00 Nacl 0.9% IV RIP PRN Hypotension Midodrine 10 mg 07/14/19 12:00 07/18/19 08:44 Proamatine PO 10 mg TID@0800,1200,1600 [facility] Administration Multivit/Ca Carb/B Cmplx/FA/Prenat 1 cap 07/08/19 08:00 07/18/19 08:44 Renal Caps PO 1 cap QDAY DELMAR Administration Pantoprazole Sodium 40 mg 07/08/19 08:00 07/18/19 08:44 Protonix PO 40 mg QDAY DELMAR Administration Warfarin Sodium 10 mg 07/12/19 17:00 07/17/19 17:07 Coumadin PO 10 mg DAILY@1700 [facility] Administration Warfarin Sodium 5 mg 07/17/19 17:00 07/17/19 17:08 Coumadin PO 5 mg DAILY@1700 [facility] Administration
[2019-07-18] MEDS: COUMADIN PO SCH ×2 (16:39→16:40)
[2019-07-18] MEDS: NORCO 5/325 PO PRN (23:02)
[2019-07-19] MEDS: Renal Caps PO SCH (08:31)
[2019-07-19] MEDS: PROTONIX PO SCH (08:31)
[2019-07-19] MEDS: PROAMATINE PO SCH ×3 (08:31→23:04)
[2019-07-19] MEDS: PHOSLO PO SCH ×3 (08:31→23:04)
[2019-07-19] MEDS: VITAMIN B-12 PO SCH (08:31)
[2019-07-19] MEDS: ROCALTROL PO SCH (08:31)
--- NOTE | 2019-07-19 10:08 | Progress Note ---
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 Continue hemodialysis MWF- will plan for HD in hospital tomorrow if he is still inpatient, otherwise patient educated to go to usual dialysis session at [facility] * UF as tolerated * Continue Midodrine to 10mg TID * Renal diet. Binders with meals * Epogen TIW prn. He is s/p pRBC transfusion on Jul 14 * AM labs Subjective Date of service: 07/19/19 Principal diagnosis: Neuromuscular weakness Interval history: no acute concerns this am. notes that he is continuing to have the strange sensation around his bladder area, but still has no urine output. denies any shortness of breath, chest pain, nausea, vomiting, loss of appetite, or other concerning symptoms. Objective - Exam Narrative Exam: General appearance: well-developed, well-nourished EENT: ATNC Respiratory: Present: Clear to Ascultation Cardiology: regular, S1S2 Gastrointestinal: normal, no tenderness, no distended Integumentary: no rash, warm and dry Neurologic: no focal deficit, alert and oriented x3 Musculoskeletal: no edema Psychiatric: cooperative - Vital Signs Vital signs: Vital Signs - 12hr 07/18/19 07/19/19 07/19/19 23:02 06:01 07:55 Temperature 97.5 F L 97.7 F Pulse Rate 75 78 Respiratory 16 18 18 Rate Blood Pressure 122/36 118/28 Blood Pressure 123/42 [Left] O2 Sat by Pulse 99 99 Oximetry - Lab 07/15/19 16:04 07/15/19 16:04 Most recent lab results Calcium 8.8 mg/dL (8.4-10.2) D 07/15/19 16:04 Phosphorus 4.00 mg/dL (2.5-4.5) 07/08/19 13:36 Medications & Allergies - Medications Allergies/Adverse Reactions: Allergies No Known Allergies Allergy (Verified 06/19/19 06:20) Home Medications: Home Medications Medication Instructions Recorded Confirmed Last Taken Type B Complex W-C No.20/Folic Acid 1 mg PO QAM #30 capsule 06/23/19 07/08/1907/07/19 Rx [Nephrocaps Softgel] Calcitriol [Rocaltrol] 0.5 mcg PO QDAY #30 capsule 06/23/19 07/08/19 07/07/19 Rx Calcium Acetate [Phoslo] 667 mg PO TID #90 capsule 06/23/19 07/08/19 07/07/19 Rx Epoetin Ellis 10,000 Unit [Procrit] 10,000 unit IV RIP PRN vial 06/23/19 07/08/19 07/07/19 Rx Pantoprazole Sodium [Protonix] 40 mg PO QAM #30 granpkt. 06/23/19 07/08/19 07/07/19 Rx Warfarin [Coumadin] 15 mg PO QDAY #30 tablet 06/23/19 07/08/19 07/07/19 Rx oxyCODONE /ACETAMINOPHEN [Percocet 1 tab PO Q6H PRN #10 tablet 06/23/19 07/08/19 07/07/19 Rx 5/325 mg] Doxycycline Monohydrate 100 mg PO BID #24 tablet 06/29/19 07/08/19 07/07/19 Rx Active Medications: Generic Name Dose Route Start Last Admin Trade Name Freq PRN Reason Stop Dose Admin Acetaminophen 650 mg 07/07/19 16:00 Tylenol PO Q4H PRN Pain MILD(1-3)/Fever >100.5/BANDA Acetaminophen/Hydrocodone Bitart 1 each 07/18/19 22:47 07/18/19 23:02 [place] 5/325 PO 1 each Q6H PRN Administration Pain, Moderate (4-6) Albuterol 2.5 mg 07/17/19 11:31 Proventil IH Q4HRT PRN Shortness Of Breath Bisacodyl 10 mg 07/07/19 16:00 Dulcolax IN QDAY PRN Constipation unrelieved by MOM Calcitriol 0.5 mcg 07/08/19 08:00 07/19/19 08:31 Rocaltrol PO 0.5 mcg QDAY DELMAR Administration Calcium Acetate 2,668 mg 07/09/19 17:00 07/19/19 08:31 Phoslo PO 2,668 mg TIDWM DELMAR Administration Cyanocobalamin 1,000 mcg 07/08/19 08:00 07/19/19 08:31 Vitamin B-12 PO 1,000 mcg QDAY DELMAR Administration Epoetin Ellis 10,000 unit 07/12/19 11:00 07/15/19 19:54 Procrit IV 10,000 unit RIP PRN Administration hemodialysis Sodium Chloride 100 mls @ 999 mls/hr 07/14/19 12:00 Nacl 0.9% IV RIP PRN Hypotension Midodrine 10 mg 07/14/19 12:00 07/19/19 08:31 Proamatine PO 10 mg TID@0800,1200,1600 [facility] Administration Multivit/Ca Carb/B Cmplx/FA/Prenat 1 cap 07/08/19 08:00 07/19/19 08:31 Renal Caps PO 1 cap QDAY DELMAR Administration Pantoprazole Sodium 40 mg 07/08/19 08:00 07/19/19 08:31 Protonix PO 40 mg QDAY DELMAR Administration Trazodone HCl 75 mg 07/19/19 21:00 Desyrel PO QHS [facility] Warfarin Sodium 10 mg 07/12/19 17:00 07/18/19 16:40 Coumadin PO 10 mg DAILY@1700 DELMAR Administration Warfarin Sodium 5 mg 07/17/19 17:00 07/18/19 16:39 Coumadin PO 5 mg DAILY@1700 DELMAR Administration
--- NOTE | 2019-07-19 11:41 | Discharge Summary ---
Providers - Providers Date of Admission: 07/07/19 19:31 Date of discharge: 07/19/19 Attending physician: JORGE MOMIN III, MD 07/07/19 15:34 Occupational Therapy Evaluate and Treat [CONS] Routine Comment: Reason For Exam: ADL dysfunction Physical Therapy Evaluation and Treat [CONS] Routine Comment: Reason For Exam: Mobility Dysfunction 07/07/19 16:00 Consult to Dietitian/Nutrition [CONS] Routine Physician Instructions: Reason For Exam: Reason for Consult: Diet education Consult to Physician [CONS] Routine Comment: called answ. serv. / monisha Consulting Provider: HANNA BARRERA Physician Instructions: ESRD on HD Reason For Exam: ESRD on HD 07/07/19 16:04 Consult to Case Management [CONS] Routine Services Needed at Discharge: Home Health Services Notified:: QUALITY ASSURANCEhealthcare administration intern physician: MEDICAL RECORD LIBRARIAN Hospitalization Reason for admission: Neuromuscular weakness Condition: Good Hospital course: 48-year-old male with sudden inability to stand who went to the ER at [place] and was worked up. Reportedly had a fever of 102.6 at hemodialysis the Thursday prior. Blood cultures were drawn but were negative. Patient has been on hemodialysis for 28 years and has been anuric for 20 years. Further workup included looking at vitamin levels as well as nerve conduction study/EMG. We requested the results of that study however they were not made available by case management who said that she thought they it was not done, however patient confirms the test was done and he was told by the neurologist that the results showed neuropathy bilateral lower extremities worse distally than proximally. 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 Patient is a vegan and has been for the past several years. His diagnosed recently with bilateral lower extremity DVTs and is on Coumadin. He states that his home dose which gives some therapeutic is 15 mg daily. He was discharged to us on 10 mg daily. There is some confusion on report as we were told he was given his nightly dose before coming to us however he states that it was held because he was supratherapeutic. He continues to be supratherapeutic and will monitor his PT/INR restart accordingly. Dosing difference likely due in part to his dietary availability which is different than what he is eating at home currently. He also has a history of recent falls for which he started utilizing a RW and PT. According to the records that were able to be reviewed the patient was moderate assistance with therapy for mobility. He does have a spiral staircase and history of falls which will be difficult for him to maneuver on in his current state. However he has progressed slightly between his last records that we were given to review and his presentation. He does have deficits and we will continue to work with and will likely discharge a little bit sooner than the projected 10-14 days, likely in 7 days at this point. Patient progress well with therapy and made a quick recovery. At time of discharge with occupational therapy he was supervision or modified independent with his ADLs. He recovered his ability to walk with slight compensatory maurizio ation in his gait and continues to have bilateral hip weakness. He is able to walk without assistive device at this time but at times does need either a rolling walker are straight cane for assistance. He has a rolling walker at home and will continue using that until he improves further. During his stay his INR levels were erratic. He states that he is typically between 2 and 3 on his INR on his home dose of Coumadin at 15 mg a day. There is likely some difference in diet compared to what he is eating at home versus what he is getting here. He will have a quick follow-up with primary care to follow and adjust his Coumadin levels appropriately. We had two days that he was dizzy and unable to to perform in therapy and was placed on medical hold. His blood pressures were typically low to begin with however on these days he was exceedingly low. Hemoglobin showed that he had dropped to 7.0. We transfused 2 units during a short session of dialysis and he improved and was able to return to therapy. Nephrology also started him on Midodrine for hypotension and we've seen an improvement since then. He did refuse dialysis yesterday and spoke with nephrology about this. Nephrology evaluated him today and said he will be okay to undergo dialysis tomorrow on his regular schedule at his dialysis center. Over the weekend he developed an urgency to urinate although he has been anuric for approximately 19 years. He describes this as an urgent and a fullness more so in his penis and bladder. Discussed with nephrology this morning the possibility of this being a UTI but we would obviously have no way of checking to confirm this. We'll treat with a dose of Rocephin IM prior to discharge. Disposition: DC-01 TO HOME OR SELFCARE Time spent for discharge: >30mins - Discharge Diagnoses (1) Neuromuscular weakness Status: Acute (2) Anemia Status: Chronic Qualifiers: Anemia type: due to chronic kidney disease Chronic kidney disease stage: on chronic dialysis Qualified Code(s): N18.6 - End stage renal disease; D63.1 - Anemia in chronic kidney disease; Z99.2 - Dependence on renal dialysis (3) End stage renal disease Status: Chronic Core Measure Documentation - Palliative Care Palliative Care/ Comfort Measures: Not Applicable - Core Measures Any of the following diagnoses?: DVT/PE (chronic) - VTE Discharge Requirements Deep Vein Thrombosis/Pulmonary Embolism Present on Admission: Yes Has pt received <5 days of overlap therapy or INR<2.0: Yes (INR <2, ESRD unable to take lovenox) Anticoagulant overlap therapy prescribed at discharge: No Contraindication No Overlap Therapy order at DC: Not Indicated Exam - Physical Exam Narrative exam: MUSCULOSKELETAL SPECIALTY EXAM CONSTITUTIONAL: Well developed, well nourished, appropriately groomed, obese EENT: EOMI. Hearing intact to soft voice RESPIRATORY: Clear to auscultation bilaterally, no increased work of breathing CARDIOVASCULAR: Regular Rate/ Rhythm, edema or tenderness in BUE or BLE. All extremities warm. Slight swelling in BLE, likely improve after HD. GI: + bowel sounds, soft, NTTP, nondistended. : No discharge from penis, NTTP INTEGUMENTARY: Normal, no lesion, rash, masses or bruising noted in extremities. Bilateral upper extremity vascular access scars MUSCULOSKELETAL: BUE and BLE normal without defect, crepitus, subluxation, effusion, arthritic changes or TTP. BUE 5/5, good ROM, with normal tone. BLE 4+/5 good ROM, with normal tone NEURO: CN 2-12 grossly intact. Sensation intact in all extremities. No tremor noted in 4 extremities. POSTURE and GAIT: Sitting posture good. Balance appears reasonable. Gait reasonable with weakness noted at the bilateral hip flexors as well as minor loss of balance from time to time. PSYCH: Alert, oriented x3, affect appears normal. Insight appears intact. - Constitutional Vitals: Temp Pulse Resp BP Pulse Ox 36.5 C 78 18 123/42 99 07/19/19 07:55 07/19/19 07:55 08/20/19 07:55 07/19/19 07:55 07/19/19 07:55 Plan Activity: advance as tolerated, fall precautions Diet: renal Special Instructions: record daily weights, record daily BP diary, physical therapy, occupational therapy Durable Medical Equipment Needed Upon Discharge: Walker-Rolling Follow up with: PRIMARY CARE, [Primary Care Provider] - 7 Days Forms: Warfarin Discharge Instruction Prescriptions: Warfarin [Coumadin] 10 mg PO DAILY@1700 30 Days tablet Warfarin [Coumadin] 5 mg PO DAILY@1700 30 Days tablet Calcium Acetate [Phoslo] 2,668 mg PO TIDWM 30 Days capsule Midodrine [Proamatine] 10 mg PO TID@0800,1200,1600 30 Days tablet Pantoprazole [Protonix TAB] 40 mg PO QDAY 30 Days tablet Folic Acid/Vit B Comp W-C [Renal Caps] 1 cap PO QDAY 30 Days capsule Calcitriol [Rocaltrol] 0.5 mcg PO QDAY #30 capsule Cyanocobalamin [Vitamin B-12] 1,000 mcg PO QDAY 30 Days tablet
[2019-07-19] MEDS ORDERED: ROCEPHIN IM ONE (12:00)
[2019-07-19] MEDS ORDERED: XYLOCAINE 1% MPF 5 mL INFILTRATI ONE (12:00)
[2019-07-19 12:40] LABS: INR 1.37 (0.87-1.13)
[2019-07-19] MEDS ORDERED: COUMADIN PO ONE (15:00)
[2019-07-19] MEDS: NORCO 5/325 PO PRN ×2 (15:31→22:37)
[2019-07-19] MEDS: COUMADIN PO SCH ×2 (15:31→15:32)
[2019-07-19] MEDS: DESYREL PO SCH (23:06)
[2019-07-20 07:33] LABS: INR 1.31 (0.87-1.13)
[2019-07-20] MEDS: PHOSLO PO SCH ×3 (08:26→16:38)
[2019-07-20] MEDS: PROAMATINE PO SCH ×3 (08:29→16:36)
[2019-07-20] MEDS: NORCO 5/325 PO PRN (09:13)
[2019-07-20] MEDS: VITAMIN B-12 PO SCH (09:18)
[2019-07-20] MEDS: PROTONIX PO SCH (09:19)
--- NOTE | 2019-07-20 09:37 | Progress Note ---
Subjective Date of service: 07/20/19 Principal diagnosis: Neuromuscular weakness Interval history: 48-year-old male with sudden inability to stand who went to the ER at [place] and was worked up. Reportedly had a fever of 102.6 at hemodialysis the Thursday prior. Blood cultures were drawn but were negative. Patient has been on hemodialysis for 28 years and has been anuric for 20 years. Further workup included looking at vitamin levels as well as nerve conduction study/EMG. We requested the results of that study however they were not made available by case management who said that she thought they it was not done, however patient confirms the test was done and he was told by the neurologist that the results showed neuropathy bilateral lower extremities worse distally than proximally. 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 Patient is a vegan and has been for the past several years. His diagnosed recently with bilateral lower extremity DVTs and is on Coumadin. He states that his home dose which gives some therapeutic is 15 mg daily. He was discharged to us on 10 mg daily. There is some confusion on report as we were told he was given his nightly dose before coming to us however he states that it was held because he was supratherapeutic. He continues to be supratherapeutic and will monitor his PT/INR restart ac cordingly. Dosing difference likely due in part to his dietary availability which is different than what he is eating at home currently. He also has a history of recent falls for which he started utilizing a RW and PT. Patient was DC'd home yesterday however I was notified last night at approxima tely 2200 hrs. that the patient did not leave. Patient has completed therapy and is by all accounts doing fairly well however he states that he is having this painful urge to urinate. Denies any pain in the groin proper but does say that he has penile pain. Upon inspection yesterday did not note any outward injury nor was there any discharge from the penis. Discussed with the horizontal boring mill operator yesterday concerning the possibility of having a urinary tract infection even though the patient is an uric and has been for approximately 19 years and determine this may be the case. Yesterday he was given an IM dose of Rocephin. Patient does state that the pain is much worse today was unable to lie down and had to sit up all day. He is now been taken for hemodialysis. Will consult urology to see if we can determine reason for his sudden penile pain. Since the patient is finished with therapy we may need to discharge him and have him follow-up with medicine on the acute care side. As far as INR is stayed the same unfortunately. Discussed with pharmacy as well. I did give her an extra dose of 5 mg yesterday morning before his scheduled discharge however when he stayed he was only given 10 mg not the full 15 that he was supposed to be given. Have ordered again for him to get 5 mg ext ra this morning on top of his normal 15 mg dose. We will likely need to have a higher dose somewhere between 17 and 20 mg in order for him to be therapeutic which will be adjusted once he goes home. All records, vitals, labs and medications were reviewed. No other issues per patient, nursing or therapy. Objective - Exam Narrative Exam: MUSCULOSKELETAL SPECIALTY EXAM CONSTITUTIONAL: Well developed, well nourished, appropriately groomed, obese EENT: EOMI. Hearing intact to soft voice RESPIRATORY: Clear to auscultation bilaterally, no increased work of breathing CARDIOVASCULAR: Regular Rate/ Rhythm, edema or tenderness in BUE or BLE. All extremities warm. Slight swelling in BLE, likely improve after HD. GI: + bowel sounds, soft, NTTP, nondistended. INTEGUMENTARY: Normal, no lesion, rash, masses or bruising noted in extremities. Bilateral upper extremity vascular access scars MUSCULOSKELETAL: BUE and BLE normal without defect, crepitus, subluxation, effusion, arthritic changes or TTP. BUE 5/5, good ROM, with normal tone. BLE 4+/5 good ROM, with normal tone NEURO: CN 2-12 grossly intact. Sensation intact in all extremities. No tremor noted in 4 extremities. POSTURE and GAIT: Sitting posture good. Balance appears reasonable. Gait reasonable with weakness noted at the bilateral hip flexors as well as minor loss of balance from time to time. PSYCH: Alert, oriented x3, affect appears normal. Insight appears intact. - Constitutional Vitals: Vital Signs - 12hr 07/19/19 07/20/19 23:54 07:00 Temperature 36.7 C 36.5 C Pulse Rate 82 76 Respiratory 20 18 Rate Blood Pressure 109/46 Blood Pressure 127/39 [Left] O2 Sat by Pulse 95 100 Oximetry - Allied health notes FIMS assessment as documented by PT/OT/ST: Grooming Patient cleans teeth/dentures: Yes Patient lopez/brushes hair: Yes Patient washes, rinses and Yes dries face: Patient washes, rinses and Yes dries hands: Patient shaves: No Patient applies make-up: No Patient performs (no make-up/ 03/03 (100%) shaving): Grooming FIM Score 6. Modified [place] (Needs equipment/device . Extra time.) Toileting Toileting Device Commode over Toilet,Grab Bar Patient able to: Adjust clothes before,Clean self,Adjust clothes after Patient able to perform: 3/3 (100%) Toileting FIM Score 6. Modified [place] (Needs equip. or prosth ./orth.) Social interaction/Memory/Problem solving Social Interaction FIM Score 7. Complete [place] (Interacts appropriately. Controls temper.) Memory FIM Score 7. Complete [place] (Remembers people and routines.) Problem Solving FIM Score 7. Complete [place] (Solves complex problems. Self corrects.) Transfers Mode of Locomotion: Walking Bed/Chair/Wheelchair Transfers 7. Complete [place] (Walking: Stands. W/C: FIM Score Locks brakes, pivots.) Toilet Transfers FIM Score 5. Supervision (Needs supervision or cueing.) Patient transferred to: Shower Shower Transfers FIM Score 5. Supervision (Needs supv. or set-up with device.) Locomotion- Stairs Device used on Stairs Handrail/s Number of Stairs Ascended/ 16 Descended Patient used handrail/support: Yes Stairs FIM Score 6. Modified [place] (12-14 stairs using handrail/support.) Locomotion- walk/wheelchair Most Frequent Mode of Walking Locomotion: Ambulation Distance 200 Walking FIM Score 7. Complete [place] (150 ft. or more, safely with no device.) Wheelchair Propulsion Distance 340 Wheelchair FIM Score 6. Modified [place] (Wheels a minimum of 150 ft.) Eating Eating Device Adjusted Table Height Eating FIM Score 6. Modified [place] (Special consistency or uses device.) Dressing-Upper body Patient retrieves clothing Yes items: Patient applies/removes UE No prosthesis or orthosis: Upper Body Dressing FIM Score 6. Modified [place] (Needs equipment, velcro or pros./orth.) Dressing-lower body Patient retrieves clothing Yes items: Patient applies/removes LE No prosthesis or orthosis: Lower Body Dressing FIM Score 5. 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 PT & OT will work on strengthening exercises to improve functional strength including mixture of closed and open kinetic chain exercises. ESRD on HD: Consult nephrology. HD MWF. Avoid nephrotoxic medications. DVT: Continue coumadin with goal INR 2-3. Pharm consult per protocol. Patient states 15mg at home. GERD: Continue protonix, monitor Hypotension: monitor, used midodrine in past but not tolerated, will attempt again. Vit B12 deficiency: Continue replacement. Refuses IM Anemia: continue epoetin in HD. Transfused 2 units, improved Z73.6 ADL dysfunction: OT will work on improving ability to perform ADLs (including assistive devices) to increase independence and decrease caregiver burden and improve functional transfers and mobility training. R26.2 Difficulty walking: PT will work on gait training and proper use of assistive devices and advance as appropriate to use of stairs and outside ambulation on uneven surfaces. R26.81 Unsteadiness on feet: PT will work on improving static and dynamic sitting and standing balance as well as proper use of assistive devices to decrease risk of falls. R26.89 Abnormality of gait: PT will work to improve safety and efficiency of gait through neuromotor training and gait training along with instruction on proper use of assistive devices. R53.81 Debility: PT & OT will work on improving overall functional status to improve participation with ADLs, mobility and social involvement. R53.83 Fatigue: PT & OT will work on improving endurance through aerobic exercises and therapeutic activity while monitoring patients tolerance for activity and vital signs as needed. DVT ppx: Coumadin for DVT, Goal INR 2-3 Pain: Continue physical modalities in therapy and pain medications as needed to achieve functional pain control. Sleep: Monitor and address as needed. Bowel: Monitor and address as needed. Appetite: Monitor and address as needed. Discharge planning: DC Thursday. Will continue discussion with therapy team, SW, patient and family. Restrictions/ Precautions: Falls WB status: FWB Functional Hx: ADLs: Independent Cognition: Independent Mobility: RW Barriers to Discharge: Decreased mobility and ability to perform self care, balance deficits, weakness Estimated Length of Stay: 7-10 days Discharge Destination: Home with significant other - Patient Problems (1) Neuromuscular weakness Current Visit: Yes Status: Acute (2) Anemia Current Visit: No Status: Chronic Qualifiers: Anemia type: due to chronic kidney disease Chronic kidney disease stage: on chronic dialysis Qualified Code(s): N18.6 - End stage renal disease; D63.1 - Anemia in chronic kidney disease; Z99.2 - Dependence on renal dialysis (3) End stage renal disease Current Visit: No Status: Chronic
[2019-07-20] MEDS ORDERED: COUMADIN PO ONE (10:00)
--- NOTE | 2019-07-20 10:00 | Progress Note ---
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 Binders with meals * Epogen TIW prn. He is s/p pRBC transfusion on Jul 14 * AM labs while inpatient on HD days * s/p rocephin per primary Subjective Date of service: 07/20/19 Principal diagnosis: Neuromuscular weakness Interval history: no acute concerns this am. seen on HD, wants to have 4L UF if tolerated. He continues to have the strange sensation around his bladder area, but still has no urine output; started on antibiotics in case of UTI. he denies any shortness of breath, chest pain, nausea, vomiting, loss of appetite, or other concerning symptoms. Objective - Exam Narrative Exam: General appearance: well-developed, well-nourished EENT: ATNC Respiratory: Present: Clear to Ascultation Cardiology: regular, S1S2 Gastrointestinal: normal, no tenderness, no distended Integumentary: no rash, warm and dry Neurologic: no focal deficit, alert and oriented x3 Musculoskeletal: no edema Psychiatric: cooperative - Vital Signs Vital signs: Vital Signs - 12hr 07/19/19 07/20/19 23:54 07:00 Temperature 98.0 F 97.7 F Pulse Rate 82 76 Respiratory 20 18 Rate Blood Pressure 109/46 Blood Pressure 127/39 [Left] O2 Sat by Pulse 95 100 Oximetry - Lab 07/15/19 16:04 07/15/19 16:04 Most recent lab results Calcium 8.8 mg/dL (8.4-10.2) D 07/15/19 16:04 Phosphorus 4.00 mg/dL (2.5-4.5) 07/08/19 13:36 Medications & Allergies - Medications Allergies/Adverse Reactions: Allergies No Known Allergies Allergy (Verified 06/19/19 06:20) Home Medications: Home Medications Medication Instructions Recorded Confirmed Last Taken Type Calcitriol [Rocaltrol] 0.5 mcg PO QDAY #30 capsule 07/19/19 Unknown Rx Calcium Acetate [Phoslo] 2,668 mg PO TIDWM 30 Days capsule 07/19/19 Unknown Rx Cyanocobalamin [Vitamin B-12] 1,000 mcg PO QDAY 30 Days tablet 07/19/19 Unknown Rx Epoetin Ellis 10,000 Unit [Procrit] 10,000 unit IV RIP PRN vial 07/19/19 Unknown Rx Folic Acid/Vit B Comp W-C [Renal 1 cap PO QDAY 30 Days capsule 07/19/19 Unknown Rx Caps] Midodrine [Proamatine] 10 mg PO TID@0800,1200,1600 30 07/19/19 Unknown Rx Days tablet Pantoprazole [Protonix TAB] 40 mg PO QDAY 30 Days tablet 07/19/19 Unknown Rx Warfarin [Coumadin] 5 mg PO DAILY@1700 30 Days tablet 07/19/19 Unknown Rx Warfarin [Coumadin] 10 mg PO DAILY@1700 30 Days tablet 07/19/19 Unknown Rx Active Medications: Generic Name Dose Route Start Last Admin Trade Name Freq PRN Reason Stop Dose Admin Acetaminophen 650 mg 07/07/19 16:00 Tylenol PO Q4H PRN Pain MILD(1-3)/Fever >100.5/BANDA Acetaminophen/Hydrocodone Bitart 1 each 07/18/19 22:47 07/20/19 09:13 [place] 5/325 PO 1 each Q6H PRN Administration Pain, Moderate (4-6) Albuterol 2.5 mg 07/17/19 11:31 Proventil IH Q4HRT PRN Shortness Of Breath Bisacodyl 10 mg 07/07/19 16:00 Dulcolax [place] QDAY PRN Constipation unrelieved by MOM Calcitriol 0.5 mcg 07/08/19 08:00 07/19/19 08:31 Rocaltrol PO 0.5 mcg QDAY DELMAR Administration Calcium Acetate 2,668 mg 07/09/19 17:00 07/19/19 23:04 Phoslo PO Not Given TIDWM DELMAR Cyanocobalamin 1,000 mcg 07/08/19 08:00 07/20/19 09:18 Vitamin B-12 PO 1,000 mcg QDAY DELMAR Administration Epoetin Ellis 10,000 unit 07/12/19 11:00 07/15/19 19:54 Procrit IV 10,000 unit RIP PRN Administration hemodialysis Sodium Chloride 100 mls @ 999 mls/hr 07/14/19 12:00 Nacl 0.9% IV RIP PRN Hypotension Midodrine 10 mg 07/14/19 12:00 07/19/19 23:04 Proamatine PO Not Given TID@0800,1200,1600 [facility] Multivit/Ca Carb/B Cmplx/FA/Prenat 1 cap 07/08/19 08:00 07/19/19 08:31 Renal Caps PO 1 cap QDAY [facility] Administration Pantoprazole Sodium 40 mg 07/08/19 08:00 07/20/19 09:19 Protonix PO 40 mg QDAY [facility] Administration Trazodone HCl 75 mg 07/19/19 21:00 07/19/19 23:06 Desyrel PO 75 mg QHS [facility] Administration Warfarin Sodium 10 mg 07/12/19 17:00 07/19/19 15:32 Coumadin PO 10 mg DAILY@1700 [facility] Administration Warfarin Sodium 5 mg 07/17/19 17:00 07/19/19 15:31 Coumadin PO Not Given DAILY@1700 [facility] Warfarin Sodium 5 mg 07/20/19 10:00 Coumadin PO 07/20/19 10:01 ONCE ONE Protocol
[2019-07-20] MEDS: PROCRIT IV PRN (11:33)
[2019-07-20] MEDS ORDERED: NACL 0.9 (PRIMING MACHINE ONLY DIALYSIS) MC ONE (15:31)
--- NOTE | 2019-07-20 15:39 | Consultation ---
History of Present Illness - Reason for Consult Consult date: 07/20/19 - History of Present Illness new to our service CC-penile pain 48-year-old male with sudden inability to stand who went to the ER at [place] and was worked up. Reportedly had a fever of 102.6 at hemodialysis the Hema prior . Blood cultures were drawn but were negative. Patient has been on hemodialysis for 28 years and has been anuric for 20 years. Further workup included looking at vitamin levels as well as nerve conduction study/EMG. We requested the results of that study however they were not made available by case management who said that she thought they it was not done, however patient confirms the test was done and he was told by the neurologist that the results showed neuropathy bilateral lower extremities worse distally than proximally. 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 Patient is a vegan and has been for the past several years. His diagnosed recently with bilateral lower extremity DVTs and is on Coumadin. He states that his home dose which gives some therapeutic is 15 mg daily. He was discharged to us on 10 mg daily. There is some confusion on report as we were told he was given his nightly dose before coming to us however he states that it was held because he was supratherapeutic. He continues to be supratherapeutic. hemodialysis MWF Had transplant ---rejected & removed per pt (traumatic mcgee placement requiring cysto at that time) no urine outpt since the abd soft normal uncirc phallus normal testes A/P Pelvic& penile pain Hx of urethral trauma needs CTAP & cysto discussed with Dr. Nagel Past History Past Medical History: CAD, DVT, ESRD, pulmonary embolism, other Past Surgical History: mastectomy (gynecomastia), Other ( vascular access, uvulopalatoplasty) Social history: lives with family (in two-story with a spiral staircase with significant other), full code. denies: smoking, alcohol abuse, prescription drug abuse, IV drug use Family history: CAD, diabetes, hypertension, stroke, other (renal failure) Medications and Allergies Allergies Allergy/AdvReac Type Severity Reaction Status Date / Time No Known Allergies Allergy Verified 06/19/19 06:20 Home Medications Medication Instructions Recorded Confirmed Last Taken Type Calcitriol [Rocaltrol] 0.5 mcg PO QDAY #30 capsule 07/19/19 Unknown Rx Calcium Acetate [Phoslo] 2,668 mg PO TIDWM 30 Days capsule 07/19/19 Unknown Rx Cyanocobalamin [Vitamin B-12] 1,000 mcg PO QDAY 30 Days tablet 07/19/19 Unknown Rx Epoetin Ellis 10,000 Unit [Procrit] 10,000 unit IV RIP PRN vial 07/19/19 Unknown Rx Folic Acid/Vit B Comp W-C [Renal 1 cap PO QDAY 30 Days capsule 07/19/19 Unknown Rx Caps] Midodrine [Proamatine] 10 mg PO TID@0800,1200,1600 30 07/19/19 Unknown Rx Days tablet Pantoprazole [Protonix TAB] 40 mg PO QDAY 30 Days tablet 07/19/19 Unknown Rx Warfarin [Coumadin] 5 mg PO DAILY@1700 30 Days tablet 07/19/19 Unknown Rx Warfarin [Coumadin] 10 mg PO DAILY@1700 30 Days tablet 07/19/19 Unknown Rx Active Meds: Active Medications Acetaminophen (Tylenol) 650 mg PO Q4H PRN PRN Reason: Pain MILD(1-3)/Fever >100.5/BANDA Acetaminophen/Hydrocodone Bitart ([place] 5/325) 1 each PO Q6H PRN PRN Reason: Pain, Moderate (4-6) Last Admin: 07/20/19 09:13 Dose: 1 each Documented by: Albuterol (Proventil) 2.5 mg IH Q4HRT PRN PRN Reason: Shortness Of Breath Bisacodyl (Dulcolax) 10 mg [place] QDAY PRN PRN Reason: Constipation unrelieved by MOM Calcitriol (Rocaltrol) 0.5 mcg PO QDAY [facility] Last Admin: 07/19/19 08:31 Dose: 0.5 mcg Documented by: Calcium Acetate (Phoslo) 2,668 mg PO TIDWM [facility] Last Admin: 07/19/19 23:04 Dose: Not Given Documented by: Cyanocobalamin (Vitamin B-12) 1,000 mcg PO QDAY [facility] Last Admin: 07/20/19 09:18 Dose: 1,000 mcg Documented by: Epoetin Ellis (Procrit) 10,000 unit IV RIP PRN PRN Reason: hemodialysis Last Admin: 07/20/19 11:33 Dose: 10,000 unit Documented by: Sodium Chloride (Nacl 0.9%) 100 mls @ 999 mls/hr IV RIP PRN PRN Reason: Hypotension Midodrine (Proamatine) 10 mg PO TID@0800,1200,1600 [facility] Last Admin: 07/19/19 23:04 Dose: Not Given Documented by: Multivit/Ca Carb/B Cmplx/FA/Prenat (Renal Caps) 1 cap PO QDAY [facility] Last Admin: 07/19/19 08:31 Dose: 1 cap Documented by: Pantoprazole Sodium (Protonix) 40 mg PO QDAY [facility] Last Admin: 07/20/19 09:19 Dose: 40 mg Documented by: Trazodone HCl (Desyrel) 75 mg PO QHS [facility] Last Admin: 07/19/19 23:06 Dose: 75 mg Documented by: Warfarin Sodium (Coumadin) 10 mg PO DAILY@1700 [facility] Last Admin: 07/19/19 15:32 Dose: 10 mg Documented by: Warfarin Sodium (Coumadin) 5 mg PO DAILY@1700 [facility] Last Admin: 07/19/19 15:31 Dose: Not Given Documented by: Exam - Constitutional Vitals: Temp Pulse Resp BP Pulse Ox 98.2 F 79 16 129/43 100 07/20/19 13:45 07/20/19 13:45 07/20/19 13:45 07/20/19 13:45 07/20/19 07:00 Results - Labs CBC & Chem 7: 07/15/19 16:04 07/15/19 16:04 Labs: Abnormal lab results 07/20/19 Range/Units 07:03 PT 16.0 H (12.2-14.9) Sec. INR 1.31 H (0.87-1.13)
[2019-07-20] MEDS: Renal Caps PO SCH (16:36)
[2019-07-20] MEDS: COUMADIN PO SCH ×2 (16:37→21:43)
[2019-07-20] MEDS: ROCALTROL PO SCH (16:38)
--- NOTE | 2019-07-20 17:48 | Cat Scan Report ---
CT ABDOMEN AND PELVIS WITHOUT CONTRAST HISTORY: Pelvic and abdominal pain COMPARISON: None TECHNIQUE: Routine abdominal and pelvic CT exam performed without contrast. Lack of intravenous cont rast limits evaluation of the vascular and solid organs.. All CT scans at this location are performed using CT dose reduction for ALARA by means of automated exposure control. FINDINGS: CT ABDOMEN: Lung Bases: No significant abnormality. Liver: No significant abnormality. Biliary: No significant abnormality. Spleen: No significant abnormality. Unenlarged. Pancreas: No significant abnormality. Adrenals: No significant abnormality. Kidneys: Both kidneys are small and demonstrate multiple simple appearing cysts. However, there is a 3.8 x 3.3 cm lesion in the lateral right kidney that is not definitely simple. This may be a complex cyst but is indeterminate. Lymphatics: No lymphadenopathy. Vasculature: Abdominal aortic and branch vessel atherosclerotic calcifications without aortic aneurys m. Bowel/Peritoneum: No significant abnormality. No free air. No free fluid. Normal appendix. CT PELVIC: : No significant abnormality. Lymphatics: No lymphadenopathy. Osseous Structures: No aggressive appearing osseous lesions. Increased sclerosis in the bones suggest obey of renal osteodystrophy. Additional Findings: None IMPRESSION: 1. Findings indicative of chronic kidney disease including small calcified kidneys with bilateral lucas al cysts. 2. There is a complex lesion in the lateral right kidney measuring 3.8 x 3.2 cm it is not definitely a simple cyst. If there is no prior imaging available for for comparison, this might be better evalua rashaad with ultrasound to evaluate for the internal complexity. 3. Findings suggesting renal osteodystrophy in the bones. Signer Name: Valentin Kimball MD Signed: 07/20/2019 5:44 PM Workstation Name: [id number]
[2019-07-20] MEDS: DESYREL PO SCH (21:43)
[2019-07-21 07:37] LABS: INR 1.47 (0.87-1.13)
[2019-07-21] MEDS: PROAMATINE PO SCH ×3 (10:49→18:50)
[2019-07-21] MEDS: NORCO 5/325 PO PRN (10:50)
[2019-07-21] MEDS: VITAMIN B-12 PO SCH (10:50)
[2019-07-21] MEDS: PHOSLO PO SCH ×3 (10:51→18:50)
[2019-07-21] MEDS: PROTONIX PO SCH (13:38)
[2019-07-21] MEDS: ROCALTROL PO SCH (13:45)
[2019-07-21] MEDS: Renal Caps PO SCH (13:45)
--- NOTE | 2019-07-21 14:58 | Progress Note ---
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 Binders with meals * Epogen TIW prn * AM labs while inpatient on HD days * urology consult note review, recs appreciated * renally dose all medications * avoid nephrotoxins Subjective Date of service: 07/21/19 Principal diagnosis: Neuromuscular weakness Interval history: no acute concerns this am. he continues to have penile/bladder pain. urology now following with potential plan for cystoscopy. He denies any shortness of breath, chest pain, nausea, vomiting, loss of appetite, or other concerning symp toms. No issues with HD yesterday Objective - Exam Narrative Exam: General appearance: well-developed, well-nourished EENT: ATNC Respiratory: Present: Clear to Auscultation Cardiology: regular, S1S2 Gastrointestinal: normal, no tenderness, no distended Integumentary: no rash, warm and dry Neurologic: no focal deficit, alert and oriented x3 Musculoskeletal: no edema Psychiatric: cooperative - Vital Signs Vital signs: Vital Signs - 12hr 07/21/19 07/21/19 07/21/19 08:20 11:50 13:08 Temperature 97.9 F 97.8 F Pulse Rate 88 79 Respiratory 18 20 20 Rate Blood Pressure 117/38 113/27 [Left] O2 Sat by Pulse 100 96 Oximetry - Lab 07/15/19 16:04 07/15/19 16:04 Most recent lab results Calcium 8.8 mg/dL (8.4-10.2) D 07/15/19 16:04 Phosphorus 4.00 mg/dL (2.5-4.5) 07/08/19 13:36 Medications & Allergies - Medications Allergies/Adverse Reactions: Allergies No Known Allergies Allergy (Verified 06/19/19 06:20) Home Medications: Home Medications Medication Instructions Recorded Confirmed Last Taken Type Calcitriol [Rocaltrol] 0.5 mcg PO QDAY #30 capsule 07/19/19 Unknown Rx Calcium Acetate [Phoslo] 2,668 mg PO TIDWM 30 Days capsule 07/19/19 Unknown Rx Cyanocobalamin [Vitamin B-12] 1,000 mcg PO QDAY 30 Days tablet 07/19/19 Unknown Rx Epoetin Ellis 10,000 Unit [Procrit] 10,000 unit IV RIP PRN vial 07/19/19 Unknown Rx Folic Acid/Vit B Comp W-C [Renal 1 cap PO QDAY 30 Days capsule 07/19/19 Unknown Rx Caps] Midodrine [Proamatine] 10 mg PO TID@0800,1200,1600 30 07/19/19 Unknown Rx Days tablet Pantoprazole [Protonix TAB] 40 mg PO QDAY 30 Days tablet 07/19/19 Unknown Rx Warfarin [Coumadin] 5 mg PO DAILY@1700 30 Days tablet 07/19/19 Unknown Rx Warfarin [Coumadin] 10 mg PO DAILY@1700 30 Days tablet 07/19/19 Unknown Rx Active Medications: Generic Name Dose Route Start Last Admin Trade Name Freq PRN Reason Stop Dose Admin Acetaminophen 650 mg 07/07/19 16:00 Tylenol PO Q4H PRN Pain MILD(1-3)/Fever >100.5/BANDA Acetaminophen/Hydrocodone Bitart 1 each 07/18/19 22:47 07/21/19 10:50 [place] 5/325 PO 1 each Q6H PRN Administration Pain, Moderate (4-6) Albuterol 2.5 mg 07/17/19 11:31 Proventil IH Q4HRT PRN Shortness Of Breath Bisacodyl 10 mg 07/07/19 16:00 Dulcolax [place] QDAY PRN Constipation unrelieved by MOM Calcitriol 0.5 mcg 07/08/19 08:00 07/21/19 13:45 Rocaltrol PO 0.5 mcg QDAY DELMAR Administration Calcium Acetate 2,668 mg 07/09/19 17:00 07/21/19 13:38 Phoslo PO 2,668 mg TIDWM DELMAR Administration Cyanocobalamin 1,000 mcg 07/08/19 08:00 07/21/19 10:50 Vitamin B-12 PO 1,000 mcg QDAY DELMAR Administration Epoetin Ellis 10,000 unit 07/12/19 11:00 07/20/19 11:33 Procrit IV 10,000 unit RIP PRN Administration hemodialysis Sodium Chloride 100 mls @ 999 mls/hr 07/14/19 12:00 Nacl 0.9% IV RIP PRN Hypotension Midodrine 10 mg 07/14/19 12:00 07/21/19 13:38 Proamatine PO 10 mg TID@0800,1200,1600 COUNT INCLUDES [facility] Administration Multivit/Ca Carb/B Cmplx/FA/Prenat 1 cap 07/08/19 08:00 07/21/19 13:45 Renal Caps PO 1 cap QDAY DELMAR Administration Pantoprazole Sodium 40 mg 07/08/19 08:00 07/21/19 13:38 Protonix PO 40 mg QDAY COUNT INCLUDES THE [facility] Administration Trazodone HCl 75 mg 07/19/19 21:00 07/20/19 21:43 Desyrel PO 75 mg QHS [facility]CLUDES [facility] Administration Warfarin Sodium 20 mg 07/21/19 17:00 Coumadin PO DAILY@1700 [facility]CLUDES [facility]
[2019-07-21] MEDS ORDERED: COUMADIN PO SCH (17:00)
--- NOTE | 2019-07-21 17:48 | Progress Note ---
Subjective Date of service: 07/21/19 Principal diagnosis: Neuromuscular weakness Interval history: 48-year-old male with sudden inability to stand who went to the ER at [place] and was worked up. Reportedly had a fever of 102.6 at hemodialysis the Thursday prior. Blood cultures were drawn but were negative. Patient has been on hemodialysis for 28 years and has been anuric for 20 years. Further workup included looking at vitamin levels as well as nerve conduction study/EMG. We requested the results of that study however they were not made available by case management who said that she thought they it was not done, however patient confirms the test was done and he was told by the neurologist that the results showed neuropathy bilateral lower extremities worse distally than proximally. 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 Patient is a vegan and has been for the past several years. His diagnosed recently with bilateral lower extremity DVTs and is on Coumadin. He states that his home dose which gives some therapeutic is 15 mg daily. He was discharged to us on 10 mg daily. There is some confusion on report as we were told he was given his nightly dose before coming to us however he states that it was held because he was supratherapeutic. He continues to be supratherapeutic and will monitor his PT/INR restart ac cordingly. Dosing difference likely due in part to his dietary availability which is different than what he is eating at home currently. He also has a history of recent falls for which he started utilizing a RW and PT. Patient was DC'd home Thursday however he is still here due to pain. States it is stable currently. In NAD. Now scheduled for procedure with Dr Thompson. NPO at NH. CT ordered by Dr Thompson was reviewed - no acute findings. Patient has completed therapy and is by all accounts doing fairly well. Is not participating in therapy now since he was discharged. Since the patient is finished with therapy we may need to discharge him and have him follow-up with medicine on the acute care side. As far as INR, increased slightly with 20mg coumadin. Asked nursing not to hold when attempting to give extra dose. Will give another 20mg tonight. All records, vitals, labs and medications were reviewed. No other issues per patient, nursing or therapy. PLAN for THURSDAY: Urology procedure Recovery Hemodialysis IF no other issues from Urology - DC home after HD. IF there are other issues that urology needs to address, DC to acute care side of hospital. Objective - Exam Narrative Exam: MUSCULOSKELETAL SPECIALTY EXAM CONSTITUTIONAL: Well developed, well nourished, appropriately groomed, obese, NAD EENT: EOMI. Hearing intact to soft voice RESPIRATORY: Clear to auscultation bilaterally, no increased work of breathing CARDIOVASCULAR: Regular Rate/ Rhythm, edema or tenderness in BUE or BLE. All extremities warm. GI: + bowel sounds, soft, NTTP, nondistended. INTEGUMENTARY: Normal, no lesion, rash, masses or bruising noted in extremities. Bilateral upper extremity vascular access scars MUSCULOSKELETAL: BUE and BLE normal without defect, crepitus, subluxation, effusion, arthritic changes or TTP. BUE 5/5, good ROM, with normal tone. BLE 4+/5 good ROM, with normal tone NEURO: CN 2-12 grossly intact. Sensation intact in all extremities. No tremor noted in 4 extremities. PSYCH: Alert, oriented x3, affect appears normal. Insight appears intact. - Constitutional Vitals: Vital Signs - 12hr 07/21/19 07/21/19 07/21/19 08:20 11:50 13:08 Temperature 36.6 C 36.6 C Pulse Rate 88 79 Respiratory 18 20 20 Rate Blood Pressure 117/38 113/27 [Left] O2 Sat by Pulse 100 96 Oximetry - Allied health notes FIMS assessment as documented by PT/OT/ST: Grooming Patient cleans teeth/dentures: Yes Patient lopez/brushes hair: Yes Patient washes, rinses and Yes dries face: Patient washes, rinses and Yes dries hands: Patient shaves: No Patient applies make-up: No Patient performs (no make-up/ 4/4 (100%) shaving): Grooming FIM Score 6. Modified [place] (Needs equipment/device . Extra time.) Toileting Toileting Device Commode over Toilet,Grab Bar Patient able to: Adjust clothes before,Clean self,Adjust clothes after Patient able to perform: 3/3 (100%) Toileting FIM Score 6. Modified [place] (Needs equip. or prosth ./orth.) Social interaction/Memory/Problem solving Social Interaction FIM Score 7. Complete [place] (Interacts appropriately. Controls temper.) Memory FIM Score 7. Complete [place] (Remembers people and routines.) Problem Solving FIM Score 7. Complete [place] (Solves complex problems. Self corrects.) Transfers Mode of Locomotion: Walking Bed/Chair/Wheelchair Transfers 7. Complete [place] (Walking: Stands. W/C: FIM Score Locks brakes, pivots.) Toilet Transfers FIM Score 5. Supervision (Needs supervision or cueing.) Patient transferred to: Shower Shower Transfers FIM Score 5. Supervision (Needs supv. or set-up with device.) Locomotion- Stairs Device used on Stairs Handrail/s Number of Stairs Ascended/ 16 Descended Patient used handrail/support: Yes Stairs FIM Score 6. Modified [place] (12-14 stairs using handrail/support.) Locomotion- walk/wheelchair Most Frequent Mode of Walking Locomotion: Ambulation Distance 200 Walking FIM Score 7. Complete [place] (150 ft. or more, safely with no device.) Wheelchair Propulsion Distance 340 Wheelchair FIM Score 6. Modified [place] (Wheels a minimum of 150 ft.) Eating Eating Device Adjusted Table Height Eating FIM Score 6. Modified [place] (Special consistency or uses device.) Dressing-Upper body Patient retrieves clothing Yes items: Patient applies/removes UE No prosthesis or orthosis: Upper Body Dressing FIM Score 6. Modified [place] (Needs equipment, velcro or pros./orth.) Dressing-lower body Patient retrieves clothing Yes items: Patient applies/removes LE No prosthesis or orthosis: Lower Body Dressing FIM Score 5. Supv./Set-Up ([place] sets out clothes or applies pros./orth.) - Labs CBC & Chem 7: 07/15/19 16:04 07/15/19 16:04 Labs: Laboratory Results - last 72 hr 07/19/19 07/20/19 07/21/19 12:06 07:03 06:54 PT 16.5 H 16.0 H 17.5 H INR 1.37 H 1.31 H 1.47 H Assessment and Plan Patient is stable. Was discharged on Thursday but stayed due to pain. Will have a cystoscopy Thursday with Dr Thompson. Has been made NPO at NH. Plan to have HD after procedure and possibly discharge home pending condition. If further work up or procedures are indicated, will discharge to acute care side of hospital. 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 PT & OT will work on strengthening exercises to improve functional strength including mixture of closed and open kinetic chain exercises. ESRD on HD: Consult nephrology. HD MWF. Avoid nephrotoxic medications. DVT: Continue coumadin with goal INR 2-3. Pharm consult per protocol. Patient states 15mg at home. GERD: Continue protonix, monitor Hypotension: monitor, used midodrine in past but not tolerated, will attempt again. Vit B12 deficiency: Continue replacement. Refuses IM Anemia: continue epoetin in HD. Transfused 2 units, improved Z73.6 ADL dysfunction: OT will work on improving ability to perform ADLs (including assistive devices) to increase independence and decrease caregiver burden and improve functional transfers and mobility training. R26.2 Difficulty walking: PT will work on gait training and proper use of assistive devices and advance as appropriate to use of stairs and outside ambulation on uneven surfaces. R26.81 Unsteadiness on feet: PT will work on improving static and dynamic sitting and standing balance as well as proper use of assistive devices to decrease risk of falls. R26.89 Abnormality of gait: PT will work to improve safety and efficiency of gait through neuromotor training and gait training along with instruction on proper use of assistive devices. R53.81 Debility: PT & OT will work on improving overall functional status to improve participation with ADLs, mobility and social involvement. R53.83 Fatigue: PT & OT will work on improving endurance through aerobic exercises and therapeutic activity while monitoring patients tolerance for activity and vital signs as needed. DVT ppx: Coumadin for DVT, Goal INR 2-3 Pain: Continue physical modalities in therapy and pain medications as needed to achieve functional pain control. Sleep: Monitor and address as needed. Bowel: Monitor and address as needed. Appetite: Monitor and address as needed. Discharge planning: DC Thursday. Will continue discussion with therapy team, SW, patient and family. Restrictions/ Precautions: Falls WB status: FWB Functional Hx: ADLs: Independent Cognition: Independent Mobility: RW Barriers to Discharge: Decreased mobility and ability to perform self care, balance deficits, weakness Estimated Length of Stay: 7-10 days Discharge Destination: Home with significant other - Patient Problems (1) Neuromuscular weakness Current Visit: Yes Status: Acute (2) Anemia Current Visit: No Status: Chronic Qualifiers: Anemia type: due to chronic kidney disease Chronic kidney disease stage: on chronic dialysis Qualified Code(s): N18.6 - End stage renal disease; D63.1 - Anemia in chronic kidney disease; Z99.2 - Dependence on renal dialysis (3) End stage renal disease Current Visit: No Status: Chronic
--- NOTE | 2019-07-21 19:40 | Anesthesia Consultation ---
Anesthesia Consult and Med Hx Date of service: 07/21/19 - Airway Anesthetic Teeth Evaluation: Good ROM Head & Neck: Adequate Mental/Hyoid Distance: Adequate Mallampati Class: Class III Intubation Access Assessment: Possibly Difficult (full palacio) - Pulmonary Exam CTA: Yes - Cardiac Exam Cardiac Exam: RRR - Pre-Operative Health Status ASA Pre-Surgery Classification: ASA4 Proposed Anesthetic Plan: General - Pulmonary Hx Smoking: No Hx Respiratory Symptoms: No - Cardiovascular System Hx Hypertension: Yes Hx Heart Attack/AMI: No Hx Percutaneous Transluminal Coronary Angioplasty (PTCA): No Hx Cardia Arrhythmia: No - Central Nervous System Hx Neuromuscular Disorder: Yes (neuropathy with proximal>distal muscle weakness; improved) CVA: No - Gastrointestinal Hx Gastroesophageal Reflux Disease: No - Endocrine Hx End Stage Renal Disease: Yes (last HD 07/19/19 (MWF schedule)) Hx Liver Disease: No Hx Insulin Dependent Diabetes: No Hx Non-Insulin Dependent Diabetes: No Hx Thyroid Disease: No - Other Systems Hx Obesity: Yes - Additional Comments Anesthesia Medical History Comments: No hx anesthetic complications. Hx DVTs on coumadin with inconsistent INR.
[2019-07-21] MEDS: DESYREL PO SCH (22:00)
[2019-07-22 05:53] LABS: Calcium 8.7 mg/dL (8.4-10.2)
[2019-07-22] MEDS ORDERED: VERSED IV NR (06:00)
[2019-07-22] MEDS ORDERED: NACL 0.9% 1000 ML 1,000 ML IV SCH (06:00)
[2019-07-22] MEDS ORDERED: NACL 0.9% 1000 ML ONE (07:30)
[2019-07-22] MEDS ORDERED: VERSED ONE (07:30)
[2019-07-22] MEDS ORDERED: ZOFRAN ONE (07:30)
[2019-07-22] MEDS ORDERED: DIPRIVAN 10 MG/ML IV ONE (07:30)
[2019-07-22] MEDS ORDERED: XYLOCAINE MPF 2% ONE (07:30)
[2019-07-22] MEDS ORDERED: NEO SYNEPHRINE ONE (07:30)
[2019-07-22] MEDS ORDERED: SUBLIMAZE ONE (07:30)
[2019-07-22] MEDS ORDERED: CEFAZOLIN IV ONE (07:30)
[2019-07-22] MEDS ORDERED: Vasostrict ONE (07:30)
[2019-07-22] MEDS ORDERED: SODIUM CHLORIDE IV ONE (07:30)
[2019-07-22] MEDS ORDERED: NARCAN 0.4 MG/1 ML IV PRN (08:24)
[2019-07-22] MEDS ORDERED: ZOFRAN IV PRN (08:24)
[2019-07-22] MEDS ORDERED: PERCOCET 5/325 PO PRN (08:24)
--- NOTE | 2019-07-22 08:24 | Post Operative Note ---
Date of procedure: 07/22/19 Pre-op diagnosis: penile & abd pain Post-op diagnosis: same Findings: normal exam Procedure: cysto, cystogram Anesthesia: CASTRO Surgeon: NICK DANIELLE Pathology: none Condition: stable Disposition: PACU (macrobid & ultram on chart, ok to dc home today, appt 2-3 weeks in office)
[2019-07-22] MEDS: PHOSLO PO SCH ×3 (08:54→18:38)
[2019-07-22] MEDS: PROAMATINE PO SCH ×3 (08:55→18:36)
--- NOTE | 2019-07-22 08:59 | Operative Report ---
PREOPERATIVE DIAGNOSES: Pelvic pain, penile pain, abdominal pain. POSTOPERATIVE DIAGNOSES: Pelvic pain, penile pain, abdominal pain. PROCEDURE: Cystoscopy, cystogram. SURGEON: Sandro Thompson MD. ANESTHESIA: General. ESTIMATED BLOOD LOSS: Minimal. FLUIDS: Crystalloid. COMPLICATIONS: No complications. INDICATIONS: This patient is a 48-year-old gentleman who was admitted to the rehabilitation service for neuromuscular weakness by Dr. Luis Carlos Nagel. While on rehab floor, the patient started to experience penile and pelvic pain. He has a history of renal failure, on dialysis since the , had a kidney transplant at that time, and was rejected as well as a traumatic Che catheter placement during that admission requiring cystoscopy and Che placement. Based on that history, I obtain a CT of abdomen and pelvis suggested a nonspecific kidney mass. No other abnormalities. He presents now for surgical intervention. DESCRIPTION OF PROCEDURE: The patient was taken to the operative suite, placed in a supine position. After adequate general anesthesia, placed in a dorsal lithotomy position, prepped and draped in a sterile fashion. Pancystourethroscopy was performed with 22-Japanese Storz cystoscope, no urethral abnormalities. Prostate was moderately enlarged. The patient is anuric and has made no urine for years. Bladder, no tumors or stones, could not see his ureteral orifices due to atrophic kidneys and anuria. No tumors or stones were noted. A 16-Japanese Che catheter was replaced. Cystogram was obtained. No extravasation, no diverticula. Small caliber bladder, dye was drained. Rectal exam was benign. He was extubated and taken to recovery room in stable condition. JOB# [id number] [facility]
[2019-07-22] MEDS ORDERED: NACL 0.45% 1000 ML 1,000 ML IV SCH (09:00)
[2019-07-22 10:30] LABS: INR 1.86 (0.87-1.13)
--- NOTE | 2019-07-22 11:09 | Progress Note ---
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 Binders with meals * Epogen TIW prn * AM labs while inpatient on HD days * urology consult note review, recs appreciated * renally dose all medications * avoid nephrotoxins * stable for discharge from renal perspective Subjective Date of service: 07/22/19 Principal diagnosis: Neuromuscular weakness Interval history: no acute concerns this am. underwent cystoscopy for penile/bladder pain but was unremarkable, will be discharged today. Seen on HD- he denies any shortness of breath, chest pain, nausea, vomiting, loss of appetite, or other concerning sym ptoms. No cramping on HD. Objective - Exam Narrative Exam: General appearance: well-developed, well-nourished EENT: ATNC Respiratory: Present: Clear to Auscultation Cardiology: regular, S1S2 Gastrointestinal: normal, no tenderness, no distended Integumentary: no rash, warm and dry Neurologic: no focal deficit, alert and oriented x3 Musculoskeletal: no edema Psychiatric: cooperative - Vital Signs Vital signs: Vital Signs - 12hr 07/21/19 07/22/19 07/22/19 23:25 04:54 09:30 Temperature 97.9 F 98.3 F 96.8 F L Pulse Rate 82 81 80 Respiratory 20 20 16 Rate Blood Pressure 114/43 119/44 120/41 O2 Sat by Pulse 97 98 Oximetry 07/22/19 07/22/19 07/22/19 09:55 10:00 10:15 Temperature Pulse Rate 79 81 77 Respiratory Rate Blood Pressure 115/31 115/68 145/34 O2 Sat by Pulse Oximetry 07/22/19 07/22/19 10:30 10:45 Temperature Pulse Rate 79 85 Respiratory Rate Blood Pressure 126/36 104/35 O2 Sat by Pulse Oximetry - Lab 07/15/19 16:04 07/22/19 05:15 Most recent lab results Calcium 8.7 mg/dL (8.4-10.2) 07/22/19 05:15 Phosphorus 4.00 mg/dL (2.5-4.5) 07/08/19 13:36 Medications & Allergies - Medications Allergies/Adverse Reactions: Allergies No Known Allergies Allergy (Verified 06/19/19 06:20) Home Medications: Home Medications Medication Instructions Recorded Confirmed Last Taken Type Calcitriol [Rocaltrol] 0.5 mcg PO QDAY #30 capsule 07/19/19 Unknown Rx Calcium Acetate [Phoslo] 2,668 mg PO TIDWM 30 Days capsule 07/19/19 Unknown Rx Cyanocobalamin [Vitamin B-12] 1,000 mcg PO QDAY 30 Days tablet 07/19/19 Unknown Rx Epoetin Ellis 10,000 Unit [Procrit] 10,000 unit IV RIP PRN vial 07/19/19 U nknown Rx Folic Acid/Vit B Comp W-C [Renal 1 cap PO QDAY 30 Days capsule 07/19/19 Unknown Rx Caps] Midodrine [Proamatine] 10 mg PO TID@0800,1200,1600 30 07/19/19 Unknown Rx Days tablet Pantoprazole [Protonix TAB] 40 mg PO QDAY 30 Days tablet 07/19/19 Unknown Rx Warfarin [Coumadin] 5 mg PO DAILY@1700 30 Days tablet 07/19/19 Unknown Rx Warfarin [Coumadin] 10 mg PO DAILY@1700 30 Days tablet 07/19/19 Unknown Rx Active Medications: Generic Name Dose Route Start Last Admin Trade Name Freq PRN Reason Stop Dose Admin Acetaminophen 650 mg 07/07/19 16:00 Tylenol PO Q4H PRN Pain MILD(1-3)/Fever >100.5/BANDA Albuterol 2.5 mg 07/17/19 11:31 Proventil IH Q4HRT PRN Shortness Of Breath Bisacodyl 10 mg 07/07/19 16:00 Dulcolax DC QDAY PRN Constipation unrelieved by MOM Calcitriol 0.5 mcg 07/08/19 08:00 07/21/19 13:45 Rocaltrol PO 0.5 mcg QDAY DELMAR Administration Calcium Acetate 2,668 mg 07/09/19 17:00 07/21/19 18:50 Phoslo PO Not Given TIDWM DELMAR Cyanocobalamin 1,000 mcg 07/08/19 08:00 07/21/19 10:50 Vitamin B-12 PO 1,000 mcg QDAY DELMAR Administration Epoetin Ellis 10,000 unit 07/12/19 11:00 07/20/19 11:33 Procrit IV 10,000 unit RIP PRN Administration hemodialysis Sodium Chloride 100 mls @ 999 mls/hr 07/14/19 12:00 Nacl 0.9% IV RIP PRN Hypotension Sodium Chloride 1,000 mls @ 42 mls/hr 07/22/19 09:00 Nacl 0.45% 1000 Ml IV DIRECT DELMAR Midazolam HCl 2 mg 07/22/19 06:00 Versed IV 07/22/19 23:59 PREOP NR Midodrine 10 mg 07/14/19 12:00 07/21/19 18:50 Proamatine PO 10 mg TID@0800,1200,1600 DELMAR Administration Multivit/Ca Carb/B Cmplx/FA/Prenat 1 cap 07/08/19 08:00 07/21/19 13:45 Renal Caps PO 1 cap QDAY DELMAR Administration Naloxone HCl 0.1 mg 07/22/19 08:24 Narcan 0.4 Mg/1 Ml IV Q2MIN PRN Res Rate </= 8 or 02 SAT < 92% Ondansetron HCl 4 mg 07/22/19 08:24 Zofran IV Q8H PRN N/V unrelieved by Alexandra Oxycodone/Acetaminophen 1 tab 07/22/19 08:24 Percocet 5/325 PO Q6H PRN Pain, Moderate (4-6) Pantoprazole Sodium 40 mg 07/08/19 08:00 07/21/19 13:38 Protonix PO 40 mg QDAY DELMAR Administration Trazodone HCl 75 mg 07/19/19 21:00 07/21/19 22:00 Desyrel PO 75 mg QHS DELMAR Administration Warfarin Sodium 20 mg 07/21/19 17:00 07/21/19 18:50 Coumadin PO 20 mg DAILY@1700 DELMAR Administration
[2019-07-22] MEDS ORDERED: COUMADIN PO SCH (11:51)
[2019-07-22] MEDS ORDERED: BENADRYL IV PRN (12:00)
--- NOTE | 2019-07-22 12:01 | Discharge Summary ---
Providers - Providers Date of Admission: 07/07/19 19:31 Date of discharge: 07/22/19 Attending physician: JORGE MOMIN III, MD 07/07/19 15:34 Occupational Therapy Evaluate and Treat [CONS] Routine Comment: Reason For Exam: ADL dysfunction Physical Therapy Evaluation and Treat [CONS] Routine Comment: Reason For Exam: Mobility Dysfunction 07/07/19 16:00 Consult to Dietitian/Nutrition [CONS] Routine Physician Instructions: Reason For Exam: Reason for Consult: Diet education Consult to Physician [CONS] Routine Comment: called answ. serv. / monisha Consulting Provider: HANNA BARRERA Physician Instructions: ESRD on HD Reason For Exam: ESRD on HD 07/07/19 16:04 Consult to Case Management [CONS] Routine Services Needed at Discharge: Home Health Services Notified:: BEHAVIORAL HEALTH CASE MANAGER 07/20/19 09:43 Consult to Physician [CONS] Routine Comment: COMPLETED Consulting Provider: HARDIK CRISTINA Physician Instructions: Reason For Exam: Penile pain, urge to urinate, anuric x19yrs Primary care physician: [employer] ANALYST Hospitalization Reason for admission: Neuromuscular weakness Condition: Good Hospital course: 48-year-old male with sudden inability to stand who went to the ER at [facility] and was worked up. Reportedly had a fever of 102.6 at hemodialysis the Thursday prior. Blood cultures were drawn but were negative. Patient has been on hemodialysis for 28 years and has been anuric for 20 years. Further workup included looking at vitamin levels as well as nerve conduction study/EMG. We requested the results of that study however they were not made available by case management who said that she thought they it was not done, however patient confirms the test was done and he was told by the neurologist that the results showed neuropathy bilateral lower extremities worse distally than proximally. 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 Patient is a vegan and has been for the past several years. His diagnosed recently with bilateral lower extremity DVTs and is on Coumadin. He states that his home dose which gives some therapeutic is 15 mg daily. He was discharged to us on 10 mg daily. There is some confusion on report as we were told he was given his nightly dose before coming to us however he states that it was held because he was supratherapeutic. He continues to be supratherapeutic and will monitor his PT/INR restart accordingly. Dosing difference likely due in part to his dietary availability which is different than what he is eating at home currently. He also has a history of recent falls for which he started utilizing a RW and PT. According to the records that were able to be reviewed the patient was moderate assistance with therapy for mobility. He does have a spiral staircase and history of falls which will be difficult for him to maneuver on in his current state. However he has progressed slightly between his last records that we were given to review and his presentation. He does have deficits and we will continue to work with and will likely discharge a little bit sooner than the projected 10-14 days, likely in 7 days at this point. Patient progress well with therapy and made a quick recovery. At time of discharge with occupational therapy he was supervision or modified independent with his ADLs. He recovered his ability to walk with slight compensatory maurizio ation in his gait and continues to have bilateral hip weakness. He is able to walk without assistive device at this time but at times does need either a rolling walker are straight cane for assistance. He has a rolling walker at home and will continue using that until he improves further. During his stay his INR levels were erratic. He states that he is typically between 2 and 3 on his INR on his home dose of Coumadin at 15 mg a day. There is likely some difference in diet compared to what he is eating at home versus what he is getting here. INR 1.86 this AM after 2 days of 20mg. Will d/c on coumadin 17.5mg daily and adjust based on future INR values. Patient has a script to follow up in outpatient lab for 2 weeks of INR checks to give him time to find PCP. Patient has ESRD and can not go home on lovenox. Unable to send home on heparin drip. INR has been variable since his admission. Will be therapeutic in AM based on current dosing. Have follow up scheduled for lab draws. We had two days that he was dizzy and unable to to perform in therapy and was placed on medical hold. His blood pressures were typically low to begin with however on these days he was exceedingly low. Hemoglobin showed that he had dropped to 7.0. We transfused 2 units during a short session of dialysis and he improved and was able to return to therapy. Nephrology also started him on Midodrine for hypotension and we've seen an improvement since then. He did refuse dialysis yesterday and spoke with nephrology about this. Nephrology evaluated him today and said he will be okay to undergo dialysis tomorrow on his regular schedule at his dialysis center. Over the weekend he developed an urgency to urinate although he has been anuric for approximately 19 years. He describes this as an urgent and a fullness more so in his penis and bladder. Discussed with nephrology this morning the possibility of this being a UTI but we would obviously have no way of checking to confirm this. We treated with a dose of Rocephin IM prior to initial discharge. He continued to have pain and ended up staying. Urology was called. There workup has been NEG thusfar. After cystoscopy this AM, patient states he feels better. It appears there is also a renal U/S that was ordered and is still pending. OK to d/c after that final test with a follow up in 2-[address] Thompson. Disposition: DC- TO HOME OR SELFCARE - Discharge Diagnoses (1) Neuromuscular weakness Status: Acute (2) Anemia Status: Chronic Qualifiers: Anemia type: due to chronic kidney disease Chronic kidney disease stage: on chronic dialysis Qualified Code(s): N18.6 - End stage renal disease; D63.1 - Anemia in chronic kidney disease; Z99.2 - Dependence on renal dialysis (3) End stage renal disease Status: Chronic Core Measure Documentation - Palliative Care Palliative Care/ Comfort Measures: Not Applicable - Core Measures Any of the following diagnoses?: DVT/PE - VTE Discharge Requirements Deep Vein Thrombosis/Pulmonary Embolism Present on Admission: Yes Has pt received <5 days of overlap therapy or INR<2.0: Yes Anticoagulant overlap therapy prescribed at discharge: No Contraindication No Overlap Therapy order at DC: Not Indicated (ESRD) Exam - Physical Exam Narrative exam: MUSCULOSKELETAL SPECIALTY EXAM CONSTITUTIONAL: Well developed, well nourished, appropriately groomed, obese, NAD EENT: EOMI. Hearing intact to soft voice RESPIRATORY: Clear to auscultation bilaterally, no increased work of breathing CARDIOVASCULAR: Regular Rate/ Rhythm, edema or tenderness in BUE or BLE. All extremities warm. GI: + bowel sounds, soft, NTTP, nondistended. INTEGUMENTARY: Normal, no lesion, rash, masses or bruising noted in extremities. Bilateral upper extremity vascular access scars MUSCULOSKELETAL: BUE and BLE normal without defect, crepitus, subluxation, effusion, arthritic changes or TTP. BUE 5/5, good ROM, with normal tone. BLE 4+/5 good ROM, with normal tone NEURO: CN 2-12 grossly intact. Sensation intact in all extremities. No tremor noted in 4 extremities. PSYCH: Alert, oriented x3, affect appears normal. Insight appears intact. - Constitutional Vitals: Temp Pulse Resp BP Pulse Ox 36.0 C L 85 16 104/35 98 07/22/19 09:30 07/22/19 10:45 07/22/19 09:30 07/22/19 10:45 07/22/19 04:54 Plan Activity: advance as tolerated, fall precautions Diet: renal Special Instructions: record daily weights, record daily BP diary, physical therapy, occupational therapy Durable Medical Equipment Needed Upon Discharge: Walker-Rolling Additional Instructions: Take coumadin 17.5mg daily and adjust for INR 2-3 Follow up with: PRIMARY CARE, [Primary Care Provider] - 7 Days Forms: Warfarin Discharge Instruction Prescriptions: Warfarin [Coumadin] 10 mg PO DAILY@1700 30 Days tablet Warfarin [Coumadin] 5 mg PO DAILY@1700 30 Days tablet Calcium Acetate [Phoslo] 2,668 mg PO TIDWM 30 Days capsule Midodrine [Proamatine] 10 mg PO TID@0800,1200,1600 30 Days tablet Pantoprazole [Protonix TAB] 40 mg PO QDAY 30 Days tablet Folic Acid/Vit B Comp W-C [Renal Caps] 1 cap PO QDAY 30 Days capsule Calcitriol [Rocaltrol] 0.5 mcg PO QDAY #30 capsule Cyanocobalamin [Vitamin B-12] 1,000 mcg PO QDAY 30 Days tablet
[2019-07-22] MEDS ORDERED: NACL 0.9% 1000 ML 2,000 ML ONE (12:02)
[2019-07-22] MEDS ORDERED: NACL 0.9% 100 ML IV PRN (13:00)
[2019-07-22] MEDS: PROCRIT IV PRN (13:42)
[2019-07-22] MEDS: Renal Caps PO SCH (18:36)
[2019-07-22] MEDS: PROTONIX PO SCH (18:36)
[2019-07-22] MEDS: VITAMIN B-12 PO SCH (18:36)
[2019-07-22] MEDS: ROCALTROL PO SCH (18:37)
[2019-07-22] MEDS: COUMADIN PO SCH ×2 (18:39)
[2019-07-22] MEDS: DESYREL PO SCH (23:04)
--- NOTE | 2019-07-22 23:14 | Ultrasound Report ---
Renal ultrasound. 07/22/2019. HISTORY: Abnormal renal function. FINDINGS: Right kidney measures 11.3 cm. Left kidney measures 13.6 cm. Increased cortical echogenicit y is present bilaterally. There are benign appearing cysts bilaterally with the largest measuring 2.7 cm in the right and 3.2 c m in the left. The bladder is decompressed. IMPRESSION: Echogenic kidneys containing benign-appearing cysts typical of chronic medical renal dise ase. Signer Name: Alan Vernon MD Signed: 07/22/2019 11:10 PM Workstation Name: [id number]
[2019-07-23 07:16] LABS: INR 2.41 (0.87-1.13)
--- NOTE | 2019-07-23 08:28 | Event Note ---
Date: 07/23/19 Contacted last night. Informed that patient had slight bloody discharge from penis after procedure. Discharge stopped. Renal U/S reviewed, c/w recent CT - no acute changes. Patient refused to leave. Per nurse report, no more bloody discharge this AM. Patient states he has to have lawrence addressed before he leaves. Asked nursing to contact Dr Thompson for further instruction. Likely that some slight discharge is expected post procedure. Defer to Dr Thompson. If patient needs no further intervention, DISCHARGE home today. If patient needs further intervention we will DISCHARGE to acute care with hospitalist - discussed with Dr Davis .
[2019-07-23] MEDS: PROAMATINE PO SCH ×3 (10:15→18:01)
[2019-07-23] MEDS: VITAMIN B-12 PO SCH (10:15)
[2019-07-23] MEDS: ROCALTROL PO SCH (10:16)
[2019-07-23] MEDS: PROTONIX PO SCH (10:16)
[2019-07-23] MEDS: PHOSLO PO SCH ×3 (10:17→17:59)
[2019-07-23] MEDS: Renal Caps PO SCH (11:12)
[2019-07-23] MEDS: COUMADIN PO SCH ×2 (18:00)
[2019-07-23 18:04] VITALS: BP 140/33
== END 2019-07-23 18:50 | disposition home or self-care (01) | DRG 73 ==
LOC: 3A 14:22 → UNDOADMIN 14:22 → 3B 19:31
PROVIDERS: ADMIT Physical Medicine & Rehabilitation; ATTEND Physical Medicine & Rehabilitation
PROC: 5A1D70Z Performance of Urinary Filtration, Intermittent, Less than 6 Hours Per Day (ICD-10-PCS; principal; 2019-07-08)
PROC: 5A1D70Z Performance of Urinary Filtration, Intermittent, Less than 6 Hours Per Day (ICD-10-PCS; 2019-07-11)
PROC: 5A1D70Z Performance of Urinary Filtration, Intermittent, Less than 6 Hours Per Day (ICD-10-PCS; 2019-07-13)
PROC: 5A1D70Z Performance of Urinary Filtration, Intermittent, Less than 6 Hours Per Day (ICD-10-PCS; 2019-07-14)
PROC: 30233N1 Transfusion of Nonautologous Red Blood Cells into Peripheral Vein, Percutaneous Approach (ICD-10-PCS; 2019-07-14)
PROC: 5A1D70Z Performance of Urinary Filtration, Intermittent, Less than 6 Hours Per Day (ICD-10-PCS; 2019-07-15)
PROC: 5A1D70Z Performance of Urinary Filtration, Intermittent, Less than 6 Hours Per Day (ICD-10-PCS; 2019-07-20)
PROC: 5A1D70Z Performance of Urinary Filtration, Intermittent, Less than 6 Hours Per Day (ICD-10-PCS; 2019-07-21)
PROC: 0TJB8ZZ Inspection of Bladder, Via Natural or Artificial Opening Endoscopic (ICD-10-PCS; 2019-07-22)
PROC: BT141ZZ Fluoroscopy of Kidneys, Ureters and Bladder using Low Osmolar Contrast (ICD-10-PCS; 2019-07-22)
DX: G70.89 Other specified myoneural disorders (principal); N18.6 End stage renal disease; N25.81 Secondary hyperparathyroidism of renal origin; I12.0 Hypertensive chronic kidney disease with stage 5 chronic kidney disease or end stage renal disease; E55.9 Vitamin D deficiency, unspecified; R26.2 Difficulty in walking, not elsewhere classified; R26.89 Other abnormalities of gait and mobility; I25.10 Atherosclerotic heart disease of native coronary artery without angina pectoris; K21.9 Gastro-esophageal reflux disease without esophagitis; I95.9 Hypotension, unspecified; D63.1 Anemia in chronic kidney disease; N25.0 Renal osteodystrophy; E66.9 Obesity, unspecified; Z68.31 Body mass index [BMI] 31.0-31.9, adult; Z73.6 Limitation of activities due to disability; Z86.718 Personal history of other venous thrombosis and embolism; Z86.711 Personal history of pulmonary embolism; Z90.10 Acquired absence of unspecified breast and nipple; Z82.49 Family history of ischemic heart disease and other diseases of the circulatory system; Z83.3 Family history of diabetes mellitus; Z82.3 Family history of stroke; Z79.899 Other long term (current) drug therapy; Z79.01 Long term (current) use of anticoagulants
CPT/HCPCS: 36415; 36430; 74176; 76770; 80048; 80053; 82607; 82728; 82747; 83540; 83970; 84100; 85025; 85027; 85610; 86850; 86900; 86901; 86920; G0378; J0690; J0696; J0885; J1200; J2250; J2370; J2405; J2704; J3010; J7030; P9016

== ENCOUNTER 2019-07-22 06:54 | Day surgery (SDC) | payer MEDICARE ==
[2019-07-22] MEDS ORDERED: ANCEF/STERILE WATER 2 GM/20 ML IV NR (07:07)
[2019-07-22] MEDS ORDERED: NACL 0.9% 1000 ML 1,000 ML IV SCH (07:15)
[2019-07-22] MEDS ORDERED: ceFAZolin 1 GM in NACL 0.9% 20 ML IV ONE (07:15)
[2019-07-22] MEDS ORDERED: SUBLIMAZE IV PRN (07:20)
--- NOTE | 2019-07-22 07:26 | Anesthesia Day of Surgery ---
Anesthesia Day of Surgery - Day of Surgery Patient Examined: Yes (see anesthesia consult dated 07/21 under previous acct n genna) Patient H&P Reviewed: Yes Patient is NPO: Yes
[2019-07-22] MEDS ORDERED: SUBLIMAZE ONE (07:29)
[2019-07-22] MEDS ORDERED: DIPRIVAN 10 MG/ML IV ONE (07:29)
[2019-07-22] MEDS ORDERED: Vasostrict ONE (07:54)
[2019-07-22] MEDS ORDERED: VERSED IV NR (08:00)
[2019-07-22] MEDS ORDERED: OMNIPAQUE 300 MG/50 ML (CATH LAB) IV ONE (08:15)
[2019-07-22] MEDS ORDERED: ZOFRAN ONE (08:26)
[2019-07-22] MEDS ORDERED: XYLOCAINE MPF 2% ONE (08:27)
[2019-07-22] MEDS ORDERED: NEO SYNEPHRINE ONE (08:50)
--- NOTE | 2019-07-22 08:59 | Operative Report ---
PREOPERATIVE DIAGNOSES: Pelvic pain, penile pain, abdominal pain. POSTOPERATIVE DIAGNOSES: Pelvic pain, penile pain, abdominal pain. PROCEDURE: Cystoscopy, cystogram. SURGEON: Sandro Thompson MD. ANESTHESIA: General. ESTIMATED BLOOD LOSS: Minimal. FLUIDS: Crystalloid. COMPLICATIONS: No complications. INDICATIONS: This patient is a 48-year-old gentleman who was admitted to the rehabilitation service for neuromuscular weakness by Dr. Luis Carlos Nagel. While on rehab floor, the patient started to experience penile and pelvic pain. He has a history of renal failure, on dialysis since the , had a kidney transplant at that time, and was rejected as well as a traumatic Che catheter placement during that admission requiring cystoscopy and Che placement. Based on that history, I obtain a CT of abdomen and pelvis suggested a nonspecific kidney mass. No other abnormalities. He presents now for surgical intervention. DESCRIPTION OF PROCEDURE: The patient was taken to the operative suite, placed in a supine position. After adequate general anesthesia, placed in a dorsal lithotomy position, prepped and draped in a sterile fashion. Pancystourethroscopy was performed with 22-Slov[place] Storz cystoscope, no urethral abnormalities. Prostate was moderately enlarged. The patient is anuric and has made no urine for years. Bladder, no tumors or stones, could not see his ureteral orifices due to atrophic kidneys and anuria. No tumors or stones were noted. A 16-Slov[place] Che catheter was replaced. Cystogram was obtained. No extravasation, no diverticula. Small caliber bladder, dye was drained. Rectal exam was benign. He was extubated and taken to recovery room in stable condition. JOB# [id number] [facility]
--- NOTE | 2019-07-22 09:13 | Fluoroscopy Report ---
FLUOROSCOPY CYSTOGRAM STATIC HISTORY: Abdominal and pelvic pain COMPARISON: CT abdomen pelvis without contrast dated 07/20/2019. FINDINGS: 0.1 minutes of fluoroscopy time was provided for urology during cystogram. 3 fluoroscopic images are presented demonstrating 50 cc of Omnipaque 300 contrast agent within the bladder. There is no obvious bladder mass or bladder wall abnormality. No reflux into the distal ureters. Cystoscopy was performe d per the operative notes. Please correlate with the procedural report by Dr. Thompson. IMPRESSION: Unremarkable cystogram. Signer Name: Dawood Black Jr, MD Signed: 07/22/2019 9:09 AM Workstation Name: [id number]
[2019-07-22 10:47] VITALS: BP 109/43
--- NOTE | 2019-07-22 11:22 | Post Anesthesia Evaluation ---
- Post Anesthesia Evaluation Patient Participated: Yes Airway Patent: Yes Stable Respiratory Function: Yes Nausea/Vomiting: No Temp > 96.8F: Yes Pain Manageable: Yes Adequeate Hydration: Yes Anesthesia Complications: No
== END 2019-07-22 08:52 | disposition admitted as inpatient to this hospital (09) ==
LOC: OR 06:54
PROVIDERS: ATTEND Urology
DX: N48.89 Other specified disorders of penis (principal); R10.2 Pelvic and perineal pain; R10.9 Unspecified abdominal pain; I12.0 Hypertensive chronic kidney disease with stage 5 chronic kidney disease or end stage renal disease; N18.6 End stage renal disease; D69.6 Thrombocytopenia, unspecified; I87.1 Compression of vein; E66.9 Obesity, unspecified; Z79.899 Other long term (current) drug therapy; Z79.01 Long term (current) use of anticoagulants; Z86.711 Personal history of pulmonary embolism; Z86.718 Personal history of other venous thrombosis and embolism; Z68.30 Body mass index [BMI] 30.0-30.9, adult; Z98.890 Other specified postprocedural states
CPT/HCPCS: 51600; 52000; 74430; J0690; J2250; J2370; J2405; J2704; J3010; J7030; Q9967

== ENCOUNTER 2019-08-08 16:05 | Emergency (ER) | payer MEDICARE ==
[2019-08-08 16:49] VITALS: BP 161/49
== END 2019-08-08 18:31 | disposition left against medical advice (07) ==
LOC: ED 16:05
DX: Z99.2 Dependence on renal dialysis (principal); Z53.21 Procedure and treatment not carried out due to patient leaving prior to being seen by health care provider